=== PATIENT | male | born 1985 | race Caucasian/White ===

== ENCOUNTER 2018-02-06 15:13 | Emergency (ER) | payer BC, OTHER ==
[~2018-02-06] VITALS: Ht 190.5 cm; Wt 71.0 kg
[2018-02-06 15:18] VITALS: TEMP 36.7; Ht 190.5 cm; Wt 71.0 kg
[2018-02-06] MEDS ORDERED: SODIUM CHLORIDE 0.9% 1000ML 1,000 ML IV STA (15:38)
[2018-02-06] MEDS ORDERED: AMPICILLIN/SULBACTAM SOD INJ 3,000 MG in SODIUM CHLORIDE 0.9% 100ML 100 ML IV ONE (15:45)
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
[2018-02-06 16:22] LABS: BASO % 0.4 %; BASO ABS # 0.04 K/uL (0-0.2); EOS % 1.8 %; HEMATOCRIT 46.2 % (42-52); HEMOGLOBIN 16.4 g/dL (14.0-18.0); IG# 0.01 K/uL (0.00-0.02); LYMPH % 9.1 %; LYMPH ABS # 1.03 K/uL (1.2-3.4); MEAN CELL VOLUME 93.1 fL (80-100); MEAN CORPUSCULAR HEMOGLOBIN 33.1 pg (25-34); MEAN CORPUSCULAR HGB CONC 35.5 g/dl (32-36); MEAN PLATELET VOLUME 10.1 fL (7.4-10.4); MONO % 7.3 %; MONO ABS # 0.82 K/uL (0.11-0.59); NEUT % 81.3 %; NEUT ABS # 9.18 K/uL (1.4-6.5); PLATELET COUNT 237 K/uL (130-400); RED CELL DISTRIBUTION WIDTH CV 13.4 % (11.5-14.5); RED CELL DISTRIBUTION WIDTH SD 45.6 fL (36.4-46.3); WHITE BLOOD COUNT 11.28 K/uL (4.8-10.8)
--- NOTE | 2018-02-06 16:22 | DIAGNOSTIC IMAGING REPORT ---
L KNEE 1 OR 2 VIEWS ROUTINE CLINICAL HISTORY: 32 years-old Male presenting with eval for osteo left knee/tibfib. TECHNIQUE: Frontal and crosstable lateral views of the left knee were obtained. COMPARISON: None. FINDINGS: 3 screw fixation of the tibial plateau. Evidence of below the knee amputation with extensive deformity of the residual tibia. Ossicle along the lateral aspect of the knee joint may represent prior ligamentous injury or residual fibula. Numerous punctate metallic foreign bodies likely from prior injury. No acute fracture or malalignment. No significant osseous erosion or periosteal reaction allowing for deformity. Diffuse soft tissue swelling most prominently over the medial aspect of the knee joint. IMPRESSION: 1. No radiographic evidence of osteomyelitis allowing for extensive posttraumatic and postsurgical deformities of the below the knee amputation and internal fixation. MR would be more sensitive for the diagnosis of osteomyelitis. 2. Soft tissue swelling, nonspecific. Correlate clinically to exclude cellulitis. Electronically signed by: Kris Cordon M.D. 02/06/2018 4:21 PM Dictated Date/Time: 02/06/2018 4:18 PM
[2018-02-06 16:35] LABS: CALCIUM 9.1 mg/dl (8.5-10.1); POTASSIUM 3.9 mmol/L (3.5-5.1)
[2018-02-06 16:39] LABS: CREATININE 0.92 mg/dl (0.60-1.40)
--- NOTE | 2018-02-06 17:04 | DIAGNOSTIC IMAGING REPORT ---
EXTREMITY NONVASCULAR LIMITED CLINICAL HISTORY: 32 years-old Male presenting with eval for abscess in left leg, left below the knee indication with redness. TECHNIQUE: Real-time grayscale Doppler ultrasound imaging of the left knee was performed for a focused evaluation at the site of clinical concern. Color Doppler ultrasound imaging was also performed. COMPARISON: Plain radiograph performed the same day. FINDINGS: Extensive skin thickening and subcutaneous edema with dilated lymphatics. Regional hyperemia. No focal fluid collection. IMPRESSION: 1. No sonographic evidence of abscess. Extensive hyperemia and and edema could suggest cellulitis. Correlate clinically. Electronically signed by: Kris Cordon M.D. 02/06/2018 5:02 PM Dictated Date/Time: 02/06/2018 5:01 PM
[2018-02-06] MEDS ORDERED: AMOX875T PO (17:20)
[2018-02-06] MEDS ORDERED: SULF800T23 PO (17:20)
[2018-02-06] MEDS ORDERED: SEPTRA DS HOME PACK 1 EA VIAL PO ONE (17:30)
[2018-02-06] MEDS ORDERED: SULFAMETHOXAZOLE/TRIMETHOPRIM DS 800/160MG TAB PO ONE (17:30)
[2018-02-06] MEDS ORDERED: AMOXICIL/CLAVU 875MG HOME PACK PO ONE (17:30)
[2018-02-06 17:56] VITALS: BP 140/81; PULSE 79; O2SAT 100
== END 2018-02-06 17:58 | disposition home or self-care (01) ==
LOC: C.EDB 15:14
DX: L03.115 Cellulitis of right lower limb (principal); F17.210 Nicotine dependence, cigarettes, uncomplicated

== ENCOUNTER 2018-09-30 09:53 | Inpatient (IN) ==
[2018-09-30] MEDS ORDERED: PIPERACILLIN/TAZOBACTAM 4.5 GM/120 ML BAG IV ONE (10:21)
[2018-09-30] MEDS ORDERED: VANCOMYCIN CONSULT ACTIVE ONE (10:21)
[2018-09-30] MEDS ORDERED: VANCOMYCIN CONSULT ACTIVE PRN (10:21)
[2018-09-30] MEDS ORDERED: VANCOMYCIN HCL 1,750 MG in SODIUM CHLORIDE 0.9% 500 ML IV ONE (10:21)
[2018-09-30] MEDS ORDERED: PIPERACILL/TAZOBAC CONSULT ACTIVE PRN (10:21)
[2018-09-30 10:48] LABS: Basophils # (auto) 0.06 K/uL (0-0.2); Basophils % (auto) 0.4 %; Eosinophils # (auto) 0.05 K/uL (0-0.5); Eosinophils % (auto) 0.3 %; Hematocrit (blood only) 45.5 % (42-52); Hemoglobin 15.9 g/dL (14.0-18.0); Immature Granulocytes # (auto) 0.09 K/uL (0.00-0.02); Immature Granulocytes % (auto) 0.6 %; Lymphocytes # (auto) 1.18 K/uL (1.2-3.4); Lymphocytes % (auto) 7.2 %; Mean Corpuscular Hgb Conc 34.9 g/dL (32-36); Mean Corpuscular Volume 92.7 fL (80-100); Mean Platelet Volume 10.1 fL (7.4-10.4); Monocytes # (auto) 0.74 K/uL (0.11-0.59); Monocytes % (auto) 4.5 %; Neutrophils # (auto) 14.16 K/uL (1.4-6.5); Platelet Count 317 K/uL (130-400); RDW Standard Deviation 51.2 fL (36.4-46.3); Red Blood Count 4.91 M/uL (4.7-6.1); White Blood Count 16.28 K/uL (4.8-10.8)
[2018-09-30 10:59] LABS: INR 1.3 (0.9-1.1); Prothrombin Time 12.6 Seconds (9.0-12.0)
[2018-09-30 11:12] LABS: Albumin Level 3.3 gm/dl (3.4-5.0); BUN Creatinine Ratio 11.2 (10-20); Calcium 9.7 mg/dl (8.5-10.1); Creatinine Clr Calc Pharmacy 109.2 ml/min; Est GFR (African American) 97.7; Est GFR (Non-African American) 84.3; Magnesium 2.5 mg/dl (1.8-2.4); Potassium 3.5 mmol/L (3.5-5.1)
[2018-09-30 11:15] LABS: Albumin Globulin Ratio 0.6 (0.9-2); Globulin 5.9 gm/dl (2.5-4.0); Total Protein 9.2 gm/dl (6.4-8.2)
[2018-09-30] MEDS: SODIUM CHLORIDE 0.9% 1000ML 1,000 ML IV SCH ×2 (11:47→17:57)
[2018-09-30] MEDS ORDERED: OPTIRAY 320 125ml IV PRN (12:01)
--- NOTE | 2018-09-30 12:18 | CT Scan Report ---
CT OF THE LEFT FOREARM WITH CONTRAST CLINICAL HISTORY: Abscess. Cellulitis. COMPARISON STUDY: No previous studies for comparison. TECHNIQUE: Axial images of the left forearm were obtained following intravenous injection of 119 cc O ptiray 320 IV. Sagittal and coronal reconstructions were obtained. FINDINGS: There is no evidence for fracture or osteomyelitis within the left radius or ulna. No soft tissue gas is present. No radiopaque foreign bodies are noted. Note is made of a large extensive subc utaneous rim-enhancing fluid collection within the mid left forearm which measures 10.7 cm in length. This measures 2.6 cm in thickness and involves the anterior, lateral and posterior aspects of the le ft forearm. This contains a few septations. No additional rim-enhancing fluid collections are present . There is significant subcutaneous edema of the proximal left forearm/left elbow. No involvement of the underlying musculature is noted. The suspected abscess extends to the fascia. IMPRESSION: Large rim-enhancing subcutaneous fluid collection of the mid left forearm consistent with an abscess which measures 10.7 cm in length, 2.6 cm in thickness and involves the anterior, lateral and posterio r aspects of the left forearm. Abscess abuts the fascia. No involvement of the underlying musculature . No gas, radiopaque foreign body or evidence for osteomyelitis within the left radius or ulna. Electronically signed by: Juliocesar Peter M.D. 09/30/2018 12:16 PM
--- NOTE | 2018-09-30 13:18 | XRay Report ---
XR forearm LT 2V CLINICAL HISTORY: Soft tissue abscess COMPARISON: CT scan dated 09/30/2018 DISCUSSION: There is pronounced soft tissue swelling, corresponding to the edema and abscesses descri bed on the CT scan. There are no fractures. There are no destructive lesions to indicate osteomyeliti s. IMPRESSION: 1. No evidence of fracture 2. No evidence of osteomyelitis 3. Pronounced soft tissue swelling corresponding to the edema and abscesses described on the recent C T scan. Electronically signed by: Zaheer Bailey M.D. 09/30/2018 1:17 PM
[2018-09-30] MEDS ORDERED: KETOROLAC 30 MG/ML VIAL IV STA (13:38)
--- NOTE | 2018-09-30 13:42 | History & Physical Report ---
Date of Service September 30, 2018 Assessment & Plan (1) Abscess of left forearm: 33 M here for left forearm with cellulitis and abscess on forearm CT measuring 10.7 cm x 2.6 cm. 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 Left forearm abscess, h/o MRSA + ulcer of LT BKA - Continue vanc/zosyn - C/S ortho, they will clean out tmr - npo after midnite, hold AM heparin - pain control with non-opioids as possible: scheduled tylenol and toradol - blood cultures pending. h/o IVDA - abx as above - avoid opioids as possible, but also mindful that if opioid pain med needed, has tolerance. Methadone therapy - will need replaced, ordered to continue. - 10/01: will need to call [phone] 10/01 (open 5:30a-1:30p) "[facility]" -- will need to call to verify dosing, pt states he takes 67ml suspension. - PDMP reviewed, last buprenorphine given was in march. Do not see methadone listed there. Tobacco use - 1.5 PPD currently - nicoderm patch FEN/GI: Regular diet. NPO after midnite. DVT ppx: Heparin TID CODE STATUS: FULL DISPO: Med/surg, to OR 10/01 (2) Amputation of left lower extremity: (3) Cellulitis of left forearm: History of Present Illness Primary Care Provider: Charanjit Segura III, 33 M here for 4 day h/o redness and progressive swelling of his left forearm. Pt denies any particular h/o trauma, but does point to the left outer forearm and says there used to be a scratch there, which then began to swell starting Thursday of this week. Thursday it seemed to get better, but then yesterday and this morning it began to get worse and more painful hence coming in to the ED. He endorses severe pain at the left forearm. States he has taken nothing for pain at home as of yet. Pt denies fevers, chills, chest pain, dyspnea, headache, abdominal pain, or lesions any where else on his body. ED course: forearm CT [facility] abscess[facility], plan for [facility] clean out 10/01. Given Vanc/Zosyn. 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 Smokes 1 1/2 PPD. Drinks 1 beer per day. Last illicit drug use was 4 months ago. Goes to methadone clinic every morning for 67 mg methadone. PMH: heroin abuse and BKA LT, complicated by MRSA + ulceration. PSH: LT BKA Meds: methadone daily All: NKDA Allergies Allergy/AdvReac Type Severity Reaction Status Date / Time No Known Allergies Allergy Unverified 09/30/18 10:23 Home Medications Home Medications Medication Instructions Recorded Confirmed Type methadone 67 mg PO DAILY 09/30/18 09/30/18 History Past Med/Surg History Family History Other No significant family history Social History Current Living Situation: Parent and Family Other Information That Helps Us Care for You: No Feels Safe at Home: Yes Safety Concerns: Feels Safe At This Time Smoking Status: Current every day smoker Tobacco Type: cigarettes Cigarettes per Day: 20 Do You Dip or Chew Tobacco: No Second Hand Exposure: No Tobacco Cessation Education Requested by Patient: No Hx Alcohol Use: Yes Alcohol Intake Frequency: other Hx Substance Use: No Beliefs That Will Affect Care: None Preferred Language: Emirati Communication Ability: Effective Crew Foreman Required: No Review of Systems All systems reviewed & are unremarkable except as noted in HPI & below Physical Exam 2 Vital Signs (Past 24 Hours): Last Vital Signs Temp 36.7 C 09/30/18 10:04 Pulse 92 H 09/30/18 10:04 Resp 18 09/30/18 13:00 BP 141/84 H 09/30/18 13:00 Pulse Ox 98 09/30/18 13:00 Physical Exam: Vitals noted as above and within normal limits. GENERAL: Awake, alert, well-appearing, in no distress HENT: Normocephalic, atraumatic. EYES: Normal conjunctiva. Sclera non-icteric. EOMI. NECK: Supple. Full range of motion. no JVD RESPIRATORY: Clear to auscultation. CARDIAC: Regular rate, normal rhythm. Extremities warm and well perfused. Pulses equal. ABDOMEN: Soft, non-distended. No tenderness to palpation. Bowel sounds are normal. LOWER EXTREMITIES: S/p LT BKA. UPPER EXT: left forearm diffusely erythematous and swollen, with fluctuance in lateral and posterior forearm. Neurovascularly in tact. TTP along forearm. NEURO: No gross focal motor deficits noted. SKIN: Rash not present. No jaundice noted. ERythema and swelling of left forearm as above. Results & Data Laboratory Results 09/30/18 09/30/18 09/30/18 Range/Units 10:38 10:30 10:30 WBC (4.8-10.8) K/uL RBC (4.7-6.1) M/uL Hgb (14.0-18.0) g/dL Hct (42-52) % MCV (80-100) fL MCH (25-34) pg MCHC (32-36) g/dL RDW Std Deviation (36.4-46.3) fL RDW Coeff of Nikita (11.5-14.5) % Plt Count (130-400) K/uL MPV (7.4-10.4) fL Immature Gran % (Auto) % Neut % (Auto) % Lymph % (Auto) % Tyrrell % (Auto) % Eos % (Auto) % Baso % (Auto) % Immature Gran # (Auto) (0.00-0.02) K/uL Neut # (Auto) (1.4-6.5) K/uL Lymph # (Auto) (1.2-3.4) K/uL Tyrrell # (Auto) (0.11-0.59) K/uL Eos # (Auto) (0-0.5) K/uL Baso # (Auto) (0-0.2) K/uL PT 12.6 H (9.0-12.0) Seconds INR 1.3 H (0.9-1.1) Sodium 131 L (136-145) mmol/L Potassium 3.5 (3.5-5.1) mmol/L Chloride 95 L (98-107) mmol/L Carbon Dioxide 26 (21-32) mmol/L Anion Gap 10.0 (3-11) BUN 13 (7-18) mg/dl Creatinine 1.13 (0.6-1.4) mg/dl Est Cr Clr Drug Dosing 109.2 ml/min Est GFR ( Amer) 97.7 Est GFR (Non-Af Amer) 84.3 BUN/Creatinine Ratio 11.2 (10-20) Glucose 112 H (70-99) mg/dl POC Lactic Acid Nj 1.59 (0.90-1.70) mmol/L Calcium 9.7 (8.5-10.1) mg/dl Magnesium 2.5 H (1.8-2.4) mg/dl Total Bilirubin 1.0 (0.1-1) mg/dl AST 16 (15-37) U/L ALT 24 (12-78) U/L Alkaline Phosphatase 95 (45-117) U/L Total Protein 9.2 H (6.4-8.2) gm/dl Albumin 3.3 L (3.4-5.0) gm/dl Globulin 5.9 H (2.5-4.0) gm/dl Albumin/Globulin Ratio 0.6 L (0.9-2) Lipase 80 (73-393) U/L // Range/Units 10:30 WBC 16.28 H (4.8-10.8) K/uL RBC 4.91 (4.7-6.1) M/uL Hgb 15.9 (14.0-18.0) g/dL Hct 45.5 (42-52) % MCV 92.7 (80-100) fL MCH 32.4 (25-34) pg MCHC 34.9 (32-36) g/dL RDW Std Deviation 51.2 H (36.4-46.3) fL RDW Coeff of Nikita 15.0 H (11.5-14.5) % Plt Count 317 (130-400) K/uL MPV 10.1 (7.4-10.4) fL Immature Gran % (Auto) 0.6 % Neut % (Auto) 87.0 % Lymph % (Auto) 7.2 % Tyrrell % (Auto) 4.5 % Eos % (Auto) 0.3 % Baso % (Auto) 0.4 % Immature Gran # (Auto) 0.09 H (0.00-0.02) K/uL Neut # (Auto) 14.16 H (1.4-6.5) K/uL Lymph # (Auto) 1.18 L (1.2-3.4) K/uL Tyrrell # (Auto) 0.74 H (0.11-0.59) K/uL Eos # (Auto) 0.05 (0-0.5) K/uL Baso # (Auto) 0.06 (0-0.2) K/uL PT (9.0-12.0) Seconds INR (0.9-1.1) Sodium (136-145) mmol/L Potassium (3.5-5.1) mmol/L Chloride (98-107) mmol/L Carbon Dioxide (21-32) mmol/L Anion Gap (3-11) BUN (7-18) mg/dl Creatinine (0.6-1.4) mg/dl Est Cr Clr Drug Dosing ml/min Est GFR ( Amer) Est GFR (Non-Af Amer) BUN/Creatinine Ratio (10-20) Glucose (70-99) mg/dl POC Lactic Acid Nj (0.90-1.70) mmol/L Calcium (8.5-10.1) mg/dl Magnesium (1.8-2.4) mg/dl Total Bilirubin (0.1-1) mg/dl AST (15-37) U/L ALT (12-78) U/L Alkaline Phosphatase (45-117) U/L Total Protein (6.4-8.2) gm/dl Albumin (3.4-5.0) gm/dl Globulin (2.5-4.0) gm/dl Albumin/Globulin Ratio (0.9-2) Lipase (73-393) U/L Diagnostic Findings 09/30/[address] with Large rim-enhancing subcutaneous fluid collection of the mid left forearm consistent with an abscess which measures 10.7 cm in length, 2.6 cm in thickness and involves the anterior, lateral and posterior aspects of the left forearm. No evidence of osteomyelitis. Medications Administered Current Inpatient Medications Sodium Chloride (Nss 1000ml) 1,000 mls @ 125 mls/hr IV .Q8H CRICKET Stop: 10/30/18 10:29 Last Admin: 09/30/18 11:47 Dose: 125 mls/hr Ioversol (Optiray 320 125ml) 119 ml IV ONCE PRN PRN Reason: Interaction Checking Stop: 10/04/18 12:00 Last Admin: 09/30/18 12:01 Dose: 119 ml Ketorolac Tromethamine (Toradol) 30 mg IV NOW STA Stop: 09/30/18 13:39 Miscellaneous Information (Consult) 1 ea N/A UD PRN PRN Reason: Consult Stop: 10/30/18 10:20 Miscellaneous Information (Consult) 1 ea N/A UD PRN PRN Reason: Consult Stop: 10/30/18 10:20 ECG Rhythm: sinus rhythm Code Status & VTE Plan Code Status FULL Supervising Physician Co-Signing Physician Notes I personally examined the patient and verified all gaitan points of history and exam, discussed case, and agree with decision making with Dr Foreman arm swelling redness and pain - started a few days ago then really blossomed. pain seems reasonable now notes that swelling has actually already started to go down vitals noted nad L arm large area of erythema essentially circumferential for forearm, tracking up medial and posterior arm as well. large area of fluctuance mid forearm as well. hand n/v intact good cap refill sepsis, cellulitis, abscess L arm (SIRS are HR on arrival, WBC) - agree vanc and zosyn for now. serial exams. ortho for drainage. otherwise as above Resident Activity Tracking Resident Involvement: Resident Care Provided Care Provided: Adult Hospital Medicine
[2018-09-30] MEDS ORDERED: NICOTINE 21 MG/24 HR TDSY TD SCH (16:00)
[2018-09-30] MEDS ORDERED: MAGNESIUM HYDROXIDE SUSP 30 ML UDC PO PRN (16:22)
[2018-09-30] MEDS ORDERED: ALUMINUM/MAGNESIUM SUSP 30 ML UDC PO PRN (16:22)
[2018-09-30] MEDS ORDERED: ONDANSETRON INJ 2 MG/ML 2 ML VIAL IV PRN (16:22)
[2018-09-30] MEDS ORDERED: POLYETHYLENE (MIRALAX) 17 GM PACK PO PRN (16:22)
[2018-09-30] MEDS: ACETAMINOPHEN 325 MG TAB PO SCH ×2 (17:56→23:22)
[2018-09-30] MEDS: PIPERACILLIN/TAZOBACTAM 3.375 GM in DEXTROSE 5% 100 ML IV SCH (17:56)
[2018-09-30] MEDS: VANCOMYCIN HCL 1,250 MG in SODIUM CHLORIDE 0.9% 250 ML IV SCH (19:58)
--- NOTE | 2018-09-30 20:25 | Pharmacy Report ---
Pharmacy Abx Initial Consult - Date of Service September 30, 2018 - Pharmacy Dosing Scope Date of Consult: 09/30/18 Consultation requested by: Dr. Greg Foreman Pharmacy is consulted to initiate Vancomycin and Zosyn IV dosing therapy, order appropriate labs and adjust drug dose/frequency. - Subjective The patient is a 33 year old M admitted on 09/30/18 14:29. - Objective Height: 6 ft 3 in Weight: 83.8 kg Vital Signs (Past 12hrs): Vital Signs Temp Pulse Pulse Resp BP BP Pulse Ox 09/30/18 16:15 36.5 C 78 18 109/69 98 09/30/18 13:00 18 141/84 H 98 09/30/18 10:04 36.7 C 92 H 20 159/89 H 98 Pulse Ox 09/30/18 16:15 98 09/30/18 13:00 09/30/18 10:04 Lab Results (24hrs): Laboratory Tests (24 Hours) 09/30/18 09/30/18 10:30 10:30 WBC 16.28 H Neut # (Auto) 14.16 H Creatinine 1.13 Est Cr Clr Drug Dosing 109.2 Micro Results: 09/30/18 12:20 Blood Culture - Pending Blood 09/30/18 10:30 Blood Culture - Pending Blood - Risk Factors for Resistance * H/o of IVDA; last use about 4 months ago. * Left BKA with h/o MRSA IN 2017. - Assessment & Plan Assessment 33 year old M admitted with redness and progressive swelling of left forearm over the last 4 days. No trauma apparent, but patient reports there was a scratch on his outer forearm prior to onset of symptoms. Forearm CT shows abscess. Assessed by Ortho, plan for OR clean out 10/01. Plan Vancomycin and Zosyn for treatment of skin and soft tissue infection with history of MRSA. Vancomycin IV * Estimated PK Parameters: Vd 0.7 L/kg, Jose Enrique 0.087 hr-1, t1/2 8 hr * Loading dose: 1750 mg (~21 mg/kg) x 1 dose in the ED * Maintenance dose: 1250 mg IV (~15 mg/kg) every 10 hours * Goal trough level : 15 to 20 mcg/mL * Trough level ordered for 10/02/18 Piperacillin/tazobactam * 4.5 g bolus administered over 30 minutes, then 3.375 g IV extended infusion every 8 hours for CrCl greater than 20 mL/min. Pharmacy will continue to follow and will adjust dose/frequency as necessary. Thank you.
[2018-09-30] MEDS ORDERED: HEPARIN SOD 5,000 UNIT/0.5 ML VIAL SQ SCH (21:00)
[2018-09-30] MEDS: KETOROLAC TROMETHAMINE 15 MG/ML VIAL IV PRN (21:23)
[2018-10-01] MEDS: SODIUM CHLORIDE 0.9% 1000ML 1,000 ML IV SCH ×2 (01:17→09:47)
[2018-10-01] MEDS: PIPERACILLIN/TAZOBACTAM 3.375 GM in DEXTROSE 5% 100 ML IV SCH ×2 (01:55→10:35)
[2018-10-01] MEDS: KETOROLAC TROMETHAMINE 15 MG/ML VIAL IV PRN ×2 (04:03→10:38)
[2018-10-01] MEDS: ACETAMINOPHEN 325 MG TAB PO SCH ×4 (04:03→20:08)
[2018-10-01] MEDS: VANCOMYCIN HCL 1,250 MG in SODIUM CHLORIDE 0.9% 250 ML IV SCH ×2 (05:49→14:41)
[2018-10-01 08:06] LABS: Basophils # (auto) 0.06 K/uL (0-0.2); Basophils % (auto) 0.4 %; Eosinophils # (auto) 0.13 K/uL (0-0.5); Hemoglobin 13.3 g/dL (14.0-18.0); Immature Granulocytes # (auto) 0.08 K/uL (0.00-0.02); Immature Granulocytes % (auto) 0.6 %; Lymphocytes # (auto) 1.18 K/uL (1.2-3.4); Lymphocytes % (auto) 8.6 %; Mean Corpuscular Hgb Conc 34.1 g/dL (32-36); Mean Corpuscular Volume 93.1 fL (80-100); Mean Platelet Volume 9.7 fL (7.4-10.4); Monocytes # (auto) 1.07 K/uL (0.11-0.59); Monocytes % (auto) 7.8 %; Neutrophils # (auto) 11.14 K/uL (1.4-6.5); Neutrophils % (auto) 81.6 %; Platelet Count 292 K/uL (130-400); RDW Coefficient of Variation 15.1 % (11.5-14.5); RDW Standard Deviation 51.5 fL (36.4-46.3); Red Blood Count 4.19 M/uL (4.7-6.1); White Blood Count 13.66 K/uL (4.8-10.8)
[2018-10-01 08:17] LABS: INR 1.3 (0.9-1.1); Prothrombin Time 12.5 Seconds (9.0-12.0)
[2018-10-01 08:46] LABS: BUN Creatinine Ratio 10.1 (10-20); Calcium 8.1 mg/dl (8.5-10.1); Creatinine Clr Calc Pharmacy 115.3 ml/min; Est GFR (African American) 104.4; Est GFR (Non-African American) 90.1; Potassium 3.7 mmol/L (3.5-5.1)
[2018-10-01] MEDS: PATIENT'S OWN CONTROLLED MED PO SCH (09:46)
[2018-10-01] MEDS: METHADONE ORAL SOLN 2 MG/ML PO SCH (09:46)
[2018-10-01] MEDS: NICOTINE 21 MG/24 HR TDSY TD SCH (09:47)
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
[2018-10-01] MEDS ORDERED: BUPIVACAINE 0.5 % 5 MG/1 ML MPF 30ML VIAL ONE (15:53)
[2018-10-01] MEDS ORDERED: BACITRACIN INJ 50,000 UNIT VIAL ONE (15:53)
[2018-10-01] MEDS ORDERED: PROPOFOL IV EMULSION 10 MG/ML 20 ML VIAL IV ONE (16:28)
[2018-10-01] MEDS ORDERED: ONDANSETRON INJ 2 MG/ML 2 ML VIAL ONE (16:28)
[2018-10-01] MEDS ORDERED: LIDOCAINE HCL 2% 2 ML VIAL/AMP(20MG/ML) INFIL ONE (16:28)
[2018-10-01] MEDS ORDERED: fentaNYL citrate 100 MCG/2 ML VIAL ONE ×2 (16:29→17:39)
[2018-10-01] MEDS ORDERED: MIDAZOLAM HCL 1 MG/ML 2ML VIAL ONE (16:29)
--- NOTE | 2018-10-01 16:46 | Anesthesiology Consultation ---
Date of Service October 01, 2018 Assessment & Plan Consults Requested medical & cardiac Pulmonary ASA [id number] Proposed Anesthesia Anesthesia Type: General NPO Date Last Intake of Fluids: 10/01/18 Time Last Intake of Fluids: 04:00 Last Intake of Fluids Comment: 30 Date Last Intake of Solids: 09/30/18 Time Last Intake of Solids: 23:30 History Surgery Operation Date: 10/01/18 07:00 Proposed Procedures p Left Forearm Incision and Drainage - Arturo Moreno DO Height/Weight Height: 6 ft 3 in Weight: 83.8 kg Allergies Allergy/AdvReac Type Severity Reaction Status Date / Time No Known Allergies Allergy Unverified 09/30/18 10:23 Medications Home Medications Medication Instructions Recorded Confirmed Last Taken methadone 67 mg PO DAILY 09/30/18 09/30/18 09/30/18 Active Medications Generic Name Dose Route Start Last Admin Trade Name Freq PRN Reason Stop Dose Admin Acetaminophen 650 mg 09/30/18 18:00 10/01/18 13:58 Tylenol PO 10/30/18 17:59 650 mg Q5H CRICKET Administration Heparin Sodium (Porcine) 5,000 units 09/30/18 21:00 09/30/18 20:02 Heparin Sodium (Porcine) SQ 10/30/18 20:59 5,000 units Q12 CRICKET Administration Sodium Chloride 1,000 mls @ 125 mls/hr 09/30/18 10:30 10/01/18 09:47 Nss 1000ml IV 10/30/18 10:29 125 mls/hr .Q8H CRICKET Administration Piperacillin Sod/Tazobactam 115 mls @ 28.75 mls/hr 09/30/18 18:00 10/01/18 14 :41 Sod 3.375 gm/ Dextrose IV 10/10/18 17:59 Infused Q8H CRICKET Infusion Protocol Vancomycin HCl 1,250 mg/ 275 mls @ 125 mls/hr 10/01/18 14:00 10/01/18 14:41 Sodium Chloride IV 10/10/18 19:59 125 mls/hr Q8H CRICKET Administration Ioversol 119 ml 09/30/18 12:01 09/30/18 12:01 Optiray 320 125ml IV 10/04/18 12:00 119 ml ONCE PRN Administration Interaction Checking Ketorolac Tromethamine 15 mg 09/30/18 16:22 10/01/18 10:38 Toradol IV 10/05/18 16:21 15 mg Q6H PRN Administration Pain Methadone HCl 67 mg 10/01/18 09:00 10/01/18 09:46 Methadone Hcl PO 10/15/18 08:59 67 mg DAILY CRICKET Administration Miscellaneous 1 ea 09/30/18 21:00 09/30/18 20:04 Remove Nicoderm Patch N/A 10/30/18 20:59 Not Given HS CRICKET Nicotine 21 mg 10/01/18 09:00 10/01/18 09:47 Nicoderm Cq TD 10/31/18 08:59 Not Given QAM CRICKET Non-Formulary Medication 1 ea 10/01/18 09:00 10/01/18 09:46 Patient's Own Controlled Med PO 10/15/18 08:59 Not Given DAILY CRICKET Past Medical History Medical History Amputation of left lower extremity Past Family History Family History Other No significant family history Social History Smoking Status: Current every day smoker tobacco type: cigarettes Smoking cigarettes per day: 20 Do You Dip or Chew Tobacco: No Hx Alcohol Use: Yes alcohol intake frequency: other Alcohol Intake Frequency Comment: 2 a week Hx Substance Use: No Physical Exam Vital Signs Last Vital Signs Temp 36.9 C 10/01/18 15:11 Pulse 73 10/01/18 15:11 Resp 20 10/01/18 15:11 BP 115/69 10/01/18 15:11 Pulse Ox 95 10/01/18 15:11 Testing Laboratory Results 10/01/18 07:50 10/01/18 07:50 PT 12.5 Seconds (9.0-12.0) H 10/01/18 07:50 INR 1.3 (0.9-1.1) H 10/01/18 07:50
--- NOTE | 2018-10-01 17:01 | Orthopedic Consultation ---
Date of Consultation October 01, 2018 Assessment & Plan (1) Abscess of left forearm: I have indicated the patient for irrigation debridement of the left forearm, possible wound VAC application, the risks, benefits, complications of the procedure as well as alternatives were explained and the patient and they include however not limited to infection, acute blood loss, blood clots, injury to surrounding nerves, bone, soft tissue, vessels, chronic pain, need for repeat surgery, compartment syndrome, loss of function, loss of limb, cardiac and pulmonary events and . N.p.o. Nonweightbearing left upper extremity Ice and elevation Continue with IV antibiotics vancomycin and Zosyn History of Present Illness Reason for Consultation: Left arm abscess Attending Physician: Angel Velarde DO History of Present Illness The patient is a 33-year-old male with past medical history significant for IVDA , on methadone, last IV drug use reported 4 months prior. Presents with worsening pain and swelling to his left upper extremity which started 1 week prior he reports. He had a scrape overlying the dorsal aspect of the lower one third forearm however does not recall how he obtained it. Over the last week the patient has reported increased swelling and pain in redness. Currently denies fevers chills nausea vomiting shortness breath chest pain. Has a history of MRSA. Allergies Allergy/AdvReac Type Severity Reaction Status Date / Time No Known Allergies Allergy Unverified 09/30/18 10:23 Home Medications Home Medications Medication Instructions Recorded Confirmed Type methadone 67 mg PO DAILY 09/30/18 09/30/18 History Patient History Medical History Amputation of left lower extremity Family History Other No significant family history Social History Current Living Situation: Parent and Family Other Information That Helps Us Care for You: No Feels Safe at Home: Yes Safety Concerns: Feels Safe At This Time Smoking Status: Current every day smoker Tobacco Type: cigarettes Cigarettes per Day: 20 Do You Dip or Chew Tobacco: No Hx Alcohol Use: Yes Alcohol Intake Frequency: other Hx Substance Use: No Beliefs That Will Affect Care: None Preferred Language: Burmese Communication Ability: Effective Tractor Trailer Technician Required: No Review of Systems Constitutional: as per Subjective / HPI Physical Exam 2 Vital Signs (Past 24 Hours): Last Vital Signs Temp 36.9 C 10/01/18 15:11 Pulse 73 10/01/18 15:11 Resp 20 10/01/18 15:11 BP 115/69 10/01/18 15:11 Pulse Ox 95 10/01/18 15:11 Physical Exam: No apparent distress, alert and oriented x3 Left upper extremity is neurovascular sensory intact, + median/ulnar/radial/AIN/ PIN, sensory intact light touch grossly, motor strength limited secondary to pain, painless range of motion of the wrist and elbow, no effusion noted, large fluctuant mass overlying the middle one third dorsal aspect of the forearm measuring 8 cm x 5 cm with a eschar forming, fluctuance is appreciated overlying the lateral forearm to the volar aspect of the arm, there is a 5 x 5 cm fluctuant mass on the volar aspect of the middle one third forearm. A small eschar is forming over the volar mass. There is no active drainage, there is extensive erythema circumferentially from the distal one third forearm, does not include the wrist joint extending up proximal to the elbow. Results & Data Diagnostic Findings XR forearm LT 2V CLINICAL HISTORY: Soft tissue abscess COMPARISON: CT scan dated 09/30/2018 DISCUSSION: There is pronounced soft tissue swelling, corresponding to the edema and abscesses described on the CT scan. There are no fractures. There are no destructive lesions to indicate osteomyelitis. IMPRESSION: 1. No evidence of fracture 2. No evidence of osteomyelitis 3. Pronounced soft tissue swelling corresponding to the edema and abscesses described on the recent CT scan. CT OF THE LEFT FOREARM WITH CONTRAST CLINICAL HISTORY: Abscess. Cellulitis. COMPARISON STUDY: No previous studies for comparison. TECHNIQUE: Axial images of the left forearm were obtained following intravenous injection of 119 cc Optiray 320 IV. Sagittal and coronal reconstructions were obtained. FINDINGS: There is no evidence for fracture or osteomyelitis within the left radius or ulna. No soft tissue gas is present. No radiopaque foreign bodies are noted. Note is made of a large extensive subcutaneous rim-enhancing fluid collection within the mid left forearm which measures 10.7 cm in length. This measures 2.6 cm in thickness and involves the anterior, lateral and posterior aspects of the left forearm. This contains a few septations. No additional rim- enhancing fluid collections are present. There is significant subcutaneous edema of the proximal left forearm/left elbow. No involvement of the underlying musculature is noted. The suspected abscess extends to the fascia. IMPRESSION: Large rim-enhancing subcutaneous fluid collection of the mid left forearm consistent with an abscess which measures 10.7 cm in length, 2.6 cm in thickness and involves the anterior, lateral and posterior aspects of the left forearm. Abscess abuts the fascia. No involvement of the underlying musculature. No gas, radiopaque foreign body or evidence for osteomyelitis within the left radius or ulna.
[2018-10-01] MEDS ORDERED: DEXAMETHASONE SOD INJ 4 MG/ML VIAL IV PRN (17:02)
[2018-10-01] MEDS ORDERED: ATROPINE SULFATE 0.1 MG/ML 5ML SYR IV PRN (17:02)
[2018-10-01] MEDS ORDERED: HYDROmorphone INJ 2 MG/ML SYR/VIAL IV PRN (17:02)
[2018-10-01] MEDS ORDERED: ePHEDrine sulfate 50 MG/ML AMP IV PRN (17:02)
[2018-10-01] MEDS ORDERED: KETOROLAC 30 MG/ML VIAL IV PRN (17:02)
[2018-10-01] MEDS ORDERED: ONDANSETRON INJ 2 MG/ML 2 ML VIAL IV PRN (17:02)
--- NOTE | 2018-10-01 18:21 | Post Operative Brief Note ---
Immediate Post Op Note v1 Date of Surgery October 01, 2018 Pre & Post Diagnosis Operation Date: 10/01/18 07:00 Pre-Op Diagnosis: LEFT FOREARM ABSCESS Post-Op Diagnosis: LEFT FOREARM ABSCESS Procedure Operation Date: 10/01/18 07:00 Actual Procedures p Left Forearm Incision and Drainage with wound vac application - Austin Harp DO Surgeon Austin Harp DO Trailer Sections Assembler none Estimated Blood Loss 40 Findings Consistent with Post-Op Diagnosis Fluids 500 Specimens wound culture, dorsal forearm x 2 wound culture, volar forearm x 2 Drains Other (wound vac x 2, left forearm) Anesthesia Type General Complications none Disposition Disposition: Recovery Room Overlapping Procedure I was present for: the critical portions of procedure. I was immediately available: during the entire case. Back up surgeon: was not required during procedure.
[2018-10-01] MEDS: fentaNYL citrate 100 MCG/2 ML VIAL IV PRN ×4 (18:30→18:45)
[2018-10-01] MEDS ORDERED: NALOXONE HCL 0.4 MG/1 ML VIAL/CARP IV PRN (18:49)
[2018-10-01] MEDS ORDERED: MoRPHine SULFATE 4 MG/ML 1 ML CARP\\VIAL IV PRN (18:49)
--- NOTE | 2018-10-01 18:56 | Orthopedic Progress Note ---
Date of Service October 01, 2018 Assessment & Plan (1) Abscess of left forearm: Status post irrigation and debridement of the left volar and dorsal forearm abscess, application of wound VAC x2 -Continue with IV antibiotics, vancomycin and Zosyn -Consult infectious disease for antibiotic recommendation -Consult pain management -Nonweightbearing left upper extremity -PT/OT -Ice and elevation of left upper extremity -A.m. labs -Monitor wound VAC output Subjective Postoperative progress note The patient was seen in PACU, awake alert oriented, slight agitation, complaining of pain, denies fevers chills nausea vomiting shortness breath or chest pain. Constitutional: as per Subjective / HPI Physical Exam 2 Vital Signs (Past 24 Hours): Last Vital Signs Temp 36.4 C L 10/01/18 18:26 Pulse 92 H 10/01/18 18:45 Resp 18 10/01/18 18:45 BP 119/83 10/01/18 18:45 Pulse Ox 97 10/01/18 18:45 Physical Exam: Left upper extremity is neurovascular and sensory intact, + median/ulnar/radial/AIN/PIN, actively moves all 5 digits, capillary refill less than 2 seconds sensory intact to light touch grossly.
[2018-10-01] MEDS: HYDROmorphone HCL 2 MG TAB PO PRN (20:06)
--- NOTE | 2018-10-01 20:17 | Anesthesiology Progress Note ---
Date of Service October 01, 2018 Anesthesia Post Procedure Vital Signs Vital Signs: Temp Pulse Pulse Pulse Resp BP Pulse Ox 10/01/18 19:55 36.6 C 86 20 131/76 95 10/01/18 19:36 36.7 C 89 16 133/78 95 10/01/18 19:10 89 18 134/78 96 10/01/18 18:55 36.4 C L 86 18 140/87 96 10/01/18 18:45 92 H 18 119/83 97 10/01/18 18:35 87 20 142/86 H 100 10/01/18 18:26 36.4 C L 93 H 20 137/87 96 10/01/18 15:11 36.9 C 73 20 115/69 95 10/01/18 07:32 36.6 C 71 16 114/72 96 09/30/18 22:57 36.8 C 75 14 101/63 95 Pain Intensity Left Arm: Pain Intensity: 10 Notes Mental Status: alert / awake / arousable and participated in evaluation Patient Amnestic to Procedure: Yes Nausea / Vomiting: adequately controlled Pain: adequately controlled Airway Patency, RR, SpO2: stable & adequate BP & HR: stable & adequate Hydration State: stable & adequate Anesthetic Complications: no major complications apparent
[2018-10-01] MEDS: POTASSIUM CHLORIDE 10 MEQ in SODIUM CHLORIDE 0.9% 1000ML 1,000 ML IV SCH (20:22)
[2018-10-01] MEDS: ACETAMINOPHEN 1,000 MG/100 ML VIAL IV SCH (20:23)
[2018-10-01] MEDS: DOCUSATE SODIUM 100 MG CAP PO SCH (20:24)
[2018-10-01] MEDS: SENNA 8.6 MG TAB PO SCH (20:24)
[2018-10-02] MEDS: HYDROmorphone HCL 2 MG TAB PO PRN ×9 (00:28→22:33)
[2018-10-02] MEDS: SODIUM CHLORIDE 0.9% 1000ML 1,000 ML IV SCH (00:30)
[2018-10-02] MEDS: VANCOMYCIN HCL 1,250 MG in SODIUM CHLORIDE 0.9% 250 ML IV SCH ×3 (00:33→17:05)
[2018-10-02] MEDS: PIPERACILLIN/TAZOBACTAM 3.375 GM in DEXTROSE 5% 100 ML IV SCH ×3 (00:36→17:43)
[2018-10-02] MEDS ORDERED: VANCOMYCIN TROUGH ONE ×4 (01:30→15:30)
[2018-10-02] MEDS: ACETAMINOPHEN 1,000 MG/100 ML VIAL IV SCH ×2 (04:36→12:04)
[2018-10-02 06:19] LABS: Basophils # (auto) 0.07 K/uL (0-0.2); Basophils % (auto) 0.6 %; Eosinophils # (auto) 0.28 K/uL (0-0.5); Eosinophils % (auto) 2.4 %; Hematocrit (blood only) 36.8 % (42-52); Hemoglobin 12.6 g/dL (14.0-18.0); Immature Granulocytes % (auto) 0.9 %; Lymphocytes # (auto) 1.46 K/uL (1.2-3.4); Lymphocytes % (auto) 12.6 %; Mean Corpuscular Hgb Conc 34.2 g/dL (32-36); Mean Corpuscular Volume 93.6 fL (80-100); Mean Platelet Volume 9.8 fL (7.4-10.4); Monocytes # (auto) 0.82 K/uL (0.11-0.59); Monocytes % (auto) 7.1 %; Neutrophils # (auto) 8.82 K/uL (1.4-6.5); Neutrophils % (auto) 76.4 %; Platelet Count 281 K/uL (130-400); RDW Coefficient of Variation 15.5 % (11.5-14.5); RDW Standard Deviation 53.8 fL (36.4-46.3); Red Blood Count 3.93 M/uL (4.7-6.1); White Blood Count 11.55 K/uL (4.8-10.8)
[2018-10-02 06:26] LABS: INR 1.2 (0.9-1.1); Prothrombin Time 12.4 Seconds (9.0-12.0)
[2018-10-02 06:53] LABS: BUN Creatinine Ratio 8.4 (10-20); Calcium 8.1 mg/dl (8.5-10.1); Creatinine Clr Calc Pharmacy 146.9 ml/min; Est GFR (African American) 132.4; Est GFR (Non-African American) 114.2; Potassium 3.6 mmol/L (3.5-5.1)
--- NOTE | 2018-10-02 09:16 | Orthopedic Progress Note ---
Date of Service October 02, 2018 Assessment & Plan (1) Abscess of left forearm: Status post irrigation and debridement of the left volar and dorsal forearm abscess, application of wound VAC x2 POD#1 -Continue with IV antibiotics, vancomycin and Zosyn -Consult infectious disease for antibiotic recommendation -Consult pain management -Nonweightbearing left upper extremity -PT/OT -Ice and elevation of left upper extremity -A.m. labs HGB 12.6 -Cultures GS gram+cocci, culture pending -Monitor wound VAC output The plan will be for the patient to return to the OR for repeat irrigation and debridement and primary closure versus placement of wound VAC 48-72 hours from his previous irrigation and debridement. We will continue to monitor his progress to determine return to OR. Subjective Post Operative Progress Note Patient seen sitting up in bed, comfortable, denies complaints, pain well controlled, no acute issues. Pain much improved today. Constitutional: as per Subjective / HPI Physical Exam 2 Vital Signs (Past 24 Hours): Last Vital Signs Temp 36.6 C 10/02/18 06:50 Pulse 70 10/02/18 06:50 Resp 70 H 10/02/18 06:50 BP 117/73 10/02/18 06:50 Pulse Ox 97 10/02/18 06:50 Physical Exam: Left upper extremity is neurovascular and sensory intact, + median/ulnar/radial/AIN/PIN, actively moves all 5 digits, capillary refill less than 2 seconds sensory intact to light touch grossly. Erythema improving, edema improving, tenderness to palpation at surgical sites compartments soft and compressible.
[2018-10-02] MEDS: POTASSIUM CHLORIDE 10 MEQ in SODIUM CHLORIDE 0.9% 1000ML 1,000 ML IV SCH ×2 (09:29→20:31)
[2018-10-02] MEDS: NICOTINE 21 MG/24 HR TDSY TD SCH (09:34)
[2018-10-02] MEDS: DOCUSATE SODIUM 100 MG CAP PO SCH ×2 (09:34→20:26)
[2018-10-02] MEDS: METHADONE ORAL SOLN 2 MG/ML PO SCH (09:41)
[2018-10-02] MEDS: PATIENT'S OWN CONTROLLED MED PO SCH (09:42)
--- NOTE | 2018-10-02 10:15 | Family Medicine Progress Note ---
Date of Service October 02, 2018 Assessment & Plan (1) Abscess of left forearm: 33M on Methadone is here for left forearm with cellulitis and abscess on forearm CT measuring 10.7 cm x 2.6 cm. 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 Left forearm abscess, h/o MRSA, I&D on 10/01/18 Per Surgery, - ID and pain management consults. - non weight bearing on LUE. - PT/ OT - Ice and elevation of LUE. - Scheduled Tylenol will fall off today. - Wound vacc, repeat I&D on Thursday or Thursday. Vanc/Zosyn started 10/01/18 Wound Cultures - Gram Positive Cocci, sensitivities pending. Blood cultures - no growth to date. Pain control - will make Tylenol PRN with Toradol PRN. With h/o opioid abuse want to avoid opiates. Methadone therapy PDMP reviewed, last buprenorphine given was in march. Do not see methadone listed there. Will need to call [phone] 10/01 (open M-F 5:30a-1:30p) "[facility]" -- will need to call to verify dosing, pt states he takes 67ml suspension. Will continue Methadone suspension while inpatient. Tobacco use 1.5 PPD currently nicoderm patch FEN/GI: Regular diet. DVT ppx: Heparin BID held, SCDs DISPO: Med/surg, plan for repeat I&D FULL CODE (2) Amputation of left lower extremity: (3) Cellulitis of left forearm: Supervising Physician Co-Signing Physician Notes I personally examined the patient and verified all gaitan points of history and exam, discussed case, and agree with decision making with Dr Tomlin arm swelling redness improved pain reasonably controlled family present. updated with pt. vitals noted nad L arm dressed and wrapped, wound vac draining serosanguanous. no erythema up arm - has essentially resolved, maybe the faintest bit of redness remains. sepsis, cellulitis, abscess L arm (SIRS are HR on arrival, WBC) -continue vanc and zosyn for now pending culture results, but given his prior MRSA, and less cultures have strikingly overt answers, we definitely need to continue to cover for MRSA and therefore would probably discharge on Bactrim or Doxy. Continue Zosyn for now, depending on cultures may need to discharge on Augmentin as well. Pain seems to be overall reasonably controlled. Continue wound VAC, and he may need to go back to the OR in the near future. Appreciate Ortho input in this regard. Otherwise as above. otherwise as above Subjective Pt was seen and examined at bedside. No acute overnight events. States his left arm is feeling much better, pain is better controlled. Wound vac in place. Pt tolerated breakfast well. Pt states he would like to get up and walk around. ROS: No chest pain, no SOB, no dyspnea on exertion, no palpitations, no fevers, no chills, no nausea, no vomiting, no diarrhea, no dysuria, no rash. Review of Systems All systems reviewed & are unremarkable except as noted in HPI & below Constitutional: no fever, no chills and no sweats Respiratory: no cough, no chest congestion and no change in sputum Cardiovascular: no chest pain and no chest pain with activity Gastrointestinal: no abdominal pain, no belching, no bloating and no nausea Genitourinary (Male): no dysuria and no urinary frequency Neurologic: no gait abnormality and no falls Psychiatric: no behavioral changes and no hopelessness Physical Exam 2 Vital Signs (Past 24 Hours): Last Vital Signs Temp 36.6 C 10/02/18 06:50 Pulse 70 10/02/18 06:50 Resp 70 H 10/02/18 06:50 BP 117/73 10/02/18 06:50 Pulse Ox 97 10/02/18 06:50 Constitutional: well developed and well nourished; not ill appearing Eyes: PERRL, conjunctivae normal, anicteric sclerae Neck: trachea midline, no thyromegaly normal visual inspection Respiratory: normal respiratory effort, lungs clear to auscultation Cardiovascular: RRR, no murmur, no edema Gastrointestinal (Abdomen): normal bowel sounds, soft, nontender, no hepatosplenomegaly Musculoskeletal: no cyanosis or clubbing, extremities motor strength 5/5 ( left leg below the knee surgically absent) Skin: no rashes, warm and dry (WOUND VAC on left arm in place, otherwise no other skin lesions (right arm, leg, chest, face, abdomen))
[2018-10-02] MEDS: CHOLECALCIFEROL 1,000 UNITS TAB PO SCH (10:50)
[2018-10-02] MEDS: ERGOCALCIFEROL 50,000 UNITS CAP PO SCH (10:50)
--- NOTE | 2018-10-02 17:28 | Emergency Department Note ---
Entered by Donna Mora acting as a scribe for Dania Ritchie DO History of Present Illness General Chief complaint: Arm Pain Stated complaint: ARM INFECTION Time Seen by Provider: 09/30/18 10:09 Source: patient History of Present Illness Onset (ago): week(s) 1 Location: upper extremity (forearm) and left Severity: similar to prior episodes Pain Consistency: + other (worsening) Maximum Pain Intensity: 10 Quality: + other (infection) Associated symptoms: + other (positive redness; positive warmth; positive pussy ; negative diarrhea); no nausea/vomiting The patient is a 33 year old male who presents to the Emergency Room with complaints of a worsening infection in his left forearm that began a week prior to arrival. The patient states that his arm is red, warm, and pussy. The patient states that he has some chills. He states that this is similar to prior episodes. The patient states that he previously had an infection like this in his leg. The patient states that both of these episodes began with a small cut. He denies vomiting and diarrhea. 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 The patient denies injecting recently. The patient denies any other redness or swelling on his body. He states that he is left hand dominant. Home Medications Home Medications Medication Instructions Recorded Confirmed Type methadone 67 mg PO DAILY 09/30/18 09/30/18 History Allergies Allergy/AdvReac Type Severity Reaction Status Date / Time No Known Allergies Allergy Unverified 10/01/18 17:04 Past Med/Surg History Medical History Amputation of left lower extremity Family History Other No significant family history Social History marital status: Single Current Living Situation: Parent and Family Other Information That Helps Us Care for You: No Feels Safe at Home: Yes Safety Concerns: Feels Safe At This Time Smoking Status: Current every day smoker Tobacco Type: cigarettes Cigarettes per Day: 20 Do You Dip or Chew Tobacco: No Hx Alcohol Use: Yes Alcohol Intake Frequency: other Hx Substance Use: No Beliefs That Will Affect Care: None Communication Ability: Effective Review of Systems See HPI for pertinent positives & negatives. and A total of 10 systems reviewed and were otherwise negative Physical Exam Vital Signs Vital Signs - 24 hr 10/01/18 18:26 10/01/18 18:35 10/01/18 18:45 Temperature 36.4 C L Temperature Source Temporal Artery Scan Pulse Rate [Apical] 93 H 87 92 H Pulse Rate [Right Finger] Pulse Rhythm [Apical] Regular Regular Regular Pulse Rhythm [Right Finger] Pulse Strength [Right Finger] Respiratory Rate 20 20 18 Respiratory Effort / Characteristics Non-Labored Non-Labored Non-Labored Respiratory Depth Normal Normal Normal Respiratory Pattern Regular Regular Regular Blood Pressure [Right Arm] 137/87 142/86 H 119/83 Blood Pressure Mean [Right Arm] 103 104 95 Blood Pressure Position [Right Arm] Lying Lying Lying Pulse Oximetry 96 100 97 Oxygen Delivery Method Oxymask Oxymask Oxymask Oxygen Flow Rate 5 5 3 10/01/18 18:55 10/01/18 19:10 10/01/18 19:36 Temperature 36.4 C L 36.7 C Temperature Source Temporal Artery Scan Oral Pulse Rate [Apical] 86 89 Pulse Rate [Right Finger] 89 Pulse Rhythm [Apical] Regular Regular Pulse Rhythm [Right Finger] Pulse Strength [Right Finger] Respiratory Rate 18 18 16 Respiratory Effort / Characteristics Non-Labored Non-Labored Non-Labored Spontaneous Respiratory Depth Normal Normal Normal Respiratory Pattern Regular Regular Blood Pressure [Right Arm] 140/87 134/78 133/78 Blood Pressure Mean [Right Arm] 104 96 96 Blood Pressure Position [Right Arm] Lying Lying Lying Pulse Oximetry 96 96 95 Oxygen Delivery Method Room Air Room Air Room Air Oxygen Flow Rate 10/01/18 19:55 10/01/18 20:29 10/01/18 21:25 Temperature 36.6 C 36.6 C 36.8 C Temperature Source Oral Oral Oral Pulse Rate [Apical] Pulse Rate [Right Finger] 86 85 68 Pulse Rhythm [Apical] Pulse Rhythm [Right Finger] Regular Regular Pulse Strength [Right Finger] Normal Normal Respiratory Rate 20 20 20 Respiratory Effort / Characteristics Respiratory Depth Normal Normal Normal Respiratory Pattern Blood Pressure [Right Arm] 131/76 117/74 122/75 Blood Pressure Mean [Right Arm] 94 88 90 Blood Pressure Position [Right Arm] Lying Lying Lying Pulse Oximetry 95 95 98 Oxygen Delivery Method Room Air Room Air Room Air Oxygen Flow Rate 10/01/18 22:25 10/02/18 04:00 10/02/18 06:50 Temperature 36.8 C 36.7 C 36.6 C Temperature Source Oral Oral Oral Pulse Rate [Apical] Pulse Rate [Right Finger] 68 71 70 Pulse Rhythm [Apical] Pulse Rhythm [Right Finger] Regular Pulse Strength [Right Finger] Normal Respiratory Rate 20 20 70 H Respiratory Effort / Characteristics Respiratory Depth Normal Respiratory Pattern Blood Pressure [Right Arm] 117/78 117/72 117/73 Blood Pressure Mean [Right Arm] 91 87 87 Blood Pressure Position [Right Arm] Lying Lying Lying Pulse Oximetry 95 96 97 Oxygen Delivery Method Room Air Room Air Room Air Oxygen Flow Rate 10/02/18 17:07 Temperature 36.7 C Temperature Source Oral Pulse Rate [Apical] Pulse Rate [Right Finger] 75 Pulse Rhythm [Apical] Pulse Rhythm [Right Finger] Regular Pulse Strength [Right Finger] Normal Respiratory Rate 20 Respiratory Effort / Characteristics Non-Labored Respiratory Depth Normal Respiratory Pattern Regular Blood Pressure [Right Arm] 128/78 Blood Pressure Mean [Right Arm] 94 Blood Pressure Position [Right Arm] Lying Pulse Oximetry 96 Oxygen Delivery Method Room Air Oxygen Flow Rate GENERAL: alert, well appearing, well nourished, no distress, non-toxic. Dry mucous membranes. Poor dentition EYE EXAM: normal conjunctiva, PERRL and EOM's grossly intact OROPHARYNX: no exudate, no erythema, lips, buccal mucosa, and tongue normal and mucous membranes are moist NECK: supple, no nuchal rigidity, no adenopathy, non-tender LUNGS: Clear to auscultation. Normal chest wall mechanics HEART: no murmurs, S1 normal and S2 normal ABDOMEN: abdomen soft, non-tender, normo-active bowel sounds, no masses, no rebound or guarding. BACK: Back is symmetrical on inspection and there is no deformity, no midline tenderness, no CVA tenderness. SKIN: no rashes and no bruising UPPER EXTREMITIES: Normal radial pulse in the left upper extremity. Normal capillary refill in the left upper extremity. Forearm of the left upper extremity is markedly edematous and erythematous. Large fluctuant are noted to the distal forearm on both the ventral and dorsal aspects causing obvious deformity. Scant crusting noted on the dorsal aspect. No joint effusion. Erythema extends into proximal left upper extremity. No crepitus noted. Right upper extremity is normal. LOWER EXTREMITIES: No pitting edema. Amputation left lower extremity. NEURO EXAM: Normal sensorium, cranial nerves II-XII intact, normal speech, no weakness of arms, no weakness of legs. Course 1014: Past medical records reviewed. The patient was evaluated in room B5, and a complete history and physical examination were performed. 1246: I discussed the case with Dr. NicholeOrthopedics who recommends having medicine further evaluate the patient. Dr. Mccauley also recommends IV antibiotics for 24 hours and NPO after midnight. He also recommends a forearm x- ray. Dr. Mccauley recommends the patient be evaluated by medicine because of his history of MRSA and IV drug abuse. 1256: I discussed the case with Dr. Josue Baig Hospitalist who will further evaluate the patient. Consultations Consultation #1: I discussed the case with Dr. NicholeOrthopedicwilfrid who recommends having medicine further evaluate the patient. Dr. Mccauley also recommends IV antibiotics for 24 hours and NPO after midnight. He also recommends a forearm x-ray. Dr. Mccauley recommends the patient be evaluated by medicine because of his history of MRSA and IV drug abuse. Time: 12:46 Consultation #2: I discussed the case with Dr. Josue Baig Hospitalist who will further evaluate the patient. Time: 12:56 Administered Medications Docusate Sodium (Colace) 100 mg PO BID [facility] Stop: 10/31/18 20:59 Last Admin: 10/02/18 09:34 Dose: 100 mg Admin: 10/01/18 20:24 Dose: 100 mg Ergocalciferol (Vitamin D2) 50,000 units PO Cutler@0900 [facility] Stop: 11/01/18 09:59 Last Admin: 10/02/18 10:50 Dose: 50,000 units Hydromorphone HCl (Dilaudid) 2 mg PO Q2H PRN PRN Reason: Pain Stop: 10/15/18 18:48 Last Admin: 10/02/18 15:57 Dose: 2 mg Admin: 10/02/18 13:20 Dose: 2 mg Admin: 10/02/18 09:41 Dose: 2 mg Admin: 10/02/18 04:42 Dose: 2 mg Admin: 10/02/18 00:28 Dose: 2 mg Admin: 10/01/18 20:06 Dose: 2 mg Piperacillin Sod/Tazobactam (Sod 3.375 gm/ Dextrose) 115 mls @ 28.75 mls/hr IV Q8H [facility]; Protocol Stop: 10/10/18 17:59 Last Infusion: 10/02/18 17:06 Dose: 0 mls/hr Infusion: 10/02/18 15:50 Dose: 0 mls/hr Admin: 10/02/18 12:00 Dose: 28.8 mls/hr Infusion: 10/02/18 04:47 Dose: 0 mls/hr Admin: 10/02/18 00:36 Dose: 28.8 mls/hr Infusion: 10/01/18 14:41 Dose: 0 mls/hr Admin: 10/01/18 10:35 Dose: 28.8 mls/hr Infusion: 10/01/18 05:55 Dose: 0 mls/hr Admin: 10/01/18 01:55 Dose: 28.8 mls/hr Infusion: 09/30/18 21:56 Dose: 0 mls/hr Admin: 09/30/18 17:56 Dose: 28.8 mls/hr Vancomycin HCl 1,250 mg/ (Sodium Chloride) 275 mls @ 125 mls/hr IV Q8H [facility] Stop: 10/10/18 19:59 Last Admin: 10/02/18 17:05 Dose: 125 mls/hr Infusion: 10/02/18 17:03 Dose: 0 mls/hr Infusion: 10/02/18 12:00 Dose: 0 mls/hr Admin: 10/02/18 09:30 Dose: 125 mls/hr Infusion: 10/02/18 02:46 Dose: 0 mls/hr Admin: 10/02/18 00:33 Dose: 125 mls/hr Infusion: 10/01/18 16:53 Dose: 125 mls/hr Admin: 10/01/18 14:41 Dose: 125 mls/hr Potassium Chloride 10 meq/ (Sodium Chloride) 1,005 mls @ 100 mls/hr IV .Q10H3M [facility] Stop: 10/31/18 19:33 Last Admin: 10/02/18 09:29 Dose: 100 mls/hr Infusion: 10/02/18 09:06 Dose: 0 mls/hr Infusion: 10/02/18 06:24 Dose: 100 mls/hr Infusion: 10/02/18 04:55 Dose: 100 mls/hr Infusion: 10/02/18 04:46 Dose: 0 mls/hr Infusion: 10/02/18 02:46 Dose: 100 mls/hr Infusion: 10/02/18 00:39 Dose: 0 mls/hr Admin: 10/01/18 20:22 Dose: 100 mls/hr Ioversol (Optiray 320 125ml) 119 ml IV ONCE PRN PRN Reason: Interaction Checking Stop: 10/04/18 12:00 Last Admin: 09/30/18 12:01 Dose: 119 ml Ketorolac Tromethamine (Toradol) 15 mg IV Q6H PRN PRN Reason: Pain Stop: 10/05/18 16:21 Last Admin: 10/01/18 10:38 Dose: 15 mg Admin: 10/01/18 04:03 Dose: 15 mg Admin: 09/30/18 21:23 Dose: 15 mg Methadone HCl (Methadone Hcl) 67 mg PO DAILY [facility] Stop: 10/15/18 08:59 Last Admin: 10/02/18 09:41 Dose: 67 mg Admin: 10/01/18 09:46 Dose: 67 mg Miscellaneous (Remove Nicoderm Patch) 1 ea N/A [facility] Stop: 10/30/18 20:59 Last Admin: 10/02/18 00:32 Dose: Not Given Admin: 09/30/18 20:04 Dose: Not Given Nicotine ([facility] Cq) [facility]: 10/31/18 08:59 Last Admin: 10/02/18 09:34 Dose: Not Given Admin: 10/01/18 09:47 Dose: Not Given Non-Formulary Medication (Patient's Own Controlled Med) 1 ea PO DAILY [facility] Stop: 10/15/18 08:59 Last Admin: 10/02/18 09:42 Dose: Not Given Admin: 10/01/18 09:46 Dose: Not Given Sennosides (Senokot) 17.2 mg PO [facility] Stop: 10/31/18 20:59 Last Admin: 10/01/18 20:24 Dose: 17.2 mg Vitamin D (Vitamin D3) 2,[facility] [place] Stop: 11/01/18 08:59 Last Admin: 10/02/18 10:50 Dose: 2,000 units Discontinued Medications Acetaminophen (Tylenol) 650 mg PO Q5H [facility] Stop: 10/30/18 17:59 Last Admin: 10/01/18 20:08 Dose: Not Given Admin: 10/01/18 13:58 Dose: 650 mg Admin: 10/01/18 09:47 Dose: 650 mg Admin: 10/01/18 04:03 Dose: 650 mg Admin: 09/30/18 23:22 Dose: 650 mg Admin: 09/30/18 17:56 Dose: 650 mg Bacitracin (Bacitracin) Confirm Administered Dose 50,000 units .ROUTE .STK-MED ONE Stop: 10/01/18 15:54 Last Admin: 10/01/18 18:02 Dose: 50,000 units Bupivacaine HCl (Marcaine 0.5% Mpf) Confirm Administered Dose 30 ml .ROUTE .STK- MED ONE Stop: 10/01/18 15:54 Last Admin: 10/01/18 18:02 Dose: Not Given Fentanyl Citrate (Fentanyl Citrate) 50 mcg IV Q5M PRN PRN Reason: PACU Use Only-Pain Stop: 10/01/18 22:02 Last Admin: 10/01/18 18:45 Dose: 50 mcg Admin: 10/01/18 18:40 Dose: 50 mcg Admin: 10/01/18 18:35 Dose: 50 mcg Admin: 10/01/18 18:30 Dose: 50 mcg Heparin Sodium (Porcine) (Heparin Sodium (Porcine)) 5,000 units SQ Q12 [facility] Stop: 10/30/18 20:59 Last Admin: 09/30/18 20:02 Dose: 5,000 units Piperacillin Sod/Tazobactam Sod (Zosyn) 4.5 gm in 120 mls @ 240 mls/hr IV NOW ONE Stop: 09/30/18 10:50 Last Infusion: 09/30/18 12:33 Dose: 0 mls/hr Admin: 09/30/18 11:47 Dose: 240 mls/hr Sodium Chloride (Nss 1000ml) 1,000 mls @ 125 mls/hr IV .Q8H [facility] Stop: 10/30/18 10:29 Last Infusion: 10/02/18 01:31 Dose: 0 mls/hr Admin: 10/02/18 00:30 Dose: 125 mls/hr Infusion: 10/01/18 17:47 Dose: 125 mls/hr Admin: 10/01/18 09:47 Dose: 125 mls/hr Infusion: 10/01/18 09:17 Dose: 125 mls/hr Admin: 10/01/18 01:17 Dose: 125 mls/hr Infusion: 10/01/18 01:17 Dose: 125 mls/hr Admin: 09/30/18 17:57 Dose: 125 mls/hr Infusion: 09/30/18 17:57 Dose: 125 mls/hr Admin: 09/30/18 11:47 Dose: 125 mls/hr Vancomycin HCl 1,750 mg/ (Sodium Chloride) 535 mls @ 200 mls/hr IV NOW ONE Stop: 09/30/18 13:01 Last Infusion: 09/30/18 15:59 Dose: 0 mls/hr Admin: 09/30/18 12:34 Dose: 200 mls/hr Vancomycin HCl 1,250 mg/ (Sodium Chloride) 275 mls @ 125 mls/hr IV Q10H [facility] Stop: 10/10/18 19:59 Last Infusion: 10/01/18 08:52 Dose: 0 mls/hr Admin: 10/01/18 05:49 Dose: 125 mls/hr Infusion: 09/30/18 22:10 Dose: 0 mls/hr Admin: 09/30/18 19:58 Dose: 125 mls/hr Acetaminophen (Ofirmev) 1,000 mg in 100 mls @ 400 mls/hr IV Q8H [facility] Stop: 10/02/18 12:14 Last Infusion: 10/02/18 12:25 Dose: 0 mls/hr Admin: 10/02/18 12:04 Dose: 400 mls/hr Infusion: 10/02/18 05:00 Dose: 0 mls/hr Admin: 10/02/18 04:36 Dose: 400 mls/hr Infusion: 10/02/18 00:15 Dose: 0 mls/hr Admin: 10/01/18 20:23 Dose: 400 mls/hr Ketorolac Tromethamine (Toradol) 30 mg IV NOW STA Stop: 09/30/18 13:39 Last Admin: 09/30/18 14:15 Dose: 30 mg Ketorolac Tromethamine (Toradol) 30 mg IV ONCE PRN PRN Reason: PACU Use Only-Pain Stop: 10/01/18 22:02 Last Admin: 10/01/18 19:00 Dose: 30 mg Miscellaneous Information (Consult) 1 ea N/A [facility] ONE Stop: 09/30/18 10:22 Last Admin: 10/01/18 07:17 Dose: Not Given Medical Decision Making Differential Diagnosis Differential diagnosis: Etiologies such as cellulitis, abscess, osteomyelitis, MRSA infection, DVT, necrotizing fasciitis, dermatitis, drug eruption, as well as others were entertained. Medical Records Attestation: I reviewed the patient's medical records. Home Medications Current Medication List: was personally reviewed by me Laboratory Data Attestation: I reviewed the patient's lab results. Result diagrams: 10/02/18 06:08 10/02/18 06:08 Lab Results 09/30/18 09/30/18 09/30/18 Range/Units 10:30 10:30 10:30 WBC 16.28 H (4.8-10.8) K/uL RBC 4.91 (4.7-6.1) M/uL Hgb 15.9 (14.0-18.0) g/dL Hct 45.5 (42-52) % MCV 92.7 (80-100) fL MCH 32.4 (25-34) pg MCHC 34.9 (32-36) g/dL RDW Std Deviation 51.2 H (36.4-46.3) fL RDW Coeff of Nikita 15.0 H (11.5-14.5) % Plt Count 317 (130-400) K/uL MPV 10.1 (7.4-10.4) fL Immature Gran % (Auto) 0.6 % Neut % (Auto) 87.0 % Lymph % (Auto) 7.2 % Ulster % (Auto) 4.5 % Eos % (Auto) 0.3 % Baso % (Auto) 0.4 % Immature Gran # (Auto) 0.09 H (0.00-0.02) K/uL Neut # (Auto) 14.16 H (1.4-6.5) K/uL Lymph # (Auto) 1.18 L (1.2-3.4) K/uL Ulster # (Auto) 0.74 H (0.11-0.59) K/uL Eos # (Auto) 0.05 (0-0.5) K/uL Baso # (Auto) 0.06 (0-0.2) K/uL PT 12.6 H (9.0-12.0) Seconds INR 1.3 H (0.9-1.1) Sodium 131 L (136-145) mmol/L Potassium 3.5 (3.5-5.1) mmol/L Chloride 95 L (98-107) mmol/L Carbon Dioxide 26 (21-32) mmol/L Anion Gap 10.0 (3-11) BUN 13 (7-18) mg/dl Creatinine 1.13 (0.6-1.4) mg/dl Est Cr Clr Drug Dosing 109.2 ml/min Est GFR ( Amer) 97.7 Est GFR (Non-Af Amer) 84.3 BUN/Creatinine Ratio 11.2 (10-20) Glucose 112 H (70-99) mg/dl POC Lactic Acid Nj (0.90-1.70) mmol/L Calcium 9.7 (8.5-10.1) mg/dl Magnesium 2.5 H (1.8-2.4) mg/dl Total Bilirubin 1.0 (0.1-1) mg/dl AST 16 (15-37) U/L ALT 24 (12-78) U/L Alkaline Phosphatase 95 (45-117) U/L Total Protein 9.2 H (6.4-8.2) gm/dl Albumin 3.3 L (3.4-5.0) gm/dl Globulin 5.9 H (2.5-4.0) gm/dl Albumin/Globulin Ratio 0.6 L (0.9-2) Lipase 80 (73-393) U/L 25-OH Vitamin D Total (30-100) ng/ml Specimen Hemolysis Vancomycin Trough (See Comment) mcg/ml 09/30/18 09/30/18 10/01/18 Range/Units 10:30 10:38 07:50 WBC 13.66 H (4.8-10.8) K/uL RBC 4.19 L (4.7-6.1) M/uL Hgb 13.3 L (14.0-18.0) g/dL Hct 39.0 L (42-52) % MCV 93.1 (80-100) fL MCH 31.7 (25-34) pg MCHC 34.1 (32-36) g/dL RDW Std Deviation 51.5 H (36.4-46.3) fL RDW Coeff of Nikita 15.1 H (11.5-14.5) % Plt Count 292 (130-400) K/uL MPV 9.7 (7.4-10.4) fL Immature Gran % (Auto) 0.6 % Neut % (Auto) 81.6 % Lymph % (Auto) 8.6 % Ulster % (Auto) 7.8 % Eos % (Auto) 1.0 % Baso % (Auto) 0.4 % Immature Gran # (Auto) 0.08 H (0.00-0.02) K/uL Neut # (Auto) 11.14 H (1.4-6.5) K/uL Lymph # (Auto) 1.18 L (1.2-3.4) K/uL Ulster # (Auto) 1.07 H (0.11-0.59) K/uL Eos # (Auto) 0.13 (0-0.5) K/uL Baso # (Auto) 0.06 (0-0.2) K/uL PT (9.0-12.0) Seconds INR (0.9-1.1) Sodium (136-145) mmol/L Potassium (3.5-5.1) mmol/L Chloride (98-107) mmol/L Carbon Dioxide (21-32) mmol/L Anion Gap (3-11) BUN (7-18) mg/dl Creatinine (0.6-1.4) mg/dl Est Cr Clr Drug Dosing ml/min Est GFR ( Amer) Est GFR (Non-Af Amer) BUN/Creatinine Ratio (10-20) Glucose (70-99) mg/dl POC Lactic Acid Nj 1.59 (0.90-1.70) mmol/L Calcium (8.5-10.1) mg/dl Magnesium (1.8-2.4) mg/dl Total Bilirubin (0.1-1) mg/dl AST (15-37) U/L ALT (12-78) U/L Alkaline Phosphatase (45-117) U/L Total Protein (6.4-8.2) gm/dl Albumin (3.4-5.0) gm/dl Globulin (2.5-4.0) gm/dl Albumin/Globulin Ratio (0.9-2) Lipase (73-393) U/L 25-OH Vitamin D Total 4.5 L (30-100) ng/ml Specimen Hemolysis Vancomycin Trough (See Comment) mcg/ml 10/01/18 10/01/18 10/02/18 Range/Units 07:50 07:50 06:08 WBC 11.55 H (4.8-10.8) K/uL RBC 3.93 L (4.7-6.1) M/uL Hgb 12.6 L (14.0-18.0) g/dL Hct 36.8 L (42-52) % MCV 93.6 (80-100) fL MCH 32.1 (25-34) pg MCHC 34.2 (32-36) g/dL RDW Std Deviation 53.8 H (36.4-46.3) fL RDW Coeff of Nikita 15.5 H (11.5-14.5) % Plt Count 281 (130-400) K/uL MPV 9.8 (7.4-10.4) fL Immature Gran % (Auto) 0.9 % Neut % (Auto) 76.4 % Lymph % (Auto) 12.6 % Ulster % (Auto) 7.1 % Eos % (Auto) 2.4 % Baso % (Auto) 0.6 % Immature Gran # (Auto) 0.10 H (0.00-0.02) K/uL Neut # (Auto) 8.82 H (1.4-6.5) K/uL Lymph # (Auto) 1.46 (1.2-3.4) K/uL Ulster # (Auto) 0.82 H (0.11-0.59) K/uL Eos # (Auto) 0.28 (0-0.5) K/uL Baso # (Auto) 0.07 (0-0.2) K/uL PT 12.5 H (9.0-12.0) Seconds INR 1.3 H (0.9-1.1) Sodium 134 L (136-145) mmol/L Potassium 3.7 (3.5-5.1) mmol/L Chloride 101 (98-107) mmol/L Carbon Dioxide 26 (21-32) mmol/L Anion Gap 7.0 (3-11) BUN 11 (7-18) mg/dl Creatinine 1.07 (0.6-1.4) mg/dl Est Cr Clr Drug Dosing 115.3 ml/min Est GFR ( Amer) 104.4 Est GFR (Non-Af Amer) 90.1 BUN/Creatinine Ratio 10.1 (10-20) Glucose 107 H (70-99) mg/dl POC Lactic Acid Nj (0.90-1.70) mmol/L Calcium 8.1 L D (8.5-10.1) mg/dl Magnesium (1.8-2.4) mg/dl Total Bilirubin (0.1-1) mg/dl AST (15-37) U/L ALT (12-78) U/L Alkaline Phosphatase (45-117) U/L Total Protein (6.4-8.2) gm/dl Albumin (3.4-5.0) gm/dl Globulin (2.5-4.0) gm/dl Albumin/Globulin Ratio (0.9-2) Lipase (73-393) U/L 25-OH Vitamin D Total (30-100) ng/ml Specimen Hemolysis Vancomycin Trough (See Comment) mcg/ml 10/02/18 10/02/18 10/02/18 Range/Units 06:08 06:08 15:45 WBC (4.8-10.8) K/uL RBC (4.7-6.1) M/uL Hgb (14.0-18.0) g/dL Hct (42-52) % MCV (80-100) fL MCH (25-34) pg MCHC (32-36) g/dL RDW Std Deviation (36.4-46.3) fL RDW Coeff of Nikita (11.5-14.5) % Plt Count (130-400) K/uL MPV (7.4-10.4) fL Immature Gran % (Auto) % Neut % (Auto) % Lymph % (Auto) % Ulster % (Auto) % Eos % (Auto) % Baso % (Auto) % Immature Gran # (Auto) (0.00-0.02) K/uL Neut # (Auto) (1.4-6.5) K/uL Lymph # (Auto) (1.2-3.4) K/uL Ulster # (Auto) (0.11-0.59) K/uL Eos # (Auto) (0-0.5) K/uL Baso # (Auto) (0-0.2) K/uL PT 12.4 H (9.0-12.0) Seconds INR 1.2 H (0.9-1.1) Sodium 138 (136-145) mmol/L Potassium 3.6 (3.5-5.1) mmol/L Chloride 107 (98-107) mmol/L Carbon Dioxide 26 (21-32) mmol/L Anion Gap 5.0 (3-11) BUN 7 (7-18) mg/dl Creatinine 0.84 (0.6-1.4) mg/dl Est Cr Clr Drug Dosing 146.9 ml/min Est GFR ( Amer) 132.4 Est GFR (Non-Af Amer) 114.2 BUN/Creatinine Ratio 8.4 L (10-20) Glucose 102 H (70-99) mg/dl POC Lactic Acid Nj (0.90-1.70) mmol/L Calcium 8.1 L (8.5-10.1) mg/dl Magnesium (1.8-2.4) mg/dl Total Bilirubin (0.1-1) mg/dl AST (15-37) U/L ALT (12-78) U/L Alkaline Phosphatase (45-117) U/L Total Protein (6.4-8.2) gm/dl Albumin (3.4-5.0) gm/dl Globulin (2.5-4.0) gm/dl Albumin/Globulin Ratio (0.9-2) Lipase (73-393) U/L 25-OH Vitamin D Total (30-100) ng/ml Specimen Hemolysis Vancomycin Trough 15.9 (See Comment) mcg/ml Imaging Data Radiologist's Impression: Radiology results as stated below per my review and the radiologist's interpretation: CT OF THE LEFT FOREARM WITH CONTRAST CLINICAL HISTORY: Abscess. Cellulitis. COMPARISON STUDY: No previous studies for comparison. TECHNIQUE: Axial images of the left forearm were obtained following intravenous injection of 119 cc Optiray 320 IV. Sagittal and coronal reconstructions were obtained. FINDINGS: There is no evidence for fracture or osteomyelitis within the left radius or ulna. No soft tissue gas is present. No radiopaque foreign bodies are noted. Note is made of a large extensive subcutaneous rim-enhancing fluid collection within the mid left forearm which measures 10.7 cm in length. This measures 2.6 cm in thickness and involves the anterior, lateral and posterior aspects of the left forearm. This contains a few septations. No additional rim- enhancing fluid collections are present. There is significant subcutaneous edema of the proximal left forearm/left elbow. No involvement of the underlying musculature is noted. The suspected abscess extends to the fascia. IMPRESSION: Large rim-enhancing subcutaneous fluid collection of the mid left forearm consistent with an abscess which measures 10.7 cm in length, 2.6 cm in thickness and involves the anterior, lateral and posterior aspects of the left forearm. Abscess abuts the fascia. No involvement of the underlying musculature. No gas, radiopaque foreign body or evidence for osteomyelitis within the left radius or ulna. Electronically signed by: Juliocesar Peter M.D. 09/30/2018 12:16 PM XR forearm LT 2V CLINICAL HISTORY: Soft tissue abscess COMPARISON: CT scan dated 09/30/2018 DISCUSSION: There is pronounced soft tissue swelling, corresponding to the edema and abscesses described on the CT scan. There are no fractures. There are no destructive lesions to indicate osteomyelitis. IMPRESSION: 1. No evidence of fracture 2. No evidence of osteomyelitis 3. Pronounced soft tissue swelling corresponding to the edema and abscesses described on the recent CT scan. Electronically signed by: Zaheer Bailey M.D. 09/30/2018 1:17 PM ECG Data Attestation: I personally reviewed and interpreted this ECG as follows: Indication: toxicologic Rate (beats per minute): 85 Rhythm: normal sinus Findings: + other (normal axis; normal intervals ); no acute ischemic change and no ectopy Blood Pressure Blood Pressure Findings: Elevated blood pressure Blood Pressure Disposition: further management by hospitalist MDM Narrative Concern for worsening infection in patients dominant UE. No evidence of FB or nec fasc on CT. No evidence of bacteremia/sepsis at this time. Given extent of infection, concern for need of operative debridement and drainage. 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 No symptoms to suggest endocarditis, septic emboli, or other concurrent infection. Pt aware of all results and in agreement with plan. Cultures drawn and pt started on IV antibiotics in the ER. No evidence of compartment syndrome, no evidence of tenosynovitis or muscle invasion of the infection. Normal perfusion of the affected hand and nml senstion distal to the infection. Impression & Plan Abscess of left forearm, Cellulitis of left forearm Discharge Plan Visit Data *Final* Discharge Date/Time: 09/30/18 16:15 Chief Complaint: Arm Pain Stated Complaint: ARM INFECTION ED Provider: Dania Ritchie Discharge Problem: Abscess of left forearm, Cellulitis of left forearm Patient Disposition: Admitted As Inpatient Discharge Instructions Interventions: ED Discharge Assessment Last Done: 09/30/18 16:15 The scribe's documentation has been prepared under my direction and personally reviewed by me in its entirety. I confirm that the note above accurately reflects all work, treatment, procedures, and medical decision making performed by me.
[2018-10-02] MEDS ORDERED: ACETAMINOPHEN 325 MG TAB PO PRN (18:00)
--- NOTE | 2018-10-02 18:54 | Pharmacy Report ---
Pharmacy Abx Dose Short Note - Date of Service October 02, 2018 - Assessment & Plan Assessment/Plan Vancomycin: * Trough came back therapeutic at ~16 mcg/ml (goal 15-20 mcg/ml for cellulitis/ abscess) * Will continue with current regimen of vancomycin 1250 mg iv q 8 hrs * Will plan to obtain a trough in 2-3 day if to be continued or sooner if renal function continues to improve Zosyn: * 3.375 gm iv q 8 hrs - no change * Pharmacy will continue to follow and will adjust dose/frequency as necessary. Thank you.
[2018-10-02] MEDS: SENNA 8.6 MG TAB PO SCH (20:26)
[2018-10-03] MEDS: PIPERACILLIN/TAZOBACTAM 3.375 GM in DEXTROSE 5% 100 ML IV SCH ×3 (00:05→16:19)
[2018-10-03] MEDS: HYDROmorphone HCL 2 MG TAB PO PRN ×9 (00:49→21:46)
[2018-10-03 06:40] LABS: Hematocrit (blood only) 38.1 % (42-52); Hemoglobin 12.6 g/dL (14.0-18.0); Mean Corpuscular Hgb Conc 33.1 g/dL (32-36); Mean Corpuscular Volume 94.1 fL (80-100); Mean Platelet Volume 9.6 fL (7.4-10.4); Platelet Count 370 K/uL (130-400); RDW Coefficient of Variation 15.5 % (11.5-14.5); RDW Standard Deviation 53.4 fL (36.4-46.3); Red Blood Count 4.05 M/uL (4.7-6.1); White Blood Count 10.57 K/uL (4.8-10.8)
[2018-10-03] MEDS: POTASSIUM CHLORIDE 10 MEQ in SODIUM CHLORIDE 0.9% 1000ML 1,000 ML IV SCH ×2 (06:43→16:18)
[2018-10-03 06:51] LABS: INR 1.1 (0.9-1.1); Prothrombin Time 11.5 Seconds (9.0-12.0)
[2018-10-03 07:05] LABS: Basophils # (auto) 0.09 K/uL (0-0.2); Basophils % (auto) 0.9 %; Eosinophils # (auto) 0.35 K/uL (0-0.5); Eosinophils % (auto) 3.3 %; Immature Granulocytes # (auto) 0.12 K/uL (0.00-0.02); Immature Granulocytes % (auto) 1.1 %; Monocytes # (auto) 0.57 K/uL (0.11-0.59); Monocytes % (auto) 5.4 %; Neutrophils # (auto) 7.64 K/uL (1.4-6.5); Neutrophils % (auto) 72.3 %
--- NOTE | 2018-10-03 07:06 | Infectious Disease Consult ---
Date of Consultation October 03, 2018 Assessment & Plan (1) Abscess of left forearm: continue IV abx for now, follow cultures. for repeat OR. History of Present Illness Attending Physician: Angel Velarde DO pt admitted with several days pain and swelling left forearm, ct done in ER 10.7x2.6 cm abscess noted, taken to OR for drainage and vac placement, tolerated well. afebrile since admission. no fevers at home. some pain in arm but well controlled. placed on IV abx, tolerating well. wound culture with pin point growth. blood cultures negative. wbc initially 16, now improved. h/o IVDA , no uds done on admission. no abd pain, no n/v/d, no sob, cp, cough. Allergies Allergy/AdvReac Type Severity Reaction Status Date / Time No Known Allergies Allergy Unverified 10/01/18 17:04 Home Medications Home Medications Medication Instructions Recorded Confirmed Type methadone 67 mg PO DAILY 09/30/18 09/30/18 History Patient History Medical History Amputation of left lower extremity Family History Other No significant family history Social History marital status: Single Current Living Situation: Parent and Family Other Information That Helps Us Care for You: No Feels Safe at Home: Yes Safety Concerns: Feels Safe At This Time Smoking Status: Current every day smoker Tobacco Type: cigarettes Cigarettes per Day: 20 Do You Dip or Chew Tobacco: No Hx Alcohol Use: Yes Alcohol Intake Frequency: other Hx Substance Use: No Beliefs That Will Affect Care: None Communication Ability: Effective Review of Systems all remaining ros reviewed and are negative Physical Exam 2 Vital Signs (Past 24 Hours): Last Vital Signs Temp 37.0 C 10/02/18 23:49 Pulse 81 10/02/18 23:49 Resp 16 10/02/18 23:49 BP 122/82 10/02/18 23:49 Pulse Ox 93 10/02/18 23:49 Constitutional: WD/WN, vitals as above Eyes: PERRL, conjunctivae normal, anicteric sclerae ENMT: external ear and nose normal, oropharynx normal Neck: normal visual inspection Respiratory: normal respiratory effort, lungs clear to auscultation Cardiovascular: RRR, no murmur, no edema Gastrointestinal (Abdomen): normal bowel sounds, soft, nontender, no hepatosplenomegaly Musculoskeletal: no cyanosis or clubbing, extremities motor strength 5/5 l bka Skin: no rashes, warm and dry lue dressing c/d/i, vac in place Psychiatric: A+Ox3, euthymic affect Results & Data Laboratory Results 10/01/18 17:57 Gram Stain - Final Arm,Left 10/01/18 17:57 Gram Stain - Final Arm,Left
[2018-10-03 07:13] LABS: BUN Creatinine Ratio 3.4 (10-20); Calcium 8.3 mg/dl (8.5-10.1); Creatinine Clr Calc Pharmacy 156.2 ml/min; Est GFR (African American) 135.8; Est GFR (Non-African American) 117.2; Potassium 3.8 mmol/L (3.5-5.1)
--- NOTE | 2018-10-03 08:34 | Orthopedic Progress Note ---
Date of Service October 03, 2018 Assessment & Plan (1) Abscess of left forearm: Status post irrigation and debridement of the left volar and dorsal forearm abscess, application of wound VAC x2 POD#2 -Continue with IV antibiotics, vancomycin and Zosyn -ID consulted-reccommends continuing IV antibiotics for now pending culture results -Consult pain management -Nonweightbearing left upper extremity -PT/OT -Ice and elevation of left upper extremity -A.m. labs HGB 12.6 -Cultures GS gram+cocci, culture showing pinpoint growth, reincubating. -Monitor wound VAC output The plan will be for the patient to return to the OR for repeat irrigation and debridement and primary closure versus placement of wound VAC 48-72 hours from his previous irrigation and debridement. We will continue to monitor his progress to determine return to OR. I personally saw and examined the patient, agree with above assessment plan. N.p.o. after midnight, plan for OR tomorrow 10/04/2018 repeat I&D primary closure versus exchange of wound vacs. Subjective Patient seen sitting up in bed, comfortable, denies complaints, pain well controlled, no acute issues. Pain much improved today. Constitutional: as per Subjective / HPI Physical Exam 2 Vital Signs (Past 24 Hours): Last Vital Signs Temp 36.8 C 10/03/18 07:14 Pulse 71 10/03/18 07:14 Resp 18 10/03/18 07:14 BP 138/82 10/03/18 07:14 Pulse Ox 94 10/03/18 07:14 Physical Exam: Dressing c/d/i, woudn vacs in place. Mild edema into fingers, sensation intact. Fingers mobile. N/V status intact. Minimal erythema. Dressing removed wound vacs clean dry and intact, erythema decreasing both proximally and distally, there is moderate edema, erythema. Patient has stiff this range of motion of the elbow with no pain.
[2018-10-03] MEDS: VANCOMYCIN HCL 1,250 MG in SODIUM CHLORIDE 0.9% 250 ML IV SCH ×3 (08:51→16:14)
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
[2018-10-03] MEDS: DOCUSATE SODIUM 100 MG CAP PO SCH ×2 (09:07→20:22)
[2018-10-03] MEDS: NICOTINE 21 MG/24 HR TDSY TD SCH (09:08)
[2018-10-03] MEDS: ERGOCALCIFEROL 50,000 UNITS CAP PO SCH (09:09)
[2018-10-03] MEDS: CHOLECALCIFEROL 1,000 UNITS TAB PO SCH (09:10)
[2018-10-03] MEDS: METHADONE ORAL SOLN 2 MG/ML PO SCH (10:01)
[2018-10-03] MEDS: PATIENT'S OWN CONTROLLED MED PO SCH (10:02)
--- NOTE | 2018-10-03 12:38 | Operative Report ---
Post Operative Report Date of Surgery October 01, 2018 Pre & Post Diagnosis Operation Date: 10/01/18 07:00 Pre-Op Diagnosis: LEFT FOREARM ABSCESS Post-Op Diagnosis: LEFT FOREARM ABSCESS Procedure Operation Date: 10/01/18 07:00 Actual Procedures p Left Forearm Incision and Drainage with wound vac application - Austin Harp DO Surgeon Austin Harp DO Educational Specialist none Estimated Blood Loss 40 Findings Consistent with Post-Op Diagnosis Specimens superficial dorsal forearm culture x 2 superficial volar forearm culture x 2 Anesthesia Type General Complications none Disposition Disposition: Recovery Room Indications The patient is a 33-year-old male with past medical history significant for IVDA , on methadone, last IV drug use reported 4 months prior. Presents with worsening pain and swelling to his left upper extremity which started 1 week prior he reports. He had a scrape overlying the dorsal aspect of the lower one third forearm however does not recall how he obtained it. Over the last week the patient has reported increased swelling and pain in redness. Currently denies fevers chills nausea vomiting shortness breath chest pain. Has a history of MRSA. I have indicated the patient for irrigation debridement of the left forearm, possible wound VAC application, the risks, benefits, complications of the procedure as well as alternatives were explained and the patient and they include however not limited to infection, acute blood loss, blood clots, injury to surrounding nerves, bone, soft tissue, vessels, chronic pain, need for repeat surgery, compartment syndrome, loss of function, loss of limb, cardiac and pulmonary events and . Description of Procedure Upon arrival to the operating room the patient was transferred to the OR table. Following the application of adequate general anesthesia the left upper extremity was placed on the hand table and a nonsterile well-padded tourniquet was applied to the proximal aspect of the left upper arm. The left upper extremity was prepped and draped in the usual sterile manner. A time out was performed and site verified. The patient was on IV antibiotics, anesthesia confirmed they were given. The arm was elevated for 5 minutes and tourniquet inflated to 250 mmHg. A 9cm incision was made overlying the volar asbscess. Immediately, copious amounts of purulent fluid was identified and drained from the asbscess. Cultures x 2 were obtained. The wound was then irrigated with copious amounts of sterile saline solution with bacitracin. Next, we turned our attention to the dorsal abscess which had decompressed significantly. A 9cm incision was made overlying the dorsal abscess through skin and subcutaneous tissue. We once again identified copious amounts of purulent fluid. Cultures x 2 were obtained. The dorsal wound was then irrigated with copious amounts of sterile saline solution was bacitracin. Care was taken to inspect the volar and dorsal wounds. Skin and subcutanous tissue were undermined with blunt dissection. There was a subcutaneous communication on the radial aspect of the forearm that connected the volar and dorsal wounds. The volar wound measured 3.5cm x 9cm and the dorsal wound measured 4.5cm x 9cm. Next, fibrous tissue was removed from the wound beds utilizing scalpel, currets , rongour and green elevator. The volar and dorsal wounds were once again irrigated with copious amounts of sterile saline solution with bacitracin, 3L in total. Once satisfied with irrigation and debridment and healthy appearing tissue remained a wound VAC system x 2 was then applied covering the volar and dorsal wounds. Sterile dressings were applied which included webril and joe bandage. The tourniquet was deflated at this time. The operative extremity was placed in a sling and the patient was awoken in the operating room and transported to the PACU in stable condition. The patient tolerated the procedure well. I attest to the content of the Intraoperative Record and any orders documented therein. Any exceptions are noted below.
[2018-10-03] MEDS: SENNA 8.6 MG TAB PO SCH (20:22)
[2018-10-04] MEDS: HYDROmorphone HCL 2 MG TAB PO PRN ×7 (00:15→22:31)
[2018-10-04] MEDS: PIPERACILLIN/TAZOBACTAM 3.375 GM in DEXTROSE 5% 100 ML IV SCH ×2 (00:24→08:56)
[2018-10-04] MEDS: VANCOMYCIN HCL 1,250 MG in SODIUM CHLORIDE 0.9% 250 ML IV SCH ×4 (00:25→23:35)
[2018-10-04 06:44] LABS: Hemoglobin 13.1 g/dL (14.0-18.0); Mean Corpuscular Hgb Conc 33.6 g/dL (32-36); Mean Platelet Volume 9.5 fL (7.4-10.4); Platelet Count 400 K/uL (130-400); RDW Coefficient of Variation 15.3 % (11.5-14.5); RDW Standard Deviation 52.9 fL (36.4-46.3); Red Blood Count 4.15 M/uL (4.7-6.1); White Blood Count 9.26 K/uL (4.8-10.8)
--- NOTE | 2018-10-04 06:47 | Anesthesiology Consultation ---
Date of Service October 04, 2018 Chronic methadone Hx IVDA Smoker Assessment & Plan (1) Encounter for pre-operative examination: Chart Review Chart Review: Acceptable Risk for Surgery Consults Requested none ASA ASA2 Proposed Anesthesia Anesthesia Type: General Risk / Benefits Reviewed With: PT / POA / Parent / Guardian, Accepts Plan and Informed Consent Obtained NPO Date Last Intake of Fluids: 10/01/18 Time Last Intake of Fluids: 04:00 Last Intake of Fluids Comment: 30 Date Last Intake of Solids: 09/30/18 Time Last Intake of Solids: 23:30 History Surgery Operation Date: 10/01/18 07:00 Proposed Procedures p Left Forearm Incision and Drainage - Arturo Moreno DO Operation Date: 10/04/18 07:10 Proposed Procedures p Incision and Drainage Extremity - Austin Harp DO Height/Weight Height: 6 ft 3 in Weight: 83.8 kg Allergies Allergy/AdvReac Type Severity Reaction Status Date / Time No Known Allergies Allergy Unverified 10/01/18 17:04 Medications Home Medications Medication Instructions Recorded Confirmed Last Taken methadone 67 mg PO DAILY 09/30/18 09/30/18 09/30/18 Active Medications Generic Name Dose Route Start Last Admin Trade Name Freq PRN Reason Stop Dose Admin Docusate Sodium 100 mg 10/01/18 21:00 10/04/18 09:01 Colace PO 10/31/18 20:59 100 mg BID CRICKET Administration Ergocalciferol 50,000 units 10/02/18 10:00 10/03/18 09:09 Vitamin D2 PO 11/01/18 09:59 50,000 units Cutler@[id number] CRICKET Administration Hydromorphone HCl 2 mg 10/01/18 18:49 10/04/18 08:54 Dilaudid PO 10/15/18 18:48 2 mg Q2H PRN Administration Pain Vancomycin HCl 1,250 mg/ 275 mls @ 125 mls/hr 10/01/18 14:00 10/04/18 11:12 Sodium Chloride IV 10/10/18 19:59 Infused Q8H CRICKET Infusion Potassium Chloride 10 meq/ 1,005 mls @ 100 mls/hr 10/01/18 19:34 10/04/18 08: 55 Sodium Chloride IV 10/31/18 19:33 100 mls/hr .Q10H3M CRICKET Administration Ketorolac Tromethamine 15 mg 09/30/18 16:22 10/01/18 10:38 Toradol IV 10/05/18 16:21 15 mg Q6H PRN Administration Pain Methadone HCl 67 mg 10/01/18 09:00 10/04/18 08:57 Methadone Hcl PO 10/15/18 08:59 67 mg DAILY CRICKET Administration Miscellaneous 1 ea 09/30/18 21:00 10/03/18 20:28 Remove Nicoderm Patch N/A 10/30/18 20:59 Not Given HS CRICKET Nicotine 21 mg 10/01/18 09:00 10/04/18 09:09 Nicoderm Cq TD 10/31/18 08:59 Not Given QAM CRICKET Non-Formulary Medication 1 ea 10/01/18 09:00 10/04/18 09:02 Patient's Own Controlled Med PO 10/15/18 08:59 67 mg DAILY CRICKET Administration Sennosides 17.2 mg 10/01/18 21:00 10/03/18 20:22 Senokot PO 10/31/18 20:59 Not Given HS CRICKET Vitamin D 2,000 units 10/02/18 09:00 10/04/18 09:09 Vitamin D3 PO 11/01/18 08:59 Not Given QAM CRICKET Beta Lissett Beta Lissett Taken Within 24 Hours: No Past Medical History Medical History History of intravenous drug abuse Amputation of left lower extremity Past Family History Family History Other No significant family history Past Surgical History Surgical History History of incision and drainage Left forearm on 10/01/18 and 10/03/18 History of PONV No Motion Sickness Screening History of Motion Sickness: No Social History Smoking Status: Current every day smoker tobacco type: cigarettes Smoking cigarettes per day: 20 Do You Dip or Chew Tobacco: No Hx Alcohol Use: Yes alcohol intake frequency: other Alcohol Intake Frequency Comment: 2 a week Hx Substance Use: No Exercise / Class Metabolic Activity II 4-5 Yardwork/Stairs/Walk up hill Physical Exam Vital Signs Last Vital Signs Temp 36.7 C 10/04/18 13:24 Pulse 62 10/04/18 13:24 Resp 18 10/04/18 13:24 BP 146/91 H 10/04/18 13:24 Pulse Ox 94 10/04/18 13:24 ENMT Mouth: no dentition abnormality Thyromental Distance: > or= 3.5 Finger Breadths Mallampati Class: II Neck normal visual inspection; neck extension not limited Respiratory normal respiratory effort Auscultation: lungs clear to auscultation bilaterally Cardiovascular Rate/Rhythm: regular rate and regular rhythm Musculoskeletal Spine: normal cervical ROM Extremities: + extremities abnormal to inspection (LUE wound vac) Psychiatric Orientation: alert and oriented x 3 Testing Laboratory Results 10/04/18 06:27 10/04/18 06:27 PT 11.8 Seconds (9.0-12.0) 10/04/18 06:27 INR 1.2 (0.9-1.1) H 10/04/18 06:27 10/01/18 17:57 Gram Stain - Final Arm,Left Aerobic and Anaerobic Culture - Preliminary Group C Beta Strep 10/01/18 17:57 Gram Stain - Final Arm,Left Aerobic and Anaerobic Culture - Preliminary Group C Beta Strep 09/30/18 12:20 Blood Culture - Preliminary Blood No growth to date. 09/30/18 10:30 Blood Culture - Preliminary Blood No growth to date. Laboratory Tests 10/03/18 10/03/18 10/03/18 06:15 06:15 06:15 WBC 10.57 Hgb Hct Plt Count PT 11.5 INR 1.1 Sodium 141 Potassium 3.8 Chloride 108 H Carbon Dioxide 24 BUN 3 L Creatinine 0.79 Glucose 100 H 10/04/18 06:27 WBC 9.26 Hgb 13.1 L Hct 39.0 L Plt Count 400 PT INR Sodium Potassium Chloride Carbon Dioxide BUN Creatinine Glucose
[2018-10-04 07:00] LABS: INR 1.2 (0.9-1.1); Prothrombin Time 11.8 Seconds (9.0-12.0)
[2018-10-04 07:09] LABS: BUN Creatinine Ratio 2.7 (10-20); C Reactive Protein 7.31 mg/dl (0-0.29); Calcium 8.6 mg/dl (8.5-10.1); Creatinine Clr Calc Pharmacy 162.3 ml/min; Potassium 3.8 mmol/L (3.5-5.1)
[2018-10-04 07:13] LABS: Basophils # (auto) 0.06 K/uL (0-0.2); Basophils % (auto) 0.6 %; Eosinophils # (auto) 0.38 K/uL (0-0.5); Eosinophils % (auto) 4.1 %; Immature Granulocytes % (auto) 1.1 %; Lymphocytes # (auto) 1.98 K/uL (1.2-3.4); Lymphocytes % (auto) 21.4 %; Monocytes # (auto) 0.49 K/uL (0.11-0.59); Monocytes % (auto) 5.3 %; Neutrophils # (auto) 6.25 K/uL (1.4-6.5); Neutrophils % (auto) 67.5 %
[2018-10-04] MEDS: POTASSIUM CHLORIDE 10 MEQ in SODIUM CHLORIDE 0.9% 1000ML 1,000 ML IV SCH ×2 (08:55→18:36)
[2018-10-04] MEDS: METHADONE ORAL SOLN 2 MG/ML PO SCH (08:57)
[2018-10-04] MEDS: DOCUSATE SODIUM 100 MG CAP PO SCH ×2 (09:01→20:28)
[2018-10-04] MEDS: PATIENT'S OWN CONTROLLED MED PO SCH (09:02)
[2018-10-04] MEDS: NICOTINE 21 MG/24 HR TDSY TD SCH (09:09)
[2018-10-04] MEDS: CHOLECALCIFEROL 1,000 UNITS TAB PO SCH (09:09)
--- NOTE | 2018-10-04 09:21 | Pain Management Consultation ---
Date of Consultation October 04, 2018 Assessment & Plan (1) Abscess of left forearm: As the patient does have a significant history of IV drug abuse and is currently on Methadone treatment, I would recommend increasing Methadone dosage and diminishing the use of oral Dilaudid. Continue Toradol and Tylenol PRN. History of Present Illness Attending Physician: Shawn Will MD History of Present Illness This is a 33 year old white male that has been seen in consultation for left forearm pain. Patient has a significant history of IV heroin abuse (has not used for 4 months now) and currently on Methadone 67mg PO daily. Patient has required #2 I&D procedures this week and planning for another I&D today. He has a wound vac in place. Patient describes a burning and throbbing sensation in the left forearm. He rates his pain 10/10 at all times. He has tried IV Toradol and states that it did not diminish his pain. He has PO Dilaudid 2mg ordered every 2 hours and he has been taking it around the clock since admission. He states that Dilaudid is effective towards diminishing his pain. No fevers, chills. Pain Assessment Full Body Front + Back: 2 1. 2. [facility] Combined Pain Scale: 10-Worst Imaginable - Paralyzing. Decreased consciousness due to pain. Allergies Allergy/AdvReac Type Severity Reaction Status Date / Time No Known Allergies Allergy Unverified 10/01/18 17:04 Home Medications Home Medications Medication Instructions Recorded Confirmed Type methadone 67 mg PO DAILY 09/30/18 09/30/18 History Patient History Medical History History of intravenous drug abuse Amputation of left lower extremity Surgical History History of incision and drainage Left forearm on 10/01/18 and 10/03/18 Family History Other No significant family history Social History marital status: Single Current Living Situation: Parent and Family Other Information That Helps Us Care for You: No Feels Safe at Home: Yes Safety Concerns: Feels Safe At This Time Smoking Status: Current every day smoker Do You Dip or Chew Tobacco: No Second Hand Exposure: Yes Hx Alcohol Use: Yes Alcohol Intake Frequency: other Hx Substance Use: No Beliefs That Will Affect Care: None Communication Ability: Effective Review of Systems Denies any constitutional, cardiac, pulmonary, neurological, GI, , extremity, endocrine, neuro, ENT, dermatological, or musculoskeletal complaints other than stated in HPI Physical Exam 2 Vital Signs (Past 24 Hours): Last Vital Signs Temp 36.8 C 10/04/18 07:20 Pulse 68 10/04/18 07:20 Resp 14 10/04/18 07:20 BP 143/87 H 10/04/18 07:20 Pulse Ox 95 10/04/18 07:20 Physical Exam: GENERAL: Speech and cognition is intact. Mood and affect is appropriate. In no acute distress. HEAD: Normocephalic; atraumatic. EYES: Pupils are round, equal, and reactive to light; EOM intact. CHEST: Regular chest respiration and excursion. EXTREMITIES: Left hand has +3 edema. There is a wound vac in place on the left forearm. NEURO: CN II-XII grossly intact with no focal deficits noted. Results & Data Diagnostic Findings Left forearm CT IMPRESSION: Large rim-enhancing subcutaneous fluid collection of the mid left forearm consistent with an abscess which measures 10.7 cm in length, 2.6 cm in thickness and involves the anterior, lateral and posterior aspects of the left forearm. Abscess abuts the fascia. No involvement of the underlying musculature. No gas, radiopaque foreign body or evidence for osteomyelitis within the left radius or ulna.
--- NOTE | 2018-10-04 09:41 | Anesthesiology Progress Note ---
Date of Service October 04, 2018 Anesthesia Post Procedure Vital Signs Vital Signs: Temp Pulse Resp BP Pulse Ox 10/04/18 07:20 36.8 C 68 14 143/87 H 95 10/03/18 23:25 36.8 C 80 18 130/86 93 10/03/18 16:01 36.6 C 68 18 130/90 97 Pain Intensity Left Arm: Pain Intensity: 10 Notes Mental Status: alert / awake / arousable and participated in evaluation Patient Amnestic to Procedure: Yes Nausea / Vomiting: adequately controlled Pain: adequately controlled Airway Patency, RR, SpO2: stable & adequate BP & HR: stable & adequate Hydration State: stable & adequate Anesthetic Complications: no major complications apparent and Pt Satisfied with anesthetic care
--- NOTE | 2018-10-04 10:44 | Infectious Disease Progress Nt ---
Date of Service October 04, 2018 Assessment & Plan (1) Abscess of left forearm: continue IV abx for now, for repeat OR today. with h/o IVDA, not candidate for picc line. can d/c on po augmentin 875mg po x 21 days. Subjective pt seen in followup, family at bedside. afebrile. tolerating abx. remains on zosyn and vanco. wound culture growing nielsen senstivie gcs x 2. blood cultures negative. vac remains in place. for repeat I&D yesterday. no f/c. no cp, sob, cough, no n/v/d/abd pain. arm feeling much better. all remaining ros reviewed and are negative. Physical Exam 2 Vital Signs (Past 24 Hours): Last Vital Signs Temp 36.8 C 10/04/18 07:20 Pulse 68 10/04/18 07:20 Resp 14 10/04/18 07:20 BP 143/87 H 10/04/18 07:20 Pulse Ox 95 10/04/18 07:20 Constitutional: WD/WN, vitals as above Eyes: PERRL, conjunctivae normal, anicteric sclerae ENMT: external ear and nose normal, oropharynx normal Neck: normal visual inspection Respiratory: normal respiratory effort, lungs clear to auscultation Cardiovascular: RRR, no murmur, no edema Gastrointestinal (Abdomen): normal bowel sounds, soft, nontender, no hepatosplenomegaly Musculoskeletal: no cyanosis or clubbing, extremities motor strength 5/5 Skin: no rashes, warm and dry Psychiatric: A+Ox3, euthymic affect Results & Data Laboratory Results Microbiology 10/01/18 17:57 Arm,Left Gram Stain - Final 10/01/18 17:57 Arm,Left Aerobic and Anaerobic Culture - Preliminary Group C Beta Strep 10/01/18 17:57 Arm,Left Gram Stain - Final 10/01/18 17:57 Arm,Left Aerobic and Anaerobic Culture - Preliminary Group C Beta Strep 09/30/18 12:20 Blood Blood Culture - Preliminary No growth to date. 09/30/18 10:30 Blood Blood Culture - Preliminary No growth to date.
[2018-10-04] MEDS ORDERED: LIDOCAINE HCL 2% 2 ML VIAL/AMP(20MG/ML) INFIL ONE (12:59)
[2018-10-04] MEDS ORDERED: DEXAMETHASONE SOD INJ 4 MG/ML VIAL ONE (12:59)
[2018-10-04] MEDS ORDERED: PROPOFOL IV EMULSION 10 MG/ML 20 ML VIAL IV ONE (12:59)
[2018-10-04] MEDS ORDERED: MIDAZOLAM HCL 1 MG/ML 2ML VIAL ONE (12:59)
[2018-10-04] MEDS ORDERED: ONDANSETRON INJ 2 MG/ML 2 ML VIAL ONE (12:59)
[2018-10-04] MEDS ORDERED: fentaNYL citrate 100 MCG/2 ML VIAL ONE ×2 (13:00→13:50)
[2018-10-04] MEDS ORDERED: BACITRACIN INJ 50,000 UNIT VIAL ONE (13:16)
--- NOTE | 2018-10-04 13:26 | History & Physical Bridge Note ---
Date of Service October 04, 2018 History & Physical Bridge Note I have examined the patient, reviewed the History & Physical and in the interval since the performance of the History & Physical I have noted the following changes of clinical significance: no changes noted
--- NOTE | 2018-10-04 13:42 | Orthopedic Progress Note ---
Date of Service October 04, 2018 Assessment & Plan (1) Abscess of left forearm: Status post irrigation and debridement of the left volar and dorsal forearm abscess, application of wound VAC x2 POD#3 -Continue with IV antibiotics, vancomycin and Zosyn -ID consulted-reccommends continuing IV antibiotics for now pending culture results -Consult pain management -Nonweightbearing left upper extremity -PT/OT -Ice and elevation of left upper extremity -A.m. labs HGB 12.6 -Cultures GS gram+cocci, culture showing pinpoint growth, reincubating. -Monitor wound VAC output -I have indicated the patient for repeat irrigation and debridement of his left forearm with removal of wound vacs possible primary closure versus exchange of wound VAC application. Patient growing group see strep without resistance. Infectious disease recommendations appreciated. Risk-benefit competition of the procedure were explained to the patient which include however not limited to infections, blood clots, acute blood loss, injury to surrounding nerves, bone , soft tissue, vessels, arthrofibrosis, chronic pain, need for additional surgery, cardiac and pulmonary events and . The patient wished to proceed with surgical intervention at this time and informed consent was obtained. Subjective Patient seen in preoperative holding, comfortable, pain symptoms improving, denies fevers chills nausea vomiting shortness breath chest pains. Constitutional: as per Subjective / HPI Physical Exam 2 Vital Signs (Past 24 Hours): Last Vital Signs Temp 36.7 C 10/04/18 13:24 Pulse 62 10/04/18 13:24 Resp 18 10/04/18 13:24 BP 146/91 H 10/04/18 13:24 Pulse Ox 94 10/04/18 13:24 Physical Exam: Wound vacs clean dry and intact, erythema decreasing both proximally and distally, there is moderate edema, erythema. Patient has stiff this range of motion of the elbow with no pain. There is moderate edema in the hand, neurovascular and sensory intact grossly.
[2018-10-04] MEDS ORDERED: ePHEDrine sulfate 50 MG/ML AMP IV PRN (13:51)
[2018-10-04] MEDS ORDERED: ATROPINE SULFATE 0.1 MG/ML 5ML SYR IV PRN (13:51)
[2018-10-04] MEDS ORDERED: ONDANSETRON INJ 2 MG/ML 2 ML VIAL IV PRN (13:51)
--- NOTE | 2018-10-04 14:54 | Family Medicine Progress Note ---
Date of Service October 04, 2018 Assessment & Plan (1) Abscess of left forearm: 33M with hx of IVDU on Methadone. Admitted for left forearm cellulitis and abscess on CT measuring 10.7 cm x 2.6 cm. 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 I&D performed on 10/01/18 with repeat I&D on 10/04. Blood cultures negative to date. Wound cultures growing group C strep. Abx narrowed from vanc/zosyn to vanc and will transition to augmentin 875mg Po x 21 days on discharge Left forearm abscess, h/o MRSA, I&D on 10/01/18 and 10/04 Wound Cultures - Group C strep Blood cultures - no growth to date ESR 84 and CRP 7.3 On vancomycin Per Surgery, - non weight bearing LUE. - PT/ OT - Ice and elevation of LUE. - Wound vacc - monitor output - plastic surgery and wound care consulted for post-op care - ID consulted: continue IV abx and transition to augmentin po 875mg x 21 days on disharge - pain management consulted: recommended toradol and tylenol; decreased dilaudid and increasing methadone if needed Pain control - Tylenol PRN and Toradol PRN. With h/o opioid abuse want to avoid opiates. Methadone therapy PDMP reviewed, last buprenorphine given was in march. Do not see methadone listed there. Will need to call [phone] 10/01 (open M-F 5:30a-1:30p) "[facility]" -- will need to call to verify dosing, pt states he takes 67mg suspension. Will continue Methadone suspension while inpatient. Tobacco use 1.5 PPD currently nicoderm patch FEN/GI: Regular diet. DVT ppx: Heparin BID held, SCDs DISPO: pending improvement post op FULL CODE (2) Amputation of left lower extremity: (3) Cellulitis of left forearm: Supervising Physician Co-Signing Physician Notes Attending attestation Pt seen and examined in concert with Dr. George. In agreement with the documented findings as noted in the resident documentation with any exceptions or additions as noted here. Pt seen and examined at bedside postprocedurally. Resting comfortably and talking on the phone without overt pain. Aside from the arm, he says, he's doing well. Denies fever, chills, lightheadedness, numbness/tingling. On examination, S1/S2 nl RRR no MCG. RUE with bandage and drain in place, serosanguinous fluid appreciated. significant distal swelling and proximal erythema including the elbow which is TTP. Complicated abscess of left FA - Culture as noted, agree w/ vanc transition to augmentin at discharge. Pain control would favor antiinflammatory and tylenol combination with rare opiate use for breakthrough pain considering h/o opiate abuse on methadone. Opiate abuse on methadone therapy - continue, would contact regarding verification but consider increasing as front line for pain mgmt Subjective No acute overnight events. Afebrile overnight. Pt reports improving L arm pain , erythema and swelling but still very tender. ROS: No chest pain, SOB, WARNER/dizziness fevers, chills, nausea, vomiting, diarrhea , dysuria Physical Exam 2 Vital Signs (Past 24 Hours): Last Vital Signs Temp 36.7 C 10/04/18 13:24 Pulse 62 10/04/18 13:24 Resp 18 10/04/18 13:24 BP 146/91 H 10/04/18 13:24 Pulse Ox 94 10/04/18 13:24 Physical Exam: General: In NAD resting comfortably in bed CV: RRR no murmurs, rubs or gallops Pulm: CTAB equal breath sounds bilaterally Abdomen: +BS, NTTP in all quadrants and non-distended Extremities: LUE wound vac and dressing intact, 2+ pitting hand edema with intact sensation and blood flow, notable forearm erythema and significant tenderness to palpation; no LE edema or calf tenderness Results & Data Laboratory Results Abnormal lab results 10/04/18 10/04/18 10/04/18 Range/Units 06:27 06:27 06:27 RBC 4.15 L (4.7-6.1) M/uL Hgb 13.1 L (14.0-18.0) g/dL Hct 39.0 L (42-52) % RDW Std Deviation 52.9 H (36.4-46.3) fL RDW Coeff of Nikita 15.3 H (11.5-14.5) % Immature Gran # (Auto) 0.10 H (0.00-0.02) K/uL ESR (0-14) mm/hr INR 1.2 H (0.9-1.1) BUN 2 L (7-18) mg/dl BUN/Creatinine Ratio 2.7 L (10-20) C-Reactive Protein 7.31 H (0-0.29) mg/dl 10/04/18 Range/Units 06:27 RBC (4.7-6.1) M/uL Hgb (14.0-18.0) g/dL Hct (42-52) % RDW Std Deviation (36.4-46.3) fL RDW Coeff of Nikita (11.5-14.5) % Immature Gran # (Auto) (0.00-0.02) K/uL ESR 84 H (0-14) mm/hr INR (0.9-1.1) BUN (7-18) mg/dl BUN/Creatinine Ratio (10-20) C-Reactive Protein (0-0.29) mg/dl Medications Administered Current Inpatient Medications Acetaminophen (Tylenol) 325 mg PO Q4H PRN PRN Reason: Pain Stop: 11/01/18 17:59 Al Hydrox/Mg Hydrox/Simethicone (Maalox) 30 ml PO Q6H PRN PRN Reason: Dyspepsia Stop: 10/30/18 16:21 Diphenhydramine HCl (Benadryl) 25 mg PO Q8H PRN PRN Reason: pruritis Stop: 10/31/18 19:33 Docusate Sodium (Colace) 100 mg PO BID [facility] Stop: 10/31/18 20:59 Last Admin: 10/04/18 09:01 Dose: 100 mg Ergocalciferol (Vitamin D2) 50,000 units PO Cutler@0900 [facility] Stop: 11/01/18 09:59 Last Admin: 10/03/18 09:09 Dose: 50,000 units Hydromorphone HCl (Dilaudid) 2 mg PO Q2H PRN PRN Reason: Pain Stop: 10/15/18 18:48 Last Admin: 10/04/18 08:54 Dose: 2 mg Vancomycin HCl 1,250 mg/ (Sodium Chloride) 275 mls @ 125 mls/hr IV Q8H [facility] Stop: 10/10/18 19:59 Last Infusion: 10/04/18 11:12 Dose: Infused Potassium Chloride 10 meq/ (Sodium Chloride) 1,005 mls @ 100 mls/hr IV .Q10H3M [facility] Stop: 10/31/18 19:33 Last Admin: 10/04/18 08:55 Dose: 100 mls/hr Ketorolac Tromethamine (Toradol) 15 mg IV Q6H PRN PRN Reason: Pain Stop: 10/05/18 16:21 Last Admin: 10/01/18 10:38 Dose: 15 mg Magnesium Hydroxide (Milk Of Magnesia) 30 ml PO Q6H PRN PRN Reason: Constipation Stop: 10/30/18 16:21 Methadone HCl (Methadone Hcl) 67 mg PO DAILY [facility] Stop: 10/15/18 08:59 Last Admin: 10/04/18 08:57 Dose: 67 mg Miscellaneous (Remove Nicoderm Patch) 1 ea N/A HS [facility] Stop: 10/30/18 20:59 Last Admin: 10/03/18 20:28 Dose: Not Given Miscellaneous Information (Consult) 1 ea N/A UD PRN PRN Reason: Consult Stop: 10/30/18 10:20 Morphine Sulfate (Morphine Sulfate) 4 mg IV Q2H PRN PRN Reason: Pain Stop: 10/15/18 18:48 Naloxone HCl (Narcan) 0.4 mg IV ONCE PRN PRN Reason: Sedation Stop: 10/31/18 18:48 Nicotine (Nicoderm Cq) 21 mg TD QAM [facility] Stop: 10/31/18 08:59 Last Admin: 10/04/18 09:09 Dose: Not Given Non-Formulary Medication (Patient's Own Controlled Med) 1 ea PO DAILY [facility] Stop: 10/15/18 08:59 Last Admin: 10/04/18 09:02 Dose: 67 mg Ondansetron HCl (Zofran) 4 mg IV Q6H PRN PRN Reason: Nausea Stop: 10/30/18 16:21 Polyethylene Glycol (Miralax Powder Packet) 17 gm PO DAILY PRN PRN Reason: Constipation Stop: 10/30/18 16:21 Sennosides (Senokot) 17.2 mg PO HS [facility] Stop: 10/31/18 20:59 Last Admin: 10/03/18 20:22 Dose: Not Given Vitamin D (Vitamin D3) 2,000 units PO QAM [facility] Stop: 11/01/18 08:59 Last Admin: 10/04/18 09:09 Dose: Not Given Resident Activity Tracking Resident Involvement: Resident Care Provided Care Provided: Adult Hospital Medicine
--- NOTE | 2018-10-04 14:57 | Post Operative Brief Note ---
Immediate Post Op Note v1 Date of Surgery October 04, 2018 Pre & Post Diagnosis Operation Date: 10/01/18 07:00 Pre-Op Diagnosis: LEFT FOREARM ABSCESS Post-Op Diagnosis: LEFT FOREARM ABSCESS Operation Date: 10/04/18 07:10 Pre-Op Diagnosis: LEFT FOREARM ABSCESSES Post-Op Diagnosis: LEFT FOREARM ABSCESSES Procedure Operation Date: 10/01/18 07:00 Actual Procedures p Left Forearm Incision and Drainage with wound vac application - Austin Harp DO Operation Date: 10/04/18 07:10 Actual Procedures p Irrigation and debridement left forearm primary closure anterior wound, reapplication of wound vac to dorsal wound(Left) - Austin Harp DO Surgeon Austin Harp DO Biotechnologist none Estimated Blood Loss 100 Findings Consistent with Post-Op Diagnosis Specimens dorsal wound culture Drains Other (wound vac x 2, left forearm) Anesthesia Type General Complications none Disposition Disposition: Recovery Room Overlapping Procedure I was present for: the critical portions of procedure. I was immediately available: during the entire case. Back up surgeon: was not required during procedure.
[2018-10-04] MEDS: fentaNYL citrate 100 MCG/2 ML VIAL IV PRN ×4 (15:11→15:26)
--- NOTE | 2018-10-04 15:27 | Orthopedic Progress Note ---
Date of Service October 04, 2018 Assessment & Plan (1) Abscess of left forearm: Status post irrigation and debridement of the left volar and dorsal forearm, primary closure volar wound, wound vac application of dorsal wound Status post irrigation and debridement of the left volar and dorsal forearm abscess, application of wound VAC x2 POD#3 -Continue with IV antibiotics, vancomycin and Zosyn -ID consulted-reccommends continuing IV antibiotics for now pending culture results -Consult pain management -Nonweightbearing left upper extremity -PT/OT -Ice and elevation of left upper extremity -A.m. labs HGB 12.6 -Cultures GS gram+cocci, culture showing pinpoint growth, reincubating. -Monitor wound VAC output -Consult place to wound care and plastic surgery for post operative dorsal wound care and definitive skin closure Subjective Post Operative Progress Note Patient seen in PACU, c/o pain, no acute issues. Constitutional: as per Subjective / HPI Physical Exam 2 Vital Signs (Past 24 Hours): Last Vital Signs Temp 36.0 C L 10/04/18 15:00 Pulse 71 10/04/18 15:10 Resp 18 10/04/18 15:10 BP 160/99 H 10/04/18 15:10 Pulse Ox 97 10/04/18 15:10 Physical Exam: LUE NVSI grossly, actively moving all five digits, +2 radial pulse, +edema, +erythema, Dressing/wound vac clean dry and intact
--- NOTE | 2018-10-04 15:49 | Anesthesiology Progress Note ---
Date of Service October 04, 2018 Anesthesia Post Procedure Vital Signs Vital Signs: Temp Pulse Pulse Resp BP Pulse Ox 10/04/18 15:40 63 18 154/89 H 95 10/04/18 15:30 63 18 147/93 H 94 10/04/18 15:20 64 18 155/96 H 94 10/04/18 15:10 71 18 160/99 H 97 10/04/18 15:00 36.0 C L 70 18 159/93 H 99 10/04/18 13:24 36.7 C 62 18 146/91 H 94 10/04/18 07:20 36.8 C 68 14 143/87 H 95 10/03/18 23:25 36.8 C 80 18 130/86 93 10/03/18 16:01 36.6 C 68 18 130/90 97 Pain Intensity Left Arm: Pain Intensity: 7 Notes Mental Status: alert / awake / arousable and participated in evaluation Patient Amnestic to Procedure: Yes Nausea / Vomiting: adequately controlled Pain: adequately controlled Airway Patency, RR, SpO2: stable & adequate BP & HR: stable & adequate Hydration State: stable & adequate Anesthetic Complications: no major complications apparent and Pt Satisfied with anesthetic care
[2018-10-04] MEDS ORDERED: POTASSIUM CHLORIDE 10 MEQ in SODIUM CHLORIDE 0.9% 1000ML 1,000 ML IV SCH (16:00)
--- NOTE | 2018-10-04 17:12 | Surgery Progress Note ---
Date of Service October 04, 2018 Assessment & Plan (1) History of incision and drainage: Intraoperative wound images reviewed and case discussed with Dr. Harp. Patient is s/p I+D/ VAC placement to left arm earlier today. Will plan to assess patient and wound at next VAC change (likely Thursday if still inpatient ). If plan is for discharge prior to Thursday, recommend discharge with home VAC and follow up at wound care (with me) for VAC management. If skin graft will be necessary this would not be performed this admission. Physical Exam 2 Vital Signs (Past 24 Hours): Last Vital Signs Temp 36.4 C L 10/04/18 16:51 Pulse 67 10/04/18 16:51 Resp 19 10/04/18 16:51 BP 144/90 H 10/04/18 16:51 Pulse Ox 90 10/04/18 16:51
[2018-10-04] MEDS ORDERED: MoRPHine SULFATE 4 MG/ML 1 ML CARP\\VIAL IV PRN (17:57)
[2018-10-04] MEDS ORDERED: HYDROmorphone HCL 2 MG TAB PO STA (18:00)
[2018-10-04] MEDS: SENNA 8.6 MG TAB PO SCH (20:28)
[2018-10-05] MEDS: HYDROmorphone HCL 2 MG TAB PO PRN ×9 (01:03→21:04)
[2018-10-05] MEDS: POTASSIUM CHLORIDE 10 MEQ in SODIUM CHLORIDE 0.9% 1000ML 1,000 ML IV SCH ×2 (04:27→05:22)
[2018-10-05 06:41] LABS: Basophils # (auto) 0.03 K/uL (0-0.2); Basophils % (auto) 0.4 %; Eosinophils # (auto) 0.12 K/uL (0-0.5); Eosinophils % (auto) 1.4 %; Hematocrit (blood only) 35.9 % (42-52); Hemoglobin 11.9 g/dL (14.0-18.0); Immature Granulocytes # (auto) 0.06 K/uL (0.00-0.02); Immature Granulocytes % (auto) 0.7 %; Lymphocytes # (auto) 1.98 K/uL (1.2-3.4); Lymphocytes % (auto) 23.9 %; Mean Corpuscular Hgb Conc 33.1 g/dL (32-36); Mean Corpuscular Volume 94.2 fL (80-100); Mean Platelet Volume 9.4 fL (7.4-10.4); Neutrophils # (auto) 5.59 K/uL (1.4-6.5); Neutrophils % (auto) 67.6 %; Platelet Count 364 K/uL (130-400); RDW Coefficient of Variation 15.1 % (11.5-14.5); RDW Standard Deviation 52.4 fL (36.4-46.3); Red Blood Count 3.81 M/uL (4.7-6.1); White Blood Count 8.28 K/uL (4.8-10.8)
[2018-10-05 07:11] LABS: INR 1.2 (0.9-1.1); Prothrombin Time 12.1 Seconds (9.0-12.0)
[2018-10-05 07:15] LABS: BUN Creatinine Ratio 6.5 (10-20); Creatinine Clr Calc Pharmacy 152.3 ml/min; Est GFR (African American) 134.4; Potassium 3.7 mmol/L (3.5-5.1)
[2018-10-05] MEDS: VANCOMYCIN HCL 1,250 MG in SODIUM CHLORIDE 0.9% 250 ML IV SCH ×2 (07:49→16:20)
[2018-10-05] MEDS: NICOTINE 21 MG/24 HR TDSY TD SCH (09:02)
[2018-10-05] MEDS: DOCUSATE SODIUM 100 MG CAP PO SCH ×2 (09:02→21:06)
[2018-10-05] MEDS: METHADONE ORAL SOLN 2 MG/ML PO SCH (09:03)
[2018-10-05] MEDS: CHOLECALCIFEROL 1,000 UNITS TAB PO SCH (09:03)
--- NOTE | 2018-10-05 09:15 | Orthopedic Progress Note ---
Date of Service October 05, 2018 Assessment & Plan (1) Abscess of left forearm: POD 1 s/p 2nd I&D of left forearm with primary closure of volar wound and continued wound vac on dorsal wound. Continue current IV antibx Cx growing Group C Strep CM putting in authoriztion for wound vac ID team recommending Augmentin bid for 21 days due to IVDA history. No picc line. Plan for dressing change tomorrow. Subjective POD 1 s/p repeat I&D Left forearm with primary closure of volar wound and application of wound vac to dorsal wound. Pt is lying in bed currently. Awake , alert, comfortable. No complaints currently. Physical Exam 2 Vital Signs (Past 24 Hours): Last Vital Signs Temp 36.6 C 10/05/18 07:10 Pulse 66 10/05/18 07:10 Resp 14 10/05/18 07:10 BP 133/79 10/05/18 07:10 Pulse Ox 93 10/05/18 07:10 Physical Exam: Dressings C/D/I. Wound vac functioning well. Minimal drainage noted in the vac. Hand with swelling over the dorsal area. Moving fingers well and has good sensation. Mild erythema noted over the elbow with decreased swelling. Moving elbow well. Cap refill less than 2 seconds.
[2018-10-05] MEDS: PATIENT'S OWN CONTROLLED MED PO SCH (09:16)
--- NOTE | 2018-10-05 09:45 | Family Medicine Progress Note ---
Date of Service October 05, 2018 Assessment & Plan (1) Abscess of left forearm: 33M with hx of IVDU on Methadone. Admitted for left forearm cellulitis and abscess on CT measuring 10.7 cm x 2.6 cm. 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 I&D performed on 10/01/18 with repeat I&D on 10/04. Blood cultures negative to date. Wound cultures growing group C strep. Abx narrowed from vanc/zosyn to vanc and will transition to augmentin 875mg Po x 21 days on discharge Left forearm abscess, h/o MRSA, I&D on 10/01/18 and 10/04 Wound Cultures - Group C strep Blood cultures - no growth to date ESR 84 and CRP 7.3 on 10/04/18 On vancomycin Per Surgery, - non weight bearing LUE. - PT/ OT - Ice and elevation of LUE. - Wound vac - monitor output - plastic surgery and wound care consulted for post-op care: will evaluate on thursday with next dressing change; outpt follow up with Dr. Hilda cm for wound/vac care and possible graft if needed - ID consulted: continue IV abx and transition to augmentin po 875mg x 21 days on discharge - pain management consulted: recommended toradol and tylenol; decreased dilaudid and increasing methadone if needed Pain control - Tylenol PRN and Toradol PRN. With h/o opioid abuse want to avoid opiates. Methadone therapy PDMP reviewed, last buprenorphine given was in march. Do not see methadone listed there. Voicemail left at [phone] 10/01 (open M-F 5:30a-1:30p) "[facility]" -- to verify dosing, pt states he takes 67mg suspension. Will continue Methadone suspension while inpatient. Tobacco use 1.5 PPD currently nicoderm patch FEN/GI: Regular diet. DVT ppx: Heparin BID held, SCDs DISPO: pending authorization for wound vac FULL CODE (2) Amputation of left lower extremity: (3) Cellulitis of left forearm: Supervising Physician Co-Signing Physician Notes Attending attestation Pt seen and examined in concert with Dr. George. In agreement with the documented findings as noted in the resident documentation with any exceptions or additions as noted here. Pt resting comfortably in bed talking with mother. Pain well controlled at present, swelling and redness subjectively improved as well. Not using foam arm elevator 2/2 comfort, happy w/ pillow. Denies f/c, lightheadedness, n/t/w On examination, S1/S2 nl RRR no MCG. RUE bandage CDI with surrounding erythema and distal swelling diminished in size and intensity but still present. Vac draining visible serosanguinous fluid. Complicated left forearm abscess - continue vancomycin and transition to augmentin at discharge. Ortho consultation appreciated - would encourage toradol /tylenol over opiates in the setting of methadone. Awaiting wound vac for outpatient. Subjective No acute overnight events. Afebrile overnight. Pt reports much imrpoved L arm pain ROS: No chest pain, SOB, WARNER/dizziness fevers, chills, nausea, vomiting, diarrhea , dysuria Physical Exam 2 Vital Signs (Past 24 Hours): Last Vital Signs Temp 36.6 C 10/05/18 07:10 Pulse 66 10/05/18 07:10 Resp 14 10/05/18 07:10 BP 133/79 10/05/18 07:10 Pulse Ox 93 10/05/18 07:10 Physical Exam: General: In NAD resting comfortably in bed CV: RRR no murmurs, rubs or gallops Pulm: CTAB equal breath sounds bilaterally Abdomen: +BS, NTTP in all quadrants and non-distended Extremities: LUE wound vac (drained less than 50ml serosanquinous fluid) and dressing intact, 1+ pitting hand edema with intact sensation and cap refill <2 sec, notable forearm erythema and much improved tenderness to palpation compared to exam on ; no LE edema or calf tenderness on RLE; LLE BKA warm to touch without any lesions; able to move fingers and bend elbow with intact sensation
--- NOTE | 2018-10-05 18:01 | Operative Report ---
Post Operative Report Date of Surgery October 04, 2018 Pre & Post Diagnosis Operation Date: 10/01/18 07:00 Pre-Op Diagnosis: LEFT FOREARM ABSCESS Post-Op Diagnosis: LEFT FOREARM ABSCESS Operation Date: 10/04/18 07:10 Pre-Op Diagnosis: LEFT FOREARM ABSCESSES Post-Op Diagnosis: LEFT FOREARM ABSCESSES Procedure Operation Date: 10/01/18 07:00 Actual Procedures p Left Forearm Incision and Drainage with wound vac application - Austin Harp DO Operation Date: 10/04/18 07:10 Actual Procedures p Irrigation and debridement left forearm primary closure volar wound, reapplication of wound vac to dorsal wound(Left) - Austin Harp DO Surgeon Austin Harp DO [employer] Supervisor none Estimated Blood Loss 40 Findings Consistent with Post-Op Diagnosis Specimens dorsal wound culture Drains Wound vac dorsal forearm Anesthesia Type General Complications none Disposition Disposition: Recovery Room Indications The patient is a 33-year-old male with past medical history significant for IVDA , on methadone, last IV drug use reported 4 months prior. Presents with worsening pain and swelling to his left upper extremity which started 1 week prior he reports. He had a scrape overlying the dorsal aspect of the lower one third forearm however does not recall how he obtained it. Over the last week the patient has reported increased swelling and pain in redness. Currently denies fevers chills nausea vomiting shortness breath chest pain. Has a history of MRSA. The patient was taken to the operating room on 10/01/18, irrigation of volar and dorsal forearm abscesses was performed and wound VACs applied. Intraoperative cultures were taken which grew Group C strep, pansensitive. I have indicated the patient for wound vac removal, repeat irrigation debridement of the left forearm, primary closure vs reappliaction of wound VACs application, the risks, benefits, complications of the procedure as well as alternatives were explained and the patient and they include however not limited to infection, acute blood loss, blood clots, injury to surrounding nerves, bone, soft tissue, vessels, chronic pain, need for repeat surgery, compartment syndrome, loss of function, loss of limb, cardiac and pulmonary events and . The patient wish to proceed with surgical intervention and informed consent was obtained at this time. Description of Procedure Upon arrival to the operating room the patient was transferred to the OR table. Following the application of adequate general anesthesia the left upper extremity was placed on the hand table and a nonsterile well-padded tourniquet was applied to the proximal aspect of the left upper arm. Volar and dorsal wound VACs were removed at this time. The left upper extremity was prepped and draped in the usual sterile manner using betadine. A time out was performed and site verified. The patient was on scheduled IV antibiotics, anesthesia confirmed they were given. The arm was elevated for 5 minutes and tourniquet inflated to 250 mmHg. Next, the volar and dorsal wounds were irrigated with copious amounts of sterile saline solution with bacitracin. Fibrous tissue was removed from the wound beds utilizing scalpel, currets, rongour and green elevator. There was a small amount of purulent tissue present in the dorsal wound and a wound culture was collected. Upon further inspection of the dorsal wound, there was necrotic skin measuring 5cm x 1.5cm and 4.5cm x 1cm which was sharply excised with scalpel blade. The volar and dorsal wounds communicated with each other radially in the subcutaneous tissue. The volar and dorsal wounds were once again irrigated with copious amounts of sterile saline solution with bacitracin , 3L in total. Once satisfied with irrigation and debridment and healthy appearing tissue remained a primary closure was performed of the volar wound utilizing 2-0 nylon suture, loosely approximating the skin edges with numerous interrupted vertical mattresses in a near-far, far-near technique. Prior to closure the volar wound measured 3.5cm x 9cm. Next, we turned our attention to the dorsal wound measuring 5cm x 9cm. Partial closure was performed of the dorsal wound utilizing 2-0 nylon suture, loosely approximating the proximal and distal incision skin edges with interrupted vertical mattresses in a near-far, far-near technique. A full thickness skin defect measuring 4cm x 6.5cm remained. A wound VAC system was then applied covering the defect in it's entirety. Sterile dressings were applied to the volar incision which included xeroform, 4x4s, ABD. The forearm was then wrapped with webril and joe bandage. The tourniquet was deflated at this time, 44 minutes. The operative extremity was then placed in a sling and the patient was awoken in the operating room and transported to the PACU in stable condition. The patient tolerated the procedure well. I attest to the content of the Intraoperative Record and any orders documented therein. Any exceptions are noted below.
[2018-10-05] MEDS: SENNA 8.6 MG TAB PO SCH (21:06)
[2018-10-06] MEDS: HYDROmorphone HCL 2 MG TAB PO PRN ×5 (00:36→13:43)
[2018-10-06] MEDS: VANCOMYCIN HCL 1,250 MG in SODIUM CHLORIDE 0.9% 250 ML IV SCH (00:37)
[2018-10-06] MEDS ORDERED: VANCOMYCIN TROUGH ONE (07:30)
[2018-10-06 07:35] LABS: Basophils # (auto) 0.04 K/uL (0-0.2); Basophils % (auto) 0.6 %; Eosinophils # (auto) 0.34 K/uL (0-0.5); Eosinophils % (auto) 4.7 %; Hematocrit (blood only) 37.4 % (42-52); Hemoglobin 12.4 g/dL (14.0-18.0); Immature Granulocytes # (auto) 0.08 K/uL (0.00-0.02); Immature Granulocytes % (auto) 1.1 %; Lymphocytes # (auto) 1.72 K/uL (1.2-3.4); Lymphocytes % (auto) 23.7 %; Mean Corpuscular Hgb Conc 33.2 g/dL (32-36); Mean Platelet Volume 9.3 fL (7.4-10.4); Monocytes # (auto) 0.38 K/uL (0.11-0.59); Monocytes % (auto) 5.2 %; Neutrophils % (auto) 64.7 %; Platelet Count 333 K/uL (130-400); RDW Standard Deviation 51.8 fL (36.4-46.3); Red Blood Count 3.98 M/uL (4.7-6.1); White Blood Count 7.26 K/uL (4.8-10.8)
[2018-10-06 07:40] VITALS: BP 144/89; PULSE 63; TEMP 98.1; O2SAT 95
[2018-10-06 07:48] LABS: INR 1.1 (0.9-1.1); Prothrombin Time 11.4 Seconds (9.0-12.0)
[2018-10-06] MEDS: NICOTINE 21 MG/24 HR TDSY TD SCH (08:49)
[2018-10-06] MEDS: DOCUSATE SODIUM 100 MG CAP PO SCH (08:50)
[2018-10-06] MEDS: CHOLECALCIFEROL 1,000 UNITS TAB PO SCH (08:51)
[2018-10-06] MEDS: METHADONE ORAL SOLN 2 MG/ML PO SCH (09:34)
[2018-10-06] MEDS: PATIENT'S OWN CONTROLLED MED PO SCH (09:34)
--- NOTE | 2018-10-06 09:40 | Orthopedic Progress Note ---
Date of Service October 06, 2018 Assessment & Plan (1) Abscess of left forearm: POD 2 s/p 2nd I&D of left forearm with primary closure of volar wound and continued wound vac on dorsal wound. POD5 s/p I+D left forearm, wound vac application x 2 Continue current IV antibx Cx growing Group C Strep CM putting in authoriztion for wound vac ID team recommending Augmentin bid for 21 days due to IVDA history. No picc line. -wound vac changed by wound care team today -follow up with wound care/plastics for treatment of dorsal wound, definitive skin coverage -will need to follow up in office 10-14 days from discharge, -NW LUE -Continue PT for ROM exercises Subjective POD 2 s/p repeat I&D Left forearm with primary closure of volar wound and application of wound vac to dorsal wound. Pt is lying in bed currently. Awake , alert, comfortable. No complaints currently. Currently being seen by wound care for vac change. Constitutional: as per Subjective / HPI Physical Exam 2 Vital Signs (Past 24 Hours): Last Vital Signs Temp 36.7 C 10/06/18 07:39 Pulse 63 10/06/18 07:39 Resp 17 10/06/18 07:39 BP 144/89 H 10/06/18 07:39 Pulse Ox 95 10/06/18 07:39 Physical Exam: SONYA NVSI grossly, actively moving all 5 digits, edema improving , erythema improving, volar incision cdi, dorsal wound clean, 4cm x 6.5cm. ROM elbow decreased
[2018-10-06] MEDS ORDERED: VANCOMYCIN HCL 1,250 MG in SODIUM CHLORIDE 0.9% 250 ML IV SCH (10:00)
--- NOTE | 2018-10-06 10:06 | Surgery Consultation ---
"Date of Consultation October 06, 2018 Assessment & Plan (1) History of incision and drainage: I discussed further planning with the patient. At this point, the wound looks great. I recommended continued VAC therapy, with placement of silver foam today. There is no reason for him to remain hospitalized if we are able to arrange home nursing or wound care center visits for VAC changes. I would like to see him at the wound care center next . Once the wound is up to surface, I suspect we could change to Promogran and consider epidermal grafting versus possible split-thickness skin grafting. Both procedures were reviewed with the patient. He has previously had a skin graft to his left lower extremity so he knows what to expect if this should be needed. Given the small size of the wound however, I think we could probably perform this on an outpatient basis as an epidermal graft and negate the need for pain medication. We also discussed his tobacco use. He states he has not smoked since he has been inpatient and has quit in the past, is hoping to quit again. He was encouraged regarding this and is aware that smoking cessation will allow him to heal faster. History of Present Illness Requesting Physician: I am asked to see this patient in consultation by Dr. Harp from orthopedic surgery regarding management of a left forearm wound. Patient is a 33-year-old male with history of IVDA, last use 4 months ago, maintained on methadone, who developed a substantial left arm abscess after obtaining a cut. The issue apparently began around September 26, and he stated it initially became inflamed but then quieted down and then turned into a full- blown infection with painful swollen and red arm. He presented to the emergency department, CT scan showed large abscess left forearm without osteomyelitis, and he has been taken to the operating room twice by orthopedics , first time on October 01, with dorsal and volar incisions, placement of wound vacs at both sites, followed by repeat exploration on October 04, closure of the volar wound, partial closure of the dorsal wound with placement of a VAC. I am asked to assist in wound management and assess for possible grafting. 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 He has been seen at the wound care center in the past for wound issues on his left BKA. Attending Physician: Ranjit Will MD Allergies Allergy/AdvReac Type Severity Reaction Status Date / Time No Known Allergies Allergy Unverified 10/01/18 17:04 Home Medications Home Medications Medication Instructions Recorded Confirmed Type methadone 67 mg PO DAILY 09/30/18 09/30/18 History Patient History Medical History History of intravenous drug abuse Amputation of left lower extremity Surgical History History of incision and drainage Left forearm on 10/01/18 and 10/03/18 Family History Other No significant family history Social History marital status: Single Current Living Situation: Parent and Family Feels Safe at Home: Yes Smoking Status: Current every day smoker Tobacco Type: cigarettes Cigarettes per Day: 20 Hx Alcohol Use: Yes Alcohol Intake Frequency: other Hx Substance Use: No Beliefs That Will Affect Care: None Visual Impairment: No Limitations Review of Systems left arm pain Physical Exam 2 Vital Signs (Past 24 Hours): Last Vital Signs Temp 36.7 C 10/06/18 07:39 Pulse 63 10/06/18 07:39 Resp 17 10/06/18 07:39 BP 144/89 H 10/06/18 07:39 Pulse Ox 95 10/06/18 07:39 Constitutional: WD/WN, vitals as above + acute distress (In pain during dressing change) Skin: + wound (6.5 x 4 cm wound dorsal aspect left forearm, about 3 mm deep, almost entirely covered with granulation tissue, minimal exposed tendon; volar surface wound intact) Psychiatric: A+Ox3, euthymic affect Results & Data Laboratory Results Microbiology 10/01/18 17:57 Arm,Left Gram Stain - Final 10/01/18 17:57 Arm,Left Aerobic and Anaerobic Culture - Preliminary Group C Beta Strep 10/01/18 17:57 Arm,Left Gram Stain - Final 10/01/18 17:57 Arm,Left Aerobic and Anaerobic Culture - Preliminary Group C Beta Strep 09/30/18 12:20 Blood Blood Culture - Preliminary No growth to date. 09/30/18 10:30 Blood Blood Culture - Preliminary No growth to date. WBC | 7.26 | | 4.8-10.8 K/uL"
--- NOTE | 2018-10-06 12:28 | Pharmacy Report ---
Pharmacy Abx Dose Short Note - Date of Service October 06, 2018 - Assessment & Plan Assessment 33 year old M receiving Vancomycin 1250mg Q8H for treatment of left forearm cellulitis with abscess. Day # 7 of antimicrobial therapy. Laboratory Tests 10/06/18 07:23 Vancomycin Trough 22.4 Plan Vancomycin * Trough level of 22.4 mcg/mL is slightly supratherapeutic. * Change to 1250 mg IV every 10 hours * Goal trough level : 15 to 20 mcg/mL * Trough or random level ordered for: 10/07/18 before 1600 dose. Pharmacy will continue to follow and will adjust dose/frequency as necessary. Thank you.
--- NOTE | 2018-10-06 17:00 | Discharge Summary ---
Date of Service October 06, 2018 Admission HPI Per Admitting Provider 33 M here for 4 day h/o redness and progressive swelling of his left forearm. Pt denies any particular h/o trauma, but does point to the left outer forearm and says there used to be a scratch there, which then began to swell starting Thursday of this week. Thursday it seemed to get better, but then yesterday and this morning it began to get worse and more painful hence coming in to the ED. He endorses severe pain at the left forearm. States he has taken nothing for pain at home as of yet. Pt denies fevers, chills, chest pain, dyspnea, headache, abdominal pain, or lesions any where else on his body. ED course: forearm CT shows abscess, [facility], plan for OR clean out 10/01. Given Vanc/Zosyn. 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 Smokes 1 1/2 PPD. Drinks 1 beer per day. Last illicit drug use was 4 months ago. Goes to methadone clinic every morning for 67 mg methadone. PMH: heroin abuse and BKA LT, complicated by MRSA + ulceration. PSH: LT BKA Meds: methadone daily All: NKDA Admission Exam Per Admitting Provider Vitals noted as above and within normal limits. GENERAL: Awake, alert, well-appearing, in no distress HENT: Normocephalic, atraumatic. EYES: Normal conjunctiva. Sclera non-icteric. EOMI. NECK: Supple. Full range of motion. no JVD RESPIRATORY: Clear to auscultation. CARDIAC: Regular rate, normal rhythm. Extremities warm and well perfused. Pulses equal. ABDOMEN: Soft, non-distended. No tenderness to palpation. Bowel sounds are normal. LOWER EXTREMITIES: S/p LT BKA. UPPER EXT: left forearm diffusely erythematous and swollen, with fluctuance in lateral and posterior forearm. Neurovascularly in tact. TTP along forearm. NEURO: No gross focal motor deficits noted. SKIN: Rash not present. No jaundice noted. ERythema and swelling of left forearm as above. Principal Diagnosis L forearm cellulitis and abscess Discharge Exam General: In NAD resting comfortably in bed CV: RRR no murmurs, rubs or gallops Pulm: CTAB equal breath sounds bilaterally Abdomen: +BS, NTTP in all quadrants and non-distended Extremities: LUE wound vac (drained less than 50ml serosanquinous fluid) and dressing intact, 1+ pitting hand edema with intact sensation and cap refill <2 sec, notable forearm erythema and much improved tenderness to palpation compared to exam on ; able to move fingers and bend elbow with intact sensation; no LE edema or calf tenderness on RLE; LLE BKA warm to touch without any lesions Discharge Data Allergies Allergy/AdvReac Type Severity Reaction Status Date / Time No Known Allergies Allergy Unverified 10/01/18 17:04 Consultations 09/30/18 13:08 ED Decision to Admit Stat 09/30/18 16:22 Consult Case Management - Discharge Planning Routine 09/30/18 17:47 Consult Orthopedic Surgery Routine 10/01/18 19:34 Consult Case Management - Discharge Planning Routine Consult Pain Management Routine 10/01/18 20:06 Consult Infectious Diseases Routine 10/04/18 15:20 Consult Plastic Surgery Routine 10/04/18 15:21 Consult Wound Care Provider Routine 10/04/18 16:00 Consult Plastic Surgery Routine Procedures Performed Operation Date: 10/01/18 07:00 Actual Procedures p Left Forearm Incision and Drainage with wound vac application - Austin Harp DO Operation Date: 10/04/18 07:10 Actual Procedures p Irrigation and debridement left forearm primary closure anterior wound, reapplication of wound vac to dorsal wound(Left) - Austin Harp DO Ordered Studies 09/30/18 10:21 CT forearm LT w con Stat Hospital Course (1) Abscess of left forearm: 33M with hx of IVDU on Methadone. Admitted for left forearm cellulitis and abscess on CT measuring 10.7 cm x 2.6 cm. 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 I&D performed on 10/01/18 with repeat I&D on 10/04. Blood cultures negative to date. Wound cultures growing group C strep. Abx narrowed from vanc/zosyn to vanc and transitionrf to augmentin 875mg Po BID x 21 days on discharge Left forearm abscess, h/o MRSA, I&D on 10/01/18 and 10/04 Wound Cultures - Group C strep Blood cultures - no growth to date ESR 84 and CRP 7.3 on 10/04/18 Received vancomycin/zosyn -> discharged with augmentin 875mg Po BID x 21 days Per Surgery, - non weight bearing LUE. - Ice and elevation of LUE. - Wound vac - dced with with home health arrangements - plastic surgery and wound care consulted for post-op care: outpt follow up with Dr. Hilda hoyt for wound/vac care and possible graft if needed - ID consulted: abx as above - pain management consulted Pain control - Tylenol PRN and Toradol PRN. With h/o opioid abuse effort made to avoid opiates unless considered necessary by surgical team Methadone therapy PDMP reviewed, last buprenorphine given was in march. Do not see methadone listed there. Voicemail left at [phone] "[facility]" -- to verify dosing, pt stated taking 67mg suspension. Continued Methadone suspension while inpatient. Tobacco use 1.5 PPD currently nicoderm patch (2) Amputation of left lower extremity: (3) Cellulitis of left forearm: Total Time Total Time Spent Total Time Spent (In Minutes): <60 mins Total Time Includes: Examination of the Patient, Discharge Planning, Medication Reconciliation and Communication With Other Providers Discharge Plan Discharge Items Patient Disposition: Home - Home Health Services Reason For Visit: LEFT FOREARM ABSCESS Discharge Diagnosis: L forearm cellulitis and abscess Condition: Good Discharge Goals: Decrease discomfort, Diagnostic testing and Therapeutic intervention Activity: As commented below Weightbearing Comment: Non-weight bearing left upper extremity Non-emergency contact: Primary Care Provider and Surgeon Call non-emergency contact if: you have any medication questions, your symptoms worsen, your pain is worsening and your temperature is above 100.5 Follow-up/Referrals: [facility] [Provider Group] - 10/14/18 9:00 am (Please, follow up at [facility] on October 14 at 9:00 am. *This clinic is located at [address] in [place]. If you have any questions, call the clinic at [phone]. DR. HILDA HOYT WILL ALSO SEE YOU WHILE YOU ARE AT THE WOUND CLINIC) Charanjit Segura III, MD [Primary Care Provider] - 10/15/18 11:30 am (Please, follow up at Dr. Segura's office with his care management assistant, Noemy Montalvo on ThursdayOctober 15 at 11:30 am. *If you need to change this appointment, call the office at [phone].) Austin Harp, DO [Physician] - 10/19/18 8:15 am (Please, follow up with Dr. Austin Harp on ThursdayOctober 19 at 8:15 am. *This office is located at [address] [place] [address] in [place]. If you need to change this appointment, call the office at [phone].) Diet: Regular Addtl Provider Instructions: Mr. Cook you were admitted for left elbow infection/abscess which was drained twice. You received IV antibiotics and will be going home on antibiotics by mouth: augmentin 875mg twice a day for another 21 days starting tonight. Home health is arranged for you and will be visiting you on Thursday for dressing change and wound vac care which you will be going home with. Please take Tylenol up to 1000mg three times a day for pain as needed. Work note was also provided for duration of your stay. You have follow ups arranged as below: [facility] w/ Dr. Hoyt on Oct 14 at 9:[address] Imelda carpio/ Noemy Montalvo PA-C on ThursdayOct 15 at 11:[address] Mccauley on ThursdayOctober 19 at 8:15 am Prescriptions: New amoxicillin-pot clavulanate [Augmentin] 875-125 mg tablet 1 tab PO BID Qty: 42 RF: 0 Continue methadone 10 mg/mL Concentrate 67 mg PO DAILY RF: 0 Stand-Alone Forms: [facility] Discharge Orders: Discharge Order (Routine); Ordered 10/06/18 Ordered By: Tiffanie George Admission Data Admit Date/Time: 09/30/18 14:29 Attending Provider: Ranjit Will Admit Provider: Sarah Foreman Primary Care Provider: Charanjit Segura III Other Providers: Hilda Hoyt ; Jerrod Cross ; Austin Harp ; Bebeto Khan ; Amrik Sow ; Jada Haynes Service: Surgical Services Other Interventions: Discharge Summary Assessment (RN) Last Done: 10/06/18 13:19 Pending Studies at Discharge: No DC Date/Time DO NOT enter until pt leaves facility: 10/06/18 14:00 Supervising Physician Co-Signing Physician Notes Attending attestation Pt seen and examined in concert with Dr. George. In agreement with the documented findings as noted in the resident documentation with any exceptions or additions as noted here. Pt reports continued improvement in pain and swelling with some discomfort with dressing change but otherwise well controlled. On examination, S1/S2 nl RRR no MCG. CTAB. Abd NT/ND BS+ve. L hand continues to improve w/ 1+ pitting edema of the hand without sensation changes or weakness. Erythema of the forearm continues to improve. Vac draining serosanguinous on evaluation. Left forearm complicated cellulitis, abscess s/p I&D w/ wound vac - transitioned to PO augmentin for 21 days at time of discharge, follow up for vac management per orthopaedic team Pain management in the setting of methadone therapy - rec'd methadone while inpatient with breakthrough opiate medication per surgical team. Encourage acetaminophen use following discharge for pain control. Continue baseline methadone with follow up. Else see resident documentation as noted. Resident Activity Tracking Resident Involvement: Resident Care Provided Care Provided: Adult Hospital Medicine
[2018-10-07] MEDS ORDERED: VANCOMYCIN TROUGH ONE (15:30)
== END 2018-10-06 14:00 | disposition home health service (06) | DRG 572 ==
LOC: ED 09:53 → SUATTDRO 14:29 → 3N 14:29
DX: L03.114 Cellulitis of left upper limb; Z79.899 Other long term (current) drug therapy; Z86.14 Personal history of Methicillin resistant Staphylococcus aureus infection; F17.210 Nicotine dependence, cigarettes, uncomplicated; F11.21 Opioid dependence, in remission; Z89.512 Acquired absence of left leg below knee

== ENCOUNTER 2022-03-23 13:41 | Inpatient (IN) ==
[2022-03-23] MEDS ORDERED: ONDANSETRON INJ 2 MG/ML 2 ML VIAL IV STA (13:55)
[2022-03-23] MEDS ORDERED: SODIUM CHLORIDE 0.9% 500 ML IV SCH (14:00)
[2022-03-23] MEDS ORDERED: ALBUT/IPRATROP 3MG/0.5MG NEB 3 ML VIAL NEB STA (14:01)
[2022-03-23] MEDS ORDERED: NALOXONE HCL 0.4 MG/1 ML VIAL/CARP ONE (14:02)
--- NOTE | 2022-03-23 14:02 | Emergency Department Note ---
Impression & Plan Unresponsive episode, Accidental drug overdose, Rhabdomyolysis, Hypoxia, EMIL (acute kidney injury) ED Provider Note NAME: SAIDA HYDE AGE: 36 SEX: M : 1985 ARRIVES VIA: Ambulance INFORMANT: [Patient][nursing, ems] ED PROVIDER(S): [Teofilo Alonso MD] CHIEF COMPLAINT: Overdose HISTORY OF PRESENT ILLNESS: The patient is a 36-year-old male with a history of drug abuse. The patient was found by his family unresponsive. EMS/police were summoned. The police gave the patient 4 mg of Narcan intranasal. EMS did use a [id number] for short time. The patient woke up and is now able to breathe on his own. He is interactive. He does not remember what happened but feels he must have snorted heroin. The patient complains of some nausea currently. He cannot remember the earlier parts of today. There is some blood or vomitus about his face on the right but, he has no pain to the face and his nose is nontender. His bite seems normal. He does not have a headache. No chest pain or shortness of breath. Given the circumstances and his confusion and amnesia, no further history obtainable. REVIEW OF SYSTEMS: Unobtainable given the confusion and amnesia. PMHx/PSHx: See Below SOCIAL HISTORY: See Below. PHYSICAL EXAM: GENERAL: Patient is in mild distress. HEENT: There appears to be some dried blood or vomitus about the right side of the face. No tenderness across the nose or facial bones. The bite is normal, dentition is poor. No blood along the back of the throat. Pupils are small but equal bilaterally NECK: No stridor, no adenopathy, no meningismus, trachea is midline. Nontender C-spine. LUNGS: Crackles at both bases especially on the right, no wheezing, no respiratory distress HEART: Mildly tachycardic, regular rhythm, no murmurs ABDOMEN: Soft, nontender, bowel sounds positive, no peritonitis. EXTREMITIES: No cyanosis or edema. 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 NEUROLOGIC: Awake and interactive, answers questions, is amnestic about today's events SKIN: No rash, no jaundice, no diaphoresis. DIFFERENTIAL DIAGNOSIS: Intracranial bleeding, facial or C-spine fracture, CHF, electrolyte imbalance, anemia, pneumonia, aspiration, dehydration, drug and alcohol abuse, dysrhythmia, rhabdomyolysis, hypoxic event, among others. EMERGENCY DEPARTMENT COURSE/PROCEDURES: ECG: Indication was unresponsive episode. The ECG shows a sinus tachycardia with a rate of 116. There is some T wave inversion in the inferior leads. There is no ST elevation, no PVCs. The QTc is 458. Continuous Cardiac Monitoring: An order was placed for continuous cardiac monitoring. The monitor shows a rate of 119 with sinus tachycardia. Critical Care Note: I have personally spent 43 minutes of critical care time in the direct management of this patient. This includes bedside care, interpretation of diagnostic studies, and testing, discussion with consultants, patient, and family members, and other required patient management activities. This 43 minutes is in excess of all separately billable procedures. MEDICAL DECISION MAKING: There is a moderate leukocytosis, this could be consistent with infection or the stress of his unresponsive episode and presentation. There is a normal hemoglobin and platelet count. Sodium was somewhat low at 133 but not in need of emergent correction. Creatinine was elevated consistent with dehydration and some acute kidney injury. Lactic acid level was not elevated making severe sepsis less likely. There were a few subtle liver enzyme elevations. Total CK was elevated at over 3000, this is consistent with rhabdomyolysis. ECG showed a sinus tachycardia, no obvious ischemia. Cardiac enzyme testing x1 is not consistent with acute cardiac injury. The patient appears to be in a euthyroid state. Aspirin, Tylenol and alcohol levels are undetectable. COVID test is negative. Urinalysis and urine tox screens are pending. Brain CT shows no acute bleed or mass-effect. Facial CT shows no acute fracture, sinusitis was seen. C-spine CT shows no acute fracture. Chest x-ray shows some poor i nspiratory effort but no pneumonia or CHF. The patient did require some O2 supplementation during his stay. He was given 1.5 L of saline for hydration. He was given a DuoNeb. He received IV ceftri axone for what was described as sinusitis on his CT. He was given IV Protonix to help with stomach upset. He received IV Zofran. He did not require an additional dose of Narcan other than the dose given by police. The patient is resting. He is awake, he is interactive. He is in need of a hospital stay given his rhabdomyolysis, his hypoxia, his leukocytosis and sinusitis. Patient likely overdosed on heroin, this led to his unresponsive episode and presentation today. Past Med/Surg History Medical History History of intravenous drug abuse Surgical History Amputation of left lower extremity History of incision and drainage Left forearm on 10/01/18 and 10/03/18 Family History Other No significant family history Social History Smoking Status: Current every day smoker Cigarettes Per Day: 20; Second Hand Exposure: Yes; Hx Alcohol Use: Yes Hx Substance Use: No Preferred Language: Icelandic Communication Ability: Effective Visual Impairment: No Limitations Organisation And Methods Analyst Required: No Beliefs That Will Affect Care: None marital status: Single Current Living Situation: Parent and Family Feels Safe at Home: Yes Assistive Devices: Prosthesis Allergies Allergies Allergy/AdvReac Type Severity Reaction Status Date / Time No Known Allergies Allergy Unverified 12/02/18 09:26 Home Meds Home Medications Medication Instructions Recorded Confirmed methadone 10 mg/mL oral concentrate 67 mg PO DAILY 09/30/18 12/02/18 Results & Data (ED) Vital Signs Vital Signs - 24 hr 03/23/22 13:46 03/23/22 13:55 03/23/22 14:09 Temperature 36.8 C Temperature Source Oral Pulse Rate 121 H Respiratory Rate 17 Respiratory Effort / Characteristics Non-Labored Respiratory Depth Normal Respiratory Pattern Regular Blood Pressure 160/93 H Blood Pressure Mean 115 Blood Pressure Position Semi-fowlers Pulse Oximetry 95 86 L 92 Oxygen Delivery Method Room Air Room Air Nasal Cannula Oxygen Flow Rate 0 3 Sepsis Recent Fever Within 48 Hours No Sepsis New/Unexplained Change in Mental Status N/A Sepsis Action Taken by Nursing No Action Required Oxygen Flow Rate - Titration 3 Pulse Oximetry Post Tiitration 92 Home Medications Current Medication List: was personally reviewed by me Laboratory Data Attestation: I reviewed the patient's lab results. Result diagrams: 03/23/22 13:56 03/23/22 13:56 Lab Results 03/23/22 03/23/22 03/23/22 Range/Units 13:56 13:56 13:56 WBC 16.70 H (4.8-10.8) K/uL RBC 5.05 (4.7-6.1) M/uL Hgb 17.4 (14.0-18.0) g/dL Hct 49.7 (42-52) % MCV 98.4 (80-100) fL MCH 34.5 H (25-34) pg MCHC 35.0 (32-36) g/dL RDW Std Deviation 50.3 H (36.4-46.3) fL RDW Coeff of Nikita 14.1 (11.5-14.5) % Plt Count 268 (130-400) K/uL MPV 10.2 (7.4-10.4) fL Immature Gran % (Auto) 0.4 % Neut % (Auto) 91.0 % Lymph % (Auto) 3.4 % [place] % (Auto) 5.0 % Eos % (Auto) 0.1 % Baso % (Auto) 0.1 % Neut # (Auto) 15.21 H (1.4-6.5) K/uL Lymph # (Auto) 0.56 L (1.2-3.4) K/uL [place] # (Auto) 0.83 H (0.11-0.59) K/uL Eos # (Auto) 0.01 (0-0.5) K/uL Baso # (Auto) 0.02 (0-0.2) K/uL Immature Gran # (Auto) 0.07 H (0.00-0.02) K/uL Sodium 133 L (136-145) mmol/L Potassium 4.3 (3.5-5.1) mmol/L Chloride 91 L (98-107) mmol/L Carbon Dioxide 28 (21-32) mmol/L Anion Gap 14 H (3-11) BUN 16 (6-23) mg/dl Creatinine 1.51 H (0.6-1.4) mg/dl Est Cr Clr Drug Dosing 77.9 ml/min Est GFR ( Amer) 67.4 ml/min Est GFR (Non-Af Amer) 58.2 ml/min BUN/Creatinine Ratio 10.6 (10-20) Glucose 211 H (70-99(Fasting)) mg/dl Lactate (0.4-2.0) mmol/L Calcium 10.1 (8.5-10.1) mg/dl Magnesium 2.1 (1.7-2.4) mg/dl Total Bilirubin 1.2 H (0.2-1.0) mg/dl AST 86 H (13-39) U/L ALT 35 (7-52) U/L Alkaline Phosphatase 57 (34-104) U/L Total Creatine Kinase 3332 H (30-223) U/L Troponin I High Sens 17.4 (0-20) pg/ml Total Protein 8.2 (6.0-8.3) gm/dl Albumin 5.2 H (3.4-5.0) gm/dl Globulin 3.0 (2.5-4.0) gm/dl Albumin/Globulin Ratio 1.7 (0.9-2) TSH 0.770 (0.300-4.500) uIu/ml Salicylates (3.0-30) mg/dl Acetaminophen (10-30) ug/ml Ethyl Alcohol mg/dL (<10.0) mg/dl SARS-CoV-2, RNA, NAAT (NEGATIVE) 03/23/22 03/23/22 03/23/22 Range/Units 14:16 14:59 14:59 WBC (4.8-10.8) K/uL RBC (4.7-6.1) M/uL Hgb (14.0-18.0) g/dL Hct (42-52) % MCV (80-100) fL MCH (25-34) pg MCHC (32-36) g/dL RDW Std Deviation (36.4-46.3) fL RDW Coeff of Nikita (11.5-14.5) % Plt Count (130-400) K/uL MPV (7.4-10.4) fL Immature Gran % (Auto) % Neut % (Auto) % Lymph % (Auto) % [place] % (Auto) % Eos % (Auto) % Baso % (Auto) % Neut # (Auto) (1.4-6.5) K/uL Lymph # (Auto) (1.2-3.4) K/uL [place] # (Auto) (0.11-0.59) K/uL Eos # (Auto) (0-0.5) K/uL Baso # (Auto) (0-0.2) K/uL Immature Gran # (Auto) (0.00-0.02) K/uL Sodium (136-145) mmol/L Potassium (3.5-5.1) mmol/L Chloride (98-107) mmol/L Carbon Dioxide (21-32) mmol/L Anion Gap (3-11) BUN (6-23) mg/dl Creatinine (0.6-1.4) mg/dl Est Cr Clr Drug Dosing ml/min Est GFR ( Amer) ml/min Est GFR (Non-Af Amer) ml/min BUN/Creatinine Ratio (10-20) Glucose (70-99(Fasting)) mg/dl Lactate 1.3 (0.4-2.0) mmol/L Calcium (8.5-10.1) mg/dl Magnesium (1.7-2.4) mg/dl Total Bilirubin (0.2-1.0) mg/dl AST (13-39) U/L ALT (7-52) U/L Alkaline Phosphatase (34-104) U/L Total Creatine Kinase (30-223) U/L Troponin I High Sens (0-20) pg/ml Total Protein (6.0-8.3) gm/dl Albumin (3.4-5.0) gm/dl Globulin (2.5-4.0) gm/dl Albumin/Globulin Ratio (0.9-2) TSH (0.300-4.500) uIu/ml Salicylates < 3.0 L (3.0-30) mg/dl Acetaminophen < 3 L (10-30) ug/ml Ethyl Alcohol mg/dL (<10.0) mg/dl SARS-CoV-2, RNA, NAAT NEGATIVE (NEGATIVE) 03/23/22 Range/Units 14:59 WBC (4.8-10.8) K/uL RBC (4.7-6.1) M/uL Hgb (14.0-18.0) g/dL Hct (42-52) % MCV (80-100) fL MCH (25-34) pg MCHC (32-36) g/dL RDW Std Deviation (36.4-46.3) fL RDW Coeff of Nikita (11.5-14.5) % Plt Count (130-400) K/uL MPV (7.4-10.4) fL Immature Gran % (Auto) % Neut % (Auto) % Lymph % (Auto) % [place] % (Auto) % Eos % (Auto) % Baso % (Auto) % Neut # (Auto) (1.4-6.5) K/uL Lymph # (Auto) (1.2-3.4) K/uL [place] # (Auto) (0.11-0.59) K/uL Eos # (Auto) (0-0.5) K/uL Baso # (Auto) (0-0.2) K/uL Immature Gran # (Auto) (0.00-0.02) K/uL Sodium (136-145) mmol/L Potassium (3.5-5.1) mmol/L Chloride (98-107) mmol/L Carbon Dioxide (21-32) mmol/L Anion Gap (3-11) BUN (6-23) mg/dl Creatinine (0.6-1.4) mg/dl Est Cr Clr Drug Dosing ml/min Est GFR ( Amer) ml/min Est GFR (Non-Af Amer) ml/min BUN/Creatinine Ratio (10-20) Glucose (70-99(Fasting)) mg/dl Lactate (0.4-2.0) mmol/L Calcium (8.5-10.1) mg/dl Magnesium (1.7-2.4) mg/dl Total Bilirubin (0.2-1.0) mg/dl AST (13-39) U/L ALT (7-52) U/L Alkaline Phosphatase (34-104) U/L Total Creatine Kinase (30-223) U/L Troponin I High Sens (0-20) pg/ml Total Protein (6.0-8.3) gm/dl Albumin (3.4-5.0) gm/dl Globulin (2.5-4.0) gm/dl Albumin/Globulin Ratio (0.9-2) TSH (0.300-4.500) uIu/ml Salicylates (3.0-30) mg/dl Acetaminophen (10-30) ug/ml Ethyl Alcohol mg/dL < 10.0 (<10.0) mg/dl SARS-CoV-2, RNA, NAAT (NEGATIVE) Administered Medications Discontinued Medications Albuterol (Albut/Ipratrop 3mg/0.5mg Neb 3 Ml Vial) 3 ml NEB NOW STA; Protocol Stop: 06/19/22 14:02 Last Admin: 03/23/22 14:12 Dose: 3 ml Documented by: [id number] Sodium Chloride (Nss) 500 mls @ 999 mls/hr IV .Q31M CRICKET Stop: 03/23/22 14:30 Last Admin: 03/23/22 14:12 Dose: 999 mls/hr Documented by: [id number] Ondansetron HCl (Ondansetron Inj 2 Mg/Ml 2 Ml Vial) 4 mg IV NOW STA Stop: 03/23/22 13:56 Last Admin: 03/23/22 14:12 Dose: 4 mg Documented by: [id number] Imaging Data Radiologist's Impression: Chest X-Ray 03/23/22 13:55 XR chest 1V portable CLINICAL HISTORY: weakness. Evaluate cardiopulmonary status COMPARISON STUDY: No previous studies for comparison. TECHNIQUE: 1 view of the chest FINDINGS: Single frontal view of the chest demonstrates the cardiomediastinal silhouette to be within normal limits. There is a decreased inspiratory effort with elevation of the hemidiaphragms and crowding of the bronchovascular markings at the lung bases and centrally. The lungs are clear of alveolar opacities. There is no evidence for pleural effusion. There is no evidence for vascular congestion. There is no acute osseous pathology. IMPRESSION: 1. There is a decreased inspiratory effort with otherwise no acute chest disease. ACT 112: Negative or not required by law. Electronically signed by: Mikhail Alston M.D. 03/23/2022 2:[address] 03/23/22 13:57 CT cervical spine wo con CLINICAL HISTORY: fall . Confusion. Overdose COMPARISON STUDY: No previous studies for comparison. CT DOSE: TECHNIQUE: Standard CT of the Cervical Spine was performed without IV contrast. A dose lowering technique was utilized adhering to the principles of ALARA. FINDINGS: Bones: There is no evidence for an acute fracture or malalignment. The heights of the vertebral bodies are maintained. The vertebral bodies are in anatomic alignment. The odontoid is intact and the atlantoaxial articulation is within normal limits. Disc spaces: The disc space heights are maintained. Apophyseal joints: The apophyseal joints are intact bilaterally. Soft tissues: The prevertebral soft tissues are within normal limits. IMPRESSION: 1. Negative CT of the cervical spine. ACT 112: Negative or not required by law. Electronically signed by: Mikhail Alston M.D. 03/23/2022 2:[address] 03/23/22 13:57 CT facial bones wo con CLINICAL HISTORY: fall, bleeding . Confusion. Overdose COMPARISON STUDY: No previous studies for comparison. CT DOSE: TECHNIQUE: Standard CT of the Facial Bones and Orbits was performed without IV contrast. A dose lowering technique was utilized adhering to the principles of ALARA. FINDINGS: Bones: There are no displaced fractures identified. The orbital rims are intact bilaterally. The zygomatic arches are intact bilaterally. Nasal bones are intact. The nasal septum is in the midline. The mandible and maxilla are intact. Paranasal sinuses: There is mild mucosal thickening involving multiple ethmoid air cells and involving the frontal sinuses bilaterally. The remaining adjacent paranasal sinuses are clear. Soft tissues: There is no focal soft tissue swelling. IMPRESSION: 1. No acute abnormality. 2. Mild mucosal thickening involving the frontal sinuses and multiple ethmoid air cells bilaterally. ACT 112: Negative or not required by law. Electronically signed by: Mikhail Alston M.D. 03/23/2022 2:[address] 03/23/22 13:57 CT head/brain wo con CLINICAL HISTORY: fall, confusion . Overdose COMPARISON STUDY: No previous studies for comparison. CT DOSE: 1029.58 mGy.cm TECHNIQUE: Standard CT of the Brain was performed without IV contrast. A dose lowering technique was utilized adhering to the principles of ALARA. FINDINGS: Extraaxial space: There is no evidence for subdural hematoma. There are no extra-axial fluid collections. Ventricles and cisterns: The ventricles are normal in size and configuration. There is no evidence for midline shift or mass effect. Parenchyma: There is no subarachnoid or intraparenchymal hemorrhage. There is no evidence for an acute infarct or cerebral edema. There is homogeneous attenuation of the brain parenchyma. There are no gross mass lesions. Osseous structures: There is no evidence for an acute fracture. The visualized paranasal sinuses are clear. The mastoid air cells are clear bilaterally. Soft tissues: There is no evidence for focal soft tissue swelling. IMPRESSION: 1. No acute intracerebral pathology. ACT 112: Negative or not required by law. Electronically signed by: Mikhail Alston M.D. 03/23/2022 2:51 PM Discharge Plan Visit Data Chief Complaint: Overdose (Accidental) ED Provider: Teofilo Alonso Discharge Problem: Unresponsive episode, Accidental drug overdose, Rhabdomyolysis, Hypoxia, EMIL (acute kidney injury) Patient Disposition: Admitted As Inpatient Condition: Fair Forms Stand Alone Forms: [employer] Prescriptions Prescriptions: No Action methadone 10 mg/mL Concentrate 67 mg PO DAILY RF: 0 Referrals Referrals: Charanjit Segura III, MD [Physician] - Discharge Problem: Accidental drug overdose Qualifiers: Encounter type: initial encounter Qualified Code(s): T50.901A - Poisoning by unspecified drugs, medicaments and biological substances, accidental (unintentional), initial encounter Rhabdomyolysis Qualifiers: Rhabdomyolysis type: non-traumatic Qualified Code(s): M62.82 - Rhabdomyolysis
[2022-03-23 14:09] LABS: Basophils % (auto) 0.1 %; Eosinophils % (auto) 0.1 %; Hematocrit (blood only) 49.7 % (42-52); Hemoglobin 17.4 g/dL (14.0-18.0); Immature Granulocytes % (auto) 0.4 %; Lymphocytes # (auto) 0.56 K/uL (1.2-3.4); Lymphocytes % (auto) 3.4 %; Mean Corpuscular Hemoglobin 34.5 pg (25-34); Mean Corpuscular Volume 98.4 fL (80-100); Mean Platelet Volume 10.2 fL (7.4-10.4); Monocytes # (auto) 0.83 K/uL (0.11-0.59); Neutrophils # (auto) 15.21 K/uL (1.4-6.5); Platelet Count 268 K/uL (130-400); RDW Coefficient of Variation 14.1 % (11.5-14.5); RDW Standard Deviation 50.3 fL (36.4-46.3); Red Blood Count 5.05 M/uL (4.7-6.1)
[2022-03-23 14:10] LABS: Basophils # (auto) 0.02 K/uL (0-0.2); Eosinophils # (auto) 0.01 K/uL (0-0.5); Immature Granulocytes # (auto) 0.07 K/uL (0.00-0.02)
--- NOTE | 2022-03-23 14:21 | XRay Report ---
XR chest 1V portable CLINICAL HISTORY: weakness. Evaluate cardiopulmonary status COMPARISON STUDY: No previous studies for comparison. TECHNIQUE: 1 view of the chest FINDINGS: Single frontal view of the chest demonstrates the cardiomediastinal silhouette to be within normal li mits. There is a decreased inspiratory effort with elevation of the hemidiaphragms and crowding of th e bronchovascular markings at the lung bases and centrally. The lungs are clear of alveolar opacities . There is no evidence for pleural effusion. There is no evidence for vascular congestion. There is n o acute osseous pathology. IMPRESSION: 1. There is a decreased inspiratory effort with otherwise no acute chest disease. ACT 112: Negative or not required by law. Electronically signed by: Mikhail Alston M.D. 03/23/2022 2:19 PM
[2022-03-23 14:35] LABS: BUN Creatinine Ratio 10.6 (10-20); Calcium 10.1 mg/dl (8.5-10.1); Creatinine Clr Calc Pharmacy 77.9 ml/min; Est GFR (African American) 67.4 ml/min; Est GFR (Non-African American) 58.2 ml/min; Potassium 4.3 mmol/L (3.5-5.1)
[2022-03-23 14:38] LABS: Troponin I High Sensitivity 17.4 pg/ml (0-20)
[2022-03-23 14:47] LABS: Albumin Globulin Ratio 1.7 (0.9-2); Albumin Level 5.2 gm/dl (3.4-5.0); Bilirubin,Total 1.2 mg/dl (0.2-1.0); Magnesium 2.1 mg/dl (1.7-2.4); Total Protein 8.2 gm/dl (6.0-8.3)
--- NOTE | 2022-03-23 14:52 | CT Scan Report ---
CT head/brain wo con CLINICAL HISTORY: fall, confusion . Overdose COMPARISON STUDY: No previous studies for comparison. CT DOSE: 1029.58 mGy.cm TECHNIQUE: Standard CT of the Brain was performed without IV contrast. A dose lowering technique was utilized adhering to the principles of ALARA. FINDINGS: Extraaxial space: There is no evidence for subdural hematoma. There are no extra-axial fluid collecti ons. Ventricles and cisterns: The ventricles are normal in size and configuration. There is no evidence fo r midline shift or mass effect. Parenchyma: There is no subarachnoid or intraparenchymal hemorrhage. There is no evidence for an acut e infarct or cerebral edema. There is homogeneous attenuation of the brain parenchyma. There are no g ross mass lesions. Osseous structures: There is no evidence for an acute fracture. The visualized paranasal sinuses are clear. The mastoid air cells are clear bilaterally. Soft tissues: There is no evidence for focal soft tissue swelling. IMPRESSION: 1. No acute intracerebral pathology. ACT 112: Negative or not required by law. Electronically signed by: Mikhail Alston M.D. 03/23/2022 2:51 PM
[2022-03-23] MEDS ORDERED: SODIUM CHLORIDE 0.9% 1000ML 1,000 ML IV ONE (14:54)
--- NOTE | 2022-03-23 14:57 | CT Scan Report ---
CT cervical spine wo con CLINICAL HISTORY: fall . Confusion. Overdose COMPARISON STUDY: No previous studies for comparison. CT DOSE: TECHNIQUE: Standard CT of the Cervical Spine was performed without IV contrast. A dose lowering bianca hnique was utilized adhering to the principles of ALARA. FINDINGS: Bones: There is no evidence for an acute fracture or malalignment. The heights of the vertebral ankit s are maintained. The vertebral bodies are in anatomic alignment. The odontoid is intact and the atla ntoaxial articulation is within normal limits. Disc spaces: The disc space heights are maintained. Apophyseal joints: The apophyseal joints are intact bilaterally. Soft tissues: The prevertebral soft tissues are within normal limits. IMPRESSION: 1. Negative CT of the cervical spine. ACT 112: Negative or not required by law. Electronically signed by: Mikhail Alston M.D. 03/23/2022 2:55 PM
--- NOTE | 2022-03-23 15:00 | CT Scan Report ---
CT facial bones wo con CLINICAL HISTORY: fall, bleeding . Confusion. Overdose COMPARISON STUDY: No previous studies for comparison. CT DOSE: TECHNIQUE: Standard CT of the Facial Bones and Orbits was performed without IV contrast. A dose lowe ring technique was utilized adhering to the principles of ALARA. FINDINGS: Bones: There are no displaced fractures identified. The orbital rims are intact bilaterally. The zygo matic arches are intact bilaterally. Nasal bones are intact. The nasal septum is in the midline. The mandible and maxilla are intact. Paranasal sinuses: There is mild mucosal thickening involving multiple ethmoid air cells and involvin g the frontal sinuses bilaterally. The remaining adjacent paranasal sinuses are clear. Soft tissues: There is no focal soft tissue swelling. IMPRESSION: 1. No acute abnormality. 2. Mild mucosal thickening involving the frontal sinuses and multiple ethmoid air cells bilaterally. ACT 112: Negative or not required by law. Electronically signed by: Mikhail Alston M.D. 03/23/2022 2:58 PM
[2022-03-23] MEDS ORDERED: cefTRIAXone SODIUM 2,000 MG/70 ML BAG IV STA (15:02)
[2022-03-23] MEDS ORDERED: PANTOprazole 80 MG in DEXTROSE 5% 100 ML IV STA (15:06)
[2022-03-23 15:42] LABS: Acetaminophen < 3 ug/ml (10-30); Salicylate < 3.0 mg/dl (3.0-30)
[2022-03-23] MEDS ORDERED: GI COCKTAIL ED USE PO ONE (16:52)
[2022-03-23] MEDS ORDERED: cefTRIAXone SODIUM 2000MG/70ML D5W IV ONE (17:00)
--- NOTE | 2022-03-23 17:05 | History & Physical Report ---
Date of Service March 23, 2022 Assessment & Plan (1) Accidental drug overdose: Plan: Patient says he likely snorted heroine but does not recall doing so. 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 Patient was brought into the EMD by EMS after being found down at home, the patient was given BVM ventilation and was given intranasal Narcan on way to the EMD and awoken. He had some emesis on his clothes reported that was brown. In the EMD the patient remained awake without any further Narcan. He had routine labs performed to include CK level. He had CT scan of neck, head CT face CT and CXR performed. He is on oxygen upon arousal and with cough and his CXR has left lower lobe haziness. Patient CT of face noted with sinusitis, but reports he did snort heroin. The patient states that he used to inject Heroine and also had a forearm abscess in the past. He can't remember what or when he did the heroine, but states he has not did this since 3-4 months ago. He currently is tachycardic with no chest pain, blood pressure is stable, without evidence of pulmonary edema. 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 He was given a dose of Rocephin in the EMD. Complete Toxicology urine screen is pending. Patient likely will require some IVF resuscitation overnight, will place him on Unasyn for his likely aspiration PNA and follow clinical response. COVID test on admission is: NEGATIVE Allergies Allergy/AdvReac Type Severity Reaction Status Date / Time No Known Allergies Allergy Unverified 03/23/22 17:35 Home Medications Medication Instructions Recorded Confirmed Type gabapentin 300 mg capsule 300 mg PO TID 03/23/22 03/23/22 History nortriptyline 10 mg capsule 20 mg PO HS 03/23/22 03/23/22 History nortriptyline 50 mg capsule 50 mg PO HS 03/23/22 03/23/22 History Past Med/Surg History Medical History History of intravenous drug abuse Surgical History Amputation of left lower extremity History of incision and drainage Left forearm on 10/01/18 and 10/03/18 Family History Other No significant family history Social History Smoking Status: Current every day smoker Cigarettes Per Day: 20; Second Hand Exposure: Yes; Hx Alcohol Use: Yes Hx Substance Use: No Preferred Language: Ethiopian Communication Ability: Effective Visual Impairment: No 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 BKA, No joint pain, calf pain, swelling Neurologic: No weakness, numbness/tingling, or balance problems Psychiatric: (+) depression, No anxiety Physical Exam Physical Exam: PHYSICAL EXAM: General: awake, alert, does not make direct eye contact when talking Head: Normocephalic, atraumatic ENT: PERRLA, EOMI, no pharyngeal exudate, mucous membranes dry Neuro: AAO x 3, speech clear and appropriate, strength intact bilaterally 5/5, sensation intact and equal all extremities and dermatomes, no pronator drift Chest: equal rise and fall of the chest, no accessory muscle use, no heaves or thrills, scattered rhonchi left side, crackle to right side Cardiac: Regular rate and rhythm, telemetry reviewed, skin warm dry, cap refill <3 seconds, peripheral pulses +2 no JVD, no murmur, no edema GI: throat burning pain, NABS x 4 quadrants, soft, nontender to palpation, no rebound, guarding or tenderness : Spontaneously voiding, no pain, no CVA tenderness, Extremities: left BKA, Normal inspection, no peripheral edema or erythema, Psych: Normal mood and affect Skin: multiple skin abrasions and scars Results & Data Results & Data ([facility]) Vital Signs (Past 12 Hours) Vital Signs Temp Pulse Resp BP Pulse Ox 03/23/22 14:09 92 03/23/22 13:55 86 L 03/23/22 13:46 36.8 C 121 H 17 160/93 H 95 Laboratory Results Abnormal lab results 03/23/22 03/23/22 03/23/22 Range/Units 13:56 13:56 14:59 WBC 16.70 H (4.8-10.8) K/uL MCH 34.5 H (25-34) pg RDW Std Deviation 50.3 H (36.4-46.3) fL Neut # (Auto) 15.21 H (1.4-6.5) K/uL Lymph # (Auto) 0.56 L (1.2-3.4) K/uL [place] # (Auto) 0.83 H (0.11-0.59) K/uL Immature Gran # (Auto) 0.07 H (0.00-0.02) K/uL Sodium 133 L (136-145) mmol/L Chloride 91 L (98-107) mmol/L Anion Gap 14 H (3-11) Creatinine 1.51 H (0.6-1.4) mg/dl Glucose 211 H (70-99(Fasting)) mg/dl Total Bilirubin 1.2 H (0.2-1.0) mg/dl AST 86 H (13-39) U/L Total Creatine Kinase 3332 H (30-223) U/L Albumin 5.2 H (3.4-5.0) gm/dl Salicylates < 3.0 L (3.0-30) mg/dl Acetaminophen < 3 L (10-30) ug/ml Diagnostic Findings Chest X-Ray 03/23/22 13:55 XR chest 1V portable CLINICAL HISTORY: weakness. Evaluate cardiopulmonary status COMPARISON STUDY: No previous studies for comparison. TECHNIQUE: 1 view of the chest FINDINGS: Single frontal view of the chest demonstrates the cardiomediastinal silhouette to be within normal limits. There is a decreased inspiratory effort with elevation of the hemidiaphragms and crowding of the bronchovascular markings at the lung bases and centrally. The lungs are clear of alveolar opacities. There is no evidence for pleural effusion. There is no evidence for vascular congestion. There is no acute osseous pathology. IMPRESSION: 1. There is a decreased inspiratory effort with otherwise no acute chest disease. ACT 112: Negative or not required by law. Electronically signed by: Mikhail Alston M.D. 03/23/2022 2:[address] 03/23/22 13:57 CT cervical spine wo con CLINICAL HISTORY: fall . Confusion. Overdose COMPARISON STUDY: No previous studies for comparison. CT DOSE: TECHNIQUE: Standard CT of the Cervical Spine was performed without IV contrast. A dose lowering technique was utilized adhering to the principles of ALARA. FINDINGS: Bones: There is no evidence for an acute fracture or malalignment. The heights of the vertebral bodies are maintained. The vertebral bodies are in anatomic alignment. The odontoid is intact and the atlantoaxial articulation is within normal limits. Disc spaces: The disc space heights are maintained. Apophyseal joints: The apophyseal joints are intact bilaterally. Soft tissues: The prevertebral soft tissues are within normal limits. IMPRESSION: 1. Negative CT of the cervical spine. ACT 112: Negative or not required by law. Electronically signed by: Mikhail Alston M.D. 03/23/2022 2:[address] 03/23/22 13:57 CT facial bones wo con CLINICAL HISTORY: fall, bleeding . Confusion. Overdose COMPARISON STUDY: No previous studies for comparison. CT DOSE: TECHNIQUE: Standard CT of the Facial Bones and Orbits was performed without IV contrast. A dose lowering technique was utilized adhering to the principles of ALARA. FINDINGS: Bones: There are no displaced fractures identified. The orbital rims are intact bilaterally. The zygomatic arches are intact bilaterally. Nasal bones are intact. The nasal septum is in the midline. The mandible and maxilla are intact. Paranasal sinuses: There is mild mucosal thickening involving multiple ethmoid air cells and involving the frontal sinuses bilaterally. The remaining adjacent paranasal sinuses are clear. Soft tissues: There is no focal soft tissue swelling. IMPRESSION: 1. No acute abnormality. 2. Mild mucosal thickening involving the frontal sinuses and multiple ethmoid air cells bilaterally. ACT 112: Negative or not required by law. Electronically signed by: Mikhail Alston M.D. 03/23/2022 2:[address] 03/23/22 13:57 CT head/brain wo con CLINICAL HISTORY: fall, confusion . Overdose COMPARISON STUDY: No previous studies for comparison. CT DOSE: 1029.58 mGy.cm TECHNIQUE: Standard CT of the Brain was performed without IV contrast. A dose lowering technique was utilized adhering to the principles of ALARA. FINDINGS: Extraaxial space: There is no evidence for subdural hematoma. There are no extra-axial fluid collections. Ventricles and cisterns: The ventricles are normal in size and configuration. There is no evidence for midline shift or mass effect. Parenchyma: There is no subarachnoid or intraparenchymal hemorrhage. There is no evidence for an acute infarct or cerebral edema. There is homogeneous attenuation of the brain parenchyma. There are no gross mass lesions. Osseous structures: There is no evidence for an acute fracture. The visualized paranasal sinuses are clear. The mastoid air cells are clear bilaterally. Soft tissues: There is no evidence for focal soft tissue swelling. IMPRESSION: 1. No acute intracerebral pathology. ACT 112: Negative or not required by law. Electronically signed by: Mikhail Alston M.D. 03/23/2022 2:51 PM Medications Administered Discontinued Medications Albuterol (Albut/Ipratrop 3mg/0.5mg Neb 3 Ml Vial) 3 ml NEB NOW STA; Protocol Stop: 03/23/22 14:02 Last Admin: 03/23/22 14:12 Dose: 3 ml Documented by: [id number] Sodium Chloride (Nss) 500 mls @ 999 mls/hr IV .Q31M CRICKET Stop: 03/23/22 14:30 Last Admin: 03/23/22 14:12 Dose: 999 mls/hr Documented by: [id number] Ondansetron HCl (Ondansetron Inj 2 Mg/Ml 2 Ml Vial) 4 mg IV NOW STA Stop: 03/23/22 13:56 Last Admin: 03/23/22 14:12 Dose: 4 mg Documented by: [id number] Additional Comments: Sinus tachycardia Possible Left atrial enlargement Nonspecific T wave abnormality Abnormal ECG When compared with ECG of 30-SEP-2018 11:36, No significant change was found Code Status & VTE Plan Code Status CODE: DNR/DNI VTE: SCDS, Lovenox 40mg subq daily VTE Prophylaxis Plan VTE Prophylaxis will be ordered: Yes Supervising Physician Co-Signing Physician Notes 36-year-old male prior history of drug abuse presents after being found unresponsive and requiring bag mask ventilation with intranasal Narcan with rescue here in the emergency department he is mildly hypoxic with some mild left basilar chest x-ray changes. Patient is relatively amnestic to the episode whether this is involuntary or voluntary but did exchange with the nurse that he may have snorted heroin. He does have some sinusitis on imaging. Hospital aspiration pneumonia or pneumonitis treated with Unasyn associated leukocytosis, will have blood cultures and inflamatory markers Kidney injury will be treated with intravenous hydration and reassessment Evaded creatinine kinase/rhabdo will be treated with hydration drug abuse-longstanding will have case management assist in outpt referrals His examination is awake alert he has pinpoint pupils he is tachycardic he is in no particular distress he does have a lower extremity BKA from a previous injury in the distant past to his lower extremity. PG Care Time/CCT Total # of Minutes Spent Total Time Spent with Patient: Total time spent is greater than 50% in coordination of care (as documented) at patient's floor/unit and/or counseling patient: Coding Level of Care Code 36882 Initial Inpt Care Lvl 3 Diagnoses Accidental drug overdose T50.901A Encounter type: initial encounter Rhabdomyolysis M62.82 Rhabdomyolysis type: non-traumatic EMIL (acute kidney injury) N17.9 Abnormal CXR R93.89 Sinusitis J32.9 (1) Accidental drug overdose Encounter type: initial encounter Qualified Code(s): T50.901A - Poisoning by unspecified drugs, medicaments and biological substances, accidental (unintentional), initial encounter (2) Rhabdomyolysis Rhabdomyolysis type: non-traumatic Qualified Code(s): M62.82 - Rhabdomyolysis
[2022-03-23 17:30] LABS: Appearance Urine Clear (Clear); Bacteria Urine Automated Negative (Negative); Bilirubin Urine Negative (Negative); Blood Urine Negative (Negative); Color Urine Yellow; Glucose Urine UA 2+ (Negative); Ketones Urine 2+ (Negative); Leukocyte Esterase Urine Negative (Negative); Nitrite Urine Negative (Negative); Protein Urine 1+ (Negative); RBC Urine Automated 0-4 /hpf (0-4); Specific Gravity Urine 1.018 (1.000-1.030); Urobilinogen Urine Negative (Negative)
[2022-03-23 18:12] LABS: Amphetamines+Metham, Urine Neg (Neg); Barbiturates, Urine Neg (Neg); Benzodiazepine, Urine Neg (Neg); Cocaine, Urine Pos (Neg); MDMA (Ecstacy), Urine Neg (Neg); Methadone, Urine Neg (Neg); Opiate, Urine Pos (Neg); Phencyclidine, Urine Neg (Neg)
[2022-03-23] MEDS: LACTATED RINGER'S 1,000 ML IV SCH (20:03)
[2022-03-23] MEDS: THIAMINE HCL 100 MG TAB PO SCH (20:31)
[2022-03-23] MEDS: AMPICILLIN/SULBACTAM SOD 1,500 MG in 0.9 % SODIUM CHLORIDE 100 ML IV SCH (20:32)
[2022-03-23] MEDS: PANTOprazole 40 MG TAB PO SCH (20:33)
[2022-03-23] MEDS ORDERED: GABAPENTIN 600 MG TAB PO SCH (21:00)
[2022-03-23] MEDS ORDERED: NORTRIPTYLINE HCL 10 MG CAP PO SCH (21:00)
[2022-03-24] MEDS: AMPICILLIN/SULBACTAM SOD 1,500 MG in 0.9 % SODIUM CHLORIDE 100 ML IV SCH ×2 (02:38→08:49)
[2022-03-24] MEDS: LACTATED RINGER'S 1,000 ML IV SCH ×2 (03:11→11:25)
[2022-03-24 07:04] LABS: Basophils # (auto) 0.04 K/uL (0-0.2); Basophils % (auto) 0.6 %; Eosinophils # (auto) 0.17 K/uL (0-0.5); Eosinophils % (auto) 2.5 %; Hematocrit (blood only) 42.2 % (42-52); Hemoglobin 14.3 g/dL (14.0-18.0); Immature Granulocytes # (auto) 0.01 K/uL (0.00-0.02); Immature Granulocytes % (auto) 0.1 %; Lymphocytes % (auto) 22.4 %; Mean Corpuscular Hemoglobin 34.1 pg (25-34); Mean Corpuscular Hgb Conc 33.9 g/dL (32-36); Mean Corpuscular Volume 100.7 fL (80-100); Mean Platelet Volume 10.2 fL (7.4-10.4); Monocytes # (auto) 0.58 K/uL (0.11-0.59); Monocytes % (auto) 8.6 %; Neutrophils # (auto) 4.41 K/uL (1.4-6.5); Neutrophils % (auto) 65.8 %; Platelet Count 212 K/uL (130-400); RDW Coefficient of Variation 14.1 % (11.5-14.5); RDW Standard Deviation 52.6 fL (36.4-46.3); Red Blood Count 4.19 M/uL (4.7-6.1); White Blood Count 6.71 K/uL (4.8-10.8)
[2022-03-24 07:44] LABS: BUN Creatinine Ratio 8.3 (10-20); Calcium 8.4 mg/dl (8.5-10.1); Creatinine Clr Calc Pharmacy 110.5 ml/min; Est GFR (African American) 116.6 ml/min; Est GFR (Non-African American) 100.6 ml/min; Magnesium 1.9 mg/dl (1.7-2.4); Potassium 4.2 mmol/L (3.5-5.1)
[2022-03-24] MEDS: PANTOprazole 40 MG TAB PO SCH (08:46)
[2022-03-24] MEDS: THIAMINE HCL 100 MG TAB PO SCH (08:46)
--- NOTE | 2022-03-24 13:30 | Electrocardiogram Report ---
Test Reason : Blood Pressure : / mmHG Vent. Rate : 116 BPM Atrial Rate : 116 BPM P-R Int : 152 ms QRS Dur : 108 ms QT Int : 330 ms P-R-T Axes : 048 047 009 degrees QTc Int : 458 ms Sinus tachycardia Possible Left atrial enlargement Nonspecific T wave abnormality Abnormal ECG When compared with ECG of 30-SEP-2018 11:36, No significant change was found Confirmed by Ru Soto ([id number]) on 03/24/2022 1:30:16 PM Referred By: REFERRED SELF Confirmed By:Ru Soto
[2022-03-24] MEDS ORDERED: ENOXAPARIN INJ 40 MG/0.4 ML SYR SQ SCH (16:30)
--- NOTE | 2022-03-26 07:24 | Discharge Summary ---
Date of Service March 24, 2022 Admission HPI Per Admitting Provider 36 YOM with medical history of: Depression, Left leg BKA (2000), heroin abuse, alcohol use. Patient was brought into the EMD by EMS after being found down at home, the patient was given BVM ventilation and was given intranasal Narcan on way to the EMD and awoken. He had some emesis on his clothes reported that was brown. In the EMD the patient remained awake without any further Narcan. He had routine labs performed to include CK level. He had CT scan of neck, head CT face CT and CXR performed. He is on oxygen upon arousal and with cough and his CXR has left lower lobe haziness. Patient CT of face noted with sinusitis, but reports he did snort heroin. The patient states that he used to inject Heroine and also had a forearm abscess in the past. He can't remember what or when he did the heroine, but states he has not did this since 3-4 months ago. He currently is tachycardic with no chest pain, blood pressure is stable, without evidence of pulmonary edema. 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 He was given a dose of Rocephin in the EMD. Complete Toxicology urine screen is pending. Patient likely will require some IVF resuscitation overnight, will place him on Unasyn for his likely aspiration PNA and follow clinical response. COVID test on admission is: NEGATIVE Principal Diagnosis accidental drug overdose. Discharge Exam Constitutional WD/WN, vitals as above Eyes PERRL, conjunctivae normal, anicteric sclerae ENMT external ear and nose normal, oropharynx normal Neck trachea midline, no thyromegaly Respiratory normal respiratory effort, lungs clear to auscultation Cardiovascular RRR, no murmur, no edema (HR noted in the 90s (sinus)) Gastrointestinal (Abdomen) normal bowel sounds, soft, nontender, no hepatosplenomegaly Musculoskeletal no cyanosis or clubbing, extremities motor strength 5/5 Skin no rashes, warm and dry Neurologic PERRL, EOMI, accommodation nl, no face palsy, no dysarthria Psychiatric A+Ox3, euthymic affect Lymphatic no cervical or axillary lymphadenopathy Discharge Data Allergies Allergy/AdvReac Type Severity Reaction Status Date / Time No Known Allergies Allergy Unverified 03/23/22 17:35 Consultations 03/23/22 16:21 ED Decision to Admit Stat Ordered Studies 03/23/22 13:57 CT cervical spine wo con Stat CT facial bones wo con Stat CT head/brain wo con Stat Hospital Course (1) Accidental drug overdose: Patient says he likely snorted heroine but does not recall doing so. - Support as outpatient - Consider outpatient ENT evaluation for his heroin snorting and sinusitis - continue supportive care - Remains tachycardic- will continue supportive care with IVF, monitor overnight. At discharge: Patient reports he will followup with his PCP. Patient is feeling back to baseline. Currently refusing rehab. Patient reports this was accidental and has no suicidal ideations. Patient was able to explain risks of taking illicit substances. Ok to discharge patient. (2) Rhabdomyolysis: Mild 3000 CK after being found down at home - LR at 125 ml/hour overnight -treated with IVF overnight. 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 (4) Abnormal CXR: Left lower lobe with haziness - will treat for aspiration pneumonia/pneumonitis- Unasyn IV q6 - Wean off o2 - ICS/Flutter valve -weaned off oxygen on day of discharge (5) Sinusitis: Likely secondary to snorting heroine - would benefit from ENT evaluation as outpatient -will defer to PCP Total Time Total Time Spent Total Time Spent (In Minutes): 35 Discharge Plan Discharge Items Patient Disposition: Home - Self-Care Reason For Visit: OVERDOSE- HEROIN SNORTING CHRONIC Discharge Diagnosis: overdose- heroin Condition on Discharge: Fair Activity: Resume your previous activity Non-emergency contact: Primary Care Provider Call non-emergency contact if: you have any medication questions Follow-up/Referrals: Charanjit Seugra III, MD [Primary Care Provider] - Sadaf Dumont PA-C [Physician [facility]pper] - 04/01/22 3:00 pm (Please follow up with Sadaf Dumont PA-C on Thursday04/01/22 at 3:00 pm. Please arrive to the office at 2:45 pm for your appointment. If you are unable to keep this appointment, please call the office to reschedule at [phone].) Diet: Regular Addtl Attending Provider Instructions: Recommend drug rehab. Please try to abstain from using illicit substances as you overdoses yesterday. Please followup with PCP in next 1-2 weeks to discuss any possible options for support groups to help you continue living a healthy life. Good luck. Pending Studies at Discharge: No Stand-Alone Forms: [facility], Sm[facility] Cess[facility] Medications and DC Order Prescriptions: New thiamine HCl (vitamin B1) 100 mg Tablet 200 mg PO QAM Qty: 30 RF: 0 pantoprazole 40 mg Tablet,Delayed Release (Dr/Ec) 40 mg PO DAILY Qty: 30 RF: 0 Continued nortriptyline 10 mg capsule 20 mg PO HS RF: 0 gabapentin 300 mg capsule 300 mg PO TID RF: 0 nortriptyline 50 mg capsule 50 mg PO HS RF: 0 Discharge Orders: Discharge Order (Routine); Ordered 03/24/22 Ordered By: Christo Cleveland Admission Data Admit Date/Time: 03/23/22 16:25 Attending Provider: Christo Cleveland Admit Provider: Tay Welch Primary Care Provider: Charanjit Segura III Other Providers: Tay Welch Other Interventions: Discharge Summary Assessment (RN) Last Done: 03/24/22 11:37 Coding Level of Care Code D/C DAY MANAGEMENT >30 MINS Diagnoses Accidental drug overdose T50.901A Encounter type: initial encounter Rhabdomyolysis M62.82 Rhabdomyolysis type: non-traumatic EMIL (acute kidney injury) N17.9 Abnormal CXR R93.89 Sinusitis J32.9
[2022-03-26 08:02] LABS: Cocaine, Urine 9340 ng/mL (<100); Codeine Urine NEGATIVE ng/mL (<50); Hydrocodone Urine NEGATIVE ng/mL (<50); Hydromor Urine NEGATIVE ng/mL (<50); Morphine Urine 2010 ng/mL (<50); Norhydrocodone Conf Ur NEGATIVE ng/mL (<50); Noroxycodone Urine NEGATIVE ng/mL (<50); Oxycodone Urine NEGATIVE ng/mL (<50); Oxymorph Urine NEGATIVE ng/mL (<50)
== END 2022-03-24 12:58 | disposition home or self-care (01) | DRG 917 ==
LOC: ED 13:41 → EDINP 16:25 → SUATTDRO 16:25 → 2S 18:06

== ENCOUNTER 2025-03-31 20:38 | Inpatient (IN) ==
[2025-03-31] MEDS: SODIUM CHLORIDE 0.9% 1,000 ML IV ONE ×2 (22:28→23:56)
--- NOTE | 2025-03-31 23:15 | Emergency Department Note ---
History of Present Illness General Chief complaint: Arrhythmia/Palpitations Stated complaint: Arrhythmia/Palpitations Time Seen by Provider: 03/31/25 21:24 History of Present Illness This 39-year-old male with a history of polysubstance abuse presents ER complaining of feeling shaky and weak. Patient states he has been smoking marijuana regularly and drinks alcohol on a daily basis. Patient states he had 5 [place] and red bull alcoholic beverages today along with smoking marijuana. Patient denies chest pain, dyspnea, fever, chills, vomiting, diarrhea or any other medical complaints. No desire for rehab. Home Medications Medication Instructions Recorded Confirmed Type nortriptyline 10 mg capsule 20 mg PO HS 03/23/22 04/01/25 History nortriptyline 50 mg capsule 50 mg PO HS 03/23/22 04/01/25 History thiamine HCl (vitamin B1) 100 mg 200 mg (2 x 100 mg) PO QAM #30 tabs 03/24/22 04/01/25 Rx tablet gabapentin 600 mg tablet 600 mg PO TID 04/01/25 04/01/25 History Allergies Allergy/AdvReac Type Severity Reaction Status Date / Time No Known Allergies Allergy Verified 04/01/25 00:28 Past Med/Surg History Problem List (Updated 04/01/25 @ 00:48 by Temi Cespedes PA-C) Acute hyponatremia (Acute) Acute renal failure (ARF) (Acute) Hypokalemia (Acute) Sinusitis Abnormal CXR Unresponsive episode (Acute) Accidental drug overdose (Acute) Rhabdomyolysis (Acute) Hypoxia (Acute) EMIL (acute kidney injury) (Acute) Encounter for pre-operative examination History of intravenous drug abuse History of incision and drainage Left forearm on 10/01/18 and 10/03/18 Amputation of left lower extremity Cellulitis of left forearm (Acute) Family History Other No significant family history Social History Smoking Status: Current every day smoker Tobacco Type: Cigarettes Cigarettes Per Day: 20; Second Hand Exposure: No; Do You Dip or Chew Tobacco: No; Hx Alcohol Use: Yes Alcohol type: beer Hx Substance Use: Yes Last Used Substance: Days (ago) Preferred Language: Belarusian Communication Ability: Effective Visual Impairment: No Limitations Party Plan Sales Host/Hostess Required: No Beliefs That Will Affect Care: None marital status: Single Current Living Situation: Parent Feels Safe at Home: Yes Assistive Devices: Contacts, Prosthesis and Walker Review of Systems A total of 10 systems reviewed and were otherwise negative Physical Exam Vital Signs Vital Signs - 24 hr 03/31/25 20:42 03/31/25 20:42 03/31/25 20:53 Temperature 36.9 C Temperature Source Oral Pulse Rate 90 88 Pulse Rate [Finger] Pulse Rhythm Regular Pulse Rhythm [Finger] Pulse Strength Normal Pulse Strength [Finger] Respiratory Rate 22 Respiratory Effort / Characteristics Non-Labored Spontaneous Respiratory Depth Normal Respiratory Pattern Regular Blood Pressure 103/64 Blood Pressure [Right Arm] Blood Pressure Mean 77 Blood Pressure Mean [Right Arm] Blood Pressure Position Lying Blood Pressure Position [Right Arm] Pulse Oximetry 98 Oxygen Delivery Method Room Air Room Air Sepsis Recent Fever Within 48 Hours No Sepsis New/Unexplained Change in Mental Status N/A Sepsis Action Taken by Nursing No Action Required 03/31/25 23:00 03/31/25 23:21 03/31/25 23:33 Temperature Temperature Source Pulse Rate 93 H 91 H Pulse Rate [Finger] 92 H Pulse Rhythm Pulse Rhythm [Finger] Regular Pulse Strength Pulse Strength [Finger] Normal Respiratory Rate 20 24 22 Respiratory Effort / Characteristics Non-Labored Spontaneous Respiratory Depth Normal Respiratory Pattern Regular Blood Pressure 119/61 115/54 L Blood Pressure [Right Arm] 91/73 L Blood Pressure Mean 80 74 Blood Pressure Mean [Right Arm] 79 Blood Pressure Position Blood Pressure Position [Right Arm] Lying Pulse Oximetry 97 97 Oxygen Delivery Method Room Air Room Air Sepsis Recent Fever Within 48 Hours Sepsis New/Unexplained Change in Mental Status Sepsis Action Taken by Nursing 04/01/25 00:33 04/01/25 01:00 04/01/25 01:21 Temperature Temperature Source Pulse Rate 91 H 96 H 91 H Pulse Rate [Finger] Pulse Rhythm Pulse Rhythm [Finger] Pulse Strength Pulse Strength [Finger] Respiratory Rate 15 17 Respiratory Effort / Characteristics Respiratory Depth Respiratory Pattern Blood Pressure 109/57 L 152/125 H Blood Pressure [Right Arm] Blood Pressure Mean 74 134 Blood Pressure Mean [Right Arm] Blood Pressure Position Blood Pressure Position [Right Arm] Pulse Oximetry 94 96 Oxygen Delivery Method Room Air Room Air Sepsis Recent Fever Within 48 Hours Sepsis New/Unexplained Change in Mental Status Sepsis Action Taken by Nursing 04/01/25 01:30 04/01/25 01:33 Temperature Temperature Source Pulse Rate 91 H 91 H Pulse Rate [Finger] Pulse Rhythm Pulse Rhythm [Finger] Pulse Strength Pulse Strength [Finger] Respiratory Rate 24 22 Respiratory Effort / Characteristics Respiratory Depth Respiratory Pattern Blood Pressure 104/53 L Blood Pressure [Right Arm] Blood Pressure Mean 70 Blood Pressure Mean [Right Arm] Blood Pressure Position Blood Pressure Position [Right Arm] Pulse Oximetry 96 95 Oxygen Delivery Method Room Air Room Air Sepsis Recent Fever Within 48 Hours Sepsis New/Unexplained Change in Mental Status Sepsis Action Taken by Nursing VITALS: Vitals are noted on the nurse's note and reviewed by myself. Vital signs stable. GENERAL: White male with EtOH odor, in no acute distress, nondiaphoretic, well- developed well-nourished. SKIN: Capillary reflex less than 2 seconds. HEENT: Normocephalic. PERRLA. EOMI. Nares patent. Mucous membranes moist. Neck is supple without nuchal rigidity. HEART: Regular rate and rhythm LUNGS: Clear to auscultation bilaterally without wheezes, rales or rhonchi. No retractions or accessory muscle use. ABDOMEN: Positive bowel sounds x 4. Normal tympanic percussion. Soft, nontender, without masses or organomegaly. Dai sign negative. No guarding or rebound tenderness. no CVA tenderness MUSCULOSKELETAL: No gross musculoskeletal defects. NEURO: Patient was alert and oriented to person place and time. No focal neurological deficits. Course Administered Medications Potassium Chloride ([place] / Wtr) 10 meq in 100 mls @ 100 mls/hr IV Q1H CRICKET Stop: 04/01/25 04:44 Last Admin: 04/01/25 01:45 Dose: 100 mls/hr Documented By: Infusion: 04/01/25 01:41 Dose: Infused Documented By: Admin: 04/01/25 00:41 Dose: 100 mls/hr Documented By: MONIQUE Discontinued Medications Sodium Chloride (Nss) 1,000 mls @ 999 mls/hr IV .Q1H1M ONE Stop: 03/31/25 22:41 Last Infusion: 03/31/25 23:56 Dose: Infused Documented By: Admin: 03/31/25 22:28 Dose: 999 mls/hr Documented By: NAW Magnesium Sulfate/Dextrose (Magnesium Sulfate / D5w) 1 gm in 100 mls @ 200 mls/hr IV Q30M CRICKET Stop: 04/01/25 00:15 Last Infusion: 04/01/25 00:46 Dose: Infused Documented By: Admin: 03/31/25 23:56 Dose: 200 mls/hr Documented By: Infusion: 03/31/25 23:55 Dose: Infused Documented By: Admin: 03/31/25 23:25 Dose: 200 mls/hr Documented By: MONIQUE Sodium Chloride (Nss) 1,000 mls @ 999 mls/hr IV .Q1H1M ONE Stop: 04/01/25 00:28 Last Infusion: 04/01/25 01:15 Dose: Infused Documented By: Admin: 03/31/25 23:56 Dose: 999 mls/hr Documented By: MONIQUE Sodium Chloride (Nss) 1,000 mls @ 999 mls/hr IV .Q1H1M ONE Stop: 04/01/25 01:41 Last Admin: 04/01/25 00:46 Dose: Not Given Documented By: MONIQUE Lorazepam (Lorazepam 2 Mg/1 Ml Vial) 1 mg IV NOW STA Stop: 04/01/25 01:06 Last Admin: 04/01/25 01:11 Dose: 1 mg Documented By: MONIQUE Potassium Chloride (Potassium Chloride Crtab 20 Meq Tabcr) 40 meq PO NOW STA Stop: 04/01/25 00:36 Last Admin: 04/01/25 00:41 Dose: 40 meq Documented By: MONIQUE Critical Care Time Critical Care Time: Yes Total Critical Care Time: 35 I have personally spent 35 minutes of critical care time in the direct management of this patient. This includes bedside care, interpretation of diagnostic studies, and testing, discussion with consultants, patient, and family members, and other required patient management activities. This 35 minutes is in excess of all separately billable procedures. Medical Decision Making Medical Records Attestation: I reviewed the patient's medical records. Home Medications Current Medication List: was personally reviewed by me Laboratory Data Attestation: I reviewed the patient's lab results. 03/31/25 23:49 04/01/25 01:29 Lab Results 03/31/25 03/31/25 03/31/25 Range/Units 22:14 22:20 23:49 WBC Cancelled RBC Cancelled Hgb Cancelled Hct Cancelled MCV Cancelled MCH Cancelled MCHC Cancelled RDW Std Deviation Cancelled RDW Coeff of Nikita Cancelled Plt Count Cancelled MPV Cancelled Immature Gran % (Auto) Cancelled Neut % (Auto) Cancelled Lymph % (Auto) Cancelled [place] % (Auto) Cancelled Eos % (Auto) Cancelled Baso % (Auto) Cancelled Neut # (Auto) Cancelled Lymph # (Auto) Cancelled [place] # (Auto) Cancelled Eos # (Auto) Cancelled Baso # (Auto) Cancelled Immature Gran # (Auto) Cancelled Absolute Nucleated RBC Cancelled Nucleated RBC % (auto) Cancelled Neutrophils % (Manual) Cancelled Band Neutrophils % Cancelled Lymphocytes % (Manual) Cancelled Prolymphocyte % Cancelled Reactive Lymphs % (Man) Cancelled Monocytes % (Manual) Cancelled Eosinophils % (Manual) Cancelled Basophils % (Manual) Cancelled Metamyelocytes % (Man) Cancelled Myelocytes % (Man) Cancelled Promyelocytes % (Man) Cancelled Blast Cells % (Manual) Cancelled Plasma Cell % (Manual) Cancelled Other Cells % Cancelled Nucleated RBC % Cancelled Neutrophils # (Manual) Cancelled Band Neutrophils # Cancelled Total Absolute Neuts Cancelled Lymphocytes # (Manual) Cancelled Prolymphocyte # Cancelled Reactive Lymphs # Cancelled Total Abs Lymphocytes Cancelled Monocytes # (Manual) Cancelled Eosinophils # (Manual) Cancelled Basophils # (Manual) Cancelled Metamyelocytes # (Man) Cancelled Myelocytes # (Manual) Cancelled Promyelocytes # (Man) Cancelled Blast Cells # (Man) Cancelled Plasma Cell # (Manual) Cancelled Other Cells # Cancelled Nucleated RBCs # (Man) Cancelled Hypersegmented Neuts Cancelled Hyposegmented Neuts Cancelled Hypogranular Neuts Cancelled Large Granular Lymphs Cancelled # Lrg Granular Lymphs Cancelled Hairy Cells Cancelled Smudge Cells Cancelled Toxic Granulation Cancelled Toxic Vacuolation Cancelled Dohle Bodies Cancelled Bronson Rods Cancelled Platelet Estimate Cancelled Hypogranular Platelets Cancelled Giant Platelets Cancelled Platelet Satelliting Cancelled RBC Morphology Cancelled Polychromasia Cancelled Hypochromasia Cancelled Poikilocytosis Cancelled Basophilic Stippling Cancelled Anisocytosis Cancelled Microcytosis Cancelled Macrocytosis Cancelled Spherocytes Cancelled Pappenheimer Bodies Cancelled Sickle Cells Cancelled Target Cells Cancelled Tear Drop Cells Cancelled Ovalocytes Cancelled Stomatocytes Cancelled [place] Bodies Cancelled Echinocytes Cancelled Acanthocytes (Spur) Cancelled Rouleaux Cancelled RBC Agglutinates Cancelled Schistocytes Cancelled Sezary Cell Cancelled VBG pH (7.36-7.41) VBG pCO2 (38-50) mmHg VBG pO2 mmHg VBG HCO3 mmol/L VBG O2 Saturation % VBG Base Excess mEq/L Sodium Cancelled 119 L* Potassium Cancelled 2.3 L* Chloride Cancelled 67 L Carbon Dioxide Cancelled 39 H Anion Gap Cancelled 13 H BUN Cancelled 60 H Creatinine Cancelled 4.79 H* Est Cr Clr Drug Dosing Cancelled 23.8 eGFR Cancelled 14.89 BUN/Creatinine Ratio Cancelled 12.5 Glucose Cancelled 124 H Osmolality 262 L (280-300) mOsm/kg Calcium Cancelled 8.2 L Phosphorus (2.5-4.9) mg/dl Magnesium Cancelled 3.7 H Total Bilirubin Cancelled 2.0 H AST Cancelled 24 ALT Cancelled 8 Alkaline Phosphatase Cancelled 74 Total Creatine Kinase Cancelled 101 Total Protein Cancelled 6.3 Albumin Cancelled 3.3 L Globulin Cancelled 3.0 Albumin/Globulin Ratio Cancelled 1.1 TSH Cancelled 0.388 Urine Color Urine Appearance (Clear) Urine pH (4.5-7.5) Ur Specific [place] (1.000-1.030) Urine Protein (Negative) Urine Glucose (UA) (Negative) Urine Ketones (Negative) Urine Blood (Negative) Urine Nitrite (Negative) Urine Bilirubin (Negative) Urine Urobilinogen (Negative) Ur Leukocyte Esterase (Negative) Urine WBC (Auto) (0-5) /hpf Urine RBC (Auto) (0-2) /hpf U Hyaline Cast (Auto) (0-2) /lpf U Epithel Cells (Auto) (0-2) /hpf Urine Bacteria (Auto) (None Seen) Hyaline Casts (None Presnt) /lpf Urine Osmolality (500-800) mOsm/kg Urine Comment Urine Opiates Screen (Neg) Ur Methadone, Qual (Neg) Urine Fentanyl Screen (Neg) Urine Barbiturates (Neg) Ur Phencyclidine (PCP) (Neg) U Amphetamin/Meth Scrn (Neg) MDMA (Ecstasy) Screen (Neg) U Benzodiazepines Scrn (Neg) Ur Cocaine Metabolite (Neg) U Marijuana (THC) Screen (Neg) Ethyl Alcohol mg/dL Cancelled < 10.0 Blood Parasites ID Cancelled 04/01/25 04/01/25 Range/Units 01:00 01:29 WBC RBC Hgb Hct MCV MCH MCHC RDW Std Deviation RDW Coeff of Nikita Plt Count MPV Immature Gran % (Auto) Neut % (Auto) Lymph % (Auto) [place] % (Auto) Eos % (Auto) Baso % (Auto) Neut # (Auto) Lymph # (Auto) [place] # (Auto) Eos # (Auto) Baso # (Auto) Immature Gran # (Auto) Absolute Nucleated RBC Nucleated RBC % (auto) Neutrophils % (Manual) Band Neutrophils % Lymphocytes % (Manual) Prolymphocyte % Reactive Lymphs % (Man) Monocytes % (Manual) Eosinophils % (Manual) Basophils % (Manual) Metamyelocytes % (Man) Myelocytes % (Man) Promyelocytes % (Man) Blast Cells % (Manual) Plasma Cell % (Manual) Other Cells % Nucleated RBC % Neutrophils # (Manual) Band Neutrophils # Total Absolute Neuts Lymphocytes # (Manual) Prolymphocyte # Reactive Lymphs # Total Abs Lymphocytes Monocytes # (Manual) Eosinophils # (Manual) Basophils # (Manual) Metamyelocytes # (Man) Myelocytes # (Manual) Promyelocytes # (Man) Blast Cells # (Man) Plasma Cell # (Manual) Other Cells # Nucleated RBCs # (Man) Hypersegmented Neuts Hyposegmented Neuts Hypogranular Neuts Large Granular Lymphs # Lrg Granular Lymphs Hairy Cells Smudge Cells Toxic Granulation Toxic Vacuolation Dohle Bodies Br[place] Rods Platelet Estimate Hypogranular Platelets Giant Platelets Platelet Satelliting RBC Morphology Polychromasia Hypochromasia Poikilocytosis Basophilic Stippling Anisocytosis Microcytosis Macrocytosis Spherocytes Pappenheimer Bodies Sickle Cells Target Cells Tear Drop Cells Ovalocytes Stomatocytes [place] Bodies Echinocytes Acanthocytes (Spur) Rouleaux RBC Agglutinates Schistocytes Sezary Cell VBG pH 7.52 H (7.36-7.41) VBG pCO2 51 H (38-50) mmHg VBG pO2 30 mmHg VBG HCO3 42 mmol/L VBG O2 Saturation < 60.0 % VBG Base Excess 16.2 mEq/L Sodium 119 L* Potassium 2.3 L* Chloride 71 L Carbon Dioxide 38 H Anion Gap 10 BUN 58 H Creatinine 4.55 H* Est Cr Clr Drug Dosing 25.1 eGFR 15.84 BUN/Creatinine Ratio 12.7 Glucose 117 H Osmolality (280-300) mOsm/kg Calcium 7.7 L Phosphorus 4.1 (2.5-4.9) mg/dl Magnesium 4.0 H Total Bilirubin AST ALT Alkaline Phosphatase Total Creatine Kinase Total Protein Albumin Globulin Albumin/Globulin Ratio TSH Urine Color Dark Yellow Urine Appearance Clear (Clear) Urine pH 5.0 (4.5-7.5) Ur Specific [place] 1.015 (1.000-1.030) Urine Protein Trace H (Negative) Urine Glucose (UA) Negative (Negative) Urine Ketones Trace H (Negative) Urine Blood Negative (Negative) Urine Nitrite Negative (Negative) Urine Bilirubin 1+ H (Negative) Urine Urobilinogen Negative (Negative) Ur Leukocyte Esterase Trace H (Negative) Urine WBC (Auto) 0-5 (0-5) /hpf Urine RBC (Auto) 3-5 H (0-2) /hpf U Hyaline Cast (Auto) >20 H (0-2) /lpf U Epithel Cells (Auto) 6-10 H (0-2) /hpf Urine Bacteria (Auto) None Seen (None Seen) Hyaline Casts Present A (None Presnt) /lpf Urine Osmolality 282 L (500-800) mOsm/kg Urine Comment Urine Opiates Screen Neg (Neg) Ur Methadone, Qual Neg (Neg) Urine Fentanyl Screen Neg (Neg) Urine Barbiturates Neg (Neg) Ur Phencyclidine (PCP) Neg (Neg) U Amphetamin/Meth Scrn Neg (Neg) MDMA (Ecstasy) Screen Neg (Neg) U Benzodiazepines Scrn Neg (Neg) Ur Cocaine Metabolite Neg (Neg) U Marijuana (THC) Screen Pos H (Neg) Ethyl Alcohol mg/dL Blood Parasites ID MDM Narrative Prior records/ancillary studies reviewed and summarized above. Nursing notes reviewed. Additional history obtained from nursing. The patient's history was concerning for polysubstance abuse. Differential diagnosis: Etiologies such as polysubstance abuse, metabolic, infection, hypo/hyperglycemia, electrolyte abnormalities, cardiac sources, intracerebral event, toxicologic, neurologic, as well as others were entertained. Physical examination: As above. ER treatment provided: IV Lock An order was placed for continuous cardiac monitoring. The monitor shows a rate of 60-100 with a sinus rhythm per my interpretation. IV fluids 2 L normal saline. Ativan was ordered as patient was getting agitated magnesium was ordered for prolonged QTc seen on EKG pending labs Potassium was replaced On reassessment the patient felt better. Diagnostics interpretation by me: #1 ECG: Ordered for weakness EKG: Normal sinus, poor baseline, prolonged QT. Impression poor baseline normal sinus rhythm prolonged QT independently interpreted by myself #2 EKG ordered for hypokalemia EKG: Normal sinus, poor baseline, prolonged QTc, rate of 91. Impression normal sinus rhythm prolonged QTc independently interpreted by myself The labs Independently Interpreted by myself revealed hyponatremia and osmolarity levels were ordered, renal failure, I's and O's were ordered Glucose 124 CBC was still pending at time of admission. Consultation: A consultation was placed with the hospitalist. The case was discussed and diagnostics were reviewed. The patient was evaluated in the ER for further treatment. Exam and history seem consistent with hyponatremia, hypokalemia and renal failure. Patient was still making urine. He was able to give a urine sample here. He was hydrated as above. Electrolytes were replaced. Repeat BMP was ordered after 2 L of normal saline. This was reviewed. Medicine was consulted case discussed. Patient was admitted to the medical service. By the evaluation outlined above emergent etiologies such as infection, cardiac sources, intracerebral event, neurologic, abnormalities blood glucose, as well as others were deemed relatively unlikely. The pt informed about the findings as listed above. All questions were answered and pleased with the treatment. The chart was completed utilizing [employer] Speech voice recognition software. Grammatical errors, random word insertions, pronoun errors, and incomplete sentences are an occassional consequence of this system due to software limitations, ambient noise, and hardware issues. Any formal questions or concerns about the content, text, or information contained within the body of this dictation should be directly addressed to the physician medical assistant supervisor for clarification. Impression & Plan Hypokalemia, Acute renal failure (ARF), Acute hyponatremia Discharge Plan Visit Data Chief Complaint: Arrhythmia/Palpitations Stated Complaint: Arrhythmia/Palpitations ED Provider: Dania Ritchie ED Midlevel Provider: Temi Cespedes Discharge Problem: Hypokalemia, Acute renal failure (ARF), Acute hyponatremia Patient Disposition: Admitted As Inpatient Condition: Fair Discharge Instructions Interventions: ED Discharge Assessment Last Done: 04/01/25 01:58
[2025-03-31] MEDS: MAGNESIUM SULFATE / D5W 1 GM/100 ML BAG IV SCH (23:25)
[2025-04-01 00:36] LABS: Alanine Aminotransferase 8.0 U/L (7-52); Albumin Globulin Ratio 1.1 (0.9-2); Alkaline Phosphatase 74.0 U/L (34-104); Anion Gap 13.0 (3-11); Bilirubin,Total 2.0 mg/dl (0.2-1.0); Blood Urea Nitrogen 60.0 mg/dl (6-23); Calcium 8.2 mg/dl (8.6-10.3); Carbon Dioxide 39.0 mmol/L (21-32); Chloride 67.0 mmol/L (98-107); Creatine Kinase 101.0 U/L (30-223); Creatinine Clr Calc Pharmacy 23.8 ml/min; Globulin 3.0 gm/dl (2.5-4.0); Glucose 124.0 mg/dl (70-99(Fasting)); Magnesium 3.7 mg/dl (1.7-2.4); Potassium 2.3 mmol/L (3.5-5.1); Sodium 119.0 mmol/L (136-145); Thyroid Stimulating Hormone 0.388 uIu/ml (0.300-4.500); Total Protein 6.3 gm/dl (6.0-8.3)
[2025-04-01] MEDS: POTASSIUM CHLORIDE / WTR 10 MEQ/100 ML PLCT IV SCH ×4 (00:41→15:45)
[2025-04-01] MEDS: POTASSIUM CHLORIDE CRTAB 20 MEQ TABCR PO STA ×2 (00:41→07:55)
[2025-04-01] MEDS: SODIUM CHLORIDE 0.9% 1,000 ML IV ONE (00:46)
[2025-04-01 01:35] LABS: Appearance Urine Clear (Clear); Bacteria Urine Automated None Seen (None Seen); Cast Urine Automated >20 /lpf (0-2); Glucose Urine UA Negative (Negative); WBC Urine Automated 0-5 /hpf (0-5)
--- NOTE | 2025-04-01 01:46 | History & Physical Report ---
Date of Service April 01, 2025 Assessment & Plan (1) Acute hyponatremia: (2) Acute renal failure (ARF): (3) Hypokalemia: (4) Alcohol use disorder: Plan 39-year-old male with history of substance abuse, daily alcohol use presenting with shaking and weakness. Patient found to have acute hyponatremia with sodium = 119 as well as hypokalemia with K = 2.3. Appears to be very dry on exam with EMIL, BUN = 60, creatinine = 4.79 from normal baseline previously. #Acute hyponatremiasodium = 119. Patient with low serum osmolality = 262 as well as low urine osmolality 280. Urine sodium ordered. Patient appears quite dry on physical exam. Suspect hyponatremia is in part due to to dehydration, low solute intake as well as daily alcohol intake. Admit to PCU Check urine sodium level Continue IV hydration. Will give LR at 125 mL/h x 2 additional liters ordered Monitor BMP every 4 hours, target slow sodium correction of 8 to 10 mEq over the next 24 hours If no improvement in sodium on next BMP would consider giving a small bolus of hypertonic saline (50-100 mL of 3% saline) #AKIBUN = 60, creatinine = 4.79. Likely secondary to profound dehydration Check renal ultrasound Place Cancino catheter and monitor strict intake and output Continue IV fluid with LR at 125 mm/h x 2 L Check urine sodium and creatinine Renal dosing were needed Avoid nephrotoxic agents Consider nephrology consultation if renal function fails to improve #HypokalemiaK = 2.3. Patient has thus far been given 70 mEq of potassium Repeat chemistry now and every 4 hours Continue potassium repletion with caution given degree of EMIL #Alcohol use disorderpatient unable to fully quantify the amount of alcohol he drinks daily. Reports that he drinks red bull and Inez Jillian, possibly 4-5 drinks per day. Uncertain when his last beverage was. Was noted to be tremulous in the ER thus was given 2 mg of IV Ativan Thiamine 100 mg IV daily, folic acid IV daily IV Ativan as needed by alcohol withdrawal severity scale score #Heart murmurpatient with history of IV drug abuse. He denies recent use of IV drugs. No murmur noted on patient's admission in 2021. Patient is afebrile, hemodynamically stable. Does not appear to be infected at this time. Check 2D echo to assess for possible endocarditis History of Present Illness Chief Complaint: Hyponatremia Primary Care Provider: NO PCP Jona Cook is a 39-year-old male with history of daily alcohol use and polysubstance abuse presenting with tremors. Patient received Ativan prior to my encounter therefore was not able to provide clear details of events prior to arrival. Per discussion with ER staff, patient drank 5 alcoholic drinks today, smokes marijuana and did some methamphetamine. His father found him to be tremulous and weak therefore he came to the emergency room. Patient offers no complaints at this time. In the ER he is afebrile, hemodynamically stable ER course: Ativan 2 mg IV +1 mg IV Magnesium x 2 g Potassium 40 mEq p.o. +30 mEq IV Normal saline x 2 L Allergies Allergy/AdvReac Type Severity Reaction Status Date / Time No Known Allergies Allergy Verified 04/01/25 00:28 Home Medications Medication Instructions Recorded Confirmed Type nortriptyline 10 mg capsule 20 mg PO HS 03/23/22 04/01/25 History nortriptyline 50 mg capsule 50 mg PO HS 03/23/22 04/01/25 History thiamine HCl (vitamin B1) 100 mg 200 mg (2 x 100 mg) PO QAM #30 tabs 03/24/22 04/01/25 Rx tablet gabapentin 600 mg tablet 600 mg PO TID 04/01/25 04/01/25 History Past Med/Surg History Problem List (Updated 04/01/25 @ 03:39 by Nessa Munoz DO) Alcohol use disorder Acute hyponatremia (Acute) Acute renal failure (ARF) (Acute) Hypokalemia (Acute) Sinusitis Abnormal CXR Unresponsive episode (Acute) Accidental drug overdose (Acute) Rhabdomyolysis (Acute) Hypoxia (Acute) EMIL (acute kidney injury) (Acute) Encounter for pre-operative examination History of intravenous drug abuse History of incision and drainage Left forearm on 10/01/18 and 10/03/18 Amputation of left lower extremity Cellulitis of left forearm (Acute) Family History Other No significant family history Social History Smoking Status: Current every day smoker Tobacco Type: Cigarettes Cigarettes Per Day: 2 packs; Second Hand Exposure: No; Do You Dip or Chew Tobacco: No; Hx Alcohol Use: Yes Alcohol type: beer Hx Substance Use: Yes Last Used Substance: Hours (ago) Preferred Language: Nepali Communication Ability: Effective Visual Impairment: No Limitations Machine Dyer Required: No Beliefs That Will Affect Care: None marital status: Single Current Living Situation: Parent Feels Safe at Home: Yes Safety Concerns: Feels Safe At This Time Assistive Devices: Other Assistive Devices Comment: crutches Review of Systems Review of Systems: Unobtainable due to cognitive status Physical Exam Physical Exam: General: patient somnolent, arousable, poorly kempt, no acute distress Skin: multiple scattered lesions across his skin and very stages of healing, no active bleeding or evidence of secondary infection HEENT: NC/AT, PERRL, EOMI, anicteric sclera, injected conjunctiva bilaterally, external ear normal to inspection and nontender, nares patent, very dry mucus membranes, dentition intact, no oropharyngeal lesions, neck supple, trachea midline, no LAD, no thyromegaly, no JVD Heart: +S1/S2, regular, 3/6 systolic ejection murmur at left sternal border Lungs: equal air entry bilaterally, no rales/rhonchi/wheezes Abd: +BS, soft, NT/ND, no masses/organomegaly/ascites Ext: warm, 2+ pulses in UE/LE bilaterally, no clubbing/cyanosis or edema Neuro: grossly nonfocal Results & Data Results & Data Vital Signs (Past 12 Hours) Vital Signs Temp Pulse Pulse Resp BP BP Pulse Ox 04/01/25 01:21 91 H 03/31/25 23:33 91 H 22 115/54 L 97 03/31/25 23:21 93 H 24 119/61 03/31/25 23:00 92 H 20 91/73 L 97 03/31/25 20:53 88 03/31/25 20:42 03/31/25 20:42 36.9 C 90 22 103/64 98 O2 Del Method 04/01/25 01:21 03/31/25 23:33 Room Air 03/31/25 23:21 03/31/25 23:00 Room Air 03/31/25 20:53 03/31/25 20:42 Room Air 03/31/25 20:42 Room Air Laboratory Results Laboratory Results WBC 6.81 K/ul (4.8-10.8) 03/31/25 23:49 RBC 3.36 M/uL (4.70-6.10) L 03/31/25 23:49 Hgb 13.5 g/dl (14.0-18.0) L 03/31/25 23:49 Hct 34.4 % (42.0-52.0) L 03/31/25 23:49 MCV 102.4 fL (80.0-100.0) H 03/31/25 23:49 MCH 40.2 pg (25.0-34.0) H 03/31/25 23:49 MCHC 39.2 g/dL (32.0-36.0) H 03/31/25 23:49 RDW Std Deviation 52.2 fL (36.4-46.3) H 03/31/25 23:49 RDW Coeff of Nikita 13.9 % (11.5-14.5) 03/31/25 23:49 Plt Count 121 K/uL (130-400) L 03/31/25 23:49 MPV 10.0 fL (9.4-12.4) 03/31/25 23:49 Immature Gran % (Auto) 0.4 % 03/31/25 23:49 Neut % (Auto) 89.1 % 03/31/25 23:49 Lymph % (Auto) 7.5 % 03/31/25 23:49 Catron % (Auto) 2.6 % 03/31/25 23:49 Eos % (Auto) 0.0 % 03/31/25 23:49 Baso % (Auto) 0.4 % 03/31/25 23:49 Neut # (Auto) 6.06 K/uL (1.40-6.50) 03/31/25 23:49 Lymph # (Auto) 0.51 K/uL (1.20-3.40) L 03/31/25 23:49 Catron # (Auto) 0.18 K/uL (0.11-0.59) 03/31/25 23:49 Eos # (Auto) 0.00 K/uL (0.00-0.50) 03/31/25 23:49 Baso # (Auto) 0.03 K/uL (0.00-0.20) 03/31/25 23:49 Immature Gran # (Auto) 0.03 K/uL (0.01-0.20) 03/31/25 23:49 Absolute Nucleated RBC Cancelled 03/31/25 22:14 Nucleated RBC % (auto) Cancelled 03/31/25 22:14 Neutrophils % (Manual) Cancelled 03/31/25 22:14 Band Neutrophils % Cancelled 03/31/25 22:14 Lymphocytes % (Manual) Cancelled 03/31/25 22:14 Prolymphocyte % Cancelled 03/31/25 22:14 Reactive Lymphs % (Man) Cancelled 03/31/25 22:14 Monocytes % (Manual) Cancelled 03/31/25 22:14 Eosinophils % (Manual) Cancelled 03/31/25 22:14 Basophils % (Manual) Cancelled 03/31/25 22:14 Metamyelocytes % (Man) Cancelled 03/31/25 22:14 Myelocytes % (Man) Cancelled 03/31/25 22:14 Promyelocytes % (Man) Cancelled 03/31/25 22:14 Blast Cells % (Manual) Cancelled 03/31/25 22:14 Plasma Cell % (Manual) Cancelled 03/31/25 22:14 Other Cells % Cancelled 03/31/25 22:14 Nucleated RBC % Cancelled 03/31/25 22:14 Neutrophils # (Manual) Cancelled 03/31/25 22:14 Band Neutrophils # Cancelled 03/31/25 22:14 Total Absolute Neuts Cancelled 03/31/25 22:14 Lymphocytes # (Manual) Cancelled 03/31/25 22:14 Prolymphocyte # Cancelled 03/31/25 22:14 Reactive Lymphs # Cancelled 03/31/25 22:14 Total Abs Lymphocytes Cancelled 03/31/25 22:14 Monocytes # (Manual) Cancelled 03/31/25 22:14 Eosinophils # (Manual) Cancelled 03/31/25 22:14 Basophils # (Manual) Cancelled 03/31/25 22:14 Metamyelocytes # (Man) Cancelled 03/31/25 22:14 Myelocytes # (Manual) Cancelled 03/31/25 22:14 Promyelocytes # (Man) Cancelled 03/31/25 22:14 Blast Cells # (Man) Cancelled 03/31/25 22:14 Plasma Cell # (Manual) Cancelled 03/31/25 22:14 Other Cells # Cancelled 03/31/25 22:14 Nucleated RBCs # (Man) Cancelled 03/31/25 22:14 Hypersegmented Neuts Cancelled 03/31/25 22:14 Hyposegmented Neuts Cancelled 03/31/25 22:14 Hypogranular Neuts Cancelled 03/31/25 22:14 Large Granular Lymphs Cancelled 03/31/25 22:14 # Lrg Granular Lymphs Cancelled 03/31/25 22:14 Hairy Cells Cancelled 03/31/25 22:14 Smudge Cells Cancelled 03/31/25 22:14 Toxic Granulation Cancelled 03/31/25 22:14 Toxic Vacuolation Cancelled 03/31/25 22:14 Dohle Bodies Cancelled 03/31/25 22:14 Bronson Rods Cancelled 03/31/25 22:14 Platelet Estimate Cancelled 03/31/25 22:14 Hypogranular Platelets Cancelled 03/31/25 22:14 Giant Platelets Cancelled 03/31/25 22:14 Platelet Satelliting Cancelled 03/31/25 22:14 RBC Morphology Cancelled 03/31/25 22:14 Polychromasia 1+ 03/31/25 23:49 Hypochromasia Cancelled 03/31/25 22:14 Poikilocytosis Cancelled 03/31/25 22:14 Basophilic Stippling 1+ 03/31/25 23:49 Anisocytosis Cancelled 03/31/25 22:14 Microcytosis Cancelled 03/31/25 22:14 Macrocytosis Cancelled 03/31/25 22:14 Spherocytes Cancelled 03/31/25 22:14 Pappenheimer Bodies Cancelled 03/31/25 22:14 Sickle Cells Cancelled 03/31/25 22:14 Target Cells Cancelled 03/31/25 22:14 Tear Drop Cells Cancelled 03/31/25 22:14 Ovalocytes Cancelled 03/31/25 22:14 Stomatocytes Cancelled 03/31/25 22:14 [place] Bodies Cancelled 03/31/25 22:14 Echinocytes Cancelled 03/31/25 22:14 Acanthocytes (Spur) Cancelled 03/31/25 22:14 Rouleaux Cancelled 03/31/25 22:14 RBC Agglutinates Cancelled 03/31/25 22:14 Schistocytes Cancelled 03/31/25 22:14 Sezary Cell Cancelled 03/31/25 22:14 VBG pH 7.52 (7.36-7.41) H 04/01/25 01:29 VBG pCO2 51 mmHg (38-50) H 04/01/25 01:29 VBG pO2 30 mmHg 04/01/25 01:29 VBG HCO3 42 mmol/L 04/01/25 01:29 VBG O2 Saturation < 60.0 % 04/01/25 01:29 VBG Base Excess 16.2 mEq/L 04/01/25 01:29 Sodium 119 mmol/L (136-145) L* 04/01/25 01: Potassium 2.3 mmol/L (3.5-5.1) L* 04/01/25 01: Chloride 71 mmol/L (98-107) L 04/01/25 01: Carbon Dioxide 38 mmol/L (21-32) H 04/01/25 01:29 Anion Gap 10 (3-11) 04/01/25 01: BUN 58 mg/dl (6-23) H 04/01/25 01:29 Creatinine 4.55 mg/dl (0.6-1.4) H* 04/01/25 01:29 Est Cr Clr Drug Dosing 25.1 ml/min 04/01/25 01:29 eGFR 15.84 04/01/25 01:29 BUN/Creatinine Ratio 12.7 (10-20) 04/01/25 01:29 Glucose 117 mg/dl (70-99(Fasting)) H 04/01/25 01:29 Osmolality 262 mOsm/kg (280-300) L 03/31/25 22:20 Calcium 7.7 mg/dl (8.6-10.3) L 04/01/25 01:29 Phosphorus 4.1 mg/dl (2.5-4.9) 04/01/25 01:29 Magnesium 4.0 mg/dl (1.7-2.4) H 04/01/25 01:29 Total Bilirubin 2.0 mg/dl (0.2-1.0) H 03/31/25 23:49 AST 24 U/L (13-39) 03/31/25 23:49 ALT 8 U/L (7-52) 03/31/25 23:49 Alkaline Phosphatase 74 U/L (34-104) 03/31/25 23:49 Total Creatine Kinase 102 U/L (30-223) 04/01/25 01:29 Total Protein 6.3 gm/dl (6.0-8.3) 03/31/25 23:49 Albumin 3.3 gm/dl (3.4-5.0) L 03/31/25 23:49 Globulin 3.0 gm/dl (2.5-4.0) 03/31/25 23:49 Albumin/Globulin Ratio 1.1 (0.9-2) 03/31/25 23:49 TSH 0.388 uIu/ml (0.300-4.500) 03/31/25 23:49 Urine Color Dark Yellow 04/01/25 01:00 Urine Appearance Clear (Clear) 04/01/25 01:00 Urine pH 5.0 (4.5-7.5) 04/01/25 01:00 Ur Specific [place] 1.015 (1.000-1.030) 04/01/25 01:00 Urine Protein Trace (Negative) H 04/01/25 01:00 Urine Glucose (UA) Negative (Negative) 04/01/25 01:00 Urine Ketones Trace (Negative) H 04/01/25 01:00 Urine Blood Negative (Negative) 04/01/25 01:00 Urine Nitrite Negative (Negative) 04/01/25 01:00 Urine Bilirubin 1+ (Negative) H 04/01/25 01:00 Urine Urobilinogen Negative (Negative) 04/01/25 01:00 Ur Leukocyte Esterase Trace (Negative) H 04/01/25 01:00 Urine WBC (Auto) 0-5 /hpf (0-5) 04/01/25 01:00 Urine RBC (Auto) 3-5 /hpf (0-2) H 04/01/25 01:00 U Hyaline Cast (Auto) >20 /lpf (0-2) H 04/01/25 01:00 U Epithel Cells (Auto) 6-10 /hpf (0-2) H 04/01/25 01:00 Urine Bacteria (Auto) None Seen (None Seen) 04/01/25 01:00 Hyaline Casts Present /lpf (None Presnt) A 04/01/25 01:00 Urine Osmolality 282 mOsm/kg (500-800) L 04/01/25 01:00 Urine Comment 04/01/25 01:00 Urine Opiates Screen Neg (Neg) 04/01/25 01:00 Ur Methadone, Qual Neg (Neg) 04/01/25 01:00 Urine Fentanyl Screen Neg (Neg) 04/01/25 01:00 Urine Barbiturates Neg (Neg) 04/01/25 01:00 Ur Phencyclidine (PCP) Neg (Neg) 04/01/25 01:00 U Amphetamin/Meth Scrn Neg (Neg) 04/01/25 01:00 MDMA (Ecstasy) Screen Neg (Neg) 04/01/25 01:00 U Benzodiazepines Scrn Neg (Neg) 04/01/25 01:00 Ur Cocaine Metabolite Neg (Neg) 04/01/25 01:00 U Marijuana (THC) Screen Pos (Neg) H 04/01/25 01:00 Ethyl Alcohol mg/dL < 10.0 mg/dl (<10.0) 03/31/25 23:49 Blood Parasites ID Cancelled 03/31/25 22:14 PG Care Time/CCT Total # of Minutes Spent Total Time Spent with Patient: Total time spent is greater than 50% in coordination of care (as documented) at patient's floor/unit and/or counseling patient: Coding Level of Care Code 29490 INT INP/OBS CARE 3/75MIN Diagnoses Acute hyponatremia E87.1 Acute renal failure (ARF) N17.9 Hypokalemia E87.6 Alcohol use disorder F10.90
[2025-04-01 01:55] LABS: Base Excess VBG 16.2 mEq/L; HCO3 VBG 42 mmol/L; Oxygen Saturation VBG < 60.0 %; PCO2 VBG 51 mmHg (38-50); PO2 VBG 30 mmHg; pH VBG 7.52 (7.36-7.41)
[2025-04-01 02:12] LABS: Anion Gap 10.0 (3-11); Blood Urea Nitrogen 58.0 mg/dl (6-23); Calcium 7.7 mg/dl (8.6-10.3); Carbon Dioxide 38.0 mmol/L (21-32); Chloride 71.0 mmol/L (98-107); Creatinine Clr Calc Pharmacy 25.1 ml/min; Glucose 117.0 mg/dl (70-99(Fasting)); Magnesium 4.0 mg/dl (1.7-2.4); Potassium 2.3 mmol/L (3.5-5.1); Sodium 119.0 mmol/L (136-145)
[2025-04-01] MEDS ORDERED: NALOXONE HCL 0.4 MG/1 ML VIAL/CARP IV PRN (02:12)
[2025-04-01] MEDS ORDERED: Ativan IV Alcohol Withdrawal--Active Protocol IV PRN (02:12)
[2025-04-01 02:20] LABS: Amphetamines+Metham, Urine Neg (Neg); MDMA (Ecstacy), Urine Neg (Neg); Marijuana, Urine Pos (Neg)
[2025-04-01 02:38] LABS: Creatine Kinase 102.0 U/L (30-223)
[2025-04-01 02:39] LABS: Platelet Count 121 K/uL (130-400); White Blood Count 6.81 K/ul (4.8-10.8)
[2025-04-01 03:31] LABS: Basophilic Stippling 1+; Hematocrit (blood only) 34.4 % (42.0-52.0); Immature Granulocytes # (auto) 0.03 K/uL (0.01-0.20); Immature Granulocytes % (auto) 0.4 %; Mean Corpuscular Volume 102.4 fL (80.0-100.0); Polychromasia 1+; RDW Standard Deviation 52.2 fL (36.4-46.3); Red Blood Count 3.36 M/uL (4.70-6.10)
[2025-04-01] MEDS: LACTATED RINGER'S 1,000 ML IV SCH (04:01)
[2025-04-01 06:48] LABS: Anion Gap 10.0 (3-11); Blood Urea Nitrogen 57.0 mg/dl (6-23); Calcium 7.9 mg/dl (8.6-10.3); Carbon Dioxide 37.0 mmol/L (21-32); Chloride 74.0 mmol/L (98-107); Creatinine Clr Calc Pharmacy 27.6 ml/min; Glucose 112.0 mg/dl (70-99(Fasting)); Potassium 2.8 mmol/L (3.5-5.1); Sodium 121.0 mmol/L (136-145)
[2025-04-01 07:52] LABS: Mean Corpuscular Hemoglobin 40.2 pg (25.0-34.0)
[2025-04-01 07:54] LABS: Hemoglobin 13.5 g/dl (14.0-18.0)
[2025-04-01] MEDS: FOLIC ACID 1 MG in SYRINGE 9.8 ML IV SCH (07:56)
[2025-04-01] MEDS: THIAMINE HCL 100 MG in SYRINGE 9 ML IV SCH (07:56)
[2025-04-01] MEDS: CALCIUM GLUCONATE 1,000 MG/60 ML BAG IV SCH (08:13)
[2025-04-01] MEDS ORDERED: STAT IV Infusion **Titration per Protocol STA (08:32)
--- NOTE | 2025-04-01 10:17 | Electrocardiogram Report ---
Test Reason : Blood Pressure : */* mmHG Vent. Rate : 91 BPM Atrial Rate : 91 BPM P-R Int : 162 ms QRS Dur : 104 ms QT Int : 472 ms P-R-T Axes : 37 50 -17 degrees QTcB Int : 580 ms Normal sinus rhythm Cannot rule out Inferior infarct , age undetermined Nonspecific ST abnormality Prolonged QT Abnormal ECG When compared with ECG of 01-Apr-2025 00:53, (unconfirmed) No significant change was found Confirmed by Shawn Allison ([id number]) on 04/01/2025 10:17:50 AM Referred By: REFERRED SELF Confirmed By: Shawn Allison
--- NOTE | 2025-04-01 10:19 | Electrocardiogram Report ---
Test Reason : Blood Pressure : */* mmHG Vent. Rate : 92 BPM Atrial Rate : 92 BPM P-R Int : 166 ms QRS Dur : 102 ms QT Int : 468 ms P-R-T Axes : 20 45 -7 degrees QTcB Int : 578 ms Normal sinus rhythm Nonspecific ST abnormality When compared with ECG of 31-Mar-2025 20:44, (unconfirmed) No significant change was found Confirmed by Shawn Allison ([id number]) on 04/01/2025 10:19:05 AM Referred By: REFERRED SELF Confirmed By: Shawn Allison
--- NOTE | 2025-04-01 10:20 | Electrocardiogram Report ---
Test Reason : Blood Pressure : */* mmHG Vent. Rate : 90 BPM Atrial Rate : 90 BPM P-R Int : 160 ms QRS Dur : 106 ms QT Int : 486 ms P-R-T Axes : 33 16 3 degrees QTcB Int : 594 ms Normal sinus rhythm Nonspecific T wave abnormality Abnormal ECG When compared with ECG of 18-Apr-2022 17:24, Nonspecific T wave abnormality now evident in Anterior leads Confirmed by Shawn Allison ([id number] on 04/01/2025 10:19:51 AM Referred By: REFERRED SELF Confirmed By: Shawn Allison
--- NOTE | 2025-04-01 10:20 | Electrocardiogram Report ---
Test Reason : Blood Pressure : */* mmHG Vent. Rate : 89 BPM Atrial Rate : 89 BPM P-R Int : 160 ms QRS Dur : 100 ms QT Int : 492 ms P-R-T Axes : 40 47 3 degrees QTcB Int : 598 ms Normal sinus rhythm T wave abnormality, consider inferior ischemia Abnormal ECG When compared with ECG of 01-Apr-2025 01:08, (unconfirmed) No significant change was found Confirmed by Shawn Allison ([id number] on 04/01/2025 10:20:28 AM Referred By: REFERRED SELF Confirmed By: Shawn Allison
[2025-04-01 10:43] LABS: Anion Gap 8.0 (3-11); Blood Urea Nitrogen 58.0 mg/dl (6-23); Calcium 8.2 mg/dl (8.6-10.3); Carbon Dioxide 37.0 mmol/L (21-32); Chloride 76.0 mmol/L (98-107); Creatinine Clr Calc Pharmacy 30.4 ml/min; Glucose 100.0 mg/dl (70-99(Fasting)); Potassium 2.5 mmol/L (3.5-5.1); Sodium 121.0 mmol/L (136-145)
--- NOTE | 2025-04-01 10:49 | Nephrology Consultation ---
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 Lymphocytes # (Manual) Prolymphocyte # Reactive Lymphs # Total Abs Lymphocytes Monocytes # (Manual) Eosinophils # (Manual) Basophils # (Manual) Metamyelocytes # (Man) Myelocytes # (Manual) Promyelocytes # (Man) Blast Cells # (Man) Plasma Cell # (Manual) Other Cells # Nucleated RBCs # (Man) Hypersegmented Neuts Hyposegmented Neuts Hypogranular Neuts Large Granular Lymphs # Lrg Granular Lymphs Hairy Cells Smudge Cells Toxic Granulation Toxic Vacuolation Dohle Bodies Bronson Rods Platelet Estimate Hypogranular Platelets Giant Platelets Platelet Satelliting RBC Morphology Polychromasia Hypochromasia Poikilocytosis Basophilic Stippling Anisocytosis Microcytosis Macrocytosis Spherocytes Pappenheimer Bodies Sickle Cells Target Cells Tear Drop Cells Ovalocytes Stomatocytes [place] Bodies Echinocytes Acanthocytes (Spur) Rouleaux RBC Agglutinates Schistocytes Sezary Cell VBG pH VBG pCO2 VBG pO2 VBG HCO3 VBG O2 Saturation VBG Base Excess Sodium Potassium Chloride Carbon Dioxide Anion Gap BUN Creatinine Est Cr Clr Drug Dosing eGFR BUN/Creatinine Ratio Glucose Osmolality Calcium Phosphorus Magnesium Total Bilirubin AST ALT Alkaline Phosphatase Total Creatine Kinase Total Protein Albumin Globulin Albumin/Globulin Ratio TSH Urine Color Urine Appearance Urine pH Ur Specific [place] Urine Protein Urine Glucose (UA) Urine Ketones Urine Blood Urine Nitrite Urine Bilirubin Urine Urobilinogen Ur Leukocyte Esterase Urine WBC (Auto) Urine RBC (Auto) U Hyaline Cast (Auto) U Epithel Cells (Auto) Urine Bacteria (Auto) Hyaline Casts Urine Osmolality Ur Random Creatinine Ur Random Sodium Urine Comment Urine Opiates Screen Ur Methadone, Qual Urine Fentanyl Screen Urine Barbiturates Ur Phencyclidine (PCP) U Amphetamin/Meth Scrn MDMA (Ecstasy) Screen U Benzodiazepines Scrn Ur Cocaine Metabolite U Marijuana (THC) Screen U Marijuana THC Carboxy Drug Screen Comment Ethyl Alcohol mg/dL Blood Parasites ID 03/31/25 03/31/25 03/31/25 23:49 23:49 23:49 WBC RBC Hgb Hct MCV MCH MCHC RDW Std Deviation RDW Coeff of Nikita Plt Count MPV Immature Gran % (Auto) Neut % (Auto) Lymph % (Auto) [place] % (Auto) Eos % (Auto) Baso % (Auto) Neut # (Auto) Lymph # (Auto) Cancelled [place] # (Auto) 0.18 Cancelled Eos # (Auto) 0.00 Cancelled Baso # (Auto) 0.03 Immature Gran # (Auto) Absolute Nucleated RBC Nucleated RBC % (auto) Neutrophils % (Manual) Band Neutrophils % Lymphocytes % (Manual) Prolymphocyte % Reactive Lymphs % (Man) Monocytes % (Manual) Eosinophils % (Manual) Basophils % (Manual) Metamyelocytes % (Man) Myelocytes % (Man) Promyelocytes % (Man) Blast Cells % (Manual) Plasma Cell % (Manual) Other Cells % Nucleated RBC % Neutrophils # (Manual) Band Neutrophils # Total Absolute Neuts Lymphocytes # (Manual) Prolymphocyte # Reactive Lymphs # Total Abs Lymphocytes Monocytes # (Manual) Eosinophils # (Manual) Basophils # (Manual) Metamyelocytes # (Man) Myelocytes # (Manual) Promyelocytes # (Man) Blast Cells # (Man) Plasma Cell # (Manual) Other Cells # Nucleated RBCs # (Man) Hypersegmented Neuts Hyposegmented Neuts Hypogranular Neuts Large Granular Lymphs # Lrg Granular Lymphs Hairy Cells Smudge Cells Toxic Granulation Toxic Vacuolation Dohle Bodies Bronson Rods Platelet Estimate Hypogranular Platelets Giant Platelets Platelet Satelliting RBC Morphology Polychromasia Hypochromasia Poikilocytosis Basophilic Stippling Anisocytosis Microcytosis Macrocytosis Spherocytes Pappenheimer Bodies Sickle Cells Target Cells Tear Drop Cells Ovalocytes Stomatocytes [place] Bodies Echinocytes Acanthocytes (Spur) Rouleaux RBC Agglutinates Schistocytes Sezary Cell VBG pH VBG pCO2 VBG pO2 VBG HCO3 VBG O2 Saturation VBG Base Excess Sodium Potassium Chloride Carbon Dioxide Anion Gap BUN Creatinine Est Cr Clr Drug Dosing eGFR BUN/Creatinine Ratio Glucose Osmolality Calcium Phosphorus Magnesium Total Bilirubin AST ALT Alkaline Phosphatase Total Creatine Kinase Total Protein Albumin Globulin Albumin/Globulin Ratio TSH Urine Color Urine Appearance Urine pH Ur Specific [place] Urine Protein Urine Glucose (UA) Urine Ketones Urine Blood Urine Nitrite Urine Bilirubin Urine Urobilinogen Ur Leukocyte Esterase Urine WBC (Auto) Urine RBC (Auto) U Hyaline Cast (Auto) U Epithel Cells (Auto) Urine Bacteria (Auto) Hyaline Casts Urine Osmolality Ur Random Creatinine Ur Random Sodium Urine Comment Urine Opiates Screen Ur Methadone, Qual Urine Fentanyl Screen Urine Barbiturates Ur Phencyclidine (PCP) U Amphetamin/Meth Scrn MDMA (Ecstasy) Screen U Benzodiazepines Scrn Ur Cocaine Metabolite U Marijuana (THC) Screen U Marijuana THC Carboxy Drug Screen Comment Ethyl Alcohol mg/dL Blood Parasites ID 03/31/25 03/31/25 03/31/25 23:49 23:49 23:49 WBC RBC Hgb Hct MCV MCH MCHC RDW Std Deviation RDW Coeff of Nikita Plt Count MPV Immature Gran % (Auto) Neut % (Auto) Lymph % (Auto) [place] % (Auto) Eos % (Auto) Baso % (Auto) Neut # (Auto) Lymph # (Auto) [place] # (Auto) Eos # (Auto) Baso # (Auto) Cancelled Immature Gran # (Auto) 0.03 Cancelled Absolute Nucleated RBC Cancelled Nucleated RBC % (auto) Cancelled Neutrophils % (Manual) Cancelled Band Neutrophils % Cancelled Lymphocytes % (Manual) Cancelled Prolymphocyte % Cancelled Reactive Lymphs % (Man) Cancelled Monocytes % (Manual) Cancelled Eosinophils % (Manual) Cancelled Basophils % (Manual) Cancelled Metamyelocytes % (Man) Cancelled Myelocytes % (Man) Cancelled Promyelocytes % (Man) Cancelled Blast Cells % (Manual) Cancelled Plasma Cell % (Manual) Cancelled Other Cells % Cancelled Nucleated RBC % Cancelled Neutrophils # (Manual) Cancelled Band Neutrophils # Cancelled Total Absolute Neuts Cancelled Lymphocytes # (Manual) Cancelled Prolymphocyte # Cancelled Reactive Lymphs # Cancelled Total Abs Lymphocytes Cancelled Monocytes # (Manual) Cancelled Eosinophils # (Manual) Cancelled Basophils # (Manual) Cancelled Metamyelocytes # (Man) Cancelled Myelocytes # (Manual) Cancelled Promyelocytes # (Man) Cancelled Blast Cells # (Man) Cancelled Plasma Cell # (Manual) Cancelled Other Cells # Cancelled Nucleated RBCs # (Man) Cancelled Hypersegmented Neuts Cancelled Hyposegmented Neuts Cancelled Hypogranular Neuts Cancelled Large Granular Lymphs Cancelled # Lrg Granular Lymphs Cancelled Hairy Cells Cancelled Smudge Cells Cancelled Toxic Granulation Cancelled Toxic Vacuolation Cancelled Dohle Bodies Cancelled Bronson Rods Cancelled Platelet Estimate Cancelled Hypogranular Platelets Cancelled Giant Platelets Cancelled Platelet Satelliting Cancelled RBC Morphology Cancelled Polychromasia 1+ Cancelled Hypochromasia Cancelled Poikilocytosis Cancelled Basophilic Stippling 1+ Anisocytosis Microcytosis Macrocytosis Spherocytes Pappenheimer Bodies Sickle Cells Target Cells Tear Drop Cells Ovalocytes Stomatocytes [place] Bodies Echinocytes Acanthocytes (Spur) Rouleaux RBC Agglutinates Schistocytes Sezary Cell VBG pH VBG pCO2 VBG pO2 VBG HCO3 VBG O2 Saturation VBG Base Excess Sodium Potassium Chloride Carbon Dioxide Anion Gap BUN Creatinine Est Cr Clr Drug Dosing eGFR BUN/Creatinine Ratio Glucose Osmolality Calcium Phosphorus Magnesium Total Bilirubin AST ALT Alkaline Phosphatase Total Creatine Kinase Total Protein Albumin Globulin Albumin/Globulin Ratio TSH Urine Color Urine Appearance Urine pH Ur Specific [place] Urine Protein Urine Glucose (UA) Urine Ketones Urine Blood Urine Nitrite Urine Bilirubin Urine Urobilinogen Ur Leukocyte Esterase Urine WBC (Auto) Urine RBC (Auto) U Hyaline Cast (Auto) U Epithel Cells (Auto) Urine Bacteria (Auto) Hyaline Casts Urine Osmolality Ur Random Creatinine Ur Random Sodium Urine Comment Urine Opiates Screen Ur Methadone, Qual Urine Fentanyl Screen Urine Barbiturates Ur Phencyclidine (PCP) U Amphetamin/Meth Scrn MDMA (Ecstasy) Screen U Benzodiazepines Scrn Ur Cocaine Metabolite U Marijuana (THC) Screen U Marijuana THC Carboxy Drug Screen Comment Ethyl Alcohol mg/dL Blood Parasites ID 03/31/25 04/01/25 04/01/25 23:49 01:00 01:29 WBC RBC Hgb Hct MCV MCH MCHC RDW Std Deviation RDW Coeff of Nikita Plt Count MPV Immature Gran % (Auto) Neut % (Auto) Lymph % (Auto) [place] % (Auto) Eos % (Auto) Baso % (Auto) Neut # (Auto) Lymph # (Auto) [place] # (Auto) Eos # (Auto) Baso # (Auto) Immature Gran # (Auto) Absolute Nucleated RBC Nucleated RBC % (auto) Neutrophils % (Manual) Band Neutrophils % Lymphocytes % (Manual) Prolymphocyte % Reactive Lymphs % (Man) Monocytes % (Manual) Eosinophils % (Manual) Basophils % (Manual) Metamyelocytes % (Man) Myelocytes % (Man) Promyelocytes % (Man) Blast Cells % (Manual) Plasma Cell % (Manual) Other Cells % Nucleated RBC % Neutrophils # (Manual) Band Neutrophils # Total Absolute Neuts Lymphocytes # (Manual) Prolymphocyte # Reactive Lymphs # Total Abs Lymphocytes Monocytes # (Manual) Eosinophils # (Manual) Basophils # (Manual) Metamyelocytes # (Man) Myelocytes # (Manual) Promyelocytes # (Man) Blast Cells # (Man) Plasma Cell # (Manual) Other Cells # Nucleated RBCs # (Man) Hypersegmented Neuts Hyposegmented Neuts Hypogranular Neuts Large Granular Lymphs # Lrg Granular Lymphs Hairy Cells Smudge Cells Toxic Granulation Toxic Vacuolation Dohle Bodies Bronson Rods Platelet Estimate Hypogranular Platelets Giant Platelets Platelet Satelliting RBC Morphology Polychromasia Hypochromasia Poikilocytosis Basophilic Stippling Cancelled Anisocytosis Cancelled Microcytosis Cancelled Macrocytosis Cancelled Spherocytes Cancelled Pappenheimer Bodies Cancelled Sickle Cells Cancelled Target Cells Cancelled Tear Drop Cells Cancelled Ovalocytes Cancelled Stomatocytes Cancelled [place] Bodies Cancelled Echinocytes Cancelled Acanthocytes (Spur) Cancelled Rouleaux Cancelled RBC Agglutinates Cancelled Schistocytes Cancelled Sezary Cell Cancelled VBG pH 7.52 H VBG pCO2 51 H VBG pO2 30 VBG HCO3 42 VBG O2 Saturation < 60.0 VBG Base Excess 16.2 Sodium 119 L* 119 L* Potassium 2.3 L* 2.3 L* Chloride 67 L 71 L Carbon Dioxide 39 H 38 H Anion Gap 13 H 10 BUN 60 H 58 H Creatinine 4.79 H* 4.55 H* Est Cr Clr Drug Dosing 23.8 25.1 eGFR 14.89 15.84 BUN/Creatinine Ratio 12.5 12.7 Glucose 124 H 117 H Osmolality Calcium 8.2 L 7.7 L Phosphorus 4.1 Magnesium 3.7 H 4.0 H Total Bilirubin 2.0 H AST 24 ALT 8 Alkaline Phosphatase 74 Total Creatine Kinase 101 102 Total Protein 6.3 Albumin 3.3 L Globulin 3.0 Albumin/Globulin Ratio 1.1 TSH 0.388 Urine Color Dark Yellow Urine Appearance Clear Urine pH 5.0 Ur Specific [place] 1.015 Urine Protein Trace H Urine Glucose (UA) Negative Urine Ketones Trace H Urine Blood Negative Urine Nitrite Negative Urine Bilirubin 1+ H Urine Urobilinogen Negative Ur Leukocyte Esterase Trace H Urine WBC (Auto) 0-5 Urine RBC (Auto) 3-5 H U Hyaline Cast (Auto) >20 H U Epithel Cells (Auto) 6-10 H Urine Bacteria (Auto) None Seen Hyaline Casts Present A Urine Osmolality 282 L Ur Random Creatinine Ur Random Sodium Urine Comment Urine Opiates Screen Neg Ur Methadone, Qual Neg Urine Fentanyl Screen Neg Urine Barbiturates Neg Ur Phencyclidine (PCP) Neg U Amphetamin/Meth Scrn Neg MDMA (Ecstasy) Screen Neg U Benzodiazepines Scrn Neg Ur Cocaine Metabolite Neg U Marijuana (THC) Screen Pos H U Marijuana THC Carboxy Pending Drug Screen Comment Pending Ethyl Alcohol mg/dL < 10.0 Blood Parasites ID Cancelled 04/01/25 04/01/25 04/01/25 06:00 06:04 09:47 WBC RBC Hgb Hct MCV MCH MCHC RDW Std Deviation RDW Coeff of Nikita Plt Count MPV Immature Gran % (Auto) Neut % (Auto) Lymph % (Auto) [place] % (Auto) Eos % (Auto) Baso % (Auto) Neut # (Auto) Lymph # (Auto) [place] # (Auto) Eos # (Auto) Baso # (Auto) Immature Gran # (Auto) Absolute Nucleated RBC Nucleated RBC % (auto) Neutrophils % (Manual) Band Neutrophils % Lymphocytes % (Manual) Prolymphocyte % Reactive Lymphs % (Man) Monocytes % (Manual) Eosinophils % (Manual) Basophils % (Manual) Metamyelocytes % (Man) Myelocytes % (Man) Promyelocytes % (Man) Blast Cells % (Manual) Plasma Cell % (Manual) Other Cells % Nucleated RBC % Neutrophils # (Manual) Band Neutrophils # Total Absolute Neuts Lymphocytes # (Manual) Prolymphocyte # Reactive Lymphs # Total Abs Lymphocytes Monocytes # (Manual) Eosinophils # (Manual) Basophils # (Manual) Metamyelocytes # (Man) Myelocytes # (Manual) Promyelocytes # (Man) Blast Cells # (Man) Plasma Cell # (Manual) Other Cells # Nucleated RBCs # (Man) Hypersegmented Neuts Hyposegmented Neuts Hypogranular Neuts Large Granular Lymphs # Lrg Granular Lymphs Hairy Cells Smudge Cells Toxic Granulation Toxic Vacuolation Dohle Bodies Bronson Rods Platelet Estimate Hypogranular Platelets Giant Platelets Platelet Satelliting RBC Morphology Polychromasia Hypochromasia Poikilocytosis Basophilic Stippling Anisocytosis Microcytosis Macrocytosis Spherocytes Pappenheimer Bodies Sickle Cells Target Cells Tear Drop Cells Ovalocytes Stomatocytes [place] Bodies Echinocytes Acanthocytes (Spur) Rouleaux RBC Agglutinates Schistocytes Sezary Cell VBG pH VBG pCO2 VBG pO2 VBG HCO3 VBG O2 Saturation VBG Base Excess Sodium 121 L 121 L Potassium 2.8 L D 2.5 L* Chloride 74 L 76 L Carbon Dioxide 37 H 37 H Anion Gap 10 8 BUN 57 H 58 H Creatinine 4.13 H D 3.75 H D Est Cr Clr Drug Dosing 27.6 30.4 eGFR 17.79 19.98 BUN/Creatinine Ratio 13.8 15.5 Glucose 112 H 100 H Osmolality Calcium 7.9 L 8.2 L Phosphorus Magnesium Total Bilirubin AST ALT Alkaline Phosphatase Total Creatine Kinase Total Protein Albumin Globulin Albumin/Globulin Ratio TSH Urine Color Urine Appearance Urine pH Ur Specific [place] Urine Protein Urine Glucose (UA) Urine Ketones Urine Blood Urine Nitrite Urine Bilirubin Urine Urobilinogen Ur Leukocyte Esterase Urine WBC (Auto) Urine RBC (Auto) U Hyaline Cast (Auto) U Epithel Cells (Auto) Urine Bacteria (Auto) Hyaline Casts Urine Osmolality Ur Random Creatinine 237.8 Ur Random Sodium < 10 Urine Comment Urine Opiates Screen Ur Methadone, Qual Urine Fentanyl Screen Urine Barbiturates Ur Phencyclidine (PCP) U Amphetamin/Meth Scrn MDMA (Ecstasy) Screen U Benzodiazepines Scrn Ur Cocaine Metabolite U Marijuana (THC) Screen U Marijuana THC Carboxy Drug Screen Comment Ethyl Alcohol mg/dL Blood Parasites ID PG Care Time/CCT Total # of Minutes Spent Total Time Spent with Patient: Total time spent is greater than 50% in coordination of care (as documented) at patient's floor/unit and/or counseling patient: Coding Level of Care Code 97118 IN/OBS CONSULT LVL 5,80M Diagnoses Hyponatremia E87.1 EMIL (acute kidney injury) N17.9 Hypokalemia E87.6
[2025-04-01] MEDS: dexMEDEtomidine 200 MCG/50 ML BAG IV SCH (11:02)
--- NOTE | 2025-04-01 11:56 | Ultrasound Report ---
RENAL ULTRASOUND HISTORY: Acute kidney injury EMIL COMPARISON: None. FINDINGS: Right kidney: 12.4 cm. No hydronephrosis. Normal corticomedullary differentiation and cortical thickn ess. Left kidney: Partially obscured by bowel gas. 11.3 cm. No hydronephrosis. Normal corticomedullary dif ferentiation and cortical thickness. Bladder: Decompressed with Canc[place] catheter. IMPRESSION: Unremarkable limited renal ultrasound. ACT 112: Negative or not required by law. Electronically signed by: Camilo Campbell M.D. 04/01/2025 11:55 AM
--- NOTE | 2025-04-01 12:01 | XCELERA ---
[id number] [id number]
--- NOTE | 2025-04-01 13:14 | Critical Care Consultation ---
Date of Consultation April 01, 2025 Assessment & Plan (1) Alcohol use disorder: (2) Hypokalemia: (3) Hyponatremia: (4) EMIL (acute kidney injury): Plan Impression: 39-year-old male with history of substance abuse admitted with tremulousness felt to be related to alcohol withdrawal. He required higher dose medications due to severe agitation on the floor and has been loaded on phenobarbital which prompted him to be transferred to the ICU. He is now hemodynamically stable sedated and comfortable. Recommendations: 1. Neurologic: Agitated delirium. Likely secondary to alcohol withdrawal. Continue phenobarb. Continue high-dose thiamine and folate. Think we can get by without using benzodiazepines. May require clonidine. Antipsychotics will be added in the event the patient comes agitated again. History of substance abuse so we will need to follow closely. 2. Cardiovascular: No current issues. Continue to follow clinically. 3. Pulmonary: No current issues. Monitoring end-tidal CO2 while on IV phenobarb. 4. Renal: Hypovolemic hyponatremia currently correcting as well as hypokalemia and hypomagnesemia. In the setting of acute renal insufficiency. Improving. Continue to follow at this point in time. Appreciate nephrology input and management. 5. ID: No current issues. 6. GI: Will advance diet as mental status allows. 7. Endocrine: Glycemic control per protocol. 8.: Heme-onc: No current issues. Initiate DVT prophylaxis. Mild thromb ocytopenia which will be trended. Patient will be observed in the ICU today. If remains stable, can likely transfer back to floor tomorrow History of Present Illness Attending Physician: Rojas Alarcon MD History of Present Illness Asked by hospitalist to assist in evaluation management this patient transferred to the ICU for refractory DTs. History is obtained from discussion with the hospitalist as well as review the electronic medical record. The patient is sedated and unable to provide any history. Patient is a 39-year-old male with a history of alcohol abuse and substance abuse who presented to the emergency room early this morning with tremors. The patient received Ativan in the emergency room and according to the ER staff apparently had a history of methamphetamine abuse as well as alcoholic beverages and marijuana. He was found to be hyponatremic and hypokalemic in the emergency room. He received 3 mg of Ativan in the emergency room as well as potassium and magnesium and was admitted to the hospitalist service. This morning the patient became combative kicking at staff and was felt to require higher medications. Was transferred to the ICU where he received an additional dose of Ativan as well as a loading dose of phenobarb. He is now sedated and calm. He is hemodynamically stable. Allergies Allergy/AdvReac Type Severity Reaction Status Date / Time No Known Allergies Allergy Verified 04/01/25 00:28 Home Medications Medication Instructions Recorded Confirmed Type nortriptyline 10 mg capsule 20 mg PO HS 03/23/22 04/01/25 History nortriptyline 50 mg capsule 50 mg PO HS 03/23/22 04/01/25 History thiamine HCl (vitamin B1) 100 mg 200 mg (2 x 100 mg) PO QAM #30 tabs 03/24/22 04/01/25 Rx tablet gabapentin 600 mg tablet 600 mg PO TID 04/01/25 04/01/25 History Patient History Family History Other No significant family history Social History Smoking Status: Current every day smoker Tobacco Type: Cigarettes Cigarettes Per Day: 2 packs; Second Hand Exposure: No; Do You Dip or Chew Tobacco: No; Hx Alcohol Use: Yes Alcohol type: beer Hx Substance Use: Yes Last Used Substance: Hours (ago) Preferred Language: Tajik Communication Ability: Effective Visual Impairment: No Limitations Transformer Shop Supervisor Required: No Beliefs That Will Affect Care: None marital status: Single Current Living Situation: Parent Feels Safe at Home: Yes Safety Concerns: Feels Safe At This Time Assistive Devices: Other Assistive Devices Comment: crutches Review of Systems Review of Systems: Unobtainable due to reduced consciousness Physical Exam Constitutional: Sedated Neck: trachea midline, no thyromegaly Respiratory: normal respiratory effort, lungs clear to auscultation Cardiovascular: RRR, no murmur, no edema Gastrointestinal (Abdomen): normal bowel sounds, soft, nontender, no hepatosplenomegaly Musculoskeletal: Status post left lower extremity amputation Skin: no rashes, warm and dry Neurologic: Sedated Lymphatic: no cervical lymphadenopathy Results & Data Results & Data Vital Signs (Past 12 Hours) Vital Signs Temp Pulse Pulse Resp BP BP Pulse Ox 04/01/25 12:08 91 04/01/25 12:01 04/01/25 12:00 87 16 69 L 04/01/25 11:50 103/76 04/01/25 11:49 87 20 103/76 04/01/25 11:39 88 20 04/01/25 11:33 75 14 96 04/01/25 11:30 107/69 04/01/25 11:27 75 15 96 04/01/25 11:15 101/66 04/01/25 11:15 75 16 96 04/01/25 11:00 101/56 L 04/01/25 11:00 76 16 100 04/01/25 10:31 04/01/25 10:30 95/58 L 04/01/25 10:18 79 15 100 04/01/25 10:15 80 15 100 04/01/25 10:15 91/56 L 04/01/25 10:00 82 17 93 04/01/25 10:00 97/55 L 04/01/25 10:00 79 04/01/25 10:00 04/01/25 09:57 83 15 92 04/01/25 09:49 96/57 L 04/01/25 09:45 36.2 C L 83 16 96/57 L 92 04/01/25 09:45 04/01/25 08:00 04/01/25 07:11 36.3 C L 87 24 114/67 94 04/01/25 05:23 36.4 C L 91 H 17 115/51 L 94 04/01/25 04:06 36.9 C 95 H 22 120/55 L 96 04/01/25 02:40 36.5 C 99 H 18 113/47 L 94 04/01/25 01:33 91 H 22 104/53 L 95 04/01/25 01:30 91 H 24 96 04/01/25 01:21 91 H Pulse Ox O2 Del Method O2 Del Method O2 Flow Rate O2 Flow Rate 04/01/25 12:08 Nasal Cannula 3 04/01/25 12:01 94 Nasal Cannula 3 04/01/25 12:00 04/01/25 11:50 04/01/25 11:49 04/01/25 11:39 04/01/25 11:33 04/01/25 11:30 04/01/25 11:27 04/01/25 11:15 04/01/25 11:15 04/01/25 11:00 04/01/25 11:00 04/01/25 10:31 99 Nasal Cannula 2 04/01/25 10:30 04/01/25 10:18 04/01/25 10:15 04/01/25 10:15 04/01/25 10:00 04/01/25 10:00 04/01/25 10:00 04/01/25 10:00 Room Air 04/01/25 09:57 04/01/25 09:49 04/01/25 09:45 Room Air 04/01/25 09:45 Room Air 92 04/01/25 08:00 Room Air 04/01/25 07:11 Room Air 04/01/25 05:23 Room Air 04/01/25 04:06 Room Air 04/01/25 02:40 Room Air 04/01/25 01:33 Room Air 04/01/25 01:30 Room Air 04/01/25 01:21 Critical Care Results & Data Vital Signs (Past 12 Hours) Vital Signs Temp Pulse Pulse Resp BP BP Pulse Ox 04/01/25 12:08 91 04/01/25 12:01 04/01/25 12:00 87 16 69 L 04/01/25 11:50 103/76 04/01/25 11:49 87 20 103/76 04/01/25 11:39 88 20 04/01/25 11:33 75 14 96 04/01/25 11:30 107/69 04/01/25 11:27 75 15 96 04/01/25 11:15 101/66 04/01/25 11:15 75 16 96 04/01/25 11:00 101/56 L 04/01/25 11:00 76 16 100 04/01/25 10:31 04/01/25 10:30 95/58 L 04/01/25 10:18 79 15 100 04/01/25 10:15 80 15 100 04/01/25 10:15 91/56 L 04/01/25 10:00 82 17 93 04/01/25 10:00 97/55 L 04/01/25 10:00 79 04/01/25 10:00 04/01/25 09:57 83 15 92 04/01/25 09:49 96/57 L 04/01/25 09:45 36.2 C L 83 16 96/57 L 92 04/01/25 09:45 04/01/25 08:00 04/01/25 07:11 36.3 C L 87 24 114/67 94 04/01/25 05:23 36.4 C L 91 H 17 115/51 L 94 04/01/25 04:06 36.9 C 95 H 22 120/55 L 96 04/01/25 02:40 36.5 C 99 H 18 113/47 L 94 04/01/25 01:33 91 H 22 104/53 L 95 04/01/25 01:30 91 H 24 96 04/01/25 01:21 91 H Pulse Ox O2 Del Method O2 Del Method O2 Flow Rate O2 Flow Rate 04/01/25 12:08 Nasal Cannula 3 04/01/25 12:01 94 Nasal Cannula 3 04/01/25 12:00 04/01/25 11:50 04/01/25 11:49 04/01/25 11:39 04/01/25 11:33 04/01/25 11:30 04/01/25 11:27 04/01/25 11:15 04/01/25 11:15 04/01/25 11:00 04/01/25 11:00 04/01/25 10:31 99 Nasal Cannula 2 04/01/25 10:30 04/01/25 10:18 04/01/25 10:15 04/01/25 10:15 04/01/25 10:00 04/01/25 10:00 04/01/25 10:00 04/01/25 10:00 Room Air 04/01/25 09:57 04/01/25 09:49 04/01/25 09:45 Room Air 04/01/25 09:45 Room Air 92 04/01/25 08:00 Room Air 04/01/25 07:11 Room Air 04/01/25 05:23 Room Air 04/01/25 04:06 Room Air 04/01/25 02:40 Room Air 04/01/25 01:33 Room Air 04/01/25 01:30 Room Air 04/01/25 01:21 Lab & Micro Results (Past 24 Hours) RBC 3.36 M/uL (4.70-6.10) L 03/31/25 WBC 6.81 K/ul (4.8-10.8) 03/31/25 Hgb 13.5 g/dl (14.0-18.0) L 03/31/25 Hct 34.4 % (42.0-52.0) L 03/31/25 MCV 102.4 fL (80.0-100.0) H 03/31/25 MCH 40.2 pg (25.0-34.0) H 03/31/25 MCHC 39.2 g/dL (32.0-36.0) H 03/31/25 RDW Standard Deviation 52.2 fL (36.4-46.3) H 03/31/25 RDW Coefficient of Variation 13.9 % (11.5-14.5) 03/31/25 Plt Count 121 K/uL (130-400) L 03/31/25 MPV 10.0 fL (9.4-12.4) 03/31/25 Neutrophils (%) (Auto) 89.1 % 03/31/25 Lymphocytes (%) (Auto) 7.5 % 03/31/25 Monocytes # (Auto) 0.18 K/uL (0.11-0.59) 03/31/25 Eosinophils # (Auto) 0.00 K/uL (0.00-0.50) 03/31/25 Immature Granulocyte % (Auto) 0.4 % 03/31/25 Neutrophils # (Auto) 6.06 K/uL (1.40-6.50) 03/31/25 Lymphocytes # (Auto) 0.51 K/uL (1.20-3.40) L 03/31/25 Monocytes # (Auto) 0.18 K/uL (0.11-0.59) 03/31/25 Eosinophils # (Auto) 0.00 K/uL (0.00-0.50) 03/31/25 Basophils # (Auto) 0.03 K/uL (0.00-0.20) 03/31/25 Immature Granulocyte # (Auto) 0.03 K/uL (0.01-0.20) 5 Polychromasia 1+ 03/31/25 Basophilic Stippling 1+ 03/31/25 2 Na 121 mmol/L (136-145) L 04/01/25 K 2.5 mmol/L (3.5-5.1) L* 04/01/25 Cl 76 mmol/L (98-107) L 04/01/25 CO2 37 mmol/L (21-32) H 04/01/25 Anion Gap 8 (3-11) 04/01/25 BUN 58 mg/dl (6-23) H 04/01/25 Creatinine 3.75 mg/dl (0.6-1.4) H 04/01/25 BUN/Creatinine Ratio 15.5 (10-20) 04/01/25 Glu 100 mg/dl (70-99(Fasting)) H 04/01/25 Ca 8.2 mg/dl (8.6-10.3) L 04/01/25 Phosphorus Level 4.1 mg/dl (2.5-4.9) 04/01/25 Total Bilirubin 2.0 mg/dl (0.2-1.0) H 03/31/25 AST 24 U/L (13-39) 03/31/25 ALT 8 U/L (7-52) 03/31/25 Alkaline Phosphatase 74 U/L (34-104) 03/31/25 TP 6.3 gm/dl (6.0-8.3) 03/31/25 Albumin 3.3 gm/dl (3.4-5.0) L 03/31/25 Globulin 3.0 gm/dl (2.5-4.0) 03/31/25 Albumin/Globulin Ratio 1.1 (0.9-2) 03/31/25 Mg 4.0 mg/dl (1.7-2.4) H 04/01/25 01:29 Calcium Level 8.2 mg/dl (8.6-10.3) L 04/01/25 09:47 Venous Blood pH 7.52 (7.36-7.41) H 04/01/25 01:29 Venous Blood Partial Pressure CO2 51 mmHg (38-50) H 04/01/25 01 :29 Venous Blood Partial Pressure O2 30 mmHg 04/01/25 01:29 Venous Blood HCO3 42 mmol/L 04/01/25 01:29 Venous Blood Base Excess 16.2 mEq/L 04/01/25 01:29 Venous Blood Oxygen Saturation < 60.0 % 04/01/25 01:29 Diagnostic Findings (Past 24 Hours) Renal Ultrasound 04/01/25 01:46 RENAL ULTRASOUND HISTORY: Acute kidney injury EMIL COMPARISON: None. FINDINGS: Right kidney: 12.4 cm. No hydronephrosis. Normal corticomedullary differentiation and cortical thickness. Left kidney: Partially obscured by bowel gas. 11.3 cm. No hydronephrosis. Normal corticomedullary differentiation and cortical thickness. Bladder: Decompressed with Canc[place] catheter. IMPRESSION: Unremarkable limited renal ultrasound. ACT 112: Negative or not required by law. Electronically signed by: Camilo Campbell M.D. 04/01/2025 11:55 AM I & O Totals 24 Hours 03/31/25 04/01/25 04/02/25 06:59 06:59 06:59 Intake Total 2600 / 2600 1292.917 / 1292.917 Output Total 430 / 430 250 / 250 Balance 2170 / 2170 1042.917 / 1042.917 Cumulative 03/31/25 20:38 thru 04/01/25 12:00 Intake Total 3892.917 Output Total 680 Balance 3212.917 RT Ventilator Mngmt (Last Documented) Ventilator Ordered Settings Respiratory Rate 16 04/01/25 12:00 Ventilator - PT Measurements Respiratory Rate 16 End-Tidal CO2 36 Coding Level of Care Code 69871 IN/OBS CONSULT LVL 4,60M Diagnoses Alcohol use disorder F10.90 Hypokalemia E87.6 Hyponatremia E87.1 EMIL (acute kidney injury) N17.9
[2025-04-01] MEDS ORDERED: THIAMINE HCL 200 MG in SYRINGE 9 ML IV SCH (14:00)
[2025-04-01 14:29] LABS: Anion Gap 7.0 (3-11); Blood Urea Nitrogen 54.0 mg/dl (6-23); Calcium 8.2 mg/dl (8.6-10.3); Carbon Dioxide 37.0 mmol/L (21-32); Chloride 78.0 mmol/L (98-107); Creatinine Clr Calc Pharmacy 34.2 ml/min; Glucose 98.0 mg/dl (70-99(Fasting)); Potassium 2.8 mmol/L (3.5-5.1); Sodium 122.0 mmol/L (136-145)
[2025-04-01] MEDS: THIAMINE HCL 200 MG in SODIUM CHLORIDE 0.9% 50 ML IV SCH (14:58)
[2025-04-01] MEDS: ICU ELECTROLYTE REPLACEMENT PROTOCOL SCH (15:28)
[2025-04-01 18:35] LABS: Anion Gap 8.0 (3-11); Blood Urea Nitrogen 52.0 mg/dl (6-23); Calcium 8.3 mg/dl (8.6-10.3); Carbon Dioxide 36.0 mmol/L (21-32); Chloride 79.0 mmol/L (98-107); Creatinine Clr Calc Pharmacy 35.6 ml/min; Glucose 91.0 mg/dl (70-99(Fasting)); Potassium 3.4 mmol/L (3.5-5.1); Sodium 123.0 mmol/L (136-145)
[2025-04-01] MEDS: HALOPERIDOL LACTATE 5 MG/ML 1 ML VIAL IV PRN (19:35)
[2025-04-01] MEDS: diazePAM 5 MG/ML 10ML VIAL IV PRN (20:00)
[2025-04-01] MEDS: HEPARIN SOD 5,000 UNIT/0.5 ML VIAL SQ SCH (21:13)
[2025-04-01 23:42] LABS: Anion Gap 7.0 (3-11); Blood Urea Nitrogen 51.0 mg/dl (6-23); Calcium 8.0 mg/dl (8.6-10.3); Carbon Dioxide 36.0 mmol/L (21-32); Chloride 80.0 mmol/L (98-107); Creatinine Clr Calc Pharmacy 39.0 ml/min; Glucose 84.0 mg/dl (70-99(Fasting)); Potassium 3.3 mmol/L (3.5-5.1); Sodium 123.0 mmol/L (136-145)
[2025-04-02 02:49] LABS: Alanine Aminotransferase 7.0 U/L (7-52); Albumin Globulin Ratio 1.0 (0.9-2); Alkaline Phosphatase 77.0 U/L (34-104); Anion Gap 6.0 (3-11); Bilirubin,Total 1.7 mg/dl (0.2-1.0); Blood Urea Nitrogen 50.0 mg/dl (6-23); Calcium 7.8 mg/dl (8.6-10.3); Carbon Dioxide 35.0 mmol/L (21-32); Chloride 82.0 mmol/L (98-107); Creatinine Clr Calc Pharmacy 39.1 ml/min; Globulin 2.5 gm/dl (2.5-4.0); Glucose 88.0 mg/dl (70-99(Fasting)); Magnesium 3.3 mg/dl (1.7-2.4); Potassium 3.4 mmol/L (3.5-5.1); Sodium 123.0 mmol/L (136-145); Total Protein 4.9 gm/dl (6.0-8.3)
[2025-04-02] MEDS ORDERED: POTASSIUM PHOS 3 MMOL/1 ML INFUSION IV STA (02:54)
[2025-04-02] MEDS: POTASSIUM CHLORIDE / WTR 10 MEQ/100 ML PLCT IV SCH ×2 (03:04→11:07)
[2025-04-02] MEDS: POTASSIUM PHOSPHATE 15 MMOL in SODIUM CHLORIDE 0.9% 250 ML IV ONE (03:28)
[2025-04-02 03:38] LABS: Hematocrit (blood only) 29.6 % (42.0-52.0); Hemoglobin 11.1 g/dl (14.0-18.0); Mean Corpuscular Hemoglobin 39.1 pg (25.0-34.0); Mean Corpuscular Volume 104.2 fL (80.0-100.0); Platelet Count 118 K/uL (130-400); RDW Standard Deviation 54.0 fL (36.4-46.3); Red Blood Count 2.84 M/uL (4.70-6.10); White Blood Count 9.88 K/ul (4.8-10.8)
--- NOTE | 2025-04-02 07:37 | Critical Care Progress Note ---
Date of Service April 02, 2025 Assessment & Plan (1) Alcohol use disorder: (2) Hypokalemia: (3) Hyponatremia: (4) EMIL (acute kidney injury): Plan Impression: 39-year-old male with history of substance abuse admitted with tremulousness felt to be related to alcohol withdrawal. He required higher dose medications due to severe agitation on the floor and has been loaded on phenobarbital which prompted him to be transferred to the ICU. He is now hemodynamically stable sedated and comfortable. Recommendations: 1. Neurologic: Agitated delirium. Likely secondary to alcohol withdrawal as well as possible other illicit substances. Continue phenobarb and valium. Likely underdosed with phenobarbital. 15 mg/kg would be a total dose of 1200 mg and the patient's received less than 10%. Will increase phenobarbital 120 mg IM every 8 hour for 4 doses. Continue high-dose thiamine and folate. BP too low for catapres patch currently. Continue as needed haldol. History of substance abuse so we will need to follow closely. 2. Cardiovascular: No current issues. Continue to follow clinically. 3. Pulmonary: No current issues. Monitoring end-tidal CO2 while on IV phenobarb. 4. Renal: Hypovolemic hyponatremia currently correcting as well as hypokalemia and hypomagnesemia. In the setting of acute renal insufficiency. Improving. Continue to follow at this point in time. Per nephrology 5. ID: No current issues. 6. GI: Will advance diet as mental status allows. 7. Endocrine: Glycemic control per protocol. 8.: Heme-onc: No current issues. Continue DVT prophylaxis. Mild thrombocytopenia which will be trended. Disposition per primary service. Will sign off when he leaves the ICU Admission and Anticipated Discharge Date Admission Date: April 01, 2025 Subjective Patient seen and examined. EMR reviewed. Discussed with bedside critical care nurse. The patient remained agitated overnight requiring Valium and supplementa l phenobarb doses. He is sedated this morning. Medications last apparently 8 hours at which point time patient again becomes agitated. Review of Systems Review of Systems: Unobtainable due to reduced consciousness Physical Exam Neck: trachea midline, no thyromegaly Respiratory: normal respiratory effort, lungs clear to auscultation Cardiovascular: RRR, no murmur, no edema Gastrointestinal (Abdomen): normal bowel sounds, soft, nontender, no hepatosplenomegaly Skin: no rashes, warm and dry Lymphatic: no cervical lymphadenopathy Results & Data Results & Data Vital Signs (Past 12 Hours) Vital Signs Temp Pulse Pulse Resp BP BP Pulse Ox 04/02/25 06:00 107 H 25 H 121/70 98 04/02/25 05:00 37 C 108 H 24 93/49 L 93 04/02/25 04:00 114 H 21 123/70 94 04/02/25 03:44 119 H 25 H 124/86 04/02/25 02:00 95 H 21 96/63 L 99 04/01/25 23:59 102 H 04/01/25 23:00 37.0 C 103 H 22 109/58 L 99 04/01/25 22:00 37.6 C H 106 H 24 117/84 99 04/01/25 20:10 36.7 C 102 H 15 123/86 99 O2 Del Method O2 Flow Rate FiO2 04/02/25 06:00 Nasal Cannula 2 04/02/25 05:00 Nasal Cannula 2 04/02/25 04:00 Nasal Cannula 2 04/02/25 03:44 04/02/25 02:00 Nasal Cannula 04/01/25 23:59 04/01/25 23:00 Nasal Cannula 2 04/01/25 22:00 Nasal Cannula 2 04/01/25 20:10 Nasal Cannula 2 Critical Care Results & Data Vital Signs (Past 12 Hours) Vital Signs Temp Pulse Pulse Resp BP BP Pulse Ox 04/02/25 06:00 107 H 25 H 121/70 98 04/02/25 05:00 37 C 108 H 24 93/49 L 93 04/02/25 04:00 114 H 21 123/70 94 04/02/25 03:44 119 H 25 H 124/86 04/02/25 02:00 95 H 21 96/63 L 99 04/01/25 23:59 102 H 04/01/25 23:00 37.0 C 103 H 22 109/58 L 99 04/01/25 22:00 37.6 C H 106 H 24 117/84 99 04/01/25 20:10 36.7 C 102 H 15 123/86 99 O2 Del Method O2 Flow Rate FiO2 04/02/25 06:00 Nasal Cannula 2 04/02/25 05:00 Nasal Cannula 2 04/02/25 04:00 Nasal Cannula 2 04/02/25 03:44 04/02/25 02:00 Nasal Cannula 04/01/25 23:59 04/01/25 23:00 Nasal Cannula 2 04/01/25 22:00 Nasal Cannula 2 04/01/25 20:10 Nasal Cannula 2 Lab & Micro Results (Past 24 Hours) RBC 2.84 M/uL (4.70-6.10) L 04/02/25 WBC 9.88 K/ul (4.8-10.8) 04/02/25 Hgb 11.1 g/dl (14.0-18.0) L 04/02/25 Hct 29.6 % (42.0-52.0) L 04/02/25 MCV 104.2 fL (80.0-100.0) H 04/02/25 MCH 39.1 pg (25.0-34.0) H 04/02/25 MCHC 37.5 g/dL (32.0-36.0) H 04/02/25 RDW Standard Deviation 54.0 fL (36.4-46.3) H 04/02/25 RDW Coefficient of Variation 14.0 % (11.5-14.5) 04/02/25 Plt Count 118 K/uL (130-400) L 04/02/25 MPV 9.7 fL (9.4-12.4) 04/02/25 Na 123 mmol/L (136-145) L 04/02/25 K 3.4 mmol/L (3.5-5.1) L 04/02/25 Cl 82 mmol/L (98-107) L 04/02/25 CO2 35 mmol/L (21-32) H 04/02/25 Anion Gap 6 (3-11) 04/02/25 BUN 50 mg/dl (6-23) H 04/02/25 Creatinine 2.92 mg/dl (0.6-1.4) H 04/02/25 BUN/Creatinine Ratio 17.1 (10-20) 04/02/25 Glu 88 mg/dl (70-99(Fasting)) 04/02/25 Ca 7.8 mg/dl (8.6-10.3) L 04/02/25 Phosphorus Level 2.8 mg/dl (2.5-4.9) 04/02/25 Total Bilirubin 1.7 mg/dl (0.2-1.0) H 04/02/25 AST 22 U/L (13-39) 04/02/25 ALT 7 U/L (7-52) 04/02/25 Alkaline Phosphatase 77 U/L (34-104) 04/02/25 TP 4.9 gm/dl (6.0-8.3) L 04/02/25 Albumin 2.4 gm/dl (3.4-5.0) L 04/02/25 Globulin 2.5 gm/dl (2.5-4.0) 04/02/25 Albumin/Globulin Ratio 1.0 (0.9-2) 04/02/25 Mg 3.3 mg/dl (1.7-2.4) H 04/02/25 02:10 Calcium Level 7.8 mg/dl (8.6-10.3) L 04/02/25 02:10 Diagnostic Findings (Past 24 Hours) Renal Ultrasound 04/01/25 01:46 RENAL ULTRASOUND HISTORY: Acute kidney injury EMIL COMPARISON: None. FINDINGS: Right kidney: 12.4 cm. No hydronephrosis. Normal corticomedullary differentiation and cortical thickness. Left kidney: Partially obscured by bowel gas. 11.3 cm. No hydronephrosis. Normal corticomedullary differentiation and cortical thickness. Bladder: Decompressed with Canc[place] catheter. IMPRESSION: Unremarkable limited renal ultrasound. ACT 112: Negative or not required by law. Electronically signed by: Camilo Campbell M.D. 04/01/2025 11:55 AM I & O Totals 24 Hours 04/01/25 04/02/25 04/03/25 06:59 06:59 06:59 Intake Total 2600 / 2600 3948.584 / 3948.584 100 / 100 Output Total 430 / 430 1380 / 1380 Balance 2170 / 2170 2568.584 / 2568.584 100 / 100 Cumulative 03/31/25 20:38 thru 04/02/25 07:20 Intake Total 6648.584 Output Total 1810 Balance 4838.584 RT Ventilator Mngmt (Last Documented) Ventilator Ordered Settings Respiratory Rate 25 04/02/25 06:00 Fraction of Inspired Oxygen 2 04/02/25 06:00 Ventilator - PT Measurements Respiratory Rate 25 End-Tidal CO2 25 Coding Level of Care Code 73408 SUB INP/OBS CARE 3/50MIN Diagnoses Alcohol use disorder F10.90 Hypokalemia E87.6 Hyponatremia E87.1 EMIL (acute kidney injury) N17.9
--- NOTE | 2025-04-02 09:39 | Nephrology Progress Note ---
Date of Service April 02, 2025 Assessment & Plan (1) Hyponatremia: Plan: Chronic, symptomatic, and severe. Relatively euvolemic. Sodium stabilized at 123 (corrected from 119 mmol/L on admission) which is acceptable. Focus remains on pentecostalism of intravascular volume and correction of hypokalemia. Uosm elevated in the setting of dehydration on admission with Urine sodium <10. Repeat urine studies have been requested this AM. Monitor closely for rapid correction as volume status improves. Avoid aggressive correction. Goal is to correct at ~0.5 mmol/L/hr. Avoid correction >8 mmol/L/24 hours. Monitor metabolic profile q 4-6 hours (orders for 10 AM and 2 PM have been entered into the EHR). Once urine studies and 10 AM labs are available, additional therapy will be ordered. In the setting of rapid correction, suggest DDAVP clamp 1-2 mcg IV. Serum sodium should correct with improvement in kidney function, replacement of potassium, and management of hypovolemia. Document strict I/O's. (2) EMIL (acute kidney injury): Plan: Improving with IVF. Non-oliguric. No indication for ADDICTION COUNSELOR. Goal is to maintain slightly positive fluid balance. Renal US did not demonstrate obstruction. Cancino in place. Document strict I/Os. Medications are appropriately dosed for kidney function. Gabapentin held. (3) Hypokalemia: Plan: KCl replacement ordered. Serial labs. Admission and Anticipated Discharge Date Admission Date: April 01, 2025 Subjective Agitation overnight managed with Valium and phenobarbital. Jona is pulling at restraints and thrashing in bed this AM. 1:1 at bedside. He was seen and evaluated with the interactive marketing strategist. Afebrile. Cancino draining macias yellow urine. Review of Systems Review of Systems: Unobtainable due to cognitive status Physical Exam Constitutional: + altered mental status; no acute distre ss ENMT: Mouth: + dry oral mucous membranes Neck: normal visual inspection and trachea midline Respiratory: + tachypneic; no respiratory distress Auscultation: lungs clear to auscultation bilaterally Cardiovascular: Rate/Rhythm: regular rate and regular rhythm Heart Sounds: normal S1, normal S2 and + murmur Extremities: no edema Musculoskeletal: Extremities: no cyanosis and no clubbing Skin: no rashes and no jaundice Neurologic: moves all extremities and + confused Results & Data Vital Signs (Past 12 Hours) Vital Signs Temp Pulse Resp BP Pulse Ox Pulse Ox O2 Del Method 04/02/25 08:24 95 H 24 103/66 04/02/25 08:00 96 H 04/02/25 08:00 Nasal Cannula 04/02/25 08:00 97 04/02/25 06:00 107 H 25 H 121/70 98 Nasal Cannula 04/02/25 05:00 37 C 108 H 24 93/49 L 93 Nasal Cannula 04/02/25 04:00 114 H 21 123/70 94 Nasal Cannula 04/02/25 03:44 119 H 25 H 124/86 04/02/25 02:00 95 H 21 96/63 L 99 Nasal Cannula 04/01/25 23:59 102 H 04/01/25 23:00 37.0 C 103 H 22 109/58 L 99 Nasal Cannula 04/01/25 22:00 37.6 C H 106 H 24 117/84 99 Nasal Cannula O2 Del Method O2 Flow Rate O2 Flow Rate FiO2 04/02/25 08:24 04/02/25 08:00 04/02/25 08:00 2 04/02/25 08:00 Nasal Cannula 2 04/02/25 06:00 2 04/02/25 05:00 2 04/02/25 04:00 2 04/02/25 03:44 04/02/25 02:00 04/01/25 23:59 04/01/25 23:00 2 04/01/25 22:00 2 Laboratory Results Laboratory Results - last 24 hr 04/01/25 04/01/25 04/01/25 09:47 13:57 18:07 WBC RBC Hgb Hct MCV MCH MCHC RDW Std Deviation RDW Coeff of Nikita Plt Count MPV Sodium 121 L 122 L 123 L Potassium 2.5 L* 2.8 L 3.4 L D Chloride 76 L 78 L 79 L Carbon Dioxide 37 H 37 H 36 H Anion Gap 8 7 8 BUN 58 H 54 H 52 H Creatinine 3.75 H D 3.34 H D 3.21 H Est Cr Clr Drug Dosing 30.4 34.2 35.6 eGFR 19.98 22.95 24.07 BUN/Creatinine Ratio 15.5 16.2 16.2 Glucose 100 H 98 91 Calcium 8.2 L 8.2 L 8.3 L Phosphorus Magnesium Total Bilirubin AST ALT Alkaline Phosphatase Total Protein Albumin Globulin Albumin/Globulin Ratio 04/01/25 04/02/25 22:32 02:10 WBC 9.88 RBC 2.84 L Hgb 11.1 L Hct 29.6 L MCV 104.2 H MCH 39.1 H MCHC 37.5 H RDW Std Deviation 54.0 H RDW Coeff of Nikita 14.0 Plt Count 118 L MPV 9.7 Sodium 123 L 123 L Potassium 3.3 L 3.4 L Chloride 80 L 82 L Carbon Dioxide 36 H 35 H Anion Gap 7 6 BUN 51 H 50 H Creatinine 2.93 H 2.92 H Est Cr Clr Drug Dosing 39.0 39.1 eGFR 26.86 26.97 BUN/Creatinine Ratio 17.4 17.1 Glucose 84 88 Calcium 8.0 L 7.8 L Phosphorus 2.8 D Magnesium 3.3 H Total Bilirubin 1.7 H AST 22 ALT 7 Alkaline Phosphatase 77 Total Protein 4.9 L D Albumin 2.4 L Globulin 2.5 Albumin/Globulin Ratio 1.0 Diagnostic Findings RENAL ULTRASOUND COMPARISON: None. FINDINGS: Right kidney: 12.4 cm. No hydronephrosis. Normal corticomedullary differentiation and cortical thickness. Left kidney: Partially obscured by bowel gas. 11.3 cm. No hydronephrosis. Normal corticomedullary differentiation and cortical thickness. Bladder: Decompressed with Cancino catheter. IMPRESSION: Unremarkable limited renal ultrasound. PG Care Time/CCT Total # of Minutes Spent Total Time Spent with Patient: Total time spent is greater than 50% in coordination of care (as documented) at patient's floor/unit and/or counseling patient: Coding Level of Care Code 03719 SUB INP/OBS CARE 3/50MIN Diagnoses Hyponatremia E87.1 EMIL (acute kidney injury) N17.9 Hypokalemia E87.6
[2025-04-02 10:11] LABS: Anion Gap 7.0 (3-11); Blood Urea Nitrogen 51.0 mg/dl (6-23); Calcium 7.8 mg/dl (8.6-10.3); Carbon Dioxide 34.0 mmol/L (21-32); Chloride 83.0 mmol/L (98-107); Creatinine Clr Calc Pharmacy 39.1 ml/min; Glucose 99.0 mg/dl (70-99(Fasting)); Potassium 3.6 mmol/L (3.5-5.1); Sodium 124.0 mmol/L (136-145)
--- NOTE | 2025-04-02 11:01 | Hospitalist Progress Note ---
Date of Service April 02, 2025 Assessment & Plan (1) Alcohol withdrawal delirium: Plan: -pt on phenobarbital/ativan -still with significant agitation -1:1 -critical care following (2) Acute hyponatremia: Plan: -Na+123 today -Improving gradually with IVF -nephrology consult appreciated (3) Acute renal failure (ARF): Plan: -cr treading dowin with IVF -likely pre-renal -Renal US WNL -con't IVF -nephrology following (4) Hypokalemia: Plan: -con't relpletion -K+ increased to 3.4 Plan 39-year-old male with history of substance abuse, daily alcohol use presenting with shaking and weakness. Patient found to have acute hyponatremia with sodium = 119 as well as hypokalemia with K = 2.3. Appears to be very dry on exam with EMIL, BUN = 60, creatinine = 4.79 from normal baseline previously. Admission and Anticipated Discharge Date Admission Date: April 01, 2025 Subjective Pt remains sedated on phenobarbital, still with significant withdrawal, on 1:1. Review of Systems Review of Systems: CONST: Negative for fever, body aches and chills. HENT: Negative for neck pain/stiffness, headache, congestion, sore throat, swelling. EYES: Negative for discharge/pain or vision changes. RESP: Negative for cough/hemoptysis and shortness of breath. CV: Negative chest pain, difficulty breathing, palpitations. ABD: Negative pain, nausea, vomiting. : Negative increase frequency, dysuria, blood in urine or stool. MUSC: Negative for muscle aches, edema. SKIN: Negative rash, lesions/sores. NEURO: Negative headache, dizziness, weakness. Physical Exam Physical Exam: GENERAL APPEARANCE NAD, activity normal for age, well developed/ well nourished, no cyanosis, pallor, or diaphoresis. EYES lids/conjunctiva normal. EARS/NOSE/THROAT Mucous membranes moist, nares normal, lips/teeth normal uvula midline without oral pharyngeal erythema, exudate or swelling TMs normal bilaterally. No lymphangitis/lymphedema. HEAD/NECK normocephalic atraumatic, no facial trauma, neck is supple. RESPIRATORY respiratory effort normal, speaks in full sentences, no tripod position, no accessory muscle use. Lungs clear to auscultation without rhonchi, wheezes, rales CARDIAC Regular rate and rhythm, no edema. ABDOMINAL Soft, ND/NT. No evidence of fluid wave. No pulsatile masses on exam, rebound tenderness, Dai sign or pain over Mcburney's point. MUSCLES/EXTREMITIES No abnormal range of motion, no swelling. SKIN Warm, pink and dry. No rashes, dermatoses, petechiae or lesions. NEUROLOGICAL Speech is clear and appropriate. Normal level of consciousness. Gait and coordination are normal. 5/5 strength in all extremities. PSYCH Normal mood and affect. Judgement/competence is appropriate Results & Data Results & Data Vital Signs (Past 12 Hours) Vital Signs Temp Pulse Resp BP Pulse Ox Pulse Ox O2 Del Method 04/02/25 09:45 102 H 22 98 04/02/25 09:00 108/61 04/02/25 09:00 95 H 23 97 04/02/25 08:42 95 H 27 H 97 04/02/25 08:24 95 H 24 103/66 04/02/25 08:09 97 H 26 H 96 04/02/25 08:00 103/66 04/02/25 08:00 96 H 04/02/25 08:00 Nasal Cannula 04/02/25 08:00 97 04/02/25 07:36 97 H 21 98 04/02/25 07:33 97 H 22 98 04/02/25 07:18 96 H 23 100 04/02/25 07:00 94/50 L 04/02/25 07:00 94/50 L 04/02/25 06:54 99 H 24 96 04/02/25 06:33 101 H 25 H 98 04/02/25 06:03 108 H 27 H 98 04/02/25 06:00 121/70 04/02/25 06:00 107 H 25 H 121/70 98 Nasal Cannula 04/02/25 05:57 106 H 26 H 94 04/02/25 05:48 104 H 29 H 98 04/02/25 05:00 37 C 108 H 24 93/49 L 93 Nasal Cannula 04/02/25 04:00 114 H 21 123/70 94 Nasal Cannula 04/02/25 03:44 119 H 25 H 124/86 04/02/25 02:00 95 H 21 96/63 L 99 Nasal Cannula 04/01/25 23:59 102 H 04/01/25 23:00 37.0 C 103 H 22 109/58 L 99 Nasal Cannula O2 Del Method O2 Flow Rate O2 Flow Rate FiO2 04/02/25 09:45 04/02/25 09:00 04/02/25 09:00 04/02/25 08:42 04/02/25 08:24 04/02/25 08:09 04/02/25 08:00 04/02/25 08:00 04/02/25 08:00 2 04/02/25 08:00 Nasal Cannula 2 04/02/25 07:36 04/02/25 07:33 04/02/25 07:18 04/02/25 07:00 04/02/25 07:00 04/02/25 06:54 04/02/25 06:33 04/02/25 06:03 04/02/25 06:00 04/02/25 06:00 2 04/02/25 05:57 04/02/25 05:48 04/02/25 05:00 2 04/02/25 04:00 2 04/02/25 03:44 04/02/25 02:00 04/01/25 23:59 04/01/25 23:00 2 PG Care Time/CCT Total # of Minutes Spent Total Time Spent with Patient: Total time spent is greater than 50% in coordination of care (as documented) at patient's floor/unit and/or counseling patient: Coding Level of Care Code 52357 SUB INP/OBS CARE 2/35MIN Diagnoses Alcohol withdrawal delirium F10.931 Acute hyponatremia E87.1 Acute renal failure (ARF) N17.9 Hypokalemia E87.6
[2025-04-02] MEDS ORDERED: STAT IV/IM STA ×3 (11:24→21:21)
[2025-04-02] MEDS: SODIUM CHLORIDE 3 % 100 ML IV ONE ×3 (11:53→21:35)
[2025-04-02 14:29] LABS: Anion Gap 6.0 (3-11); Blood Urea Nitrogen 49.0 mg/dl (6-23); Calcium 8.1 mg/dl (8.6-10.3); Carbon Dioxide 33.0 mmol/L (21-32); Chloride 86.0 mmol/L (98-107); Creatinine Clr Calc Pharmacy 38.3 ml/min; Glucose 98.0 mg/dl (70-99(Fasting)); Potassium 4.5 mmol/L (3.5-5.1); Sodium 125.0 mmol/L (136-145)
[2025-04-02 20:43] LABS: Anion Gap 7.0 (3-11); Blood Urea Nitrogen 46.0 mg/dl (6-23); Calcium 7.7 mg/dl (8.6-10.3); Carbon Dioxide 31.0 mmol/L (21-32); Chloride 89.0 mmol/L (98-107); Creatinine Clr Calc Pharmacy 42.6 ml/min; Glucose 97.0 mg/dl (70-99(Fasting)); Potassium 3.9 mmol/L (3.5-5.1); Sodium 127.0 mmol/L (136-145)
[2025-04-02] MEDS: diazePAM 5 MG/ML 10ML VIAL IV ONE (22:16)
[2025-04-02] MEDS: diazePAM 5 MG/ML 10ML VIAL IV STA (22:56)
[2025-04-03 05:46] LABS: Hematocrit (blood only) 27.3 % (42.0-52.0); Hemoglobin 10.0 g/dl (14.0-18.0); Mean Corpuscular Hemoglobin 39.1 pg (25.0-34.0); Mean Corpuscular Volume 106.6 fL (80.0-100.0); Platelet Count 125 K/uL (130-400); RDW Standard Deviation 57.6 fL (36.4-46.3); Red Blood Count 2.56 M/uL (4.70-6.10); White Blood Count 13.03 K/ul (4.8-10.8)
[2025-04-03 05:49] LABS: Immature Granulocytes # (auto) 0.12 K/uL (0.01-0.20); Immature Granulocytes % (auto) 0.9 %; Polychromasia 1+
[2025-04-03 07:01] LABS: Alanine Aminotransferase 8.0 U/L (7-52); Albumin Globulin Ratio 1.1 (0.9-2); Alkaline Phosphatase 77.0 U/L (34-104); Anion Gap 8.0 (3-11); Bilirubin,Total 1.6 mg/dl (0.2-1.0); Blood Urea Nitrogen 42.0 mg/dl (6-23); Calcium 7.7 mg/dl (8.6-10.3); Carbon Dioxide 31.0 mmol/L (21-32); Chloride 92.0 mmol/L (98-107); Creatinine Clr Calc Pharmacy 54.1 ml/min; Globulin 2.3 gm/dl (2.5-4.0); Glucose 97.0 mg/dl (70-99(Fasting)); Magnesium 2.9 mg/dl (1.7-2.4); Potassium 3.7 mmol/L (3.5-5.1); Sodium 131.0 mmol/L (136-145); Total Protein 4.8 gm/dl (6.0-8.3)
[2025-04-03] MEDS: POTASSIUM CHLORIDE / WTR 10 MEQ/100 ML PLCT IV SCH (07:44)
--- NOTE | 2025-04-03 08:00 | Critical Care Progress Note ---
Date of Service April 03, 2025 Assessment & Plan (1) Alcohol use disorder: (2) Hypokalemia: (3) Hyponatremia: (4) EMIL (acute kidney injury): Plan Impression: 39-year-old male with history of substance abuse admitted with tremulousness felt to be related to alcohol withdrawal. Recommendations: 1. Neurologic: Agitated delirium. Likely secondary to alcohol withdrawal as well as possible other illicit substances. Continue phenobarb. Likely underdosed with phenobarbital. Received IM doses to complete load at this point he requires 1 additional dose of his as needed making 4-5 given. continue high- dose thiamine and folate. BP too low for catapres patch currently. Continue as needed haldol. History of substance abuse so we will need to follow closely. 2. Cardiovascular: No current issues. Continue to follow clinically. 3. Pulmonary: No current issues. Monitoring end-tidal CO2 while on IV phenobarb. 4. Renal: Hypovolemic hyponatremia currently correcting as well as hypokalemia and hypomagnesemia. Reviewed nephrology notes. Hold dextrose containing so lution at this time as he has not been hypoglycemic anticipate nutrition to start in the next 24 to 48 hours 5. ID: No current issues. 6. GI: Will advance diet as mental status allows. 7. Endocrine: Glycemic control per protocol. 8.: Heme-onc: No current issues. Continue DVT prophylaxis. Mild thrombocytopenia which will be trended. Disposition per primary service. Continued ICU observation given ongoing somnolence in the setting of phenobarbital necessitating end-tidal CO2 monitoring Admission and Anticipated Discharge Date Admission Date: April 01, 2025 Supervising Physician Co-Signing Physician Notes I have personally spent 35 minutes of critical care time in the direct management of this patient. This is a life/limb threatening event. This includes time spent evaluating patient, direct bedside care, chart review, placing orders, interpretation of diagnostic studies, discussion with consultants, patient, and/or family members regarding treatment decisions, as well as other required patient management activities. This time is exclusive of all separately billable procedures, and teaching time and separate from and in addition to any other critical care service time. Subjective Patient is somnolent reactive to moderate stimuli in a diaper in the hospital bed. Not able to follow complex commands Physical Exam 2 Physical Exam: General: Somnolent with end-tidal CO2 monitoring in place Skin: Warm, dry, Head: Atraumatic Ears, nose, mouth and throat: Moist mucous membranes Cardiovascular: Normal peripheral perfusion Respiratory: Ventilator settings reviewed Gastrointestinal: Non distended Musculoskeletal: No deformity Results & Data Results & Data Vital Signs (Past 12 Hours) Vital Signs Temp Pulse Resp BP Pulse Ox O2 Del Method O2 Flow Rate 04/03/25 07:20 103 H 04/03/25 06:00 103 H 25 H 103/68 95 Oxymask 4 04/03/25 05:00 95 H 19 108/59 L 99 Oxymask 4 04/03/25 04:09 105 H 24 122/93 96 Oxymask 4 04/03/25 03:00 37.2 C 113 H 24 124/86 97 Oxymask 4 04/03/25 02:00 110 H 24 158/66 H 92 Room Air 04/03/25 01:00 117 H 24 126/67 95 Room Air 04/03/25 00:49 110 H 04/03/25 00:04 37.2 C 112 H 24 112/70 94 Room Air 04/02/25 23:00 108 H 27 H 136/79 97 Room Air 04/02/25 22:00 37 C 94 H 30 H 123/93 95 Oxymask 4 04/02/25 21:00 37.2 C 94 H 22 114/63 97 Room Air 04/02/25 20:12 101 H Critical Care Results & Data Vital Signs (Past 12 Hours) Vital Signs Temp Pulse Resp BP Pulse Ox Pulse Ox O2 Del Method 04/03/25 08:34 37 C 04/03/25 08:24 103 H 30 H 98 Oxymask 04/03/25 08:00 117/71 04/03/25 08:00 Oxymask 04/03/25 08:00 97 04/03/25 07:51 114 H 26 H 90 04/03/25 07:20 103 H 04/03/25 07:00 115/94 04/03/25 07:00 116 H 21 89 L 04/03/25 06:03 94 H 21 99 04/03/25 06:00 103/68 04/03/25 06:00 103 H 25 H 103/68 95 Oxymask 04/03/25 05:57 94 H 21 99 04/03/25 05:03 98 H 23 99 04/03/25 05:00 108/59 L 06/30/25 05:00 95 H 19 108/59 L 99 Oxymask 04/03/25 04:57 100 H 24 99 04/03/25 04:09 105 H 24 122/93 96 Oxymask 04/03/25 03:00 37.2 C 113 H 24 124/86 97 Oxymask 04/03/25 02:00 110 H 24 158/66 H 92 Room Air 04/03/25 01:00 117 H 24 126/67 95 Room Air 04/03/25 00:49 110 H O2 Del Method O2 Flow Rate 04/03/25 08:34 04/03/25 08:24 4 04/03/25 08:00 04/03/25 08:00 4 04/03/25 08:00 Oxymask 04/03/25 07:51 04/03/25 07:20 04/03/25 07:00 04/03/25 07:00 04/03/25 06:03 04/03/25 06:00 04/03/25 06:00 4 04/03/25 05:57 04/03/25 05:03 04/03/25 05:00 04/03/25 05:00 4 04/03/25 04:57 04/03/25 04:09 4 04/03/25 03:00 4 04/03/25 02:00 04/03/25 01:00 04/03/25 00:49 Lab & Micro Results (Past 24 Hours) RBC 2.56 M/uL (4.70-6.10) L 04/03/25 WBC 13.03 K/ul (4.8-10.8) H 04/03/25 Hgb 10.0 g/dl (14.0-18.0) L 04/03/25 Hct 27.3 % (42.0-52.0) L 04/03/25 MCV 106.6 fL (80.0-100.0) H 04/03/25 MCH 39.1 pg (25.0-34.0) H 04/03/25 MCHC 36.6 g/dL (32.0-36.0) H 04/03/25 RDW Standard Deviation 57.6 fL (36.4-46.3) H 04/03/25 RDW Coefficient of Variation 14.5 % (11.5-14.5) 04/03/25 Plt Count 125 K/uL (130-400) L 04/03/25 MPV 9.7 fL (9.4-12.4) 04/03/25 Neutrophils (%) (Auto) 92.0 % 04/03/25 Lymphocytes (%) (Auto) 4.0 % 04/03/25 Monocytes # (Auto) 0.33 K/uL (0.11-0.59) 04/03/25 Eosinophils # (Auto) 0.01 K/uL (0.00-0.50) 04/03/25 Immature Granulocyte % (Auto) 0.9 % 04/03/25 Neutrophils # (Auto) 11.99 K/uL (1.40-6.50) H 04/03/25 Lymphocytes # (Auto) 0.52 K/uL (1.20-3.40) L 04/03/25 Monocytes # (Auto) 0.33 K/uL (0.11-0.59) 04/03/25 Eosinophils # (Auto) 0.01 K/uL (0.00-0.50) 04/03/25 Basophils # (Auto) 0.06 K/uL (0.00-0.20) 04/03/25 Immature Granulocyte # (Auto) 0.12 K/uL (0.01-0.20) 5 Polychromasia 1+ 04/03/25 Na 131 mmol/L (136-145) L 04/03/25 K 3.7 mmol/L (3.5-5.1) 04/03/25 Cl 92 mmol/L (98-107) L 04/03/25 CO2 31 mmol/L (21-32) 04/03/25 Anion Gap 8 (3-11) 04/03/25 BUN 42 mg/dl (6-23) H 04/03/25 Creatinine 2.11 mg/dl (0.6-1.4) H 04/03/25 BUN/Creatinine Ratio 19.9 (10-20) 04/03/25 Glu 97 mg/dl (70-99(Fasting)) 04/03/25 Ca 7.7 mg/dl (8.6-10.3) L 04/03/25 Phosphorus Level 2.9 mg/dl (2.5-4.9) 04/03/25 Total Bilirubin 1.6 mg/dl (0.2-1.0) H 04/03/25 AST 30 U/L (13-39) 04/03/25 ALT 8 U/L (7-52) 04/03/25 Alkaline Phosphatase 77 U/L (34-104) 04/03/25 TP 4.8 gm/dl (6.0-8.3) L 04/03/25 Albumin 2.5 gm/dl (3.4-5.0) L 04/03/25 Globulin 2.3 gm/dl (2.5-4.0) L 04/03/25 Albumin/Globulin Ratio 1.1 (0.9-2) 04/03/25 Mg 2.9 mg/dl (1.7-2.4) H 04/03/25 04:57 Calcium Level 7.7 mg/dl (8.6-10.3) L 04/03/25 04:57 I & O Totals 24 Hours 04/02/25 04/03/25 04/04/25 06:59 06:59 06:59 Intake Total 3948.584 / 3948.584 904 / 904 400 / 400 Output Total 1380 / 1380 1295 / 1295 150 / 150 Balance 2568.584 / 2568.584 -391 / -391 250 / 250 Cumulative 03/31/25 20:38 thru 04/03/25 11:27 Intake Total 7852.584 Output Total 3255 Balance 4597.584 RT Ventilator Mngmt (Last Documented) Ventilator Ordered Settings Respiratory Rate 30 04/03/25 08:24 Fraction of Inspired Oxygen 2 04/02/25 06:00 Ventilator - PT Measurements Respiratory Rate 30 End-Tidal CO2 29 Coding Level of Care Code 01740 CRITICAL CARE 1ST 30-74M Diagnoses Alcohol use disorder F10.90 Hypokalemia E87.6 Hyponatremia E87.1 EMIL (acute kidney injury) N17.9
--- NOTE | 2025-04-03 08:56 | Hospitalist Progress Note ---
Date of Service April 03, 2025 Assessment & Plan (1) Alcohol withdrawal delirium: Plan: -pt on phenobarbital/valium -still with significant agitation -1:1 -critical care following (2) Acute hyponatremia: Plan: -Na+131 today -Improving gradually with ICU electrolytes -nephrology consult appreciated (3) Acute renal failure (ARF): Plan: -cr treading dowin with IVF -likely pre-renal -Renal US WNL -con't IVF -nephrology following (4) Hypokalemia: Plan: -con't relpletion -K+ increased to 3.7 Plan 39-year-old male with history of substance abuse, daily alcohol use presenting with shaking and weakness. Patient found to have acute hyponatremia with sodium = 119 as well as hypokalemia with K = 2.3. Appears to be very dry on exam with EMIL, BUN = 60, creatinine = 4.79 from normal baseline previously. Admission and Anticipated Discharge Date Admission Date: April 01, 2025 Subjective Pt remains sedated on phenobarbital and Valium, still with significant withdrawal, on 1:1. Review of Systems Review of Systems: CONST: Negative for fever, body aches and chills. HENT: Negative for neck pain/stiffness, headache, congestion, sore throat, swelling. EYES: Negative for discharge/pain or vision changes. RESP: Negative for cough/hemoptysis and shortness of breath. CV: Negative chest pain, difficulty breathing, palpitations. ABD: Negative pain, nausea, vomiting. : Negative increase frequency, dysuria, blood in urine or stool. MUSC: Negative for muscle aches, edema. SKIN: Negative rash, lesions/sores. NEURO: Negative headache, dizziness, weakness. Physical Exam Physical Exam: GENERAL APPEARANCE NAD, activity normal for age, well developed/ well nourished, no cyanosis, pallor, or diaphoresis. EYES lids/conjunctiva normal. EARS/NOSE/THROAT Mucous membranes moist, nares normal, lips/teeth normal uvula midline without oral pharyngeal erythema, exudate or swelling TMs normal bilaterally. No lymphangitis/lymphedema. HEAD/NECK normocephalic atraumatic, no facial trauma, neck is supple. RESPIRATORY respiratory effort normal, speaks in full sentences, no tripod position, no accessory muscle use. Lungs clear to auscultation without rhonchi, wheezes, rales CARDIAC Regular rate and rhythm, no edema. ABDOMINAL Soft, ND/NT. No evidence of fluid wave. No pulsatile masses on exam, rebound tenderness, Dai sign or pain over Mcburney's point. MUSCLES/EXTREMITIES No abnormal range of motion, no swelling. SKIN Warm, pink and dry. No rashes, dermatoses, petechiae or lesions. NEUROLOGICAL Speech is clear and appropriate. Normal level of consciousness. Gait and coordination are normal. 5/5 strength in all extremities. PSYCH Normal mood and affect. Judgement/competence is appropriate Results & Data Results & Data Vital Signs (Past 12 Hours) Vital Signs Temp Pulse Resp BP Pulse Ox Pulse Ox O2 Del Method 04/03/25 08:34 37 C 04/03/25 08:24 103 H 30 H 98 Oxymask 04/03/25 08:00 117/71 04/03/25 08:00 Oxymask 04/03/25 08:00 97 04/03/25 07:51 114 H 26 H 90 04/03/25 07:20 103 H 04/03/25 07:00 115/94 04/03/25 07:00 116 H 21 89 L 04/03/25 06:03 94 H 21 99 04/03/25 06:00 103/68 04/03/25 06:00 103 H 25 H 103/68 95 Oxymask 04/03/25 05:57 94 H 21 99 04/03/25 05:03 98 H 23 99 04/03/25 05:00 108/59 L 04/03/25 05:00 95 H 19 108/59 L 99 Oxymask 04/03/25 04:57 100 H 24 99 04/03/25 04:09 105 H 24 122/93 96 Oxymask 04/03/25 03:00 37.2 C 113 H 24 124/86 97 Oxymask 04/03/25 02:00 110 H 24 158/66 H 92 Room Air 04/03/25 01:00 117 H 24 126/67 95 Room Air 04/03/25 00:49 110 H 04/03/25 00:04 37.2 C 112 H 24 112/70 94 Room Air 04/02/25 23:00 108 H 27 H 136/79 97 Room Air 04/02/25 22:00 37 C 94 H 30 H 123/93 95 Oxymask 04/02/25 21:00 37.2 C 94 H 22 114/63 97 Room Air O2 Del Method O2 Flow Rate 04/03/25 08:34 04/03/25 08:24 4 04/03/25 08:00 04/03/25 08:00 4 04/03/25 08:00 Oxymask 04/03/25 07:51 04/03/25 07:20 04/03/25 07:00 04/03/25 07:00 04/03/25 06:03 04/03/25 06:00 04/03/25 06:00 4 04/03/25 05:57 04/03/25 05:03 04/03/25 05:00 04/03/25 05:00 4 04/03/25 04:57 04/03/25 04:09 4 04/03/25 03:00 4 04/03/25 02:00 04/03/25 01:00 04/03/25 00:49 04/03/25 00:04 04/02/25 23:00 04/02/25 22:00 4 04/02/25 21:00 PG Care Time/CCT Total # of Minutes Spent Total Time Spent with Patient: Total time spent is greater than 50% in coordination of care (as documented) at patient's floor/unit and/or counseling patient: Coding Level of Care Code 15946 SUB INP/OBS CARE 2/35MIN Diagnoses Alcohol withdrawal delirium F10.931 Acute hyponatremia E87.1 Acute renal failure (ARF) N17.9 Hypokalemia E87.6
[2025-04-03] MEDS ORDERED: STAT IV/IM STA (09:13)
--- NOTE | 2025-04-03 09:21 | Nephrology Progress Note ---
Date of Service April 03, 2025 Assessment & Plan (1) Hyponatremia: Plan: Improving with therapy. Rate of correction remains acceptable. Urine remains concentrated. Volume status improving but remains NPO. Jona will require additional fluids throughout the day today. LR has been ordered to infuse following an additional bolus of 100 ml hypertonic saline. I will defer nutrition versus dextrose to the ICU team. Additional KCl replacement has been ordered this AM. I have placed an order for repeat labs this afternoon. Document strict I/O's. (2) EMIL (acute kidney injury): Plan: Improving with positive fluid balance. Non-oliguric. Renal US did not demonstrate obstruction. Clinical presentation consistent with hypovolemia and ATN. Document strict I/Os. Repeat metabolic profile tomorrow AM. Medications are appropriately dosed for kidney function. (3) Hypokalemia: Plan: KCl replacement ordered. Monitor BMP + Mg + phosphorus daily. Admission and Anticipated Discharge Date Admission Date: April 01, 2025 Subjective No acute events overnight. Jona is sedated resting comfortably in bed this AM. 1:1 at the bedside. The patient was seen and evaluated with the critical care nurse. Agitation persisted overnight. Afebrile. [place]anc[place] draining concentrated yellow urine. Review of Systems Review of Systems: All systems reviewed & are unremarkable except as noted in HPI & below Physical Exam Constitutional: + ill appearing and + altered mental sta tus; no acute distress Eyes: + anicteric sclerae ENMT: Mouth: + dry oral mucous membranes Neck: normal visual inspection and trachea midline Respiratory: + tachypneic; no respiratory distress Auscultation: lungs clear to auscultation bilaterally Cardiovascular: Rate/Rhythm: regular rhythm and + tachycardic Heart Sounds: normal S1 and normal S2 Extremities: no edema Skin: no jaundice Neurologic: moves all extremities and + confused Results & Data Vital Signs (Past 12 Hours) Vital Signs Temp Pulse Resp BP Pulse Ox Pulse Ox O2 Del Method 04/03/25 08:34 37 C 04/03/25 08:24 103 H 30 H 98 Oxymask 04/03/25 08:00 117/71 04/03/25 08:00 Oxymask 04/03/25 08:00 97 04/03/25 07:51 114 H 26 H 90 04/03/25 07:20 103 H 04/03/25 07:00 115/94 04/03/25 07:00 116 H 21 89 L 04/03/25 06:03 94 H 21 99 04/03/25 06:00 103/68 04/03/25 06:00 103 H 25 H 103/68 95 Oxymask 04/03/25 05:57 94 H 21 99 04/03/25 05:03 98 H 23 99 04/03/25 05:00 108/59 L 04/03/25 05:00 95 H 19 108/59 L 99 Oxymask 04/03/25 04:57 100 H 24 99 04/03/25 04:09 105 H 24 122/93 96 Oxymask 04/03/25 03:00 37.2 C 113 H 24 124/86 97 Oxymask 04/03/25 02:00 110 H 24 158/66 H 92 Room Air 04/03/25 01:00 117 H 24 126/67 95 Room Air 04/03/25 00:49 110 H 04/03/25 00:04 37.2 C 112 H 24 112/70 94 Room Air 04/02/25 23:00 108 H 27 H 136/79 97 Room Air 04/02/25 22:00 37 C 94 H 30 H 123/93 95 Oxymask O2 Del Method O2 Flow Rate 04/03/25 08:34 04/03/25 08:24 4 04/03/25 08:00 04/03/25 08:00 4 04/03/25 08:00 Oxymask 04/03/25 07:51 04/03/25 07:20 04/03/25 07:00 04/03/25 07:00 04/03/25 06:03 04/03/25 06:00 04/03/25 06:00 4 04/03/25 05:57 04/03/25 05:03 04/03/25 05:00 04/03/25 05:00 4 04/03/25 04:57 04/03/25 04:09 4 04/03/25 03:00 4 04/03/25 02:00 04/03/25 01:00 04/03/25 00:49 04/03/25 00:04 04/02/25 23:00 04/02/25 22:00 4 Laboratory Results Laboratory Results - last 24 hr 04/02/25 04/02/25 04/02/25 09:39 14:01 20:02 WBC RBC Hgb Hct MCV MCH MCHC RDW Std Deviation RDW Coeff of Nikita Plt Count MPV Immature Gran % (Auto) Neut % (Auto) Lymph % (Auto) [place] % (Auto) Eos % (Auto) Baso % (Auto) Neut # (Auto) Lymph # (Auto) [place] # (Auto) Eos # (Auto) Baso # (Auto) Immature Gran # (Auto) Polychromasia Sodium 124 L 125 L 127 L Potassium 3.6 4.5 D 3.9 Chloride 83 L 86 L 89 L Carbon Dioxide 34 H 33 H 31 Anion Gap 7 6 7 BUN 51 H 49 H 46 H Creatinine 2.92 H 2.98 H 2.68 H D Est Cr Clr Drug Dosing 39.1 38.3 42.6 eGFR 26.97 26.32 29.89 BUN/Creatinine Ratio 17.5 16.4 17.2 Glucose 99 98 97 Calcium 7.8 L 8.1 L 7.7 L Phosphorus Magnesium Total Bilirubin AST ALT Alkaline Phosphatase Total Protein Albumin Globulin Albumin/Globulin Ratio Urine Osmolality 04/02/25 04/03/25 04/03/25 Unknown 04:57 Unknown WBC 13.03 H RBC 2.56 L Hgb 10.0 L Hct 27.3 L MCV 106.6 H MCH 39.1 H MCHC 36.6 H RDW Std Deviation 57.6 H RDW Coeff of Nikita 14.5 Plt Count 125 L MPV 9.7 Immature Gran % (Auto) 0.9 Neut % (Auto) 92.0 Lymph % (Auto) 4.0 [place] % (Auto) 2.5 Eos % (Auto) 0.1 Baso % (Auto) 0.5 Neut # (Auto) 11.99 H Lymph # (Auto) 0.52 L [place] # (Auto) 0.33 Eos # (Auto) 0.01 Baso # (Auto) 0.06 Immature Gran # (Auto) 0.12 Polychromasia 1+ Sodium 131 L Potassium 3.7 Chloride 92 L Carbon Dioxide 31 Anion Gap 8 BUN 42 H Creatinine 2.11 H D Est Cr Clr Drug Dosing 54.1 eGFR 39.83 BUN/Creatinine Ratio 19.9 Glucose 97 Calcium 7.7 L Phosphorus 2.9 Magnesium 2.9 H Total Bilirubin 1.6 H AST 30 ALT 8 Alkaline Phosphatase 77 Total Protein 4.8 L Albumin 2.5 L Globulin 2.3 L Albumin/Globulin Ratio 1.1 Urine Osmolality 299 L 339 L PG Care Time/CCT Total # of Minutes Spent Total Time Spent with Patient: Total time spent is greater than 50% in coordination of care (as documented) at patient's floor/unit and/or counseling patient: Coding Level of Care Code 46498 SUB INP/OBS CARE 3/50MIN Diagnoses Hyponatremia E87.1 EMIL (acute kidney injury) N17.9 Hypokalemia E87.6
[2025-04-03] MEDS: SODIUM CHLORIDE 3 % 100 ML IV ONE (09:27)
[2025-04-03] MEDS: LACTATED RINGER'S 1,000 ML IV SCH (09:30)
[2025-04-03] MEDS: STOP ORDER ONE (09:33)
[2025-04-03 14:37] LABS: Anion Gap 7.0 (3-11); Blood Urea Nitrogen 36.0 mg/dl (6-23); Calcium 8.0 mg/dl (8.6-10.3); Carbon Dioxide 30.0 mmol/L (21-32); Chloride 96.0 mmol/L (98-107); Creatinine Clr Calc Pharmacy 63.4 ml/min; Glucose 97.0 mg/dl (70-99(Fasting)); Potassium 4.2 mmol/L (3.5-5.1); Sodium 133.0 mmol/L (136-145)
[2025-04-03 21:23] LABS: Anion Gap 9.0 (3-11); Blood Urea Nitrogen 31.0 mg/dl (6-23); Calcium 8.3 mg/dl (8.6-10.3); Carbon Dioxide 28.0 mmol/L (21-32); Chloride 97.0 mmol/L (98-107); Creatinine Clr Calc Pharmacy 76.1 ml/min; Glucose 105.0 mg/dl (70-99(Fasting)); Potassium 4.3 mmol/L (3.5-5.1); Sodium 134.0 mmol/L (136-145)
[2025-04-03] MEDS: DESMOPRESSIN ACETATE 2 MCG in SODIUM CHLORIDE 0.9% 50 ML IV STA (21:58)
[2025-04-03] MEDS: DEXTROSE 5% 500 ML IV SCH (22:03)
[2025-04-03] MEDS: diazePAM 5 MG/ML 10ML VIAL IV ONE (22:17)
[2025-04-04 00:49] LABS: Anion Gap 8.0 (3-11); Blood Urea Nitrogen 30.0 mg/dl (6-23); Calcium 8.1 mg/dl (8.6-10.3); Carbon Dioxide 29.0 mmol/L (21-32); Chloride 98.0 mmol/L (98-107); Creatinine Clr Calc Pharmacy 72.7 ml/min; Glucose 118.0 mg/dl (70-99(Fasting)); Potassium 4.1 mmol/L (3.5-5.1); Sodium 135.0 mmol/L (136-145)
--- NOTE | 2025-04-04 01:11 | Communication Note ---
Date of Service: April 04, 2025 Patient with hyponatremia in setting of alcohol use disorder and decreased oral solute intake. Patient initial presentation was with sodium level 119 on 04/01. He has received 3% saline earlier as well as isotonic LR, for hypovolemia as well as hyponatremia remaining at 125. Evening sodium level was at 134 which ~9mmol. Patient given DDABP 2mcg, LR stopped and D5w initiated at 100ml/hr. Recheck NA was 135, he will receive 250 ml bolus of D5w and then continuation of D5W infusion at 100- ~ volume needed with DDAVP clamp would be 500ml., goal would be to hold at 133 until morning which would put him at 8mmol in 24 hours, would still like to stay with slow correction at this time. Follow with labs at 0300 and q4h until stabilizes. Can consider another dose of DDAVP in morning as well based off of correction. Hosea Shah [facility]
[2025-04-04 02:34] LABS: Anion Gap 8.0 (3-11); Blood Urea Nitrogen 28.0 mg/dl (6-23); Calcium 7.8 mg/dl (8.6-10.3); Carbon Dioxide 28.0 mmol/L (21-32); Chloride 98.0 mmol/L (98-107); Creatinine Clr Calc Pharmacy 76.6 ml/min; Glucose 120.0 mg/dl (70-99(Fasting)); Magnesium 2.3 mg/dl (1.7-2.4); Potassium 3.9 mmol/L (3.5-5.1); Sodium 134.0 mmol/L (136-145)
[2025-04-04 02:43] LABS: Hematocrit (blood only) 27.9 % (42.0-52.0); Hemoglobin 10.4 g/dl (14.0-18.0); Immature Granulocytes # (auto) 0.15 K/uL (0.01-0.20); Immature Granulocytes % (auto) 1.3 %; Mean Corpuscular Hemoglobin 39.8 pg (25.0-34.0); Mean Corpuscular Volume 106.9 fL (80.0-100.0); Platelet Count 139 K/uL (130-400); Polychromasia 1+; RDW Standard Deviation 59.3 fL (36.4-46.3); Red Blood Count 2.61 M/uL (4.70-6.10); White Blood Count 11.92 K/ul (4.8-10.8)
[2025-04-04] MEDS: POTASSIUM CHLORIDE / WTR 10 MEQ/100 ML PLCT IV SCH (06:01)
[2025-04-04 06:53] LABS: Anion Gap 7.0 (3-11); Blood Urea Nitrogen 25.0 mg/dl (6-23); Calcium 8.0 mg/dl (8.6-10.3); Carbon Dioxide 29.0 mmol/L (21-32); Chloride 99.0 mmol/L (98-107); Creatinine Clr Calc Pharmacy 85.2 ml/min; Glucose 120.0 mg/dl (70-99(Fasting)); Potassium 4.0 mmol/L (3.5-5.1); Sodium 135.0 mmol/L (136-145)
[2025-04-04 08:22] LABS: Marijuana Quant, GCMS Urine 61 ng/mL (<5)
[2025-04-04] MEDS: dexMEDEtomidine 200 MCG/50 ML BAG IV SCH (09:22)
--- NOTE | 2025-04-04 09:35 | Critical Care Progress Note ---
Date of Service April 04, 2025 Assessment & Plan (1) Alcohol use disorder: (2) Hypokalemia: (3) Hyponatremia: (4) EMIL (acute kidney injury): Plan Impression: 39-year-old male with history of substance abuse admitted with tremulousness felt to be related to alcohol withdrawal. Recommendations: 1. Neurologic: Agitated delirium. Likely secondary to alcohol withdrawal as well as possible other illicit substances. Continue phenobarb. Was likely underdosed with phenobarbital. Received IM doses to complete load at this point. Extending 65 mg IV twice daily taper for the next 2 days and then decrease to 32.5 and discontinue. continue high-dose thiamine and folate. Ini tiated Precedex for increasing agitation. history of substance abuse so we will need to follow closely. 2. Cardiovascular: No current issues. Continue to follow clinically. 3. Pulmonary: No current issues. Monitoring end-tidal CO2 while on IV phenobarb. 4. Renal: Electrolyte abnormalities have improved reviewed nephrology notes. Would consider NG tube placement for possible supplemental nutrition and intake; however, this is weighed against increasing agitation with NG tube 5. ID: No current issues. 6. GI: Will advance diet as mental status allows. 7. Endocrine: Glycemic control per protocol. 8.: Heme-onc: No current issues. Continue DVT prophylaxis. Mild thrombocytopenia which will be trended. Disposition per primary service. Continued ICU observation given ongoing so mnolence in the setting of phenobarbital necessitating end-tidal CO2 monitoring Admission and Anticipated Discharge Date Admission Date: April 01, 2025 Supervising Physician Co-Signing Physician Notes I have personally spent 40 minutes of critical care time in the direct management of this patient. This is a life/limb threatening event. This includes time spent evaluating patient, direct bedside care, chart review, placing orders, interpretation of diagnostic studies, discussion with consultants, patient, and/or family members regarding treatment decisions, as well as other required patient management activities. This time is exclusive of all separately billable procedures, and teaching time and separate from and in addition to any other critical care service time. Subjective No overnight events. Still encephalopathic Physical Exam Physical Exam: General: Somnolent with end-tidal CO2 monitoring in place Skin: Warm, dry, Head: Atraumatic Ears, nose, mouth and throat: Moist mucous membranes Cardiovascular: Normal peripheral perfusion Respiratory: No respiratory distress. Gastrointestinal: Non distended Musculoskeletal: No deformity Results & Data Results & Data Vital Signs (Past 12 Hours) Vital Signs Temp Pulse Pulse Resp BP BP Pulse Ox 04/04/25 08:12 115 H 32 H 96 04/04/25 08:06 115 H 33 H 140/95 04/04/25 08:00 140/95 04/04/25 07:57 36.6 C 04/04/25 07:51 118 H 39 H 04/04/25 07:49 135/101 H 04/04/25 07:46 115 H 04/04/25 07:09 118 H 94 04/04/25 07:00 119 H 34 H 94 04/04/25 06:03 115 H 41 H 98 04/04/25 06:00 148/101 H 04/04/25 06:00 148/101 H 04/04/25 05:51 113 H 33 H 98 04/04/25 05:15 110 H 39 H 99 04/04/25 05:00 149/91 H 04/04/25 04:39 118 H 53 H 94 04/04/25 04:15 108 H 29 H 98 04/04/25 04:00 133/85 04/04/25 03:45 37.2 C 120 H 45 H 97 04/04/25 03:00 154/84 H 04/04/25 03:00 115 H 43 H 97 04/04/25 03:00 108 H 26 H 154/84 H 100 04/04/25 02:00 37.7 C H 118 H 38 H 144/96 H 96 04/04/25 01:00 118 H 30 H 145/86 H 93 04/04/25 00:47 120 H 40 H 140/77 04/04/25 00:00 38.4 C H 118 H 43 H 140/77 95 04/03/25 23:00 122 H 04/03/25 23:00 121 H 48 H 152/109 H 93 04/03/25 22:00 38.4 C H 116 H 42 H 144/90 H 95 O2 Del Method O2 Flow Rate 04/04/25 08:12 Oxymask 6 04/04/25 08:06 04/04/25 08:00 04/04/25 07:57 04/04/25 07:51 04/04/25 07:49 04/04/25 07:46 04/04/25 07:09 Oxymask 6 04/04/25 07:00 04/04/25 06:03 04/04/25 06:00 04/04/25 06:00 04/04/25 05:51 04/04/25 05:15 04/04/25 05:00 04/04/25 04:39 04/04/25 04:15 04/04/25 04:00 04/04/25 03:45 04/04/25 03:00 04/04/25 03:00 04/04/25 03:00 Oxymask 6 04/04/25 02:00 Oxymask 6 04/04/25 01:00 Oxymask 6 04/04/25 00:47 04/04/25 00:00 Oxymask 4 04/03/25 23:00 04/03/25 23:00 Oxymask 6 04/03/25 22:00 Oxymask 6 Critical Care Results & Data Vital Signs (Past 12 Hours) Vital Signs Temp Pulse Pulse Resp BP BP Pulse Ox 04/04/25 13:09 90 16 97 04/04/25 13:00 132/83 04/04/25 13:00 132/83 04/04/25 12:55 115/85 04/04/25 12:45 85 100 04/04/25 12:12 84 100 04/04/25 12:00 36.6 C 04/04/25 11:06 94 H 100 04/04/25 10:45 113 H 98 04/04/25 10:00 141/83 H 04/04/25 09:57 114 H 100 04/04/25 09:27 115 H 97 04/04/25 09:00 140/92 04/04/25 08:57 118 H 97 04/04/25 08:12 115 H 32 H 96 04/04/25 08:06 115 H 33 H 140/95 04/04/25 08:00 140/95 04/04/25 08:00 04/04/25 08:00 04/04/25 07:57 36.6 C 04/04/25 07:51 118 H 39 H 04/04/25 07:49 135/101 H 04/04/25 07:46 115 H 04/04/25 07:09 118 H 94 04/04/25 07:00 119 H 34 H 94 04/04/25 06:03 115 H 41 H 98 04/04/25 06:00 148/101 H 04/04/25 06:00 148/101 H 04/04/25 05:51 113 H 33 H 98 04/04/25 05:15 110 H 39 H 99 04/04/25 05:00 149/91 H 04/04/25 04:39 118 H 53 H 94 04/04/25 04:15 108 H 29 H 98 04/04/25 04:00 133/85 04/04/25 03:45 37.2 C 120 H 45 H 97 04/04/25 03:00 154/84 H 04/04/25 03:00 115 H 43 H 97 04/04/25 03:00 108 H 26 H 154/84 H 100 Pulse Ox O2 Del Method O2 Del Method O2 Flow Rate O2 Flow Rate 04/04/25 13:09 04/04/25 13:00 04/04/25 13:00 04/04/25 12:55 04/04/25 12:45 Oxymask 2 04/04/25 12:12 04/04/25 12:00 04/04/25 11:06 04/04/25 10:45 Oxymask 8 04/04/25 10:00 04/04/25 09:57 04/04/25 09:27 04/04/25 09:00 04/04/25 08:57 04/04/25 08:12 Oxymask 6 04/04/25 08:06 04/04/25 08:00 04/04/25 08:00 97 Oxymask 6 04/04/25 08:00 Oxymask 6 04/04/25 07:57 04/04/25 07:51 04/04/25 07:49 04/04/25 07:46 04/04/25 07:09 Oxymask 6 04/04/25 07:00 04/04/25 06:03 04/04/25 06:00 04/04/25 06:00 04/04/25 05:51 04/04/25 05:15 04/04/25 05:00 04/04/25 04:39 04/04/25 04:15 04/04/25 04:00 04/04/25 03:45 04/04/25 03:00 04/04/25 03:00 04/04/25 03:00 Oxymask 6 Lab & Micro Results (Past 24 Hours) RBC 2.61 M/uL (4.70-6.10) L 04/04/25 WBC 11.92 K/ul (4.8-10.8) H 04/04/25 Hgb 10.4 g/dl (14.0-18.0) L 04/04/25 Hct 27.9 % (42.0-52.0) L 04/04/25 MCV 106.9 fL (80.0-100.0) H 04/04/25 MCH 39.8 pg (25.0-34.0) H 04/04/25 MCHC 37.3 g/dL (32.0-36.0) H 04/04/25 RDW Standard Deviation 59.3 fL (36.4-46.3) H 04/04/25 RDW Coefficient of Variation 15.1 % (11.5-14.5) H 04/04/25 Plt Count 139 K/uL (130-400) 04/04/25 MPV 9.8 fL (9.4-12.4) 04/04/25 Neutrophils (%) (Auto) 91.0 % 04/04/25 Lymphocytes (%) (Auto) 4.4 % 04/04/25 Monocytes # (Auto) 0.35 K/uL (0.11-0.59) 04/04/25 Eosinophils # (Auto) 0.00 K/uL (0.00-0.50) 04/04/25 Immature Granulocyte % (Auto) 1.3 % 04/04/25 Neutrophils # (Auto) 10.84 K/uL (1.40-6.50) H 04/04/25 Lymphocytes # (Auto) 0.53 K/uL (1.20-3.40) L 04/04/25 Monocytes # (Auto) 0.35 K/uL (0.11-0.59) 04/04/25 Eosinophils # (Auto) 0.00 K/uL (0.00-0.50) 04/04/25 Basophils # (Auto) 0.05 K/uL (0.00-0.20) 04/04/25 Immature Granulocyte # (Auto) 0.15 K/uL (0.01-0.20) 5 Polychromasia 1+ 04/04/25 Na 134 mmol/L (136-145) L 04/04/25 K 4.7 mmol/L (3.5-5.1) 04/04/25 Cl 99 mmol/L (98-107) 04/04/25 CO2 28 mmol/L (21-32) 04/04/25 Anion Gap 7 (3-11) 04/04/25 BUN 23 mg/dl (6-23) 04/04/25 Creatinine 1.30 mg/dl (0.6-1.4) 04/04/25 BUN/Creatinine Ratio 17.7 (10-20) 04/04/25 Glu 108 mg/dl (70-99(Fasting)) H 04/04/25 Ca 8.0 mg/dl (8.6-10.3) L 04/04/25 Phosphorus Level 2.7 mg/dl (2.5-4.9) 04/04/25 Mg 2.3 mg/dl (1.7-2.4) 04/04/25 01:57 Calcium Level 8.0 mg/dl (8.6-10.3) L 04/04/25 09:41 Diagnostic Findings (Past 24 Hours) Chest X-Ray 04/04/25 09:37 XR chest 1V portable CLINICAL HISTORY: eval for hypxia with increasing oxygen COMPARISON STUDY: 03/23/2022 FINDINGS: There is stable cardiomegaly with increased pulmonary vascular congestion. There are increased diffuse reticular and patchy pulmonary opacities. No pleural effusion or pneumothorax seen IMPRESSION: Diffuse pulmonary opacities could represent pneumonia or pulmonary edema. ACT 112: Negative or not required by law. Electronically signed by: Scooby Guerra M.D. 04/04/2025 10:11 AM I & O Totals 24 Hours 04/03/25 04/04/25 04/05/25 06:59 06:59 06:59 Intake Total 904 / 904 2699.5 / 2699.5 402.347 / 402.347 Output Total 1295 / 1295 1760 / 1760 500 / 500 Balance -391 / -391 939.5 / 939.5 -97.653 / -97.653 Cumulative 06/27/25 20:38 thru 04/04/25 14:10 Intake Total 06929.431 Output Total 5365 Balance 5189.431 RT Ventilator Mngmt (Last Documented) Ventilator Ordered Settings Respiratory Rate 16 04/04/25 13:09 Fraction of Inspired Oxygen 2 04/02/25 06:00 Ventilator - PT Measurements Respiratory Rate 16 End-Tidal CO2 29 Coding Level of Care Code 95605 CRITICAL CARE 1ST 30-74M Diagnoses Alcohol use disorder F10.90 Hypokalemia E87.6 Hyponatremia E87.1 EMIL (acute kidney injury) N17.9
--- NOTE | 2025-04-04 09:39 | Hospitalist Progress Note ---
Date of Service April 04, 2025 Assessment & Plan (1) Alcohol withdrawal delirium: Plan: -pt on phenobarbital/valium -still with significant agitation -1:1 -critical care following (2) Acute hyponatremia: Plan: -Na+135 today -Improving gradually with ICU electrolytes -nephrology consult appreciated -given DDAVP (3) Acute renal failure (ARF): Plan: -cr treading down with IVF -likely pre-renal -Renal US WNL -con't IVF -cr 1.34 -nephrology following (4) Hypokalemia: Plan: -con't relpletion -K+ increased to 4.0 Plan 39-year-old male with history of substance abuse, daily alcohol use presenting with shaking and weakness. Patient found to have acute hyponatremia with sodium = 119 as well as hypokalemia with K = 2.3. Appears to be very dry on exam with EMIL, BUN = 60, creatinine = 4.79 from normal baseline previously. Admission and Anticipated Discharge Date Admission Date: April 01, 2025 Subjective Pt still agitated and confused. Review of Systems Review of Systems: CONST: Negative for fever, body aches and chills. HENT: Negative for neck pain/stiffness, headache, congestion, sore throat, swelling. EYES: Negative for discharge/pain or vision changes. RESP: Negative for cough/hemoptysis and shortness of breath. CV: Negative chest pain, difficulty breathing, palpitations. ABD: Negative pain, nausea, vomiting. : Negative increase frequency, dysuria, blood in urine or stool. MUSC: Negative for muscle aches, edema. SKIN: Negative rash, lesions/sores. NEURO: Negative headache, dizziness, weakness. Physical Exam Physical Exam: GENERAL APPEARANCE NAD, activity normal for age, well developed/ well nourished, no cyanosis, pallor, or diaphoresis. EYES lids/conjunctiva normal. EARS/NOSE/THROAT Mucous membranes moist, nares normal, lips/teeth normal uvula midline without oral pharyngeal erythema, exudate or swelling TMs normal bilaterally. No lymphangitis/lymphedema. HEAD/NECK normocephalic atraumatic, no facial trauma, neck is supple. RESPIRATORY respiratory effort normal, speaks in full sentences, no tripod position, no accessory muscle use. Lungs clear to auscultation without rhonchi, wheezes, rales CARDIAC Regular rate and rhythm, no edema. ABDOMINAL Soft, ND/NT. No evidence of fluid wave. No pulsatile masses on exam, rebound tenderness, Dai sign or pain over Mcburney's point. MUSCLES/EXTREMITIES No abnormal range of motion, no swelling. SKIN Warm, pink and dry. No rashes, dermatoses, petechiae or lesions. NEUROLOGICAL Speech is clear and appropriate. Normal level of consciousness. Gait and coordination are normal. 5/5 strength in all extremities. PSYCH Normal mood and affect. Judgement/competence is appropriate Results & Data Results & Data Vital Signs (Past 12 Hours) Vital Signs Temp Pulse Pulse Resp BP BP Pulse Ox 04/04/25 08:12 115 H 32 H 96 04/04/25 08:06 115 H 33 H 140/95 04/04/25 08:00 140/95 04/04/25 07:57 36.6 C 04/04/25 07:51 118 H 39 H 04/04/25 07:49 135/101 H 04/04/25 07:46 115 H 04/04/25 07:09 118 H 94 04/04/25 07:00 119 H 34 H 94 04/04/25 06:03 115 H 41 H 98 04/04/25 06:00 148/101 H 04/04/25 06:00 148/101 H 04/04/25 05:51 113 H 33 H 98 04/04/25 05:15 110 H 39 H 99 04/04/25 05:00 149/91 H 04/04/25 04:39 118 H 53 H 94 04/04/25 04:15 108 H 29 H 98 04/04/25 04:00 133/85 04/04/25 03:45 37.2 C 120 H 45 H 97 04/04/25 03:00 154/84 H 04/04/25 03:00 115 H 43 H 97 04/04/25 03:00 108 H 26 H 154/84 H 100 04/04/25 02:00 37.7 C H 118 H 38 H 144/96 H 96 04/04/25 01:00 118 H 30 H 145/86 H 93 04/04/25 00:47 120 H 40 H 140/77 04/04/25 00:00 38.4 C H 118 H 43 H 140/77 95 04/03/25 23:00 122 H 04/03/25 23:00 121 H 48 H 152/109 H 93 04/03/25 22:00 38.4 C H 116 H 42 H 144/90 H 95 O2 Del Method O2 Flow Rate 04/04/25 08:12 Oxymask 6 04/04/25 08:06 04/04/25 08:00 04/04/25 07:57 04/04/25 07:51 04/04/25 07:49 04/04/25 07:46 04/04/25 07:09 Oxymask 6 04/04/25 07:00 04/04/25 06:03 04/04/25 06:00 04/04/25 06:00 04/04/25 05:51 04/04/25 05:15 04/04/25 05:00 04/04/25 04:39 04/04/25 04:15 04/04/25 04:00 04/04/25 03:45 04/04/25 03:00 04/04/25 03:00 04/04/25 03:00 Oxymask 6 04/04/25 02:00 Oxymask 6 04/04/25 01:00 Oxymask 6 04/04/25 00:47 04/04/25 00:00 Oxymask 4 04/03/25 23:00 04/03/25 23:00 Oxymask 6 04/03/25 22:00 Oxymask 6 PG Care Time/CCT Total # of Minutes Spent Total Time Spent with Patient: Total time spent is greater than 50% in coordination of care (as documented) at patient's floor/unit and/or counseling patient: Coding Level of Care Code 39101 SUB INP/OBS CARE 2/35MIN Diagnoses Alcohol withdrawal delirium F10.931 Acute hyponatremia E87.1 Acute renal failure (ARF) N17.9 Hypokalemia E87.6
--- NOTE | 2025-04-04 09:47 | Nephrology Progress Note ---
Date of Service April 04, 2025 Assessment & Plan (1) Hyponatremia: Plan: Sodium has corrected to an acceptable level at an appropriate rate. A repeat serum sodium level has been ordered for this afternoon. Volume status appears relatively euvolemic at this time. It remains unclear if ADH production will normalize with mandaeism of volume status. Scooby is not eating and solute intake/nutrition remain poor. He is also now having diarrhea and fevers. Electrolytes will need to be closely monitored and additional NaCl provided if serum sodium drops. Document strict I/O's. (2) EMIL (acute kidney injury): Plan: Improved with IVF and supportive care. Clinical presentation consistent with hypovolemia and ATN. Repeat metabolic profile tomorrow AM. Medications are appropriately dosed for kidney function. (3) Hypokalemia: Plan: KCl replacement per ICU protocol. Monitor BMP + Mg + phosphorus daily. Admission and Anticipated Discharge Date Admission Date: April 01, 2025 Subjective Scooby remains agitated and encephalopathic. He is not oriented or able to provide any history. Diarrhea started overnight. He remains NPO. He was thrashing in bed and pulling at lines and restraints this AM. Tmax 38.4. Scooby was seen and evaluated with the critical care nurse this morning. Noted that DDAVP and Dw was provided overnight. Good urine output. Urine appears more dilute this AM. Sodium has corrected to an acceptable level. Review of Systems Review of Systems: Unobtainable due to cognitive status Physical Exam Constitutional: + ill appearing, + altered mental status and + combative Respiratory: + tachypneic; no respiratory distress Auscultation: lungs clear to auscultation bilaterally (anteriorly) Cardiovascular: Rate/Rhythm: + tachycardic Extremities: no edema Musculoskeletal: Extremities: no cyanosis and no clubbing Skin: no jaundice Neurologic: moves all extremities and + confused Results & Data Vital Signs (Past 12 Hours) Vital Signs Temp Pulse Pulse Resp BP BP Pulse Ox 04/04/25 08:12 115 H 32 H 96 04/04/25 08:06 115 H 33 H 140/95 04/04/25 08:00 140/95 04/04/25 07:57 36.6 C 04/04/25 07:51 118 H 39 H 04/04/25 07:49 135/101 H 04/04/25 07:46 115 H 04/04/25 07:09 118 H 94 04/04/25 07:00 119 H 34 H 94 04/04/25 06:03 115 H 41 H 98 04/04/25 06:00 148/101 H 04/04/25 06:00 148/101 H 04/04/25 05:51 113 H 33 H 98 04/04/25 05:15 110 H 39 H 99 04/04/25 05:00 149/91 H 04/04/25 04:39 118 H 53 H 94 04/04/25 04:15 108 H 29 H 98 04/04/25 04:00 133/85 04/04/25 03:45 37.2 C 120 H 45 H 97 04/04/25 03:00 154/84 H 04/04/25 03:00 115 H 43 H 97 04/04/25 03:00 108 H 26 H 154/84 H 100 04/04/25 02:00 37.7 C H 118 H 38 H 144/96 H 96 04/04/25 01:00 118 H 30 H 145/86 H 93 04/04/25 00:47 120 H 40 H 140/77 04/04/25 00:00 38.4 C H 118 H 43 H 140/77 95 04/03/25 23:00 122 H 04/03/25 23:00 121 H 48 H 152/109 H 93 04/03/25 22:00 38.4 C H 116 H 42 H 144/90 H 95 O2 Del Method O2 Flow Rate 04/04/25 08:12 Oxymask 6 04/04/25 08:06 04/04/25 08:00 04/04/25 07:57 04/04/25 07:51 04/04/25 07:49 04/04/25 07:46 04/04/25 07:09 Oxymask 6 04/04/25 07:00 04/04/25 06:03 04/04/25 06:00 04/04/25 06:00 04/04/25 05:51 04/04/25 05:15 04/04/25 05:00 04/04/25 04:39 04/04/25 04:15 04/04/25 04:00 04/04/25 03:45 04/04/25 03:00 04/04/25 03:00 04/04/25 03:00 Oxymask 6 04/04/25 02:00 Oxymask 6 04/04/25 01:00 Oxymask 6 04/04/25 00:47 04/04/25 00:00 Oxymask 4 04/03/25 23:00 04/03/25 23:00 Oxymask 6 04/03/25 22:00 Oxymask 6 Laboratory Results Laboratory Results - last 24 hr 04/01/25 04/03/25 04/03/25 01:00 13:55 16:19 WBC RBC Hgb Hct MCV MCH MCHC RDW Std Deviation RDW Coeff of Nikita Plt Count MPV Immature Gran % (Auto) Neut % (Auto) Lymph % (Auto) Lyman % (Auto) Eos % (Auto) Baso % (Auto) Neut # (Auto) Lymph # (Auto) Lyman # (Auto) Eos # (Auto) Baso # (Auto) Immature Gran # (Auto) Polychromasia Sodium 133 L Potassium 4.2 Chloride 96 L Carbon Dioxide 30 Anion Gap 7 BUN 36 H Creatinine 1.80 H D Est Cr Clr Drug Dosing 63.4 eGFR 48.20 BUN/Creatinine Ratio 20.0 Glucose 97 POC Glucose 92 Calcium 8.0 L Phosphorus Magnesium Ammonia U Marijuana THC Carboxy 61 H Drug Screen Comment SEE NOTE 04/03/25 04/04/25 04/04/25 20:56 00:19 01:57 WBC 11.92 H RBC 2.61 L Hgb 10.4 L Hct 27.9 L MCV 106.9 H MCH 39.8 H MCHC 37.3 H RDW Std Deviation 59.3 H RDW Coeff of Nikita 15.1 H Plt Count 139 MPV 9.8 Immature Gran % (Auto) 1.3 Neut % (Auto) 91.0 Lymph % (Auto) 4.4 Lyman % (Auto) 2.9 Eos % (Auto) 0.0 Baso % (Auto) 0.4 Neut # (Auto) 10.84 H Lymph # (Auto) 0.53 L Lyman # (Auto) 0.35 Eos # (Auto) 0.00 Baso # (Auto) 0.05 Immature Gran # (Auto) 0.15 Polychromasia 1+ Sodium 134 L 135 L 134 L Potassium 4.3 4.1 Chloride 97 L 98 Carbon Dioxide 28 29 Anion Gap 9 8 BUN 31 H 30 H Creatinine 1.50 H D 1.57 H Est Cr Clr Drug Dosing 76.1 72.7 eGFR 59.98 56.79 BUN/Creatinine Ratio 20.7 H 19.1 Glucose 105 H 118 H POC Glucose Calcium 8.3 L 8.1 L Phosphorus Magnesium Ammonia U Marijuana THC Carboxy Drug Screen Comment 04/04/25 04/04/25 04/04/25 01:57 01:57 01:57 WBC RBC Hgb Hct MCV MCH MCHC RDW Std Deviation RDW Coeff of Nikita Plt Count MPV Immature Gran % (Auto) Neut % (Auto) Lymph % (Auto) Lyman % (Auto) Eos % (Auto) Baso % (Auto) Neut # (Auto) Lymph # (Auto) Lyman # (Auto) Eos # (Auto) Baso # (Auto) Immature Gran # (Auto) Polychromasia Sodium Cancelled Potassium 3.9 Cancelled Chloride 98 Cancelled Carbon Dioxide 28 Anion Gap BUN Creatinine Est Cr Clr Drug Dosing eGFR BUN/Creatinine Ratio Glucose POC Glucose Calcium Phosphorus Magnesium Ammonia U Marijuana THC Carboxy Drug Screen Comment 04/04/25 04/04/25 04/04/25 01:57 01:57 01:57 WBC RBC Hgb Hct MCV MCH MCHC RDW Std Deviation RDW Coeff of Nikita Plt Count MPV Immature Gran % (Auto) Neut % (Auto) Lymph % (Auto) Lyman % (Auto) Eos % (Auto) Baso % (Auto) Neut # (Auto) Lymph # (Auto) Lyman # (Auto) Eos # (Auto) Baso # (Auto) Immature Gran # (Auto) Polychromasia Sodium Potassium Chloride Carbon Dioxide Cancelled Anion Gap 8 Cancelled BUN 28 H Cancelled Creatinine 1.49 H Est Cr Clr Drug Dosing eGFR BUN/Creatinine Ratio Glucose POC Glucose Calcium Phosphorus Magnesium Ammonia U Marijuana THC Carboxy Drug Screen Comment 04/04/25 04/04/25 04/04/25 01:57 01:57 01:57 WBC RBC Hgb Hct MCV MCH MCHC RDW Std Deviation RDW Coeff of Nikita Plt Count MPV Immature Gran % (Auto) Neut % (Auto) Lymph % (Auto) Lyman % (Auto) Eos % (Auto) Baso % (Auto) Neut # (Auto) Lymph # (Auto) Lyman # (Auto) Eos # (Auto) Baso # (Auto) Immature Gran # (Auto) Polychromasia Sodium Potassium Chloride Carbon Dioxide Anion Gap BUN Creatinine Cancelled Est Cr Clr Drug Dosing 76.6 Cancelled eGFR 60.47 Cancelled BUN/Creatinine Ratio 18.8 Glucose POC Glucose Calcium Phosphorus Magnesium Ammonia U Marijuana THC Carboxy Drug Screen Comment 04/04/25 04/04/25 04/04/25 01:57 01:57 01:57 WBC RBC Hgb Hct MCV MCH MCHC RDW Std Deviation RDW Coeff of Nikita Plt Count MPV Immature Gran % (Auto) Neut % (Auto) Lymph % (Auto) Lyman % (Auto) Eos % (Auto) Baso % (Auto) Neut # (Auto) Lymph # (Auto) Lyman # (Auto) Eos # (Auto) Baso # (Auto) Immature Gran # (Auto) Polychromasia Sodium Potassium Chloride Carbon Dioxide Anion Gap BUN Creatinine Est Cr Clr Drug Dosing eGFR BUN/Creatinine Ratio Cancelled Glucose 120 H Cancelled POC Glucose Calcium 7.8 L Cancelled Phosphorus 2.7 Magnesium 2.3 Ammonia U Marijuana THC Carboxy Drug Screen Comment 04/04/25 04/04/25 04/04/25 06:18 09:41 09:45 WBC RBC Hgb Hct MCV MCH MCHC RDW Std Deviation RDW Coeff of Nikita Plt Count MPV Immature Gran % (Auto) Neut % (Auto) Lymph % (Auto) Lyman % (Auto) Eos % (Auto) Baso % (Auto) Neut # (Auto) Lymph # (Auto) Lyman # (Auto) Eos # (Auto) Baso # (Auto) Immature Gran # (Auto) Polychromasia Sodium 135 L Pending Potassium 4.0 Pending Chloride 99 Pending Carbon Dioxide 29 Pending Anion Gap 7 Pending BUN 25 H Pending Creatinine 1.34 Pending Est Cr Clr Drug Dosing 85.2 Pending eGFR 68.68 Pending BUN/Creatinine Ratio 18.7 Pending Glucose 120 H Pending POC Glucose Calcium 8.0 L Pending Phosphorus Magnesium Ammonia Pending U Marijuana THC Carboxy Drug Screen Comment PG Care Time/CCT Total # of Minutes Spent Total Time Spent with Patient: Total time spent is greater than 50% in coordination of care (as documented) at patient's floor/unit and/or counseling patient: Coding Level of Care Code 01134 SUB INP/OBS CARE 3/50MIN Diagnoses Hyponatremia E87.1 EMIL (acute kidney injury) N17.9 Hypokalemia E87.6
--- NOTE | 2025-04-04 10:12 | XRay Report ---
XR chest 1V portable CLINICAL HISTORY: eval for hypxia with increasing oxygen COMPARISON STUDY: 03/23/2022 FINDINGS: There is stable cardiomegaly with increased pulmonary vascular congestion. There are increa sed diffuse reticular and patchy pulmonary opacities. No pleural effusion or pneumothorax seen IMPRESSION: Diffuse pulmonary opacities could represent pneumonia or pulmonary edema. ACT 112: Negative or not required by law. Electronically signed by: Scooby Guerra M.D. 04/04/2025 10:11 AM
[2025-04-04 10:15] LABS: Anion Gap 7.0 (3-11); Blood Urea Nitrogen 23.0 mg/dl (6-23); Calcium 8.0 mg/dl (8.6-10.3); Carbon Dioxide 28.0 mmol/L (21-32); Chloride 99.0 mmol/L (98-107); Creatinine Clr Calc Pharmacy 87.8 ml/min; Glucose 108.0 mg/dl (70-99(Fasting)); Potassium 4.7 mmol/L (3.5-5.1); Sodium 134.0 mmol/L (136-145)
[2025-04-04] MEDS: STAT IV Infusion **Titration per Protocol STA (10:32)
[2025-04-04] MEDS: FUROSEMIDE INJ 20 MG/2 ML VIAL IV ONE (11:35)
[2025-04-04 11:59] LABS: Cdiff Toxin B Gene (2yr or >) Negative Cdiff Gene (Neg)
[2025-04-04 14:47] LABS: Anion Gap 7.0 (3-11); Blood Urea Nitrogen 22.0 mg/dl (6-23); Calcium 8.0 mg/dl (8.6-10.3); Carbon Dioxide 29.0 mmol/L (21-32); Chloride 100.0 mmol/L (98-107); Creatinine Clr Calc Pharmacy 91.3 ml/min; Glucose 99.0 mg/dl (70-99(Fasting)); Potassium 4.3 mmol/L (3.5-5.1); Sodium 136.0 mmol/L (136-145)
[2025-04-04 19:17] LABS: Anion Gap 6 (3-11); Blood Urea Nitrogen 21 mg/dl (6-23); Calcium 8.0 mg/dl (8.6-10.3); Carbon Dioxide 29 mmol/L (21-32); Chloride 101 mmol/L (98-107); Creatinine Clr Calc Pharmacy 90.6 ml/min; Glucose 94 mg/dl (70-99(Fasting)); Sodium 136 mmol/L (136-145)
[2025-04-05] MEDS: LACTATED RINGER'S 500 ML IV ONE (00:26)
[2025-04-05 04:49] LABS: Hematocrit (blood only) 27.8 % (42.0-52.0); Hemoglobin 10.1 g/dl (14.0-18.0); Immature Granulocytes # (auto) 0.12 K/uL (0.01-0.20); Immature Granulocytes % (auto) 1.2 %; Mean Corpuscular Hemoglobin 39.0 pg (25.0-34.0); Mean Corpuscular Volume 107.3 fL (80.0-100.0); Platelet Count 151 K/uL (130-400); RDW Standard Deviation 59.1 fL (36.4-46.3); Red Blood Count 2.59 M/uL (4.70-6.10); White Blood Count 9.61 K/ul (4.8-10.8)
[2025-04-05 05:03] LABS: Anion Gap 9.0 (3-11); Blood Urea Nitrogen 21.0 mg/dl (6-23); Calcium 7.9 mg/dl (8.6-10.3); Carbon Dioxide 26.0 mmol/L (21-32); Chloride 103.0 mmol/L (98-107); Creatinine Clr Calc Pharmacy 102.9 ml/min; Glucose 96.0 mg/dl (70-99(Fasting)); Magnesium 2.0 mg/dl (1.7-2.4); Potassium 3.8 mmol/L (3.5-5.1); Sodium 138.0 mmol/L (136-145)
[2025-04-05] MEDS: POTASSIUM CHLORIDE / WTR 10 MEQ/100 ML PLCT IV SCH (05:45)
--- NOTE | 2025-04-05 08:16 | XRay Report ---
EXAM: XR chest 1V portable CLINICAL HISTORY: Evaluate due to hypoxia TECHNIQUE: X-ray image of the chest obtained in 1 frontal projection. COMPARISON: No prior chest X-ray. X-ray abdomen on the 04/05/2025 06:21:55 [employer] was reviewed. FINDINGS: The feeding tube is seen extending below the diaphragm, and its tip within the stomach as seen in abdominal X-ray performed on the same day. Pulmonary Parenchyma: Marked patchy and confluent air space opacities in bilateral lungs, likely pulmonary edema vs infection. The right CP angle is normal. The left CP angle is not visualised properly. Heart and Mediastinum: Enlarged cardiac silhouette. No mediastinal widening or masses. No hilar or mediastinal lymphadenopathy. Bony Thorax: Bony thorax appears intact without fractures or deformities. Soft Tissues: Soft tissues overlying the chest wall are unremarkable. IMPRESSION: - Extensive patchy and confluent air space opacities in bilateral lungs, can be pulmonary edema vs infection. Clinical and lab correlation is suggested. Electronically signed by Dalton Ashraf 04-05-2025 08:16 AM
--- NOTE | 2025-04-05 08:26 | XRay Report ---
EXAM: XR KUB/Abdomen 1 view CLINICAL HISTORY: eval placement of dobhoff tube TECHNIQUE: X-ray image of the abdomen obtained in supine position. COMPARISON: No prior studies available for comparison. FINDINGS: Normal position of feeding tube in the stomach. Gas Pattern: No evidence of bowel obstruction or distention. Soft Tissues: Soft tissues of the abdomen appear normal without evidence of masses or calcifications. Liver, spleen, and kidneys are of normal size and position. IMPRESSION: 1. Normal position of feeding tube in the stomach. 2. No acute abnormalities identified. Electronically signed by Dalton Ashraf 04-05-2025 08:25 AM
--- NOTE | 2025-04-05 09:39 | Critical Care Progress Note ---
Date of Service April 05, 2025 Assessment & Plan (1) Alcohol use disorder: (2) Hypokalemia: (3) Hyponatremia: (4) EMIL (acute kidney injury): Plan Impression: 39-year-old male with history of substance abuse admitted with tremulousness felt to be related to alcohol withdrawal. Recommendations: 1. Neurologic: Agitated delirium. Likely secondary to alcohol withdrawal as well as possible other illicit substances. Continue phenobarb, currently tolerated scheduled doses. Was likely underdosed with phenobarbital. 65 mg IV today then decrease to 32.5 and discontinue. history of substance abuse so we will need to follow closely. - Wean off Precedex initiate oral propranolol 5 mg 3 times daily and clonidine 2. Cardiovascular: No current issues. Continue to follow clinically. 3. Pulmonary: No current issues. Monitoring end-tidal CO2 while on IV phenobarb. 4. Renal: Electrolyte abnormalities have resolved. - NG tube placed to facilitate feedings and medication administration 5. ID: No current issues. 6. GI: Will advance diet as mental status allows. 7. Endocrine: Glycemic control per protocol. 8.: Heme-onc: No current issues. Continue DVT prophylaxis. Mild thrombocytopenia which will be trended. Disposition per primary service. Continued ICU observation given ongoing IV Precedex however if we are able to discontinue this would be stable for transition out of ICU Admission and Anticipated Discharge Date Admission Date: April 01, 2025 Supervising Physician Co-Signing Physician Notes I have personally spent 35 minutes of critical care time in the direct management of this patient. This is a life/limb threatening event. This includes time spent evaluating patient, direct bedside care, chart review, placing orders, interpretation of diagnostic studies, discussion with consultants, patient, and/or family members regarding treatment decisions, as well as other required patient management activities. This time is exclusive of all separately billable procedures, and teaching time and separate from and in addition to any other critical care service time. Subjective No significant overnight events Physical Exam Physical Exam: General: Somnolent with end-tidal CO2 monitoring in place Skin: Warm, dry, Head: Atraumatic Ears, nose, mouth and throat: Moist mucous membranes Cardiovascular: Normal peripheral perfusion Respiratory: No respiratory distress. Gastrointestinal: Non distended Musculoskeletal: No deformity Results & Data Results & Data Vital Signs (Past 12 Hours) Vital Signs Temp Pulse Pulse Resp BP BP Pulse Ox 04/05/25 08:18 63 22 98 04/05/25 08:08 36.7 C 04/05/25 08:00 117/84 04/05/25 08:00 04/05/25 07:58 04/05/25 07:51 63 25 H 99 04/05/25 07:39 63 20 118/76 04/05/25 07:06 71 26 H 97 04/05/25 07:06 75 04/05/25 07:01 118/76 04/05/25 06:48 72 25 H 98 04/05/25 06:12 75 25 H 99 04/05/25 06:00 134/93 04/05/25 05:01 117/76 04/05/25 05:00 97 H 36 H 94 04/05/25 04:54 87 43 H 120/85 04/05/25 04:00 36.6 C 74 28 H 120/85 98 04/05/25 03:00 72 33 H 114/77 98 04/05/25 02:00 36.4 C 77 34 H 152/98 H 98 04/05/25 01:00 101 H 35 H 118/93 95 04/05/25 00:00 126/87 04/05/25 00:00 77 20 97 04/04/25 23:14 36.5 C 04/04/25 23:00 132/95 04/04/25 23:00 67 20 95 04/04/25 22:56 71 04/04/25 22:00 76 20 117/83 99 Pulse Ox O2 Del Method O2 Del Method O2 Flow Rate O2 Flow Rate FiO2 04/05/25 08:18 04/05/25 08:08 04/05/25 08:00 04/05/25 08:00 97 Oxymask 2 04/05/25 07:58 Oxymask 2 04/05/25 07:51 Oxymask 2 04/05/25 07:39 04/05/25 07:06 Oxymask 2 04/05/25 07:06 04/05/25 07:01 04/05/25 06:48 04/05/25 06:12 04/05/25 06:00 04/05/25 05:01 04/05/25 05:00 04/05/25 04:54 04/05/25 04:00 Oxymask 2 04/05/25 03:00 Oxymask 2 04/05/25 02:00 Oxymask 2 04/05/25 01:00 Oxymask 2 04/05/25 00:00 04/05/25 00:00 Oxymask 2 04/04/25 23:14 04/04/25 23:00 04/04/25 23:00 04/04/25 22:56 04/04/25 22:00 Oxymask 4 Critical Care Results & Data Vital Signs (Past 12 Hours) Vital Signs Temp Pulse Pulse Resp BP BP Pulse Ox 04/05/25 10:00 90 39 H 96 04/05/25 10:00 143/108 H 04/05/25 09:00 128/87 04/05/25 09:00 128/87 04/05/25 09:00 64 22 98 04/05/25 08:18 63 22 98 04/05/25 08:08 36.7 C 04/05/25 08:00 117/84 04/05/25 08:00 04/05/25 07:58 04/05/25 07:51 63 25 H 99 04/05/25 07:39 63 20 118/76 04/05/25 07:06 71 26 H 97 04/05/25 07:06 75 04/05/25 07:01 118/76 04/05/25 06:48 72 25 H 98 04/05/25 06:12 75 25 H 99 04/05/25 06:00 134/93 04/05/25 05:01 117/76 04/05/25 05:00 97 H 36 H 94 04/05/25 04:54 87 43 H 120/85 04/05/25 04:00 36.6 C 74 28 H 120/85 98 04/05/25 03:00 72 33 H 114/77 98 04/05/25 02:00 36.4 C 77 34 H 152/98 H 98 04/05/25 01:00 101 H 35 H 118/93 95 04/05/25 00:00 126/87 04/05/25 00:00 77 20 97 04/04/25 23:14 36.5 C 04/04/25 23:00 132/95 04/04/25 23:00 67 20 95 04/04/25 22:56 71 Pulse Ox O2 Del Method O2 Del Method O2 Flow Rate O2 Flow Rate FiO2 04/05/25 10:00 04/05/25 10:00 04/05/25 09:00 04/05/25 09:00 04/05/25 09:00 Oxymask 2 04/05/25 08:18 04/05/25 08:08 04/05/25 08:00 04/05/25 08:00 97 Oxymask 2 04/05/25 07:58 Oxymask 2 04/05/25 07:51 Oxymask 2 04/05/25 07:39 04/05/25 07:06 Oxymask 2 04/05/25 07:06 04/05/25 07:01 04/05/25 06:48 04/05/25 06:12 04/05/25 06:00 04/05/25 05:01 04/05/25 05:00 04/05/25 04:54 04/05/25 04:00 Oxymask 2 04/05/25 03:00 Oxymask 2 04/05/25 02:00 Oxymask 2 04/05/25 01:00 Oxymask 2 04/05/25 00:00 04/05/25 00:00 Oxymask 2 04/04/25 23:14 04/04/25 23:00 04/04/25 23:00 04/04/25 22:56 Lab & Micro Results (Past 24 Hours) RBC 2.59 M/uL (4.70-6.10) L 04/05/25 WBC 9.61 K/ul (4.8-10.8) 04/05/25 Hgb 10.1 g/dl (14.0-18.0) L 04/05/25 Hct 27.8 % (42.0-52.0) L 04/05/25 MCV 107.3 fL (80.0-100.0) H 04/05/25 MCH 39.0 pg (25.0-34.0) H 04/05/25 MCHC 36.3 g/dL (32.0-36.0) H 04/05/25 RDW Standard Deviation 59.1 fL (36.4-46.3) H 04/05/25 RDW Coefficient of Variation 15.0 % (11.5-14.5) H 04/05/25 Plt Count 151 K/uL (130-400) 04/05/25 MPV 9.6 fL (9.4-12.4) 04/05/25 Neutrophils (%) (Auto) 88.3 % 04/05/25 Lymphocytes (%) (Auto) 6.7 % 04/05/25 Monocytes # (Auto) 0.31 K/uL (0.11-0.59) 04/05/25 Eosinophils # (Auto) 0.02 K/uL (0.00-0.50) 04/05/25 Immature Granulocyte % (Auto) 1.2 % 04/05/25 Neutrophils # (Auto) 8.48 K/uL (1.40-6.50) H 04/05/25 Lymphocytes # (Auto) 0.64 K/uL (1.20-3.40) L 04/05/25 Monocytes # (Auto) 0.31 K/uL (0.11-0.59) 04/05/25 Eosinophils # (Auto) 0.02 K/uL (0.00-0.50) 04/05/25 Basophils # (Auto) 0.04 K/uL (0.00-0.20) 04/05/25 Immature Granulocyte # (Auto) 0.12 K/uL (0.01-0.20) 5 Na 138 mmol/L (136-145) 04/05/25 K 3.8 mmol/L (3.5-5.1) 04/05/25 Cl 103 mmol/L (98-107) 04/05/25 CO2 26 mmol/L (21-32) 04/05/25 Anion Gap 9 (3-11) 04/05/25 BUN 21 mg/dl (6-23) 04/05/25 Creatinine 1.11 mg/dl (0.6-1.4) 04/05/25 BUN/Creatinine Ratio 18.9 (10-20) 04/05/25 Glu 96 mg/dl (70-99(Fasting)) 04/05/25 Ca 7.9 mg/dl (8.6-10.3) L 04/05/25 Phosphorus Level 4.3 mg/dl (2.5-4.9) 04/05/25 Mg 2.0 mg/dl (1.7-2.4) 04/05/25 04:28 Calcium Level 7.9 mg/dl (8.6-10.3) L 04/05/25 04:28 Diagnostic Findings (Past 24 Hours) KUB X-Ray 04/05/25 07:04 EXAM: XR KUB/Abdomen 1 view CLINICAL HISTORY: eval placement of dobhoff tube TECHNIQUE: X-ray image of the abdomen obtained in supine position. COMPARISON: No prior studies available for comparison. FINDINGS: Normal position of feeding tube in the stomach. Gas Pattern: No evidence of bowel obstruction or distention. Soft Tissues: Soft tissues of the abdomen appear normal without evidence of masses or calcifications. Liver, spleen, and kidneys are of normal size and position. IMPRESSION: 1. Normal position of feeding tube in the stomach. 2. No acute abnormalities identified. Electronically signed by Dalton Ashraf 04-05-2025 08:25 AM Chest X-Ray 04/05/25 07:23 EXAM: XR chest 1V portable CLINICAL HISTORY: Evaluate due to hypoxia TECHNIQUE: X-ray image of the chest obtained in 1 frontal projection. COMPARISON: No prior chest X-ray. X-ray abdomen on the 04/05/2025 06:21:55 [employer]ORE W[employer] OPERATIONS MANAGER was reviewed. FINDINGS: The feeding tube is seen extending below the diaphragm, and its tip within the stomach as seen in abdominal X-ray performed on the same day. Pulmonary Parenchyma: Marked patchy and confluent air space opacities in bilateral lungs, likely pulmonary edema vs infection. The right CP angle is normal. The left CP angle is not visualised properly. Heart and Mediastinum: Enlarged cardiac silhouette. No mediastinal widening or masses. No hilar or mediastinal lymphadenopathy. Bony Thorax: Bony thorax appears intact without fractures or deformities. Soft Tissues: Soft tissues overlying the chest wall are unremarkable. IMPRESSION: - Extensive patchy and confluent air space opacities in bilateral lungs, can be pulmonary edema vs infection. Clinical and lab correlation is suggested. Electronically signed by Dalton Ashraf 04-05-2025 08:16 AM I & O Totals 24 Hours 04/04/25 04/05/25 04/06/25 06:59 06:59 06:59 Intake Total 2699.5 / 2699.5 1396.180 / 1396.180 382.167 / 382.167 Output Total 1760 / 1760 939 / 939 60 / 60 Balance 939.5 / 939.5 457.180 / 457.180 322.167 / 322.167 Cumulative 03/31/25 20:38 thru 04/05/25 10:25 Intake Total 30798.431 Output Total 5857 Balance 6066.431 RT Ventilator Mngmt (Last Documented) Ventilator Ordered Settings Respiratory Rate 39 04/05/25 10:00 Fraction of Inspired Oxygen 2 04/05/25 07:51 Ventilator - PT Measurements Respiratory Rate 39 End-Tidal CO2 29 Coding Level of Care Code 98588 CRITICAL CARE 1ST 30-74M Diagnoses Alcohol use disorder F10.90 Hypokalemia E87.6 Hyponatremia E87.1 EMIL (acute kidney injury) N17.9
--- NOTE | 2025-04-05 09:43 | Nephrology Progress Note ---
Date of Service April 05, 2025 Assessment & Plan (1) Hyponatremia: Plan: Sodium normalized. Volume status acceptable. Document strict I/O's. Monitor metabolic profile daily. No additional nephrology recommendations a this time. IVF + nutrition per ICU team. I will sign-off. Please call with questions or concerns. (2) EMIL (acute kidney injury): Plan: Improved with IVF and supportive care. Clinical presentation consistent with hypovolemia and ATN. Admission and Anticipated Discharge Date Admission Date: April 01, 2025 Subjective Urine output dropped overnight - responsive to fluid bolus. [place] draining concentrated yellow urine. Tmax 38.4 at midnight April 04 but afebrile past 24 hours. Sedated this AM. Moving all extremities but remains encephalopathic. 1:1 at bedside. Review of Systems Review of Systems: Unobtainable due to cognitive status Physical Exam Constitutional: + altered mental status; no acute distre ss ENMT: external ear and nose normal, oropharynx normal (NGT) Respiratory: normal respiratory effort; no labored breathing Auscultation: lungs clear to auscultation bilaterally and + rales (few scattered) Cardiovascular: Rate/Rhythm: regular rate and regular rhythm Heart Sounds: normal S1 and normal S2 Extremities: no edema Musculoskeletal: Extremities: no cyanosis and no clubbing Skin: no jaundice Results & Data Vital Signs (Past 12 Hours) Vital Signs Temp Pulse Pulse Resp BP BP Pulse Ox 04/05/25 08:18 63 22 98 04/05/25 08:08 36.7 C 04/05/25 08:00 117/84 04/05/25 08:00 04/05/25 07:58 04/05/25 07:51 63 25 H 99 04/05/25 07:39 63 20 118/76 04/05/25 07:06 71 26 H 97 04/05/25 07:06 75 04/05/25 07:01 118/76 04/05/25 06:48 72 25 H 98 04/05/25 06:12 75 25 H 99 04/05/25 06:00 134/93 04/05/25 05:01 117/76 04/05/25 05:00 97 H 36 H 94 04/05/25 04:54 87 43 H 120/85 04/05/25 04:00 36.6 C 74 28 H 120/85 98 04/05/25 03:00 72 33 H 114/77 98 04/05/25 02:00 36.4 C 77 34 H 152/98 H 98 04/05/25 01:00 101 H 35 H 118/93 95 04/05/25 00:00 126/87 04/05/25 00:00 77 20 97 04/04/25 23:14 36.5 C 04/04/25 23:00 132/95 04/04/25 23:00 67 20 95 04/04/25 22:56 71 04/04/25 22:00 76 20 117/83 99 Pulse Ox O2 Del Method O2 Del Method O2 Flow Rate O2 Flow Rate FiO2 04/05/25 08:18 04/05/25 08:08 04/05/25 08:00 04/05/25 08:00 97 Oxymask 2 04/05/25 07:58 Oxymask 2 04/05/25 07:51 Oxymask 2 04/05/25 07:39 04/05/25 07:06 Oxymask 2 04/05/25 07:06 04/05/25 07:01 04/05/25 06:48 04/05/25 06:12 04/05/25 06:00 04/05/25 05:01 04/05/25 05:00 04/05/25 04:54 04/05/25 04:00 Oxymask 2 04/05/25 03:00 Oxymask 2 04/05/25 02:00 Oxymask 2 04/05/25 01:00 Oxymask 2 04/05/25 00:00 04/05/25 00:00 Oxymask 2 04/04/25 23:14 04/04/25 23:00 04/04/25 23:00 04/04/25 22:56 04/04/25 22:00 Oxymask 4 Laboratory Results Laboratory Results - last 24 hr 04/04/25 04/04/25 04/04/25 09:41 09:45 10:35 WBC RBC Hgb Hct MCV MCH MCHC RDW Std Deviation RDW Coeff of Nikita Plt Count MPV Immature Gran % (Auto) Neut % (Auto) Lymph % (Auto) Benzie % (Auto) Eos % (Auto) Baso % (Auto) Neut # (Auto) Lymph # (Auto) Benzie # (Auto) Eos # (Auto) Baso # (Auto) Immature Gran # (Auto) Sodium 134 L Potassium 4.7 Chloride 99 Carbon Dioxide 28 Anion Gap 7 BUN 23 Creatinine 1.30 Est Cr Clr Drug Dosing 87.8 eGFR 71.22 BUN/Creatinine Ratio 17.7 Glucose 108 H Calcium 8.0 L Phosphorus Magnesium Ammonia 17.0 L Stl C. diff Tox B Gene Negative Cdiff Gene Stl C. diff [id number] NEGATIVE 04/04/25 04/04/25 04/04/25 13:57 18:16 19:41 WBC RBC Hgb Hct MCV MCH MCHC RDW Std Deviation RDW Coeff of Nikita Plt Count MPV Immature Gran % (Auto) Neut % (Auto) Lymph % (Auto) Benzie % (Auto) Eos % (Auto) Baso % (Auto) Neut # (Auto) Lymph # (Auto) Benzie # (Auto) Eos # (Auto) Baso # (Auto) Immature Gran # (Auto) Sodium 136 136 Potassium 4.3 TNP 4.1 Chloride 100 101 Carbon Dioxide 29 29 Anion Gap 7 6 BUN 22 21 Creatinine 1.25 1.26 Est Cr Clr Drug Dosing 91.3 90.6 eGFR 74.65 73.94 BUN/Creatinine Ratio 17.6 16.7 Glucose 99 94 Calcium 8.0 L 8.0 L Phosphorus Magnesium Ammonia Stl C. diff Tox B Gene Stl C. diff [id number] 04/05/25 04:28 WBC 9.61 RBC 2.59 L Hgb 10.1 L Hct 27.8 L MCV 107.3 H MCH 39.0 H MCHC 36.3 H RDW Std Deviation 59.1 H RDW Coeff of Nikita 15.0 H Plt Count 151 MPV 9.6 Immature Gran % (Auto) 1.2 Neut % (Auto) 88.3 Lymph % (Auto) 6.7 Benzie % (Auto) 3.2 Eos % (Auto) 0.2 Baso % (Auto) 0.4 Neut # (Auto) 8.48 H Lymph # (Auto) 0.64 L Benzie # (Auto) 0.31 Eos # (Auto) 0.02 Baso # (Auto) 0.04 Immature Gran # (Auto) 0.12 Sodium 138 Potassium 3.8 Chloride 103 Carbon Dioxide 26 Anion Gap 9 BUN 21 Creatinine 1.11 Est Cr Clr Drug Dosing 102.9 eGFR 86.09 BUN/Creatinine Ratio 18.9 Glucose 96 Calcium 7.9 L Phosphorus 4.3 D Magnesium 2.0 Ammonia Stl C. diff Tox B Gene Stl C. diff [id number] Diagnostic Findings XR chest 1V portable COMPARISON: No prior chest X-ray. X-ray abdomen on the 04/05/2025 06:21:55 SIGN BUILDER SUPERVISOR was reviewed. FINDINGS: The feeding tube is seen extending below the diaphragm, and its tip within the stomach as seen in abdominal X-ray performed on the same day. Pulmonary Parenchyma: Marked patchy and confluent air space opacities in bilateral lungs, likely pulmonary edema vs infection. The right CP angle is normal. The left CP angle is not visualized properly. Heart and Mediastinum: Enlarged cardiac silhouette. No mediastinal widening or masses. No hilar or mediastinal lymphadenopathy. Bony Thorax: Bony thorax appears intact without fractures or deformities. Soft Tissues: Soft tissues overlying the chest wall are unremarkable. IMPRESSION: Extensive patchy and confluent air space opacities in bilateral lungs, can be pulmonary edema vs infection. PG Care Time/CCT Total # of Minutes Spent Total Time Spent with Patient: Total time spent is greater than 50% in coordination of care (as documented) at patient's floor/unit and/or counseling patient: Coding Level of Care Code 51742 SUB INP/OBS CARE 2/35MIN Diagnoses Hyponatremia E87.1 EMIL (acute kidney injury) N17.9
--- NOTE | 2025-04-05 09:50 | Hospitalist Progress Note ---
Date of Service April 05, 2025 Assessment & Plan (1) Alcohol withdrawal delirium: Plan: -pt calmer on precedex drip -1:1 -critical care following -plan for tube feeding to begin (2) Acute hyponatremia: Plan: -Na+138 today -IVF stopped. -nephrology consult appreciated -given DDAVP (3) Acute renal failure (ARF): Plan: -cr treading down with IVF -likely pre-renal -Renal US WNL -con't IVF -cr 1.11 -nephrology following (4) Hypokalemia: Plan: -con't relpletion -K+ increased to 4.0 Plan 39-year-old male with history of substance abuse, daily alcohol use presenting with shaking and weakness. Patient found to have acute hyponatremia with sodium = 119 as well as hypokalemia with K = 2.3. Appears to be very dry on exam with EMIL, BUN = 60, creatinine = 4.79 from normal baseline previously. Admission and Anticipated Discharge Date Admission Date: April 01, 2025 Subjective Pt sedated on precedex drip. No events overnight. Review of Systems Review of Systems: CONST: Negative for fever, body aches and chills. HENT: Negative for neck pain/stiffness, headache, congestion, sore throat, swelling. EYES: Negative for discharge/pain or vision changes. RESP: Negative for cough/hemoptysis and shortness of breath. CV: Negative chest pain, difficulty breathing, palpitations. ABD: Negative pain, nausea, vomiting. : Negative increase frequency, dysuria, blood in urine or stool. MUSC: Negative for muscle aches, edema. SKIN: Negative rash, lesions/sores. NEURO: Negative headache, dizziness, weakness. Physical Exam Physical Exam: GENERAL APPEARANCE NAD, activity normal for age, well developed/ well nourished, no cyanosis, pallor, or diaphoresis. EYES lids/conjunctiva normal. EARS/NOSE/THROAT Mucous membranes moist, nares normal, lips/teeth normal uvula midline without oral pharyngeal erythema, exudate or swelling TMs normal bilaterally. No lymphangitis/lymphedema. HEAD/NECK normocephalic atraumatic, no facial trauma, neck is supple. RESPIRATORY respiratory effort normal, speaks in full sentences, no tripod position, no accessory muscle use. Lungs clear to auscultation without rhonchi, wheezes, rales CARDIAC Regular rate and rhythm, no edema. ABDOMINAL Soft, ND/NT. No evidence of fluid wave. No pulsatile masses on exam, rebound tenderness, Dai sign or pain over Mcburney's point. MUSCLES/EXTREMITIES No abnormal range of motion, no swelling. SKIN Warm, pink and dry. No rashes, dermatoses, petechiae or lesions. NEUROLOGICAL Speech is clear and appropriate. Normal level of consciousness. Gait and coordination are normal. 5/5 strength in all extremities. PSYCH Normal mood and affect. Judgement/competence is appropriate Results & Data Results & Data Vital Signs (Past 12 Hours) Vital Signs Temp Pulse Pulse Resp BP BP Pulse Ox 04/05/25 09:00 128/87 04/05/25 09:00 64 22 98 04/05/25 08:18 63 22 98 04/05/25 08:08 36.7 C 04/05/25 08:00 117/84 04/05/25 08:00 04/05/25 07:58 04/05/25 07:51 63 25 H 99 04/05/25 07:39 63 20 118/76 04/05/25 07:06 71 26 H 97 04/05/25 07:06 75 04/05/25 07:01 118/76 04/05/25 06:48 72 25 H 98 04/05/25 06:12 75 25 H 99 04/05/25 06:00 134/93 04/05/25 05:01 117/76 04/05/25 05:00 97 H 36 H 94 04/05/25 04:54 87 43 H 120/85 04/05/25 04:00 36.6 C 74 28 H 120/85 98 04/05/25 03:00 72 33 H 114/77 98 04/05/25 02:00 36.4 C 77 34 H 152/98 H 98 04/05/25 01:00 101 H 35 H 118/93 95 04/05/25 00:00 126/87 04/05/25 00:00 77 20 97 04/04/25 23:14 36.5 C 04/04/25 23:00 132/95 04/04/25 23:00 67 20 95 04/04/25 22:56 71 04/04/25 22:00 76 20 117/83 99 Pulse Ox O2 Del Method O2 Del Method O2 Flow Rate O2 Flow Rate FiO2 04/05/25 09:00 04/05/25 09:00 Oxymask 2 04/05/25 08:18 04/05/25 08:08 04/05/25 08:00 04/05/25 08:00 97 Oxymask 2 04/05/25 07:58 Oxymask 2 04/05/25 07:51 Oxymask 2 04/05/25 07:39 04/05/25 07:06 Oxymask 2 04/05/25 07:06 04/05/25 07:01 04/05/25 06:48 04/05/25 06:12 04/05/25 06:00 04/05/25 05:01 04/05/25 05:00 04/05/25 04:54 04/05/25 04:00 Oxymask 2 04/05/25 03:00 Oxymask 2 04/05/25 02:00 Oxymask 2 04/05/25 01:00 Oxymask 2 04/05/25 00:00 04/05/25 00:00 Oxymask 2 04/04/25 23:14 04/04/25 23:00 04/04/25 23:00 04/04/25 22:56 04/04/25 22:00 Oxymask 4 PG Care Time/CCT Total # of Minutes Spent Total Time Spent with Patient: Total time spent is greater than 50% in coordination of care (as documented) at patient's floor/unit and/or counseling patient: Coding Level of Care Code 40879 SUB INP/OBS CARE 2/35MIN Diagnoses Alcohol withdrawal delirium F10.931 Acute hyponatremia E87.1 Acute renal failure (ARF) N17.9 Hypokalemia E87.6
[2025-04-05] MEDS: PEPTAMEN 1.5 CAL 1,000 ML BAG NG SCH (12:30)
[2025-04-05] MEDS: TUBE FEEDING WATER FLUSH NG SCH (13:08)
[2025-04-05] MEDS: PROPRANOLOL HCL 10 MG TAB PO SCH (14:25)
--- NOTE | 2025-04-05 15:07 | Electrocardiogram Report ---
Test Reason : Blood Pressure : */* mmHG Vent. Rate : 96 BPM Atrial Rate : 96 BPM P-R Int : 144 ms QRS Dur : 82 ms QT Int : 386 ms P-R-T Axes : 29 22 25 degrees QTcB Int : 487 ms Normal sinus rhythm Possible Left atrial enlargement QTcB >= 480 msec Abnormal ECG When compared with ECG of 04-Apr-2025 10:12, (unconfirmed) T wave inversion less evident in Inferior leads Confirmed by Ru Soto ([id number]) on 04/05/2025 3:07:23 PM Referred By: REFERRED SELF Confirmed By: Ru Soto
[2025-04-05] MEDS: diazePAM 5 MG/ML 10ML VIAL ONE (18:51)
--- NOTE | 2025-04-05 20:11 | Communication Note ---
Date of Service: April 05, 2025 1840 Patient sitting up in bed, is pushing the aid and rolling himself hanging over the side of the bed. He is currently not following commands as well as not re- directable. He is currently on max infusion rate of Precedex as well as on tapering doses of his Phenobarb. As he is once again tachycardic and Hypertensive will provide valium as supportive agent for likely continued detox. If behavior becomes more of an issue will consider adding olanzipine. Could also consider adding Seroquel for delirium as well. Hosea NORTON (ACNP-)
[2025-04-05] MEDS: FUROSEMIDE INJ 20 MG/2 ML VIAL IV ONE (20:12)
[2025-04-05] MEDS: BANATROL TF 60 ML LIQUID PKT PEG SCH (20:12)
[2025-04-06 05:22] LABS: Anion Gap 10.0 (3-11); Blood Urea Nitrogen 25.0 mg/dl (6-23); Calcium 7.9 mg/dl (8.6-10.3); Carbon Dioxide 24.0 mmol/L (21-32); Chloride 106.0 mmol/L (98-107); Creatinine Clr Calc Pharmacy 109.8 ml/min; Glucose 101.0 mg/dl (70-99(Fasting)); Magnesium 1.8 mg/dl (1.7-2.4); Potassium 3.7 mmol/L (3.5-5.1); Sodium 140.0 mmol/L (136-145)
[2025-04-06] MEDS: POTASSIUM CHLORIDE / WTR 10 MEQ/100 ML PLCT IV SCH (06:12)
[2025-04-06] MEDS: MAGNESIUM SULFATE / D5W 1 GM/100 ML BAG IV SCH (06:19)
[2025-04-06] MEDS: THIAMINE HCL 100 MG TAB PO SCH (08:13)
[2025-04-06] MEDS: MULTI VIT W/MINERALS LIQUID 15 ML UDC NG SCH (08:13)
--- NOTE | 2025-04-06 09:11 | Critical Care Progress Note ---
Date of Service April 06, 2025 Assessment & Plan (1) Alcohol use disorder: (2) Hypokalemia: (3) Hyponatremia: (4) EMIL (acute kidney injury): Plan Impression: 39-year-old male with history of substance abuse admitted with tremulousness felt to be related to alcohol withdrawal. Recommendations: 1. Neurologic: Agitated delirium. Likely secondary to alcohol withdrawal as well as possible other illicit substances. Continue phenobarb, currently tolerated scheduled doses. Was likely underdosed with phenobarbital. 65 mg IV today then decrease to 32.5 and discontinue. history of substance abuse so we will need to follow closely. - Increase clonidine to 0.2 mg daily and decrease propranolol interval to twice daily dosing - Additional thiamine supplementation: I doubt this is sales support representative of Warnicke's encephalopathy - Ammonia negative, if there is not significant improvement in the next 24 to 48 hours would consider intubation to obtain MRI for advanced neurologic imaging and consider LP. Patient is afebrile, not showing signs of meningismus, clinical history most consistent with substance use disorder; unlikely to represent an undiagnosed paraneoplastic process 2. Cardiovascular: No current issues. Continue to follow clinically. 3. Pulmonary: No current issues. Monitoring end-tidal CO2 while on IV phenobarb. 4. Renal: Electrolyte abnormalities have resolved. - NG tube placed to facilitate feedings and medication administration 5. ID: No current issues. 6. GI: Tolerating supplemental tube feeds 7. Endocrine: Glycemic control per protocol. 8.: Heme-onc: No current issues. Continue DVT prophylaxis. Mild thrombocytopenia which will be trended. Disposition per primary service. Continued ICU observation given ongoing IV Precedex however if we are able to discontinue this would be stable for transition out of ICU Admission and Anticipated Discharge Date Admission Date: April 01, 2025 Supervising Physician Co-Signing Physician Notes I have personally spent 35 minutes of critical care time in the direct management of this patient. This is a life/limb threatening event. This includes time spent evaluating patient, direct bedside care, chart review, placing orders, interpretation of diagnostic studies, discussion with consultants, patient, and/or family members regarding treatment decisions, as well as other required patient management activities. This time is exclusive of all separately billable procedures, and teaching time and separate from and in addition to any other critical care service time. Subjective Overnight patient still requiring bolus dose sedatives for episodes of severe agitation. Patient may be slowly improving as he has been able to speak a few words intelligibly at this point however he is still by a large part profoundly encephalopathic Physical Exam Physical Exam: General: Somnolent with end-tidal CO2 monitoring in place Skin: Warm, dry, Head: Atraumatic Ears, nose, mouth and throat: Moist mucous membranes Cardiovascular: Normal peripheral perfusion Respiratory: No respiratory distress. Gastrointestinal: Non distended Musculoskeletal: Left below the knee amputation Results & Data Results & Data Vital Signs (Past 12 Hours) Vital Signs Temp Pulse Pulse Resp BP BP Pulse Ox 04/06/25 08:21 93 H 26 H 120/82 04/06/25 04:18 67 29 H 95 04/06/25 04:00 140/78 04/06/25 03:00 146/91 H 04/06/25 03:00 77 30 H 98 04/06/25 02:00 145/95 H 04/06/25 02:00 90 40 H 95 04/06/25 01:03 84 38 H 96 04/06/25 01:00 149/94 H 04/06/25 00:38 100 H 45 H 149/100 H 04/06/25 00:35 37.4 C 04/06/25 00:00 149/100 H 04/06/25 00:00 84 27 H 98 04/06/25 00:00 66 04/05/25 23:00 96 H 19 95 04/05/25 22:00 91 H 38 H 145/99 H 94 04/05/25 21:45 36.9 C O2 Del Method O2 Flow Rate 04/06/25 08:21 04/06/25 04:18 04/06/25 04:00 04/06/25 03:00 04/06/25 03:00 04/06/25 02:00 04/06/25 02:00 04/06/25 01:03 04/06/25 01:00 04/06/25 00:38 04/06/25 00:35 04/06/25 00:00 04/06/25 00:00 04/06/25 00:00 04/05/25 23:00 04/05/25 22:00 Oxymask 2 04/05/25 21:45 Critical Care Results & Data Vital Signs (Past 12 Hours) Vital Signs Temp Pulse Resp BP Pulse Ox Pulse Ox O2 Del Method 04/06/25 09:15 36.5 C 04/06/25 09:03 67 30 H 95 Oxymask 04/06/25 08:21 93 H 26 H 120/82 04/06/25 08:00 120/82 04/06/25 08:00 120/82 04/06/25 08:00 120/82 04/06/25 08:00 67 29 H 97 Oxymask 04/06/25 08:00 98 04/06/25 07:26 145/92 H 04/06/25 07:26 145/92 H 04/06/25 07:21 67 24 98 04/06/25 06:45 87 36 H 95 04/06/25 04:18 67 29 H 95 04/06/25 04:00 140/78 04/06/25 03:00 146/91 H 04/06/25 03:00 77 30 H 98 O2 Del Method O2 Flow Rate O2 Flow Rate 04/06/25 09:15 04/06/25 09:03 2 04/06/25 08:21 04/06/25 08:00 04/06/25 08:00 04/06/25 08:00 04/06/25 08:00 2 04/06/25 08:00 Oxymask 2 04/06/25 07:26 04/06/25 07:26 04/06/25 07:21 04/06/25 06:45 04/06/25 04:18 04/06/25 04:00 04/06/25 03:00 04/06/25 03:00 Lab & Micro Results (Past 24 Hours) No Data to Display Na 140 mmol/L (136-145) 04/06/25 K 3.7 mmol/L (3.5-5.1) 04/06/25 Cl 106 mmol/L (98-107) 04/06/25 CO2 24 mmol/L (21-32) 04/06/25 Anion Gap 10 (3-11) 04/06/25 BUN 25 mg/dl (6-23) H 04/06/25 Creatinine 1.04 mg/dl (0.6-1.4) 04/06/25 BUN/Creatinine Ratio 24.0 (10-20) H 04/06/25 Glu 101 mg/dl (70-99(Fasting)) H 04/06/25 Ca 7.9 mg/dl (8.6-10.3) L 04/06/25 Phosphorus Level 3.8 mg/dl (2.5-4.9) 04/06/25 Mg 1.8 mg/dl (1.7-2.4) 04/06/25 04:34 Calcium Level 7.9 mg/dl (8.6-10.3) L 04/06/25 04:34 I & O Totals 24 Hours 04/05/25 04/06/25 04/07/25 06:59 06:59 06:59 Intake Total 1396.180 / 1396.180 915.083 / 915.083 750.833 / 750.833 Output Total 939 / 939 731 / 731 280 / 280 Balance 457.180 / 457.180 184.083 / 184.083 470.833 / 470.833 Cumulative 03/31/25 20:38 thru 04/06/25 13:44 Intake Total 64047.180 Output Total 6815 Balance 6399.180 RT Ventilator Mngmt (Last Documented) Ventilator Ordered Settings Respiratory Rate 30 04/06/25 09:03 Fraction of Inspired Oxygen 2 04/05/25 07:51 Ventilator - PT Measurements Respiratory Rate 30 End-Tidal CO2 29 Coding Level of Care Code 01911 CRITICAL CARE 1ST 30-74M Diagnoses Alcohol use disorder F10.90 Hypokalemia E87.6 Hyponatremia E87.1 EMIL (acute kidney injury) N17.9
[2025-04-06] MEDS: THIAMINE HCL 500 MG in SODIUM CHLORIDE 0.9% 50 ML IV SCH (10:23)
--- NOTE | 2025-04-06 11:07 | Hospitalist Progress Note ---
Date of Service April 06, 2025 Assessment & Plan (1) Alcohol withdrawal delirium: Plan: -pt on precedex drip, phenobarbital -1:1 -critical care following -plan for tube feeding to begin (2) Acute hyponatremia: Plan: -Na+138 today -IVF stopped. -nephrology consult appreciated -given DDAVP (3) Acute renal failure (ARF): Plan: -cr treading down with IVF -likely pre-renal -Renal US WNL -con't IVF -cr 1.11 -nephrology following (4) Hypokalemia: Plan: -con't relpletion -K+ increased to 4.0 Plan 39-year-old male with history of substance abuse, daily alcohol use presenting with shaking and weakness. Patient found to have acute hyponatremia with sodium = 119 as well as hypokalemia with K = 2.3. Appears to be very dry on exam with EMIL, BUN = 60, creatinine = 4.79 from normal baseline previously. Admission and Anticipated Discharge Date Admission Date: April 01, 2025 Subjective Pt with increased agitation yesterday, precedex was increased. Review of Systems Review of Systems: CONST: Negative for fever, body aches and chills. HENT: Negative for neck pain/stiffness, headache, congestion, sore throat, swelling. EYES: Negative for discharge/pain or vision changes. RESP: Negative for cough/hemoptysis and shortness of breath. CV: Negative chest pain, difficulty breathing, palpitations. ABD: Negative pain, nausea, vomiting. : Negative increase frequency, dysuria, blood in urine or stool. MUSC: Negative for muscle aches, edema. SKIN: Negative rash, lesions/sores. NEURO: Sedated Physical Exam Physical Exam: GENERAL APPEARANCE Sedated EYES lids/conjunctiva normal. EARS/NOSE/THROAT Mucous membranes moist, nares normal, lips/teeth normal uvula midline without oral pharyngeal erythema, ex udate or swelling TMs normal bilaterally. No lymphangitis/lymphedema. HEAD/NECK normocephalic atraumatic, no facial trauma, neck is supple. RESPIRATORY respiratory effort normal, speaks in full sentences, no tripod position, no accessory muscle use. Lungs clear to auscultation without rhonchi, wheezes, rales CARDIAC Regular rate and rhythm, no edema. ABDOMINAL Soft, ND/NT. No evidence of fluid wave. No pulsatile masses on exam, rebound tenderness, Dai sign or pain over Mcburney's point. MUSCLES/EXTREMITIES No abnormal range of motion, no swelling. SKIN Warm, pink and dry. No rashes, dermatoses, petechiae or lesions. NEUROLOGICAL Sedated PSYCH Sedated Results & Data Results & Data Vital Signs (Past 12 Hours) Vital Signs Temp Pulse Resp BP Pulse Ox Pulse Ox O2 Del Method 04/06/25 09:15 36.5 C 04/06/25 09:03 67 30 H 95 Oxymask 04/06/25 08:21 93 H 26 H 120/82 04/06/25 08:00 120/82 04/06/25 08:00 120/82 04/06/25 08:00 120/82 04/06/25 08:00 67 29 H 97 Oxymask 04/06/25 08:00 98 04/06/25 07:26 145/92 H 04/06/25 07:26 145/92 H 04/06/25 07:21 67 24 98 04/06/25 06:45 87 36 H 95 04/06/25 04:18 67 29 H 95 04/06/25 04:00 140/78 04/06/25 03:00 146/91 H 04/06/25 03:00 77 30 H 98 04/06/25 02:00 145/95 H 04/06/25 02:00 90 40 H 95 04/06/25 01:03 84 38 H 96 04/06/25 01:00 149/94 H 04/06/25 00:38 100 H 45 H 149/100 H 04/06/25 00:35 37.4 C 04/06/25 00:00 149/100 H 04/06/25 00:00 84 27 H 98 04/06/25 00:00 66 O2 Del Method O2 Flow Rate O2 Flow Rate 04/06/25 09:15 04/06/25 09:03 2 04/06/25 08:21 04/06/25 08:00 04/06/25 08:00 04/06/25 08:00 04/06/25 08:00 2 04/06/25 08:00 Oxymask 2 04/06/25 07:26 04/06/25 07:26 04/06/25 07:21 04/06/25 06:45 04/06/25 04:18 04/06/25 04:00 04/06/25 03:00 04/06/25 03:00 04/06/25 02:00 04/06/25 02:00 04/06/25 01:03 04/06/25 01:00 04/06/25 00:38 04/06/25 00:35 04/06/25 00:00 04/06/25 00:00 04/06/25 00:00 PG Care Time/CCT Total # of Minutes Spent Total Time Spent with Patient: Total time spent is greater than 50% in coordination of care (as documented) at patient's floor/unit and/or counseling patient: Coding Level of Care Code 32943 SUB INP/OBS CARE 2/35MIN Diagnoses Alcohol withdrawal delirium F10.931 Acute hyponatremia E87.1 Acute renal failure (ARF) N17.9 Hypokalemia E87.6
--- NOTE | 2025-04-06 14:38 | Electrocardiogram Report ---
Test Reason : Blood Pressure : */* mmHG Vent. Rate : 62 BPM Atrial Rate : 62 BPM P-R Int : 156 ms QRS Dur : 88 ms QT Int : 454 ms P-R-T Axes : 25 47 40 degrees QTcB Int : 460 ms Normal sinus rhythm Normal ECG When compared with ECG of 05-Apr-2025 09:58, Vent. rate has decreased by 34 bpm Confirmed by Ru Soto ([id number]) on 04/06/2025 2:37:47 PM Referred By: REFERRED SELF Confirmed By: Ru Soto
[2025-04-06] MEDS: PROPRANOLOL HCL 10 MG TAB PO SCH (20:26)
[2025-04-07 05:15] LABS: Anion Gap 9.0 (3-11); Blood Urea Nitrogen 17.0 mg/dl (6-23); Calcium 8.4 mg/dl (8.6-10.3); Carbon Dioxide 24.0 mmol/L (21-32); Chloride 109.0 mmol/L (98-107); Creatinine Clr Calc Pharmacy 116.5 ml/min; Glucose 102.0 mg/dl (70-99(Fasting)); Magnesium 2.0 mg/dl (1.7-2.4); Potassium 4.0 mmol/L (3.5-5.1); Sodium 142.0 mmol/L (136-145)
[2025-04-07] MEDS: MAGNESIUM SULFATE / D5W 1 GM/100 ML BAG IV SCH (06:15)
--- NOTE | 2025-04-07 07:46 | Critical Care Progress Note ---
Date of Service April 07, 2025 Assessment & Plan (1) Alcohol use disorder: (2) Hypokalemia: (3) Hyponatremia: (4) EMIL (acute kidney injury): Plan Impression: 39-year-old male with history of substance abuse admitted with tremulousness felt to be related to alcohol withdrawal. Recommendations: 1. Neurologic: Agitated delirium. Likely secondary to alcohol withdrawal as well as possible other illicit substances. Continue phenobarb, currently tolerated scheduled doses. Was likely underdosed with phenobarbital. 65 mg IV today then decrease to 32.5 and discontinue. history of substance abuse so we will need to follow closely. - Increase clonidine to 0.2 mg daily and decrease propranolol interval to twice daily dosing - Additional thiamine supplementation: I doubt this is mortician supplies sales representative of Warnicke's encephalopathy - Ammonia negative, if there is not significant improvement in the next 24 to 48 hours would consider intubation to obtain MRI for advanced neurologic imaging and consider LP. Patient is afebrile, not showing signs of meningismus, clinical history most consistent with substance use disorder; unlikely to represent an undiagnosed paraneoplastic process 2. Cardiovascular: Mild tachycardia, continue propranolol 5 mg 3 times daily continue clonidine 0.2 mg daily 3. Pulmonary: No current issues. Monitoring end-tidal CO2 while on phenobarb. 4. Renal: Electrolyte abnormalities have resolved. - NG tube placed to facilitate feedings and medication administration 5. ID: No current issues. 6. GI: Tolerating supplemental tube feeds 7. Endocrine: Glycemic control per protocol. 8.: Heme-onc: No current issues. Continue DVT prophylaxis. Mild thrombocytopenia which will be trended. Disposition per primary service. Continued ICU observation given ongoing IV Precedex however if we are able to discontinue this would be stable for transition out of ICU Admission and Anticipated Discharge Date Admission Date: April 01, 2025 Supervising Physician Co-Signing Physician Notes I have personally spent 40 minutes of critical care time in the direct management of this patient. This is a life/limb threatening event. This includes time spent evaluating patient, direct bedside care, chart review, placing orders, interpretation of diagnostic studies, discussion with consultants, patient, and/or family members regarding treatment decisions, as well as other required patient management activities. This time is exclusive of all separately billable procedures, and teaching time and separate from and in addition to any other critical care service time. Physical Exam Physical Exam: General: More active moving around in bed than last previous days Skin: Warm, dry, Head: Atraumatic Ears, nose, mouth and throat: Moist mucous membranes Cardiovascular: Normal peripheral perfusion Respiratory: No respiratory distress. Gastrointestinal: Non distended Musculoskeletal: Left below the knee amputation Results & Data Results & Data Vital Signs (Past 12 Hours) Vital Signs Temp Pulse Pulse Resp BP BP Pulse Ox 04/07/25 04:06 97 H 38 H 97 04/07/25 04:00 161/97 H 04/07/25 03:54 101 H 29 H 95 04/07/25 03:28 99 H 30 H 159/95 H 04/07/25 03:06 102 H 99 04/07/25 03:00 150/95 H 04/07/25 02:54 102 H 24 94 04/07/25 02:03 93 H 36 H 95 04/07/25 02:00 36.8 C 132/85 04/07/25 01:42 87 27 H 95 04/07/25 01:03 65 26 H 94 04/07/25 01:00 123/77 04/07/25 00:51 79 37 H 95 04/07/25 00:03 94 H 24 95 04/07/25 00:01 137/111 H 04/07/25 00:01 36.8 C 137/111 H 04/07/25 00:00 95 H 04/06/25 23:54 100 H 32 H 97 04/06/25 23:06 94 H 25 H 95 04/06/25 23:00 145/95 H 04/06/25 22:54 98 H 25 H 99 04/06/25 22:12 69 22 98 04/06/25 21:30 122/81 04/06/25 21:30 64 19 96 04/06/25 21:16 64 19 127/86 98 04/06/25 21:15 127/86 04/06/25 21:09 61 19 100 04/06/25 20:46 128/104 H 04/06/25 20:32 134/110 H 04/06/25 20:30 98 H 22 95 04/06/25 20:27 99 H 19 97 04/06/25 20:02 160/100 H 04/06/25 20:00 103 H 24 93 04/06/25 20:00 04/06/25 19:57 96 H 14 98 O2 Del Method O2 Flow Rate 04/07/25 04:06 04/07/25 04:00 04/07/25 03:54 04/07/25 03:28 04/07/25 03:06 04/07/25 03:00 04/07/25 02:54 04/07/25 02:03 04/07/25 02:00 04/07/25 01:42 04/07/25 01:03 04/07/25 01:00 04/07/25 00:51 04/07/25 00:03 04/07/25 00:01 04/07/25 00:01 04/07/25 00:00 04/06/25 23:54 04/06/25 23:06 04/06/25 23:00 04/06/25 22:54 04/06/25 22:12 04/06/25 21:30 04/06/25 21:30 04/06/25 21:16 Oxymask 2 04/06/25 21:15 04/06/25 21:09 04/06/25 20:46 04/06/25 20:32 04/06/25 20:30 04/06/25 20:27 04/06/25 20:02 04/06/25 20:00 04/06/25 20:00 Oxymask 2 04/06/25 19:57 Critical Care Results & Data Vital Signs (Past 12 Hours) Vital Signs Temp Pulse Pulse Resp BP BP Pulse Ox 04/07/25 04:06 97 H 38 H 97 04/07/25 04:00 161/97 H 04/07/25 03:54 101 H 29 H 95 04/07/25 03:28 99 H 30 H 159/95 H 04/07/25 03:06 102 H 99 04/07/25 03:00 150/95 H 04/07/25 02:54 102 H 24 94 04/07/25 02:03 93 H 36 H 95 04/07/25 02:00 36.8 C 132/85 04/07/25 01:42 87 27 H 95 04/07/25 01:03 65 26 H 94 04/07/25 01:00 123/77 04/07/25 00:51 79 37 H 95 04/07/25 00:03 94 H 24 95 04/07/25 00:01 137/111 H 04/07/25 00:01 36.8 C 137/111 H 04/07/25 00:00 95 H 04/06/25 23:54 100 H 32 H 97 04/06/25 23:06 94 H 25 H 95 04/06/25 23:00 145/95 H 04/06/25 22:54 98 H 25 H 99 04/06/25 22:12 69 22 98 04/06/25 21:30 122/81 04/06/25 21:30 64 19 96 04/06/25 21:16 64 19 127/86 98 04/06/25 21:15 127/86 04/06/25 21:09 61 19 100 04/06/25 20:46 128/104 H 04/06/25 20:32 134/110 H 04/06/25 20:30 98 H 22 95 04/06/25 20:27 99 H 19 97 04/06/25 20:02 160/100 H 04/06/25 20:00 103 H 24 93 04/06/25 20:00 04/06/25 19:57 96 H 14 98 O2 Del Method O2 Flow Rate 04/07/25 04:06 04/07/25 04:00 04/07/25 03:54 04/07/25 03:28 04/07/25 03:06 04/07/25 03:00 04/07/25 02:54 04/07/25 02:03 04/07/25 02:00 04/07/25 01:42 04/07/25 01:03 04/07/25 01:00 04/07/25 00:51 04/07/25 00:03 04/07/25 00:01 04/07/25 00:01 04/07/25 00:00 04/06/25 23:54 04/06/25 23:06 04/06/25 23:00 04/06/25 22:54 04/06/25 22:12 04/06/25 21:30 04/06/25 21:30 04/06/25 21:16 Oxymask 2 04/06/25 21:15 04/06/25 21:09 04/06/25 20:46 04/06/25 20:32 04/06/25 20:30 04/06/25 20:27 04/06/25 20:02 04/06/25 20:00 04/06/25 20:00 Oxymask 2 04/06/25 19:57 Lab & Micro Results (Past 24 Hours) No Data to Display Na 142 mmol/L (136-145) 04/07/25 K 4.0 mmol/L (3.5-5.1) 04/07/25 Cl 109 mmol/L (98-107) H 04/07/25 CO2 24 mmol/L (21-32) 04/07/25 Anion Gap 9 (3-11) 04/07/25 BUN 17 mg/dl (6-23) 04/07/25 Creatinine 0.98 mg/dl (0.6-1.4) 04/07/25 BUN/Creatinine Ratio 17.3 (10-20) 04/07/25 Glu 102 mg/dl (70-99(Fasting)) H 04/07/25 Ca 8.4 mg/dl (8.6-10.3) L 04/07/25 Phosphorus Level 3.8 mg/dl (2.5-4.9) 04/07/25 Mg 2.0 mg/dl (1.7-2.4) 04/07/25 04:42 Calcium Level 8.4 mg/dl (8.6-10.3) L 04/07/25 04:42 I & O Totals 24 Hours 04/06/25 04/07/25 04/08/25 06:59 06:59 06:59 Intake Total 915.083 / 426.162 6134.003 / 1364.003 Output Total 731 / 731 835 / 835 Balance 184.083 / 184.083 529.003 / 529.003 Cumulative 03/31/25 20:38 thru 04/07/25 06:55 Intake Total 18416.350 Output Total 7370 Balance 6457.350 RT Ventilator Mngmt (Last Documented) Ventilator Ordered Settings Respiratory Rate 38 04/07/25 04:06 Fraction of Inspired Oxygen 2 04/05/25 07:51 Ventilator - PT Measurements Respiratory Rate 38 End-Tidal CO2 29 Coding Level of Care Code 46404 CRITICAL CARE 1ST 30-74M Diagnoses Alcohol use disorder F10.90 Hypokalemia E87.6 Hyponatremia E87.1 EMIL (acute kidney injury) N17.9
[2025-04-07] MEDS: PROPRANOLOL HCL 10 MG TAB PO SCH (08:55)
--- NOTE | 2025-04-07 10:32 | Hospitalist Progress Note ---
Date of Service April 07, 2025 Assessment & Plan (1) Alcohol withdrawal delirium: Plan: -Precedex drip stopped, phenobarbital prn -1:1 -critical care following -con't tube feeding (2) Acute hyponatremia: Plan: -Na+142 today -IVF stopped. -nephrology consult appreciated -given DDAVP (3) Acute renal failure (ARF): Plan: -cr treading down with IVF -likely pre-renal -Renal US WNL -con't IVF -cr 1.11 -nephrology following (4) Hypokalemia: Plan: -con't relpletion -K+ increased to 4.0 Plan 39-year-old male with history of substance abuse, daily alcohol use presenting with shaking and weakness. Patient found to have acute hyponatremia with sodium = 119 as well as hypokalemia with K = 2.3. Appears to be very dry on exam with EMIL, BUN = 60, creatinine = 4.79 from normal baseline previously. Admission and Anticipated Discharge Date Admission Date: April 01, 2025 Subjective Pt awake today, responsive to verbal stimulation, off precedex. Review of Systems Review of Systems: CONST: Negative for fever, body aches and chills. HENT: Negative for neck pain/stiffness, headache, congestion, sore throat, swelling. EYES: Negative for discharge/pain or vision changes. RESP: Negative for cough/hemoptysis and shortness of breath. CV: Negative chest pain, difficulty breathing, palpitations. ABD: Negative pain, nausea, vomiting. : Negative increase frequency, dysuria, blood in urine or stool. MUSC: Negative for muscle aches, edema. SKIN: Negative rash, lesions/sores. NEURO: Sedated Physical Exam Physical Exam: GENERAL APPEARANCE Sedated EYES lids/conjunctiva normal. EARS/NOSE/THROAT Mucous membranes moist, nares normal, lips/teeth normal uvula midline without oral pharyngeal erythema, exudate or swelling TMs normal bilaterally. No lymphangitis/lymphedema. HEAD/NECK normocephalic atraumatic, no facial trauma, neck is supple. RESPIRATORY respiratory effort normal, speaks in full sentences, no tripod position, no accessory muscle use. Lungs clear to auscultation without rhonchi, wheezes, rales CARDIAC Regular rate and rhythm, no edema. ABDOMINAL Soft, ND/NT. No evidence of fluid wave. No pulsatile masses on exam, rebound tenderness, Dai sign or pain over Mcburney's point. MUSCLES/EXTREMITIES No abnormal range of motion, no swelling. SKIN Warm, pink and dry. No rashes, dermatoses, petechiae or lesions. NEUROLOGICAL Sedated PSYCH Sedated Results & Data Results & Data Vital Signs (Past 12 Hours) Vital Signs Temp Pulse Resp BP Pulse Ox Pulse Ox O2 Del Method 04/07/25 09:45 Oxymask 04/07/25 09:24 91 04/07/25 08:52 37.8 C H 04/07/25 08:09 114 H 39 H 90 Oxymask 04/07/25 08:01 139/99 04/07/25 08:01 139/99 04/07/25 07:27 114 H 32 H 97 04/07/25 07:00 154/131 H 04/07/25 07:00 154/131 H 04/07/25 07:00 117 H 46 H 94 04/07/25 06:45 104 H 40 H 97 04/07/25 04:06 97 H 38 H 97 04/07/25 04:00 161/97 H 04/07/25 03:54 101 H 29 H 95 04/07/25 03:28 99 H 30 H 159/95 H 04/07/25 03:06 102 H 99 04/07/25 03:00 150/95 H 04/07/25 02:54 102 H 24 94 04/07/25 02:03 93 H 36 H 95 04/07/25 02:00 36.8 C 132/85 04/07/25 01:42 87 27 H 95 04/07/25 01:03 65 26 H 94 04/07/25 01:00 123/77 04/07/25 00:51 79 37 H 95 04/07/25 00:03 94 H 24 95 04/07/25 00:01 137/111 H 04/07/25 00:01 36.8 C 137/111 H 04/07/25 00:00 95 H 04/06/25 23:54 100 H 32 H 97 04/06/25 23:06 94 H 25 H 95 04/06/25 23:00 145/95 H 04/06/25 22:54 98 H 25 H 99 O2 Del Method O2 Flow Rate O2 Flow Rate 04/07/25 09:45 2 04/07/25 09:24 Oxymask 2 04/07/25 08:52 04/07/25 08:09 2 04/07/25 08:01 04/07/25 08:01 04/07/25 07:27 04/07/25 07:00 04/07/25 07:00 04/07/25 07:00 04/07/25 06:45 04/07/25 04:06 04/07/25 04:00 04/07/25 03:54 04/07/25 03:28 04/07/25 03:06 04/07/25 03:00 04/07/25 02:54 04/07/25 02:03 04/07/25 02:00 04/07/25 01:42 04/07/25 01:03 04/07/25 01:00 04/07/25 00:51 04/07/25 00:03 04/07/25 00:01 04/07/25 00:01 04/07/25 00:00 04/06/25 23:54 04/06/25 23:06 04/06/25 23:00 04/06/25 22:54 PG Care Time/CCT Total # of Minutes Spent Total Time Spent with Patient: Total time spent is greater than 50% in coordination of care (as documented) at patient's floor/unit and/or counseling patient: Coding Level of Care Code 27488 SUB INP/OBS CARE 2MIN Diagnoses Alcohol withdrawal delirium F10.931 Acute hyponatremia E87.1 Acute renal failure (ARF) N17.9 Hypokalemia E87.6
[2025-04-07] MEDS: diazePAM 5 MG/ML 10ML VIAL IV STA ×2 (19:57→20:15)
[2025-04-07] MEDS: TUBE FEEDING WATER FLUSH NG SCH (20:16)
--- NOTE | 2025-04-08 00:49 | Communication Note ---
Date of Service: April 08, 2025 1230- Called to patient bedside for concern of swelling at RIGHT jawline. Noted fluctuant soft area. Upon palpating this the patient had large volume of feculent brown emesis. This also resulted in the area in question reducing in size. Patient is hypoxic after this into the low 80s, oxygen was increased with rise of spo2 to 92%, increase in respirations and HR. I am concerned for aspiration into airways as well as abscess to right jaw/neck line. - Patient was intubated by Dr. Francois- see separate procedure note- he had large amount of feculent appearing secretions around epiglottis and bubbling around the vocal chords. - We will obtain blood cultures - We will obtain CT scan with contrast of neck and soft tissues to evaluate f or oral/submandibular/neck abscess or infection, the area of concern was re- swollen after intubation, with patient sedated Yankauer was passed to that side with no aspiration of material, however note very poor dentition and reddened gum line - Patient will be started on broad spectrum antibiotics while cultures are pending - Will add Peridex oral rinse - Post intubation film reviewed no lobar collapse noted- Bronchoscopy will be performed to clear airways- see seperate procedure note Hosea NORTON ([facility] CC time: Additional 30 minutes
[2025-04-08] MEDS ORDERED: STAT IV Infusion **Titration per Protocol STA ×2 (01:17→02:55)
[2025-04-08 01:52] LABS: Hematocrit (blood only) 28.9 % (42.0-52.0); Hemoglobin 10.0 g/dl (14.0-18.0); Immature Granulocytes # (auto) 0.13 K/uL (0.01-0.20); Immature Granulocytes % (auto) 0.9 %; Mean Corpuscular Hemoglobin 38.3 pg (25.0-34.0); Mean Corpuscular Volume 110.7 fL (80.0-100.0); Platelet Count 233 K/uL (130-400); RDW Standard Deviation 63.9 fL (36.4-46.3); Red Blood Count 2.61 M/uL (4.70-6.10); White Blood Count 14.94 K/ul (4.8-10.8)
--- NOTE | 2025-04-08 02:07 | Procedure Note ---
Procedure Note Date of Service April 08, 2025 BRONCHOSCOPY - Procedure: Flexible Bronchoscopy Manifest Clerk: Hosea NORTON ([facility]-) Attending: Dr. Pedroza Anesthetic/Sedation: Propofol infusion, Fentanyl IV 25 mcg Indication: BAL post aspiration Emergent Consent was implied as patient is full code, status post intubation for large volume aspiration with hypoxia A time-out was completed verifying correct patient, procedure, site, positioning, and implant(s) or special equipment if applicable. Procedure: Bronchoscope was advanced down ETT, miroslava visualized, right mainstem was examined with small amount of pink bile tinged secretions noted. 10 ml saline instilled and 8 ml returned. Specimen sent for culture and gram stain. Right mainstem was pink no errythema or staining noted. Left mainstem was visualized with thin clear secretions and no bile staining or blood noted. The bronchoscope was then withrawn intact. Oxygenation saturations were maintained 97% or greater during the entire procedure Findings: Main Miroslava - sharp LEFT Mainstem Bronchus: pink RIGHT Mainstem Bronchus: pink - some blood tinged and mild bile color noted that cleared with suction and instillation of saline as above Specimens: BAL - culture and gram stain Complications: NONE immediately noted Plan: Sent BAL for Culture & Sensitivities, Gram Stain, AFB [facility] Procedure Codes (Charges) Pulmonary/Thoracic Procedure 1: Pulmonary and Thoracic: 28677 Bronchoscopy, clear airways Coding CPT Codes Pulmonary/Thoracic - Pulmonary and Thoracic: 94668 Bronchoscopy, clear airways ([id number]) Additional Codes Date of Service (PG.SURGERY)
[2025-04-08 02:12] LABS: Macrocytosis Present
[2025-04-08] MEDS: OPTIRAY 320 100ml IV ONE (02:31)
--- NOTE | 2025-04-08 02:36 | XRay Report ---
EXAM: XR chest 1V portable CLINICAL HISTORY: ETT re-position evaluation TECHNIQUE: An X-ray image of the chest is obtained in AP projection. COMPARISON: 04/05/2025 CR. FINDINGS: Endotracheal tube placement with its tip is located 7.2 cm above the miroslava. Normal position of the feeding tube extending below the diaphragm, and its tip within the stomach. Pulmonary Parenchyma: Partial resolution of the confluent air space opacities in both lungs, with imtiaz-bronchovascular patchy opacities. No evidence of pleural effusion or pleural thickening. Heart and Mediastinum: Within normal heart size and shape. No mediastinal widening or masses. No hilar or mediastinal lymphadenopathy. Bony Thorax: Bony thorax appears intact without fractures or deformities. Soft Tissues: Soft tissues overlying the chest wall are unremarkable. IMPRESSION: 1. Borderline high position of the endotracheal tube, with its tip located 7.2 cm above the miroslava; further advancement by 1-2 cm may be needed. New finding. 2. Partial resolution of the confluent airspace opacities in both lungs, with imtiaz-bronchovascular patchy opacities. Interval partial improvement. 3. Normal position of the feeding tube extending below the diaphragm, and its tip within the stomach. Stable. Electronically signed by Dalton Ashraf 04-08-2025 02:36 AM
[2025-04-08] MEDS: DOXYCYCLINE HYCLATE 100 MG in DEXTROSE 5% MINI-B 100 ML IV STA (02:39)
--- NOTE | 2025-04-08 02:40 | XRay Report ---
EXAM: XR chest 1V portable CLINICAL HISTORY: Evaluate lung liang post aspiration. TECHNIQUE: An X-ray image of the chest is obtained in AP projection. COMPARISON: XR dated 04/05/2025 FINDINGS: Pulmonary Parenchyma: Partial resolution of the confluent air space opacities in both lungs, with imtiaz-bronchovascular patchy opacities. Endotracheal tube placement with its tip is located 7.2 cm above the miroslava. Normal position of the feeding tube extending below the diaphragm, and its tip within the stomach. No evidence of pleural effusion or pleural thickening. Heart and Mediastinum: Within normal heart size and shape. No mediastinal widening or masses. No hilar or mediastinal lymphadenopathy. Bony Thorax: The bony thorax appears intact without fractures or deformities. Soft Tissues: Soft tissues overlying the chest wall are unremarkable. IMPRESSION: 1. Partial resolution of the confluent air space opacities in both lungs, with imtiaz-bronchovascular patchy opacities. Interval partial improvement. 2. Borderline high position of the endotracheal tube, with its tip located 7.2 cm above the miroslava; further advancement by 1-2 cm may be needed. 3. Normal position of the feeding tube extending below the diaphragm, and its tip within the stomach. Stable. Electronically signed by Dalton Ashraf 04-08-2025 02:39 AM
--- NOTE | 2025-04-08 02:56 | CT Scan Report ---
EXAM: CT soft tissue neck w con CLINICAL HISTORY: eval for abscess/ right neck/parotid area TECHNIQUE: Computed tomography of the neck was performed with intravenous contrast. Contiguous axial images were obtained. Reformatted coronal and sagittal images were also reviewed. If IV contrast material had not been administered, the likelihood of detecting abnormalities relevant to the patients condition would have been substantially decreased. CT scan was performed according to ALARA (as low as reasonable achievable). COMPARISON: none. FINDINGS: Right parotid gland appears bulky edematous and shows moderate adjacent fat stranding. Moderate edema/fat stranding is also noted involving right side of neck, adjacent to the parotid gland Multiple subcentimeter sized to mildly prominent bilateral level IB and bilateral level II lymph nodes are seen - largest measures about 8 mm in short axis on right side. Endotracheal tube is seen in situ. Mild bilateral ethmoid sinusitis Included intracranial substances, orbits, and rest of paranasal sinuses are grossly unremarkable. Nasopharynx, oropharynx, oral cavity, hypopharynx and larynx are grossly unremarkable. Left Parotid, submandibular and thyroid glands are grossly unremarkable. Bilateral neck vessels are patent and show normal course, calibre and opacification. Scattered bilateral jugulo-digastric lymph nodes are present however, none are pathologically enlarged. Visualized included lung apices show pleural effusion bilaterally. No acute osseous abnormality detected. IMPRESSION: 1. Right parotid gland appears bulky edematous and shows moderate adjacent fat stranding.- possibility of parotitis changes. No obvious abscess formation. 2. Moderate edema/fat stranding is also noted involving right side of neck, adjacent to the parotid gland. 3. Multiple subcentimeter sized to mildly prominent bilateral level IB and bilateral level II lymph nodes are seen - largest measures about 8 mm in short axis on right side. 4. Endotracheal tube is seen in situ. 5. Mild bilateral ethmoid sinusitis Electronically signed by Anthony Klein 04-08-2025 02:56 AM
[2025-04-08] MEDS: PROPOFOL IV EMULSION 10 MG/ML 100 ML VIAL IV ONE (02:57)
[2025-04-08] MEDS: RAPID SEQUENCE INDUCTION BAG ONE (02:57)
[2025-04-08] MEDS ORDERED: Nursing to Pharmacy Communication SCH (03:00)
[2025-04-08] MEDS: fentaNYL citrate 2,500 MCG/250 ML BAG IV SCH (03:09)
[2025-04-08] MEDS: CLINDAMYCIN/D5W 600 MG/50 ML BAG IV SCH (03:48)
[2025-04-08 04:55] LABS: Hematocrit (blood only) 26.2 % (42.0-52.0); Hemoglobin 9.6 g/dl (14.0-18.0); Immature Granulocytes # (auto) 0.09 K/uL (0.01-0.20); Immature Granulocytes % (auto) 0.7 %; Mean Corpuscular Hemoglobin 40.2 pg (25.0-34.0); Mean Corpuscular Volume 109.6 fL (80.0-100.0); Platelet Count 214 K/uL (130-400); RDW Standard Deviation 64.2 fL (36.4-46.3); Red Blood Count 2.39 M/uL (4.70-6.10); White Blood Count 13.39 K/ul (4.8-10.8)
[2025-04-08] MEDS ORDERED: AMPICILLIN/SULBACTAM SOD 1,500 MG/100 ML BAG IV SCH (05:00)
[2025-04-08 05:14] LABS: Anion Gap 7.0 (3-11); Blood Urea Nitrogen 11.0 mg/dl (6-23); Calcium 7.7 mg/dl (8.6-10.3); Carbon Dioxide 27.0 mmol/L (21-32); Chloride 110.0 mmol/L (98-107); Creatinine Clr Calc Pharmacy 117.7 ml/min; Glucose 126.0 mg/dl (70-99(Fasting)); Magnesium 1.8 mg/dl (1.7-2.4); Potassium 4.3 mmol/L (3.5-5.1); Sodium 144.0 mmol/L (136-145)
[2025-04-08] MEDS: MAGNESIUM SULFATE / D5W 1 GM/100 ML BAG IV SCH (06:36)
[2025-04-08] MEDS: AMPICILLIN/SULBACTAM SOD 3,000 MG/100 ML BAG IV SCH (06:36)
--- NOTE | 2025-04-08 06:47 | Emergency Department Note ---
ED Visit Note Endotracheal Intubation Indication: respiratory failure secondary to aspiration The patient was on 100% oxygen via BVM prior to the procedure. Suction, airway equipment, RSI drugs, respiratory equipment, and appropriate personnel were prepared prior to the initiation of the procedure. A time out was taken. Induction was performed with rocuronium and etomidate. After observing the clinical benefit of the medications, the airway was easily visualized utilizing a Hobbs scope. A 8.5 size ETT tube was initially attempted but was felt to be too big to pass through the cords. Patient's O2 saturations dropped to 71%. Bag valve mask was used to bring O2 saturations back up to 88%. An 8.0 endotracheal tube was placed atraumatically to 21 cm using standard technique. The cuff inflated without signs of malfunction. There were bilateral breath sounds, positive colormetric change, no gastric sounds, and post procedure pulse oximetry was 2198%. Post intubation sedation was administered using Versed. .
[2025-04-08] MEDS: CHLORHEXIDINE GLUCONATE 0.12% 480 ML MT SCH (08:12)
--- NOTE | 2025-04-08 08:18 | Critical Care Progress Note ---
Date of Service April 08, 2025 Assessment & Plan (1) Alcohol use disorder: (2) Hypokalemia: (3) Hyponatremia: (4) EMIL (acute kidney injury): Plan Reason Critically Ill: 39-year-old male with history of substance abuse admitted with tremulousness felt to be related to alcohol withdrawal. PLAN: Neuro: Neurologic: Agitated delirium: Delirium tremens as well as possible other illicit substances. - Initially underdosed with phenobarbital however was subsequently given adeq uate load. - Was given all but last dose of decreased phenobarb taper prior to intubation; also required dexmedetomidine as adjunctive agent given severity of alcohol withdrawal To facilitate mechanical ventilation patient is currently on propofol and fentanyl -Had been started on oral clonidine to decrease withdrawal symptoms and discontinue IV medications, this has been discontinued since the intubation - Also discontinued propranolol 5 mg 3 times daily which was ordered for hyperadrenergic state associated with delirium tremens - Received thiamine load and on supplemental thiamine - Patient was making slow neurologic improvements, he has not exhibited signs of meningismus Resp: Respiratory failure secondary to inability to manage oral secretions related to presumptive odontogenic abscess - On Unasyn for oral coverage which would also cover most pulmonary pathogens CV: Tachycardia - Likely related to withdrawal symptoms Fluids/Renal: Acute kidney injury: Resolved - Intermittent electrolyte abnormalities by enlarge have resolved ID: Presumptive odontogenic infection - Unasyn - Oral surgery consultation GI/Nutrition: Reinitiate tube feeds Peptamen 1.5 to goal of 60 mL continuous daily - LFTs and lipase in the morning labs Heme: Anemia - Will send iron and B12 labs suspect component of bone marrow suppression from alcohol use DVT prophylaxis: Heparin 5000 units twice daily Endocrine: ICU hyperglycemia protocol Vascular access: Peripheral IVs Code Status: Full code Disposition: ICU Admission and Anticipated Discharge Date Admission Date: April 01, 2025 Supervising Physician Co-Signing Physician Notes I have personally spent 60 minutes of critical care time in the direct management of this patient. This is a life/limb threatening event. This includes time spent evaluating patient, direct bedside care, chart review, placing orders, interpretation of diagnostic studies, discussion with consultants, patient, and/or family members regarding treatment decisions, as well as other required patient management activities. This time is exclusive of all separately billable procedures, and teaching time and separate from and in addition to any other critical care service time. Subjective Overnight patient had interval development of what is presumptively a odontogenic abscess rupture and compromise his airway which led to him being intubated. Physical Exam Physical Exam: General: Sedated. nontoxic. Skin: Warm, dry, Head: Atraumatic Ears, nose, mouth and throat: airway obscured by endotracheal tube Cardiovascular: Normal peripheral perfusion Respiratory: Ventilator settings reviewed Gastrointestinal: Non distended Musculoskeletal: No deformity Results & Data Results & Data Vital Signs (Past 12 Hours) Vital Signs Temp Pulse Resp BP Pulse Ox O2 Del Method O2 Flow Rate 04/08/25 08:10 37.4 C 04/08/25 08:09 104 H 22 97 Mechanical Vent 04/08/25 08:00 124/74 04/08/25 07:48 102 H 22 98 04/08/25 07:30 128/76 04/08/25 07:27 103 H 22 100 04/08/25 07:25 102 H 22 99 04/08/25 07:00 122/71 04/08/25 07:00 122/71 04/08/25 07:00 122/71 04/08/25 07:00 100 H 22 100 04/08/25 06:48 102 H 22 100 04/08/25 05:00 98 H 22 110/67 99 Mechanical Vent 04/08/25 04:48 04/08/25 04:30 101 H 22 105/69 100 Mechanical Vent 04/08/25 04:00 37 C 104 H 22 106/70 98 Mechanical Vent 04/08/25 03:30 101 H 22 130/91 98 Mechanical Vent 04/08/25 03:18 Mechanical Vent 04/08/25 03:13 22 04/08/25 03:00 103 H 22 125/80 94 Mechanical Vent 04/08/25 02:00 110 H 22 122/85 99 Mechanical Vent 04/08/25 01:20 120 H 16 127/90 100 Mechanical Vent 04/08/25 01:15 102 H 23 123/85 100 Mechanical Vent 04/08/25 01:04 121 H 148/102 H 04/08/25 01:00 04/08/25 00:16 37.9 C H 119 H 42 H 148/94 H 94 Oxymask 2 04/07/25 23:00 117 H 38 H 144/93 H 94 Oxymask 2 04/07/25 23:00 120 H 04/07/25 22:00 37.9 C H 113 H 48 H 149/104 H 96 Oxymask 2 04/07/25 21:00 108 H 36 H 141/94 H 94 Oxymask 2 04/07/25 20:42 126 H 33 H 150/80 H 94 Oxymask 2 FiO2 04/08/25 08:10 04/08/25 08:09 50 04/08/25 08:00 04/08/25 07:48 04/08/25 07:30 04/08/25 07:27 04/08/25 07:25 60 04/08/25 07:00 04/08/25 07:00 04/08/25 07:00 04/08/25 07:00 04/08/25 06:48 04/08/25 05:00 60 04/08/25 04:48 60 04/08/25 04:30 60 04/08/25 04:00 60 04/08/25 03:30 60 04/08/25 03:18 04/08/25 03:13 60 04/08/25 03:00 60 04/08/25 02:00 60 04/08/25 01:20 60 04/08/25 01:15 60 04/08/25 01:04 04/08/25 01:00 60 04/08/25 00:16 04/07/25 23:00 04/07/25 23:00 04/07/25 22:00 04/07/25 21:00 04/07/25 20:42 Coding Level of Care Code 38565 CRITICAL CARE 1ST 30-74M Diagnoses Alcohol use disorder F10.90 Hypokalemia E87.6 Hyponatremia E87.1 EMIL (acute kidney injury) N17.9
--- NOTE | 2025-04-08 10:25 | Hospitalist Progress Note ---
Date of Service April 08, 2025 Assessment & Plan (1) Alcohol withdrawal delirium: Plan: -pt intubated, sedated -con't propofol, fentanyl prn -critical care following -con't tube feeding (2) Parotitis: Plan: -CT showing possible right parotitis -on ampicillin (3) Acute hyponatremia: Plan: -Na+ NL -IVF stopped. -nephrology consult appreciated -given DDAVP (4) Acute renal failure (ARF): Plan: -cr treading down with IVF -likely pre-renal -Renal US WNL -con't IVF -cr 1.11 -nephrology following (5) Hypokalemia: Plan: -con't relpletion -K+ increased to 4.0 Plan 39-year-old male with history of substance abuse, daily alcohol use presenting with shaking and weakness. Patient found to have acute hyponatremia with sodium = 119 as well as hypokalemia with K = 2.3. Appears to be very dry on exam with EMIL, BUN = 60, creatinine = 4.79 from normal baseline previously. Admission and Anticipated Discharge Date Admission Date: April 01, 2025 Subjective Pt was intubated and had bronchoscopy yesterday. Review of Systems Review of Systems: Intubated sedeated Physical Exam 2 Physical Exam: GENERAL APPEARANCE Sedated EYES lids/conjunctiva normal. EARS/NOSE/THROAT Mucous membranes moist, nares normal, lips/teeth normal uvula midline without oral pharyngeal erythema, exudate or swelling TMs normal bilaterally. No lymphangitis/lymphedema. HEAD/NECK Intubated RESPIRATORY respiratory effort normal, speaks in full sentences, no tripod position, no accessory muscle use. Lungs clear to auscultation without rhonchi, wheezes, rales CARDIAC Regular rate and rhythm, no edema. ABDOMINAL Soft, ND/NT. No evidence of fluid wave. No pulsatile masses on exam, rebound tenderness, Dai sign or pain over Mcburney's point. MUSCLES/EXTREMITIES No abnormal range of motion, no swelling. SKIN Warm, pink and dry. No rashes, dermatoses, petechiae or lesions. NEUROLOGICAL Sedated PSYCH Sedated Results & Data Results & Data Vital Signs (Past 12 Hours) Vital Signs Temp Pulse Resp BP Pulse Ox O2 Del Method O2 Flow Rate 04/08/25 10:00 103 H 22 99 04/08/25 08:10 37.4 C 04/08/25 08:09 104 H 22 97 Mechanical Vent 04/08/25 08:00 124/74 04/08/25 07:48 102 H 22 98 04/08/25 07:30 128/76 04/08/25 07:27 103 H 22 100 04/08/25 07:25 102 H 22 99 04/08/25 07:00 122/71 04/08/25 07:00 122/71 04/08/25 07:00 122/71 04/08/25 07:00 100 H 22 100 04/08/25 06:48 102 H 22 100 04/08/25 05:00 98 H 22 110/67 99 Mechanical Vent 04/08/25 04:48 04/08/25 04:30 101 H 22 105/69 100 Mechanical Vent 04/08/25 04:00 37 C 104 H 22 106/70 98 Mechanical Vent 04/08/25 03:30 101 H 22 130/91 98 Mechanical Vent 04/08/25 03:18 Mechanical Vent 04/08/25 03:13 22 04/08/25 03:00 103 H 22 125/80 94 Mechanical Vent 04/08/25 02:00 110 H 22 122/85 99 Mechanical Vent 04/08/25 01:20 120 H 16 127/90 100 Mechanical Vent 04/08/25 01:15 102 H 23 123/85 100 Mechanical Vent 04/08/25 01:04 121 H 148/102 H 04/08/25 01:00 04/08/25 00:16 37.9 C H 119 H 42 H 148/94 H 94 Oxymask 2 04/07/25 23:00 117 H 38 H 144/93 H 94 Oxymask 2 04/07/25 23:00 120 H FiO2 04/08/25 10:00 50 04/08/25 08:10 04/08/25 08:09 50 04/08/25 08:00 04/08/25 07:48 04/08/25 07:30 04/08/25 07:27 04/08/25 07:25 60 04/08/25 07:00 04/08/25 07:00 04/08/25 07:00 04/08/25 07:00 04/08/25 06:48 04/08/25 05:00 60 04/08/25 04:48 60 04/08/25 04:30 60 04/08/25 04:00 60 04/08/25 03:30 60 04/08/25 03:18 04/08/25 03:13 60 04/08/25 03:00 60 04/08/25 02:00 60 04/08/25 01:20 60 04/08/25 01:15 60 04/08/25 01:04 04/08/25 01:00 60 04/08/25 00:16 04/07/25 23:00 04/07/25 23:00 PG Care Time/CCT Total # of Minutes Spent Total Time Spent with Patient: Total time spent is greater than 50% in coordination of care (as documented) at patient's floor/unit and/or counseling patient: Coding Level of Care Code 96614 SUB INP/OBS CARE 2/35MIN Diagnoses Alcohol withdrawal delirium F10.931 Parotitis K11.20 Acute hyponatremia E87.1 Acute renal failure (ARF) N17.9 Hypokalemia E87.6
[2025-04-08] MEDS ORDERED: ROCURONIUM BROMIDE 10 MG/ML 5 ML VIAL IV ONE (11:16)
[2025-04-08] MEDS ORDERED: ETOMIDATE 2 MG/ML 20 ML VIAL IV ONE (11:16)
[2025-04-08] MEDS ORDERED: MIDAZOLAM HCL 5 MG/ML 2ML VIAL IV ONE (11:16)
[2025-04-08] MEDS: GADOBUTROL 65ML VIAL IV ONE (16:24)
--- NOTE | 2025-04-08 17:07 | Magnetic Resonance Report ---
Clinical History: Shaking and weakness Technique: Multiple T1 and T2-weighted magnetic resonance images were obtained of the brain both before and after the administration of intravenous gadolinium contrast Comparison is made to the CT dated 03/23/2022 Findings: There is no sign of acute or old infarction with normal-appearing diffusion weighted images. No definite focus of demyelination is seen. No mass lesion or other area of abnormal enhancement is identified. There is no intracranial hemorrhage or other fluid collection. No midline shift or other form of herniation is seen. There is no hydrocephalus. The pituitary gland appears normal. Normal flow-voids are seen within the arteries of the [id number]. The orbits and paranasal sinuses appear normal. There is nasal septal deviation. There is partial opacification of the left mastoid air cells Impression: 1. Normal-appearing brain 2. Partial opacification of the left mastoid air cells, which may be due to inflammatory mastoiditis Electronically signed by Tez Owen 04-08-2025 5:07 PM
[2025-04-08] MEDS: PROPOFOL BOLUS FROM BAG IV PRN (19:51)
[2025-04-09 04:33] LABS: Hematocrit (blood only) 25.5 % (42.0-52.0); Hemoglobin 8.8 g/dl (14.0-18.0); Immature Granulocytes # (auto) 0.21 K/uL (0.01-0.20); Immature Granulocytes % (auto) 2.1 %; Mean Corpuscular Hemoglobin 38.8 pg (25.0-34.0); Mean Corpuscular Volume 112.3 fL (80.0-100.0); Platelet Count 240 K/uL (130-400); RDW Standard Deviation 67.6 fL (36.4-46.3); Red Blood Count 2.27 M/uL (4.70-6.10); Reticulocytes # 0.060 10^6/uL (0.020-0.100); White Blood Count 9.85 K/ul (4.8-10.8)
[2025-04-09 04:50] LABS: Anion Gap 6 (3-11); Blood Urea Nitrogen 15 mg/dl (6-23); Calcium 7.6 mg/dl (8.6-10.3); Carbon Dioxide 28 mmol/L (21-32); Chloride 110 mmol/L (98-107); Creatinine Clr Calc Pharmacy 100.1 ml/min; Glucose 118 mg/dl (70-99(Fasting)); Potassium 3.8 mmol/L (3.5-5.1); Sodium 144 mmol/L (136-145)
[2025-04-09 04:51] LABS: Macrocytosis Present; Polychromasia 1+
[2025-04-09 04:53] LABS: Alanine Aminotransferase 9 U/L (7-52); Alkaline Phosphatase 86 U/L (34-104); Bilirubin,Total 0.5 mg/dl (0.2-1.0); Iron 47 mcg/dl (35-175); Lipase 67 U/L (11-82); Total Protein 5.2 gm/dl (6.0-8.3); Transferrin < 95 mg/dl (200-360)
[2025-04-09 05:07] LABS: Ferritin 436.8 ng/ml (8-388)
[2025-04-09 06:12] LABS: Folate (Folic Acid),Ser orPlas 3.35 ng/ml (>5.38)
[2025-04-09 06:13] LABS: Vitamin B12 1495.0 pg/ml (180-914)
--- NOTE | 2025-04-09 07:21 | Critical Care Progress Note ---
Date of Service April 09, 2025 Assessment & Plan (1) Alcohol use disorder: (2) Hypokalemia: (3) Hyponatremia: (4) EMIL (acute kidney injury): Plan Reason Critically Ill: 39-year-old male with history of substance abuse admitted with tremulousness felt to be related to alcohol withdrawal. PLAN: Neuro: Neurologic: Agitated delirium: Delirium tremens as well as possible other illicit substances. - Initially underdosed with phenobarbital however was subsequently given adeq uate load. - Was given all but last dose of decreased phenobarb taper prior to intubation; also required dexmedetomidine as adjunctive agent given severity of alcohol withdrawal To facilitate mechanical ventilation patient is currently on propofol and fentanyl -Had been started on oral clonidine to decrease withdrawal symptoms and discontinue IV medications, this has been discontinued since the intubation - Also discontinued propranolol 5 mg 3 times daily which was ordered for hyperadrenergic state associated with delirium tremens - Received thiamine load and on supplemental thiamine - Patient was making slow neurologic improvements, he has not exhibited signs of meningismus - Wean sedation to facilitate hopeful extubation Resp: Respiratory failure secondary to inability to manage oral secretions related to presumptive odontogenic abscess - On Unasyn for oral coverage which would also cover most pulmonary pathogens - Wean sedation and attempt to liberate from ventilator today CV: Tachycardia: Improved - Likely related to withdrawal symptoms Fluids/Renal: Acute kidney injury: Resolved - Intermittent electrolyte abnormalities by enlarge have resolved ID: Presumptive odontogenic infection - Unasyn continue for estimated treatment course of 10 days - Oral surgery consultation GI/Nutrition: Reinitiate tube feeds Peptamen 1.5 to goal of 60 mL continuous daily - LFTs and lipase in the morning labs Heme: Anemia - Likely multifactorial, low folate will add in supplementation and likely aspect of alcohol toxicity DVT prophylaxis: Heparin 5000 units twice daily Endocrine: ICU hyperglycemia protocol Vascular access: Peripheral IVs Code Status: Full code Disposition: ICU Admission and Anticipated Discharge Date Admission Date: April 01, 2025 Supervising Physician Co-Signing Physician Notes I have personally spent 60 minutes of critical care time in the direct management of this patient. This is a life/limb threatening event. This includes time spent evaluating patient, direct bedside care, chart review, placing orders, interpretation of diagnostic studies, discussion with consultants, patient, and/or family members regarding treatment decisions, as well as other required patient management activities. This time is exclusive of all separately billable procedures, and teaching time and separate from and in addition to any other critical care service time. Subjective Seen by OMFS yesterday. Discussed with Alyssa who spoke with Dr. Arnold. No area for intervention at this time will repeat imaging tomorrow. Physical Exam Physical Exam: General: Sedated. nontoxic. Skin: Warm, dry, Head: Atraumatic Ears, nose, mouth and throat: airway obscured by endotracheal tube Cardiovascular: Normal peripheral perfusion Respiratory: Ventilator settings reviewed Gastrointestinal: Non distended Musculoskeletal: No deformity Results & Data Results & Data Vital Signs (Past 12 Hours) Vital Signs Temp Pulse Resp BP Pulse Ox O2 Del Method FiO2 04/09/25 04:00 40 04/09/25 03:30 37.8 C H 101 H 22 133/76 95 Mechanical Vent 40 04/09/25 03:00 37.8 C H 99 H 22 137/81 95 Mechanical Vent 40 04/09/25 02:50 23 40 04/09/25 02:30 37.8 C H 98 H 22 133/78 95 Mechanical Vent 40 04/09/25 02:00 37.9 C H 103 H 22 137/83 95 Mechanical Vent 40 04/09/25 01:30 38.0 C H 107 H 22 141/81 H 95 Mechanical Vent 40 04/09/25 01:00 38.0 C H 96 H 22 122/76 94 Mechanical Vent 40 04/09/25 00:30 102 H 04/09/25 00:00 38.0 C H 102 H 22 126/79 95 Mechanical Vent 40 04/09/25 00:00 40 04/08/25 23:32 101 H 22 95 40 04/08/25 23:30 38.0 C H 102 H 22 125/76 95 Mechanical Vent 40 04/08/25 23:00 38.0 C H 98 H 22 125/71 95 Mechanical Vent 40 04/08/25 22:30 38.0 C H 99 H 22 117/73 94 Mechanical Vent 40 04/08/25 22:00 38.0 C H 102 H 22 127/74 94 Mechanical Vent 40 04/08/25 21:30 38.0 C H 98 H 22 124/83 98 Mechanical Vent 40 04/08/25 21:00 37.9 C H 98 H 22 121/74 95 Mechanical Vent 40 04/08/25 20:17 99 H 23 93 40 04/08/25 20:00 37.9 C H 101 H 22 120/71 94 Mechanical Vent 40 04/08/25 20:00 Mechanical Vent 40 04/08/25 20:00 40 04/08/25 19:30 37.8 C H 96 H 22 126/79 95 Mechanical Vent 40 Critical Care Results & Data Vital Signs (Past 12 Hours) Vital Signs Temp Pulse Resp BP Pulse Ox O2 Del Method FiO2 04/09/25 04:00 40 04/09/25 03:30 37.8 C H 101 H 22 133/76 95 Mechanical Vent 40 04/09/25 03:00 37.8 C H 99 H 22 137/81 95 Mechanical Vent 40 04/09/25 02:50 23 40 04/09/25 02:30 37.8 C H 98 H 22 133/78 95 Mechanical Vent 40 04/09/25 02:00 37.9 C H 103 H 22 137/83 95 Mechanical Vent 40 04/09/25 01:30 38.0 C H 107 H 22 141/81 H 95 Mechanical Vent 40 04/09/25 01:00 38.0 C H 96 H 22 122/76 94 Mechanical Vent 40 04/09/25 00:30 102 H 04/09/25 00:00 38.0 C H 102 H 22 126/79 95 Mechanical Vent 40 04/09/25 00:00 40 04/08/25 23:32 101 H 22 95 40 04/08/25 23:30 38.0 C H 102 H 22 125/76 95 Mechanical Vent 40 04/08/25 23:00 38.0 C H 98 H 22 125/71 95 Mechanical Vent 40 04/08/25 22:30 38.0 C H 99 H 22 117/73 94 Mechanical Vent 40 04/08/25 22:00 38.0 C H 102 H 22 127/74 94 Mechanical Vent 40 04/08/25 21:30 38.0 C H 98 H 22 124/83 98 Mechanical Vent 40 04/08/25 21:00 37.9 C H 98 H 22 121/74 95 Mechanical Vent 40 04/08/25 20:17 99 H 23 93 40 04/08/25 20:00 37.9 C H 101 H 22 120/71 94 Mechanical Vent 40 04/08/25 20:00 Mechanical Vent 40 04/08/25 20:00 40 04/08/25 19:30 37.8 C H 96 H 22 126/79 95 Mechanical Vent 40 Lab & Micro Results (Past 24 Hours) RBC 2.27 M/uL (4.70-6.10) L 04/09/25 WBC 9.85 K/ul (4.8-10.8) 04/09/25 Hgb 8.8 g/dl (14.0-18.0) L 04/09/25 Hct 25.5 % (42.0-52.0) L 04/09/25 MCV 112.3 fL (80.0-100.0) H 04/09/25 MCH 38.8 pg (25.0-34.0) H 04/09/25 MCHC 34.5 g/dL (32.0-36.0) 04/09/25 RDW Standard Deviation 67.6 fL (36.4-46.3) H 04/09/25 RDW Coefficient of Variation 16.5 % (11.5-14.5) H 04/09/25 Plt Count 240 K/uL (130-400) 04/09/25 MPV 10.6 fL (9.4-12.4) 04/09/25 Neutrophils (%) (Auto) 78.2 % 04/09/25 Lymphocytes (%) (Auto) 11.0 % 04/09/25 Monocytes # (Auto) 0.63 K/uL (0.11-0.59) H 04/09/25 Eosinophils # (Auto) 0.17 K/uL (0.00-0.50) 04/09/25 Immature Granulocyte % (Auto) 2.1 % 04/09/25 Neutrophils # (Auto) 7.70 K/uL (1.40-6.50) H 04/09/25 Lymphocytes # (Auto) 1.08 K/uL (1.20-3.40) L 04/09/25 Monocytes # (Auto) 0.63 K/uL (0.11-0.59) H 04/09/25 Eosinophils # (Auto) 0.17 K/uL (0.00-0.50) 04/09/25 Basophils # (Auto) 0.06 K/uL (0.00-0.20) 04/09/25 Immature Granulocyte # (Auto) 0.21 K/uL (0.01-0.20) H 04/09 Polychromasia 1+ 04/09/25 Macrocytosis Present 04/09/25 Na 144 mmol/L (136-145) 04/09/25 K 3.8 mmol/L (3.5-5.1) 04/09/25 Cl 110 mmol/L (98-107) H 04/09/25 CO2 28 mmol/L (21-32) 04/09/25 Anion Gap 6 (3-11) 04/09/25 BUN 15 mg/dl (6-23) 04/09/25 Creatinine 1.14 mg/dl (0.6-1.4) 04/09/25 BUN/Creatinine Ratio 13.2 (10-20) 04/09/25 Glu 118 mg/dl (70-99(Fasting)) H 04/09/25 Ca 7.6 mg/dl (8.6-10.3) L 04/09/25 Total Bilirubin 0.5 mg/dl (0.2-1.0) 04/09/25 Direct Bilirubin 0.2 mg/dl (0-0.2) 04/09/25 AST 17 U/L (13-39) 04/09/25 ALT 9 U/L (7-52) 04/09/25 Alkaline Phosphatase 86 U/L (34-104) 04/09/25 TP 5.2 gm/dl (6.0-8.3) L 04/09/25 Albumin 2.5 gm/dl (3.4-5.0) L 04/09/25 Calcium Level 7.6 mg/dl (8.6-10.3) L 04/09/25 04:10 Microbiology 04/08/25 01:41 Aerobic Blood Culture - Preliminary Blood No growth in Aerobic bottle after 24 hours. Anaerobic Blood Culture - Preliminary No growth in Anaerobic bottle after 24 hours. 04/08/25 01:41 Aerobic Blood Culture - Preliminary Blood No growth in Aerobic bottle after 24 hours. 04/08/25 02:01 Gram Stain - Final Sputum,Vent Suction Diagnostic Findings (Past 24 Hours) Brain MRI 04/08/25 14:10 Clinical History: Shaking and weakness Technique: Multiple T1 and T2-weighted magnetic resonance images were obtained of the brain both before and after the administration of intravenous gadolinium contrast Comparison is made to the CT dated 03/23/2022 Findings: There is no sign of acute or old infarction with normal-appearing diffusion weighted images. No definite focus of demyelination is seen. No mass lesion or other area of abnormal enhancement is identified. There is no intracranial hemorrhage or other fluid collection. No midline shift or other form of herniation is seen. There is no hydrocephalus. The pituitary gland appears normal. Normal flow-voids are seen within the arteries of the [id number]. The orbits and paranasal sinuses appear normal. There is nasal septal deviation. There is partial opacification of the left mastoid air cells Impression: 1. Normal-appearing brain 2. Partial opacification of the left mastoid air cells, which may be due to inflammatory mastoiditis Electronically signed by Tez Owen 04-08-2025 5:07 PM I & O Totals 24 Hours 04/08/25 04/09/25 04/10/25 06:59 06:59 06:59 Intake Total 753.965 / 555.272 3954.758 / 1192.758 Output Total 1000 / 1000 625 / 625 Balance -246.035 / -246.035 567.758 / 567.758 Cumulative 03/31/25 20:38 thru 04/09/25 06:54 Intake Total 53185.073 Output Total 8995 Balance 6779.073 RT Ventilator Mngmt (Last Documented) Ventilator Ordered Settings Ventilator Support Mode Assist Control 04/09/25 04:00 Respiratory Rate 22 04/09/25 03:30 Ventilator Tidal Volume 480 04/09/25 04:00 Setting Minute Ventilation 11 04/09/25 02:50 Positive End Expiratory 6 04/09/25 04 :00 Pressure Fraction of Inspired Oxygen 40 04/09/25 04:00 Machine Comment weaned to 40% 04/08/25 14:30 Ventilator - PT Measurements Respiratory Rate 22 Exhaled Tidal Volume 480 Minute Ventilation 11 Peak Inspiratory Airway 18 Pressure Plateau Pressure 15.9 Respiratory Cycle Inspiratory: 1:2.4 Expiratory Ratio Inspiratory Phase Time 0.8 End-Tidal CO2 28 Static Lung Compliance 48.48 Dynamic Lung Compliance 40.00 Normal Static Lung Compliance 48.00 Patient Measurements Comment oral secretions as well CPAP trial attempted at this time Coding Level of Care Code 71090 CRITICAL CARE 1ST 30-74M Diagnoses Alcohol use disorder F10.90 Hypokalemia E87.6 Hyponatremia E87.1 EMIL (acute kidney injury) N17.9
--- NOTE | 2025-04-09 08:37 | XRay Report ---
EXAM: XR chest 1V portable CLINICAL HISTORY: Eval lung liang and tube placements. TECHNIQUE: An X-ray image of the chest is obtained in AP projection. COMPARISON: 04/08/2025 FINDINGS: Endotracheal tube placement with its tip is located 4.6 cm above the miroslava. Normal position of the feeding tube extending below the diaphragm, and its tip within the stomach. Pulmonary Parenchyma: right lower zonal few newly developed air space opacities in both lungs, with imtiaz-bronchovascular patchy opacities. No evidence of pleural effusion or pleural thickening. Heart and Mediastinum: Within normal heart size and shape. No mediastinal widening or masses. No hilar or mediastinal lymphadenopathy. Bony Thorax: The bony thorax appears intact without fractures or deformities. Soft Tissues: Soft tissues overlying the chest wall are unremarkable. IMPRESSION: 1. good position of the endotracheal tube, with its tip located 4.6 cm above the miroslava; New finding. 2. Right lower zonal few newly developed air space opacities in both lungs, with imtiaz-bronchovascular patchy opacities. Interval mild progression. 3. Normal position of the feeding tube extending below the diaphragm, and its tip within the stomach. Stable. Electronically signed by Dalton Ashraf 04-09-2025 08:37 AM
--- NOTE | 2025-04-09 10:36 | Hospitalist Progress Note ---
Date of Service April 09, 2025 Assessment & Plan (1) Alcohol withdrawal delirium: Plan: -pt intubated, sedated -con't propofol, fentanyl prn -critical care following -con't tube feeding -weaning trail today as per critical care (2) Parotitis: Plan: -CT showing possible right parotitis -on unasyn -Pt seen by OMFS -consider possible surgical drainage/exploration (3) Acute hyponatremia: Plan: -Na+ NL -IVF stopped. -nephrology consult appreciated -given DDAVP (4) Acute renal failure (ARF): Plan: -cr treading down with IVF -likely pre-renal -Renal US WNL -con't IVF -cr 1.11 -nephrology following (5) Hypokalemia: Plan: -con't relpletion -K+ increased to 3.8 Plan 39-year-old male with history of substance abuse, daily alcohol use presenting with shaking and weakness. Patient found to have acute hyponatremia with sodium = 119 as well as hypokalemia with K = 2.3. Appears to be very dry on exam with EMIL, BUN = 60, creatinine = 4.79 from normal baseline previously. Pt had worsening withdrawal ended up in ICU on Precedex and phenobarbital, intubated, now with parotitis. Admission and Anticipated Discharge Date Admission Date: April 01, 2025 Subjective Pt still intubated, and sedated. Review of Systems Review of Systems: Intubated sedeated Physical Exam Physical Exam: GENERAL APPEARANCE Sedated EYES lids/conjunctiva normal. EARS/NOSE/THROAT Mucous membranes moist, nares normal, lips/teeth normal uvula midline without oral pharyngeal erythema, exudate or swelling TMs normal bilaterally. No lymphangitis/lymphedema. HEAD/NECK Intubated RESPIRATORY respiratory effort normal, speaks in full sentences, no tripod position, no accessory muscle use. Lungs clear to auscultation without rhonchi, wheezes, rales CARDIAC Regular rate and rhythm, no edema. ABDOMINAL Soft, ND/NT. No evidence of fluid wave. No pulsatile masses on exam, rebound tenderness, Dai sign or pain over Mcburney's point. MUSCLES/EXTREMITIES No abnormal range of motion, no swelling. SKIN Warm, pink and dry. No rashes, dermatoses, petechiae or lesions. NEUROLOGICAL Sedated PSYCH Sedated Results & Data Results & Data Vital Signs (Past 12 Hours) Vital Signs Temp Pulse Resp BP Pulse Ox O2 Del Method FiO2 04/09/25 07:55 102 H 22 97 40 04/09/25 07:11 37.6 C H 95 H 22 97 Mechanical Vent 04/09/25 07:00 155/93 H 04/09/25 07:00 155/93 H 04/09/25 07:00 155/93 H 04/09/25 04:00 40 04/09/25 03:30 37.8 C H 101 H 22 133/76 95 Mechanical Vent 40 04/09/25 03:00 37.8 C H 99 H 22 137/81 95 Mechanical Vent 40 04/09/25 02:50 23 40 04/09/25 02:30 37.8 C H 98 H 22 133/78 95 Mechanical Vent 40 04/09/25 02:00 37.9 C H 103 H 22 137/83 95 Mechanical Vent 40 04/09/25 01:30 38.0 C H 107 H 22 141/81 H 95 Mechanical Vent 40 04/09/25 01:00 38.0 C H 96 H 22 122/76 94 Mechanical Vent 40 04/09/25 00:30 102 H 04/09/25 00:00 38.0 C H 102 H 22 126/79 95 Mechanical Vent 40 04/09/25 00:00 40 04/08/25 23:32 101 H 22 95 40 04/08/25 23:30 38.0 C H 102 H 22 125/76 95 Mechanical Vent 40 04/08/25 23:00 38.0 C H 98 H 22 125/71 95 Mechanical Vent 40 04/08/25 22:30 38.0 C H 99 H 22 117/73 94 Mechanical Vent 40 PG Care Time/CCT Total # of Minutes Spent Total Time Spent with Patient: Total time spent is greater than 50% in coordination of care (as documented) at patient's floor/unit and/or counseling patient: Coding Level of Care Code 30915 SUB INP/OBS CARE 2/35MIN Diagnoses Alcohol withdrawal delirium F10.931 Parotitis K11.20 Acute hyponatremia E87.1 Acute renal failure (ARF) N17.9 Hypokalemia E87.6
[2025-04-10] MEDS: OPTIRAY 320 100ml IV ONE (04:39)
[2025-04-10 05:20] LABS: Base Excess VBG 6.2 mEq/L; HCO3 VBG 31 mmol/L; Oxygen Saturation VBG 68.5 %; PCO2 VBG 42 mmHg (38-50); PO2 VBG 40 mmHg; pH VBG 7.47 (7.36-7.41)
[2025-04-10 05:26] LABS: Hematocrit (blood only) 23.4 % (42.0-52.0); Hemoglobin 7.9 g/dl (14.0-18.0); Mean Corpuscular Hemoglobin 38.7 pg (25.0-34.0); Mean Corpuscular Volume 114.7 fL (80.0-100.0); Platelet Count 236 K/uL (130-400); RDW Standard Deviation 69.6 fL (36.4-46.3); Red Blood Count 2.04 M/uL (4.70-6.10); White Blood Count 6.21 K/ul (4.8-10.8)
[2025-04-10 05:40] LABS: Anion Gap 5.0 (3-11); Blood Urea Nitrogen 11.0 mg/dl (6-23); Calcium 7.6 mg/dl (8.6-10.3); Carbon Dioxide 28.0 mmol/L (21-32); Chloride 110.0 mmol/L (98-107); Creatinine Clr Calc Pharmacy 118.9 ml/min; Glucose 93.0 mg/dl (70-99(Fasting)); Potassium 3.7 mmol/L (3.5-5.1); Sodium 143.0 mmol/L (136-145)
[2025-04-10 05:43] LABS: ALC (manual) 0.62 K/uL (1.2-3.4); ANC (manual) 4.97 K/uL (1.4-6.5); Macrocytosis Present; Polychromasia 1+
[2025-04-10] MEDS: POTASSIUM CHLORIDE 20 MEQ/15 ML UDC PO STA (06:05)
--- NOTE | 2025-04-10 07:27 | CT Scan Report ---
EXAM: CT soft tissue neck w con CLINICAL HISTORY: eval right sided parotitis/fluid collection/swelli TECHNIQUE: Computed tomography of the neck was performed with intravenous contrast. Contiguous axial images were obtained. Reformatted coronal and sagittal images were also reviewed. If IV contrast material had not been administered, the likelihood of detecting abnormalities relevant to the patients condition would have been substantially decreased. CT scan was performed according to ALARA (as low as reasonable achievable). 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 FINDINGS: Right parotid gland appears mildly bulky edematous Interval significant resolution of edema/fat stranding is also noted involving right side of neck, adjacent to the parotid gland Multiple subcentimeter sized to mildly prominent bilateral level IB and bilateral level II lymph nodes are seen - largest measures about 8 mm in short axis on right side. Endotracheal tube is seen in situ. Reduced bilateral ethmoid sinusitis Moderate collection is seen in the nasopharynx and the florecita-pharynx, possibly secondary to the intubations. Mild bilateral effusion is seen with compression atecalctesis of underlying lungs. Nasopharyngeal lymphoid hyperplasia is seen. Included intracranial substances, orbits, and rest of paranasal sinuses are grossly unremarkable. Nasopharynx, oropharynx, oral cavity, hypopharynx and larynx are grossly unremarkable. Left Parotid, submandibular and thyroid glands are grossly unremarkable. Bilateral neck vessels are patent and show normal course, calibre and opacification. Visualized included lung apices are grossly clear, and no acute osseous abnormality detected. IMPRESSION: 1. Right parotid gland appears mildly bulky edematous- inflammation is significantly resolved. 2. Interval significant resolution of edema/fat stranding is also noted involving right side of neck, adjacent to the parotid gland 3. Multiple subcentimeter sized to mildly prominent bilateral level IB and bilateral level II lymph nodes are seen - largest measures about 8 mm in short axis on right side. 4. Endotracheal tube is seen in situ. 5. Reduced bilateral ethmoid sinusitis 6. Moderate collection is seen in the nasopharynx and the florecita-pharynx, possibly secondary to the intubations. 7. Mild bilateral effusion is seen with compression atecalctesis of underlying lungs. 8. Nasopharyngeal lymphoid hyperplasia is seen. Electronically signed by Anthony Klein 04-10-2025 07:26 AM
[2025-04-10] MEDS ORDERED: VANCOMYCIN CONSULT ACTIVE PRN (08:28)
--- NOTE | 2025-04-10 08:31 | Critical Care Progress Note ---
Date of Service April 10, 2025 Assessment & Plan (1) Alcohol use disorder: (2) Hypokalemia: (3) Hyponatremia: (4) EMIL (acute kidney injury): (5) Alcohol withdrawal delirium: Plan Impression: 39-year-old male with history of substance abuse admitted with tremulousness felt to be related to alcohol withdrawal. He required higher dose medications due to severe agitation on the floor and has been loaded on phenobarbital which prompted him to be transferred to the ICU. He is now hemodynamically stable sedated and comfortable. Recommendations: 1. Neurologic: Patient with ongoing alcohol withdrawal and metabolic encephalopathy. Will hold sedation and attempts of his sedation vacation and spontaneous breathing trial. Will continue to use as needed Precedex and/or as needed Ativan. Will discontinue further phenobarbital. 2. Cardiovascular: No current issues. Continue to follow clinically. Echo 04/01/2025 with no evidence of mass or vegetation. LVEF 60 to 65%. Right ventricular systolic function was normal. Mild mitral regurgitation noted. 3. Pulmonary: Patient currently on mechanical ventilation. Chest x-ray 04/09/2025 with right lower lobe airspace opacities and endotracheal tube in place. Soft tissue CT of his neck reviewed. Inflammation appears to be improving. 4. Renal: Hyponatremia resolved. Replace electrolytes as needed. Creatinine normalized. 5. ID: Cultures from the right mandible growing Staph aureus. Will start vancomycin in addition to Unasyn. OMFS following. 6. GI: Restart tube feeds if unable to extubate. 7. Endocrine: Glycemic control per protocol. 8.: Heme-onc: Patient with worsening anemia. No signs of active bleeding. May be hemodilutional and anemia of chronic disease. Will continue to monitor. I spent 12 minutes reviewing the electronic medical record/relevant imaging, 10 minutes discussing diagnosis and treatment plan with patient/family, and 20 minutes discussing care plan with ancillary staff such as RT/RN/pharmacist/pastry cook/PT/OT/other consulting medical services. CRITICAL CARE TIME I have personally spent 65 minutes of critical care time in the direct management of this patient. This is a life/limb threatening event. This includes time spent evaluating patient, direct bedside care, chart review, placing orders, interpretation of diagnostic studies, discussion with consultants, patient, and family members, as well as other required patient management activities. This time is exclusive of all separately billable procedures, and teaching time and separate from and in addition to any other critical care service time. Admission and Anticipated Discharge Date Admission Date: April 01, 2025 Subjective Patient seen and examined. Sedation has been discontinued. Patient following commands appropriately with squeezing my hands at this bilateral hands and moving his right toes. He does have an upward gaze that is bilateral. He is intubated and on mechanical ventilation. He was placed on a spontaneous breathing trial with acceptable volumes. Review of Systems Review of Systems: Unobtainable due to endotracheal tube and Unobtainable due to reduced consciousness Physical Exam Physical Exam: Constitutional: Patient appears to be of their stated age. He is intubated and sedated. No apparent distress. Eyes: Upward gaze. Anicteric sclera. Ears nose, mouth and throat: Endotracheal tube and OG tube in place. Neck: Trachea is midline. Visual inspection is normal. Respiratory: Clear to auscultation bilaterally. No use of accessory muscles. No significant clubbing noted. Cardiovascular: Regular rate and rhythm. No murmurs. No edema. Gastrointestinal: Normal bowel sounds, soft, nontender and nondistended. No hepatosplenomegaly noted. Musculoskeletal: No cyanosis. Patient is able to move all extremities. Strength is 5 out of 5 in the upper and lower extremities. Skin: No rashes, warm dry and intact. Neurologic: No obvious focal neurological deficits seen. Psychiatric: Unable to assess given intubation status. Results & Data Results & Data Vital Signs (Past 12 Hours) Vital Signs Temp Pulse Resp BP Pulse Ox O2 Del Method FiO2 04/10/25 08:06 37.3 C 98 H 16 98 04/10/25 08:00 138/90 04/10/25 08:00 138/90 04/10/25 08:00 30 04/10/25 08:00 80 19 98 30 04/10/25 07:54 37.3 C 86 22 96 04/10/25 07:31 133/76 04/10/25 07:22 71 22 97 30 04/10/25 07:18 37.1 C 74 22 95 04/10/25 07:00 37.1 C 73 22 95 04/10/25 06:00 37.2 C 80 22 121/66 92 Mechanical Vent 04/10/25 05:30 37.2 C 80 22 126/72 91 Mechanical Vent 04/10/25 05:03 37.2 C 78 22 126/77 95 Mechanical Vent 30 04/10/25 04:42 70 22 133/86 92 Mechanical Vent 04/10/25 04:05 82 22 96 30 04/10/25 04:00 37.2 C 74 22 119/69 93 Mechanical Vent 04/10/25 04:00 30 04/10/25 03:30 80 22 115/69 95 Mechanical Vent 04/10/25 03:30 37.2 C 76 22 115/69 93 Mechanical Vent 04/10/25 03:00 37.1 C 83 22 122/71 94 Mechanical Vent 04/10/25 02:00 37.1 C 75 22 114/64 93 Mechanical Vent 04/10/25 01:30 37.1 C 79 22 124/71 93 Mechanical Vent 04/10/25 01:00 37.1 C 79 22 122/67 93 Mechanical Vent 04/10/25 00:30 37.2 C 83 22 125/74 92 Mechanical Vent 04/10/25 00:00 37.2 C 79 22 122/67 91 Mechanical Vent 04/10/25 00:00 30 04/09/25 23:37 82 04/09/25 23:30 37.2 C 79 22 121/67 92 Mechanical Vent 04/09/25 23:00 37.2 C 77 22 114/70 92 Mechanical Vent 04/09/25 22:30 37.2 C 78 22 111/61 92 Mechanical Vent 04/09/25 22:20 80 22 92 30 04/09/25 21:30 37.3 C 83 22 119/69 94 Mechanical Vent 04/09/25 21:00 37.2 C 75 22 115/73 98 Mechanical Vent 04/09/25 20:30 37.2 C 84 22 119/66 95 Mechanical Vent 30 Coding Level of Care Code 46609 CRITICAL CARE 1ST 30-74M Diagnoses Alcohol use disorder F10.90 Hypokalemia E87.6 Hyponatremia E87.1 EMIL (acute kidney injury) N17.9 Alcohol withdrawal delirium F10.931
[2025-04-10] MEDS ORDERED: STAT IV Infusion **Titration per Protocol STA ×2 (08:37→09:23)
[2025-04-10] MEDS ORDERED: HYDROmorphone INJ 0.5 MG/0.5 ML SYR IV PRN (08:38)
[2025-04-10] MEDS: VANCOMYCIN HCL 1,750 MG in SODIUM CHLORIDE 0.9% 500 ML IV ONE (08:45)
[2025-04-10] MEDS ORDERED: dexMEDEtomidine 200 MCG/50 ML BAG IV SCH (08:45)
[2025-04-10] MEDS: DEXMEDETOMIDINE 200 MCG/50 ML IV SCH (08:56)
[2025-04-10] MEDS: MIDAZOLAM HCL 125 MG/250 ML BAG IV SCH (09:30)
[2025-04-10 10:24] LABS: Hematocrit (blood only) 26.1 % (42.0-52.0); Hemoglobin 8.8 g/dl (14.0-18.0); Mean Corpuscular Hemoglobin 38.1 pg (25.0-34.0); Mean Corpuscular Volume 113.0 fL (80.0-100.0); Platelet Count 281 K/uL (130-400); RDW Standard Deviation 67.6 fL (36.4-46.3); Red Blood Count 2.31 M/uL (4.70-6.10); White Blood Count 8.64 K/ul (4.8-10.8)
[2025-04-10] MEDS: PANTOprazole 40 MG/10 ML SYR IV SCH (10:34)
[2025-04-10] MEDS: FOLIC ACID 1 MG TAB PO SCH (10:34)
[2025-04-10 10:45] LABS: Immature Granulocytes # (auto) 0.54 K/uL (0.01-0.20); Immature Granulocytes % (auto) 6.3 %; Macrocytosis Present; Polychromasia 1+
--- NOTE | 2025-04-10 11:24 | Pharmacy Report ---
Pharmacy PK ABX Note - Date of Service April 10, 2025 - Assessment and Plan Assessment 39 year old M receiving vancomycin/unasyn for treatment of parotitis. Pertinent microbiologic data includes: MRSA Nasal Swab negative, right mandibular culture growing S. aureus, Sputum (Vent suction) growing S. aureus with sensitivities pending. Vancomycin added today to cover MRSA in the interim. Unasyn started 04/08. WBC has normalized, Fever curve improved. Plan Vancomycin * Loading dose: 1750 mg IV x 1 * Maintenance dose: 1500 mg IV every 12 hours * Regimen is predicted to achieve target AUC/WILD of 400-600 mg/L.hr * Random level to be ordered if continued >48 hours Pharmacy will continue to follow and will adjust dose/frequency as necessary. Thank you. Pharmacy has transitioned to AUC monitoring for vancomycin. AUC/WILD is the preferred PK/PD target and is associated with decreased risk of nephrotoxicity compared to traditional trough targets.
[2025-04-10] MEDS: PEPTAMEN 1.5 CAL 1,000 ML BAG OG SCH (14:07)
[2025-04-10] MEDS: MIDAZOLAM BOLUS FROM BAG IV PRN (14:12)
--- NOTE | 2025-04-10 14:20 | Hospitalist Progress Note ---
Date of Service April 10, 2025 Assessment & Plan (1) Alcohol withdrawal delirium: Plan: pt intubated, sedated. Supportive care (2) Parotitis: Plan: CT showing possible right parotitis . Right mandible area culture growing Staph aureus. He remains on intravenous Unasyn. Oral maxillofacial surgery consultation requested and pending. (3) Acute hyponatremia: Plan: Monitor intake and output. Serial labs. Appreciate nephrology consultation. DDAVP administered earlier this admission. (4) Acute renal failure (ARF): Plan: Resolved. Creatinine now normalized at 0.9. Monitor intake and output. Serial labs. Renal ultrasound negative for obstruction (5) Hypokalemia: Plan: Corrected with parenteral replacement. Serial labs Plan To be determined Admission and Anticipated Discharge Date Admission Date: April 01, 2025 Subjective The patient is intubated and sedated. Creatinine is now normal at 0.9. Hemoglobin has drifted down to 7.9. Will follow. Sodium 143. Staph aureus growing from the right mandible culture. He remains on Unasyn. He underwent bronchoscopy on April 08. Review of Systems 2 Review of Systems: The patient is intubated and sedated and unable to answer any questions regarding review of systems at this time Physical Exam 2 Physical Exam: General-intubated and sedated. No fever HEENT-head atraumatic and normocephalic Neck-no lymphadenopathy or thyromegaly, trachea midline. ED T tube and orogastric tube in place Chest-scattered bilateral rhonchi. No rales, no wheezing Cardiac-regular rate and rhythm, normal S1 and S2 Abdomen-normal bowel sounds, no hepatosplenomegaly Extremities-no cyanosis, clubbing, or edema Neuro-intubated and sedated. Cannot assess Psych-cannot assess Results & Data Results & Data Vital Signs (Past 12 Hours) Vital Signs Temp Pulse Resp BP Pulse Ox O2 Del Method O2 Del Method 04/10/25 13:30 37.5 C 96 H 24 95 04/10/25 13:00 131/88 04/10/25 12:51 37.6 C H 64 23 93 04/10/25 12:30 116/70 04/10/25 12:09 37.6 C H 73 22 94 04/10/25 12:00 126/71 04/10/25 12:00 Mechanical Vent 04/10/25 12:00 04/10/25 11:42 37.5 C 78 22 95 04/10/25 11:30 133/87 04/10/25 11:27 37.5 C 84 22 95 04/10/25 11:09 37.5 C 84 22 93 04/10/25 11:00 121/69 04/10/25 10:42 37.7 C H 97 H 22 93 04/10/25 10:30 134/83 04/10/25 10:30 37.6 C H 92 H 22 95 04/10/25 10:16 109 H 24 90 04/10/25 10:00 159/98 H 04/10/25 10:00 37.3 C 110 H 26 H 91 04/10/25 09:30 167/106 H 04/10/25 09:18 37.5 C 107 H 25 H 91 04/10/25 09:03 37.3 C 110 H 17 92 04/10/25 09:00 173/98 H 04/10/25 08:39 37.0 C 97 H 24 92 04/10/25 08:30 158/94 H 04/10/25 08:27 37.0 C 100 H 23 92 04/10/25 08:06 37.3 C 98 H 16 98 04/10/25 08:00 138/90 04/10/25 08:00 138/90 04/10/25 08:00 Mechanical Vent 04/10/25 08:00 04/10/25 08:00 80 19 98 04/10/25 07:54 37.3 C 86 22 96 04/10/25 07:31 133/76 04/10/25 07:22 71 22 97 04/10/25 07:18 37.1 C 74 22 95 04/10/25 07:00 37.1 C 73 22 95 04/10/25 06:00 37.2 C 80 22 121/66 92 Mechanical Vent 04/10/25 05:30 37.2 C 80 22 126/72 91 Mechanical Vent 04/10/25 05:03 37.2 C 78 22 126/77 95 Mechanical Vent 04/10/25 04:42 70 22 133/86 92 Mechanical Vent 04/10/25 04:05 82 22 96 04/10/25 04:00 37.2 C 74 22 119/69 93 Mechanical Vent 04/10/25 04:00 04/10/25 03:30 80 22 115/69 95 Mechanical Vent 04/10/25 03:30 37.2 C 76 22 115/69 93 Mechanical Vent 04/10/25 03:00 37.1 C 83 22 122/71 94 Mechanical Vent FiO2 04/10/25 13:30 04/10/25 13:00 04/10/25 12:51 04/10/25 12:30 04/10/25 12:09 04/10/25 12:00 04/10/25 12:00 04/10/25 12:00 30 04/10/25 11:42 04/10/25 11:30 04/10/25 11:27 04/10/25 11:09 04/10/25 11:00 04/10/25 10:42 04/10/25 10:30 04/10/25 10:30 04/10/25 10:16 04/10/25 10:00 04/10/25 10:00 04/10/25 09:30 04/10/25 09:18 04/10/25 09:03 04/10/25 09:00 04/10/25 08:39 04/10/25 08:30 04/10/25 08:27 04/10/25 08:06 04/10/25 08:00 04/10/25 08:00 04/10/25 08:00 04/10/25 08:00 04/10/25 08:00 04/10/25 07:54 04/10/25 07:31 04/10/25 07:22 04/10/25 07:18 04/10/25 07:00 04/10/25 06:00 04/10/25 05:30 04/10/25 05:03 04/10/25 04:42 04/10/25 04:05 04/10/25 04:00 04/10/25 04:00 04/10/25 03:30 04/10/25 03:30 04/10/25 03:00 30 Laboratory Results 04/10/25 10:02 04/10/25 04:47 PG Care Time/CCT Total # of Minutes Spent Total Time Spent with Patient: Total time spent is greater than 50% in coordination of care (as documented) at patient's floor/unit and/or counseling patient: Coding Level of Care Code 62559 SUB INP/OBS CARE MIN Diagnoses Alcohol withdrawal delirium F10.931 Parotitis K11.20 Acute hyponatremia E87.1 Acute renal failure (ARF) N17.9 Hypokalemia E87.6
[2025-04-10] MEDS: VANCOMYCIN HCL 1,500 MG in SODIUM CHLORIDE 0.9% 500 ML IV SCH (15:33)
[2025-04-11] MEDS: LACTATED RINGER'S 500 ML IV ONE (00:50)
[2025-04-11 04:23] LABS: Hematocrit (blood only) 23.7 % (42.0-52.0); Hemoglobin 8.0 g/dl (14.0-18.0); Immature Granulocytes # (auto) 0.29 K/uL (0.01-0.20); Immature Granulocytes % (auto) 3.8 %; Mean Corpuscular Hemoglobin 38.3 pg (25.0-34.0); Mean Corpuscular Volume 113.4 fL (80.0-100.0); Platelet Count 237 K/uL (130-400); RDW Standard Deviation 67.1 fL (36.4-46.3); Red Blood Count 2.09 M/uL (4.70-6.10); White Blood Count 7.63 K/ul (4.8-10.8)
[2025-04-11 04:38] LABS: Anion Gap 7.0 (3-11); Blood Urea Nitrogen 8.0 mg/dl (6-23); Calcium 7.6 mg/dl (8.6-10.3); Carbon Dioxide 22.0 mmol/L (21-32); Chloride 114.0 mmol/L (98-107); Creatinine Clr Calc Pharmacy 154.3 ml/min; Glucose 103.0 mg/dl (70-99(Fasting)); Potassium 4.0 mmol/L (3.5-5.1); Sodium 143.0 mmol/L (136-145)
[2025-04-11 05:05] LABS: Macrocytosis Present; Polychromasia 1+
--- NOTE | 2025-04-11 08:21 | Critical Care Progress Note ---
Date of Service April 11, 2025 Assessment & Plan (1) Alcohol use disorder: (2) Hypokalemia: (3) Hyponatremia: (4) EMIL (acute kidney injury): (5) Alcohol withdrawal delirium: Plan Impression: 39-year-old male with history of substance abuse admitted with tremulousness felt to be related to alcohol withdrawal. He required higher dose medications due to severe agitation on the floor and has been loaded on phenobarbital which prompted him to be transferred to the ICU. He is now hemodynamically stable sedated and comfortable. Recommendations: 1. Neurologic: Patient with ongoing alcohol withdrawal and metabolic encephalopathy. Patient successfully extubated. Will continue to monitor mental status closely. He has some delirium as expected from prolonged hospitalization and recent intubation. Continue delirium precautions. Continue with thiamine and folic acid. Precedex for agitation. 2. Cardiovascular: No current issues. Continue to follow clinically. Echo 04/01/2025 with no evidence of mass or vegetation. LVEF 60 to 65%. Right ventricular systolic function was normal. Mild mitral regurgitation noted. 3. Pulmonary: Patient extubated 04/11/2025. Chest x-ray 04/09/2025 with right lower lobe airspace opacities and endotracheal tube in place. Soft tissue CT of his neck reviewed. Inflammation appears to be improving. 4. Renal: Hyponatremia resolved. Replace electrolytes as needed. Creatinine normalized. 5. ID: Cultures from the right mandible growing MSSA and Bacteroides. Continue Unasyn. 6. GI: Continue pantoprazole daily. Advance diet as able. Request speech evaluation. 7. Endocrine: Glycemic control per protocol. TSH normal. 8.: Heme-onc: Patient with ongoing macrocytic anemia. Hemoglobin stable. No overt signs of bleeding. Continue heparin subcu for DVT prophylaxis. I spent 10 minutes reviewing the electronic medical record/relevant imaging, 10 minutes discussing diagnosis and treatment plan with patient/family, and 20 minutes discussing care plan with ancillary staff such as RT/RN/pharmacist/oil burner installer/PT/OT/other consulting medical services. CRITICAL CARE TIME I have personally spent 49 minutes of critical care time in the direct management of this patient. This is a life/limb threatening event. This includes time spent evaluating patient, direct bedside care, chart review, placing orders, interpretation of diagnostic studies, discussion with consultants, patient, and family members, as well as other required patient management activities. This time is exclusive of all separately billable procedures, and teaching time and separate from and in addition to any other critical care service time. Admission and Anticipated Discharge Date Admission Date: April 01, 2025 Subjective Patient has been intermittently following commands and doing well on spontaneous breathing trial. He was successfully extubated to oxygen mask. Will continue to clinically monitor. He is hemodynamically stable otherwise. Review of Systems Review of Systems: ROS limited due to cognitive status. He denies any obvious pain complaints. Physical Exam Physical Exam: Constitutional: Patient appears to be of their stated age. Mild distress. Extubated. Eyes: Upward gaze. Anicteric sclera. Ears nose, mouth and throat: No perioral cyanosis. Neck: Trachea is midline. Visual inspection is normal. Respiratory: Clear to auscultation bilaterally. No use of accessory muscles. No significant clubbing noted. Cardiovascular: Regular rate and rhythm. No murmurs. No edema. Gastrointestinal: Normal bowel sounds, soft, nontender and nondistended. No hepatosplenomegaly noted. Musculoskeletal: No cyanosis. Patient is able to move all extremities. Skin: No rashes, warm dry and intact. Neurologic: No obvious focal neurological deficits seen. Psychiatric: Mildly anxious appearing. Results & Data Results & Data Vital Signs (Past 12 Hours) Vital Signs Temp Pulse Resp BP Pulse Ox O2 Del Method FiO2 04/11/25 07:30 Mechanical Vent 04/11/25 07:13 85 28 H 93 04/11/25 06:53 71 24 93 04/11/25 06:30 37.2 C 64 22 122/67 93 Mechanical Vent 04/11/25 06:00 37.2 C 67 24 119/65 92 Mechanical Vent 04/11/25 05:30 37.2 C 74 23 118/67 92 Mechanical Vent 04/11/25 05:00 37.1 C 98 H 26 H 131/76 93 Mechanical Vent 04/11/25 04:30 36.8 C 76 24 124/77 94 Mechanical Vent 04/11/25 04:00 37.3 C 76 22 130/82 94 Mechanical Vent 04/11/25 04:00 30 04/11/25 03:30 63 22 120/73 92 Mechanical Vent 04/11/25 03:18 74 28 H 93 04/11/25 03:00 63 22 119/71 92 Mechanical Vent 04/11/25 02:30 37.2 C 64 22 118/70 91 Mechanical Vent 04/11/25 02:00 37.2 C 75 24 121/70 91 Mechanical Vent 04/11/25 01:31 37.2 C 75 26 H 100/61 92 Mechanical Vent 04/11/25 00:30 37.8 C H 84 26 H 125/70 91 Mechanical Vent 04/11/25 00:00 37.8 C H 81 25 H 123/80 93 Mechanical Vent 04/11/25 00:00 30 04/10/25 23:30 37.9 C H 67 22 117/71 93 Mechanical Vent 04/10/25 23:10 67 04/10/25 23:00 37.9 C H 67 22 115/67 93 Mechanical Vent 04/10/25 22:30 37.9 C H 67 22 116/66 93 Mechanical Vent 04/10/25 22:16 79 28 H 92 04/10/25 22:00 37.9 C H 67 23 116/66 93 Mechanical Vent 04/10/25 21:30 38.0 C H 75 24 140/70 93 Mechanical Vent 04/10/25 20:30 38.0 C H 67 23 120/67 93 Mechanical Vent 30 Coding Level of Care Code 22032 CRITICAL CARE 1ST 30-74M Diagnoses Alcohol use disorder F10.90 Hypokalemia E87.6 Hyponatremia E87.1 EMIL (acute kidney injury) N17.9 Alcohol withdrawal delirium F10.931
[2025-04-11] MEDS: LACTATED RINGER'S 1,000 ML IV SCH (09:53)
--- NOTE | 2025-04-11 16:39 | Hospitalist Progress Note ---
Date of Service April 11, 2025 Assessment & Plan (1) Alcohol withdrawal delirium: Plan: Now extubated. Continue ROBIN S protocol. Supportive care (2) Parotitis: Plan: CT showing possible right parotitis . Right mandible area culture growing MSSA and Bacteroides. He remains on intravenous Unasyn. Oral maxillofacial surgery consultation requested and pending. Improving (3) Acute hyponatremia: Plan: Monitor intake and output. Serial labs. Appreciate nephrology consultation. DDAVP administered earlier this admission. (4) Acute renal failure (ARF): Plan: Resolved. Creatinine now normalized at 0.7. Monitor intake and output. Serial labs. Renal ultrasound negative for obstruction (5) Hypokalemia: Plan: Corrected with parenteral replacement. Serial labs Plan To be determined Admission and Anticipated Discharge Date Admission Date: April 01, 2025 Subjective The patient was successfully extubated this morning, April 11, but is quite lethargic from continued Precedex. Critical care entry noted. Creatinine has improved down to 0.7. Renal ultrasound negative for signs of obstruction. MSSA and Bacteroides isolated from the right mandibular drainage. He remains on treatment for alcohol withdraw. His metabolic encephalopathy is expected to resolve. Review of Systems 2 Review of Systems: The patient has been extubated but remains on Precedex and is very lethargic and unable to answer any questions related to review of systems at this time Physical Exam 2 Physical Exam: General-very lethargic from continued parenteral Precedex. No fever HEENT-head atraumatic and normocephalic, pupils equal and reactive to light, extraocular muscles intact Neck-no lymphadenopathy or thyromegaly, trachea midline Chest-clear to auscultation. No rales, wheezing or rhonchi Cardiac-regular rate and rhythm, normal S1 and S2 Abdomen-normal bowel sounds, no hepatosplenomegaly Extremities-no cyanosis, clubbing, or edema Neuro-no apparent focal deficits. Moving all 4 extremities randomly Psych-lethargic. Cannot assess Results & Data Results & Data Vital Signs (Past 12 Hours) Vital Signs Temp Pulse Resp BP Pulse Ox Pulse Ox O2 Del Method 04/11/25 12:10 92 04/11/25 11:30 160/92 H 04/11/25 11:27 83 33 H 93 Nasal Cannula 04/11/25 11:14 95 Oxymask 04/11/25 11:00 84 31 H 95 04/11/25 11:00 153/98 H 04/11/25 10:42 87 34 H 91 04/11/25 10:30 153/116 H 04/11/25 10:21 85 35 H 95 04/11/25 10:00 135/95 04/11/25 10:00 88 36 H 97 04/11/25 10:00 88 04/11/25 09:36 97 H 39 H 04/11/25 09:30 128/98 04/11/25 09:00 37.5 C 86 33 H 93 04/11/25 09:00 139/91 04/11/25 08:36 37.5 C 101 H 23 93 04/11/25 08:30 137/77 04/11/25 08:00 37.4 C 94 H 35 H 90 04/11/25 07:30 134/76 04/11/25 07:30 134/76 04/11/25 07:30 134/76 04/11/25 07:30 Mechanical Vent 04/11/25 07:21 37.2 C 87 29 H 93 04/11/25 07:13 85 28 H 93 04/11/25 07:06 37.2 C 77 27 H 92 04/11/25 07:00 130/77 04/11/25 06:53 71 24 93 04/11/25 06:30 37.2 C 64 22 122/67 93 Mechanical Vent 04/11/25 06:00 37.2 C 67 24 119/65 92 Mechanical Vent 04/11/25 05:30 37.2 C 74 23 118/67 92 Mechanical Vent 04/11/25 05:00 37.1 C 98 H 26 H 131/76 93 Mechanical Vent O2 Del Method O2 Flow Rate O2 Flow Rate FiO2 04/11/25 12:10 Nasal Cannula 2 04/11/25 11:30 04/11/25 11:27 3 04/11/25 11:14 3 04/11/25 11:00 04/11/25 11:00 04/11/25 10:42 04/11/25 10:30 04/11/25 10:21 04/11/25 10:00 04/11/25 10:00 04/11/25 10:00 04/11/25 09:36 04/11/25 09:30 04/11/25 09:00 04/11/25 09:00 04/11/25 08:36 04/11/25 08:30 04/11/25 08:00 04/11/25 07:30 04/11/25 07:30 04/11/25 07:30 04/11/25 07:30 30 04/11/25 07:21 04/11/25 07:13 30 04/11/25 07:06 04/11/25 07:00 04/11/25 06:53 30 04/11/25 06:30 30 04/11/25 06:00 30 04/11/25 05:30 30 04/11/25 05:00 30 Laboratory Results 04/11/25 03:57 04/11/25 03:57 PG Care Time/CCT Total # of Minutes Spent Total Time Spent with Patient: Total time spent is greater than 50% in coordination of care (as documented) at patient's floor/unit and/or counseling patient: Coding Level of Care Code 61464 SUB INP/OBS CARE 2/35MIN Diagnoses Alcohol withdrawal delirium F10.931 Parotitis K11.20 Acute hyponatremia E87.1 Acute renal failure (ARF) N17.9 Hypokalemia E87.6
[2025-04-11] MEDS ORDERED: Nursing to Pharmacy Communication SCH (17:45)
--- NOTE | 2025-04-11 18:06 | Electrocardiogram Report ---
Test Reason : Blood Pressure : */* mmHG Vent. Rate : 98 BPM Atrial Rate : 98 BPM P-R Int : 140 ms QRS Dur : 84 ms QT Int : 372 ms P-R-T Axes : 35 35 35 degrees QTcB Int : 474 ms Normal sinus rhythm Normal ECG When compared with ECG of 06-Apr-2025 10:31, Vent. rate has increased by 36 bpm Nonspecific T wave abnormality now evident in Inferior leads Confirmed by Shawn Allison ([id number]) on 04/11/2025 6:06:26 PM Referred By: REFERRED SELF Confirmed By: Shawn Allison
[2025-04-11] MEDS: LABETALOL HCL IV 5 MG/ML 20ML IV PRN (23:00)
--- NOTE | 2025-04-12 03:46 | Communication Note ---
Date of Service: April 12, 2025 Patient up kicking bed, yelling, and attempting to kick at nursing staff and sitter. He remains with limited ability to communicate appropriatley or show th at he understands his situation. Zyprexa 10mg IM administered. Continue on Precedex. Hosea NORTON (ACNP-)
[2025-04-12 04:42] LABS: Hematocrit (blood only) 26.9 % (42.0-52.0); Hemoglobin 9.2 g/dl (14.0-18.0); Immature Granulocytes # (auto) 0.51 K/uL (0.01-0.20); Immature Granulocytes % (auto) 3.8 %; Mean Corpuscular Hemoglobin 38.7 pg (25.0-34.0); Mean Corpuscular Volume 113.0 fL (80.0-100.0); Platelet Count 290 K/uL (130-400); RDW Standard Deviation 65.6 fL (36.4-46.3); Red Blood Count 2.38 M/uL (4.70-6.10); White Blood Count 13.44 K/ul (4.8-10.8)
[2025-04-12 05:16] LABS: Macrocytosis Present
--- NOTE | 2025-04-12 08:20 | Critical Care Progress Note ---
Date of Service April 12, 2025 Assessment & Plan (1) Alcohol use disorder: (2) Hypokalemia: (3) Hyponatremia: (4) EMIL (acute kidney injury): (5) Alcohol withdrawal delirium: Plan Impression: 39-year-old male with history of substance abuse admitted with tremulousness felt to be related to alcohol withdrawal. He required higher dose medications due to severe agitation on the floor and has been loaded on phenobarbital which prompted him to be transferred to the ICU. He is now hemodynamically stable sedated and comfortable. Recommendations: 1. Neurologic: Patient with ongoing alcohol withdrawal and metabolic encephalopathy. Patient successfully extubated. Will continue to monitor mental status closely. He has some delirium as expected from prolonged hospitalization and recent intubation. Continue delirium precautions. Continue with thiamine and folic acid. Precedex for agitation. Also will continue Zyprexa as needed. 2. Cardiovascular: No current issues. Continue to follow clinically. Echo 04/01/2025 with no evidence of mass or vegetation. LVEF 60 to 65%. Right ventricular systolic function was normal. Mild mitral regurgitation noted. Hypotension likely response to withdrawal. 3. Pulmonary: Patient extubated 04/11/2025. Chest x-ray 04/09/2025 with right lower lobe airspace opacities and endotracheal tube in place. Soft tissue CT of his neck reviewed. Inflammation appears to be improving. 4. Renal: Hyponatremia resolved. Replace electrolytes as needed. Creatinine normalized. 5. ID: Cultures from the right mandible growing MSSA and Bacteroides. Continue Unasyn. Was briefly on vancomycin. 6. GI: Continue pantoprazole daily. Advance diet as able. Speech therapy consult appreciated. 7. Endocrine: Glycemic control per protocol. TSH normal. 8.: Heme-onc: Patient with ongoing macrocytic anemia. Hemoglobin stable. No overt signs of bleeding. Continue heparin subcu for DVT prophylaxis. I spent 10 minutes reviewing the electronic medical record/relevant imaging, 10 minutes discussing diagnosis and treatment plan with patient/family, and 20 minutes discussing care plan with ancillary staff such as RT/RN/pharmacist/gusset edger/PT/OT/other consulting medical services. CRITICAL CARE TIME I have personally spent 46 minutes of critical care time in the direct management of this patient. This is a life/limb threatening event. This includes time spent evaluating patient, direct bedside care, chart review, placing orders, interpretation of diagnostic studies, discussion with consultants, patient, and family members, as well as other required patient management activities. This time is exclusive of all separately billable procedures, and teaching time and separate from and in addition to any other critical care service time. Admission and Anticipated Discharge Date Admission Date: April 01, 2025 Subjective Patient remains confused and combative at times. He received a total of 15 mg of Zyprexa late yesterday evening. Hemodynamically stable and slightly hypertensive. Review of Systems Review of Systems: All systems reviewed & are unremarkable except as noted in HPI & below Physical Exam Physical Exam: Constitutional: Patient appears to be of their stated age. Mild distress. Eyes: Upward gaze. Anicteric sclera. Ears nose, mouth and throat: No perioral cyanosis. Neck: Trachea is midline. Visual inspection is normal. Respiratory: Clear to auscultation bilaterally. No use of accessory muscles. No significant clubbing noted. Cardiovascular: Regular rate and rhythm. No murmurs. No edema. Gastrointestinal: Normal bowel sounds, soft, nontender and nondistended. No hepatosplenomegaly noted. Musculoskeletal: No cyanosis. Patient is able to move all extremities. Skin: No rashes, warm dry and intact. Neurologic: No obvious focal neurological deficits seen. Psychiatric: Mildly anxious appearing. Results & Data Results & Data Vital Signs (Past 12 Hours) Vital Signs Pulse Resp BP Pulse Ox 04/12/25 07:16 93 H 158/93 H 04/12/25 06:46 99 H 152/100 H 04/12/25 05:00 175/96 H 04/12/25 05:00 175/96 H 04/12/25 04:54 106 H 32 H 95 04/12/25 04:30 170/95 H 04/12/25 04:30 105 H 32 H 95 04/12/25 04:00 104 H 31 H 90 04/12/25 03:36 107 H 34 H 91 04/12/25 03:12 109 H 36 H 90 04/12/25 03:04 160/116 H 04/12/25 02:54 113 H 27 H 94 04/12/25 02:51 116 H 24 89 L 04/12/25 02:32 163/93 H 04/12/25 02:15 104 H 37 H 94 04/12/25 02:00 159/102 H 04/12/25 02:00 159/102 H 04/12/25 02:00 159/102 H 04/12/25 02:00 114 H 33 H 92 04/12/25 01:30 95 H 32 H 95 04/12/25 01:30 152/86 H 04/12/25 01:30 152/86 H 04/12/25 01:30 152/86 H 04/12/25 01:00 94 H 32 H 97 04/12/25 01:00 148/85 H 04/12/25 01:00 148/85 H 04/12/25 00:36 97 H 30 H 96 04/12/25 00:30 147/91 H 04/12/25 00:30 147/91 H 04/12/25 00:09 92 H 32 H 96 04/12/25 00:00 92 H 33 H 95 04/12/25 00:00 145/94 H 04/12/25 00:00 145/94 H 04/12/25 00:00 145/94 H 04/11/25 23:30 152/93 H 04/11/25 23:30 152/93 H 04/11/25 23:30 90 28 H 93 04/11/25 23:15 92 H 159/91 H 04/11/25 23:12 102 H 31 H 88 L 04/11/25 23:00 159/91 H 04/11/25 23:00 131 H 169/100 H 04/11/25 22:57 110 H 26 H 96 04/11/25 22:30 103 H 29 H 94 04/11/25 22:30 169/107 H 04/11/25 22:30 169/107 H 04/11/25 22:30 169/107 H 04/11/25 22:00 99 H 31 H 94 04/11/25 22:00 166/108 H 04/11/25 21:30 167/98 H 04/11/25 21:27 94 H 31 H 94 04/11/25 21:00 144/92 H 04/11/25 21:00 144/92 H 04/11/25 21:00 104 H 22 87 L 04/11/25 20:30 154/100 H 04/11/25 20:24 101 H 32 H 94 Coding Level of Care Code 47180 CRITICAL CARE 1ST 30-74M Diagnoses Alcohol use disorder F10.90 Hypokalemia E87.6 Hyponatremia E87.1 EMIL (acute kidney injury) N17.9 Alcohol withdrawal delirium F10.931
[2025-04-12] MEDS: THIAMINE HCL 500 MG in SODIUM CHLORIDE 0.9% 50 ML IV SCH (10:32)
[2025-04-12 10:43] LABS: Alanine Aminotransferase 11.0 U/L (7-52); Albumin Globulin Ratio 0.7 (0.9-2); Alkaline Phosphatase 80.0 U/L (34-104); Anion Gap 6.0 (3-11); Bilirubin,Total 0.5 mg/dl (0.2-1.0); Blood Urea Nitrogen 5.0 mg/dl (6-23); Calcium 8.0 mg/dl (8.6-10.3); Carbon Dioxide 23.0 mmol/L (21-32); Chloride 112.0 mmol/L (98-107); Creatinine Clr Calc Pharmacy 167.9 ml/min; Globulin 3.3 gm/dl (2.5-4.0); Glucose 93.0 mg/dl (70-99(Fasting)); Magnesium 1.6 mg/dl (1.7-2.4); Potassium 4.4 mmol/L (3.5-5.1); Sodium 141.0 mmol/L (136-145); Total Protein 5.7 gm/dl (6.0-8.3)
[2025-04-12] MEDS: REMOVE CLONIDINE PATCH SCH (11:00)
[2025-04-12] MEDS: LORazepam 1 mg IV INJ IV PRN (13:08)
[2025-04-12] MEDS: MAGNESIUM SULFATE / D5W 1 GM/100 ML BAG IV SCH (13:16)
[2025-04-12] MEDS: CHECK CLONIDINE PATCH PLACEMENT SCH (15:22)
--- NOTE | 2025-04-12 16:00 | Hospitalist Progress Note ---
Date of Service April 12, 2025 Assessment & Plan (1) Alcohol withdrawal delirium: Plan: Now extubated. Continue AWSS protocol. Supportive care. IM Zyprexa as needed (2) Parotitis: Plan: CT showing possible right parotitis . Right mandible area culture growing MSSA and Bacteroides. He remains on intravenous Unasyn. Oral maxillofacial surgery consultation requested and pending. Improving (3) Acute hyponatremia: Plan: Monitor intake and output. Serial labs. Appreciate nephrology consultation. DDAVP administered earlier this admission. (4) Acute renal failure (ARF): Plan: Resolved. Creatinine now normalized. Monitor intake and output. Serial labs. Renal ultrasound negative for obstruction (5) Hypokalemia: Plan: Corrected with parenteral replacement. Serial labs Plan To be determined Admission and Anticipated Discharge Date Admission Date: April 01, 2025 Subjective The patient was extubated earlier today, April 12. Unfortunately he required intramuscular Zyprexa last night to control his behavior. He remains on Precedex for sedation. He also remains on Unasyn for the MSSA and Bacteroides isolated from the right mandible culture associated with his parotitis. Review of Systems 2 Review of Systems: The patient has been extubated but remains on Precedex and is very lethargic and unable to answer any questions related to review of systems at this time Physical Exam 2 Physical Exam: General-very lethargic from continued parenteral Precedex. No fever HEENT-head atraumatic and normocephalic, pupils equal and reactive to light, extraocular muscles intact Neck-no lymphadenopathy or thyromegaly, trachea midline Chest-clear to auscultation. No rales, wheezing or rhonchi Cardiac-regular rate and rhythm, normal S1 and S2 Abdomen-normal bowel sounds, no hepatosplenomegaly Extremities-no cyanosis, clubbing, or edema Neuro-no apparent focal deficits. Moving all 4 extremities randomly Psych-lethargic. Cannot assess Results & Data Results & Data Vital Signs (Past 12 Hours) Vital Signs Temp Pulse Resp BP Pulse Ox O2 Del Method 04/12/25 15:40 101 H 172/103 H 04/12/25 15:25 108 H 169/103 H 04/12/25 12:00 101 H 34 H 166/107 H 94 04/12/25 11:00 107 H 33 H 169/111 H 92 04/12/25 11:00 36.9 C 04/12/25 10:00 113 H 35 H 172/101 H 95 04/12/25 09:00 109 H 30 H 178/113 H 95 04/12/25 08:30 95 H 30 H 149/98 H 97 04/12/25 08:06 113 H 33 H 94 Room Air 04/12/25 08:00 Room Air 04/12/25 07:16 93 H 158/93 H 04/12/25 07:00 94 H 41 H 158/93 H 95 04/12/25 06:46 99 H 152/100 H 04/12/25 05:00 175/96 H 04/12/25 05:00 175/96 H 04/12/25 04:54 106 H 32 H 95 04/12/25 04:30 170/95 H 04/12/25 04:30 105 H 32 H 95 04/12/25 04:00 104 H 31 H 90 Laboratory Results 04/12/25 04:22 04/12/25 04:27 PG Care Time/CCT Total # of Minutes Spent Total Time Spent with Patient: Total time spent is greater than 50% in coordination of care (as documented) at patient's floor/unit and/or counseling patient: Coding Level of Care Code 22485 SUB INP/OBS CARE 2/35MIN Diagnoses Alcohol withdrawal delirium F10.931 Parotitis K11.20 Acute hyponatremia E87.1 Acute renal failure (ARF) N17.9 Hypokalemia E87.6
[2025-04-13 04:55] LABS: Anion Gap 6.0 (3-11); Blood Urea Nitrogen 6.0 mg/dl (6-23); Calcium 7.9 mg/dl (8.6-10.3); Carbon Dioxide 24.0 mmol/L (21-32); Chloride 111.0 mmol/L (98-107); Creatinine Clr Calc Pharmacy 173.0 ml/min; Glucose 84.0 mg/dl (70-99(Fasting)); Magnesium 2.0 mg/dl (1.7-2.4); Potassium 4.1 mmol/L (3.5-5.1); Sodium 141.0 mmol/L (136-145)
[2025-04-13 05:12] LABS: Hematocrit (blood only) 24.1 % (42.0-52.0); Hemoglobin 8.3 g/dl (14.0-18.0); Immature Granulocytes # (auto) 0.18 K/uL (0.01-0.20); Immature Granulocytes % (auto) 1.9 %; Macrocytosis Present; Mean Corpuscular Hemoglobin 38.8 pg (25.0-34.0); Mean Corpuscular Volume 112.6 fL (80.0-100.0); Platelet Count 272 K/uL (130-400); Polychromasia 1+; RDW Standard Deviation 63.8 fL (36.4-46.3); Red Blood Count 2.14 M/uL (4.70-6.10); White Blood Count 9.47 K/ul (4.8-10.8)
--- NOTE | 2025-04-13 08:21 | Critical Care Progress Note ---
Date of Service April 13, 2025 Assessment & Plan (1) Alcohol use disorder: (2) Hypokalemia: (3) Hyponatremia: (4) EMIL (acute kidney injury): (5) Alcohol withdrawal delirium: Plan Impression: 39-year-old male with history of substance abuse admitted with tremulousness felt to be related to alcohol withdrawal. He required higher dose medications due to severe agitation on the floor and has been loaded on phenobarbital which prompted him to be transferred to the ICU. He is now hemodynamically stable sedated and comfortable. Recommendations: 1. Neurologic: Patient with ongoing alcohol withdrawal and metabolic encephalopathy. Patient successfully extubated. Will continue to monitor mental status closely. He has some delirium as expected from prolonged hospitalization and recent intubation. Continue delirium precautions. Continue with thiamine and folic acid. Will try to wean Precedex. Continue clonidine. Continue Zyprexa. Will try to add Librium 50 mg every 6 hours to his alcohol withdrawal regimen. 2. Cardiovascular: No current issues. Continue to follow clinically. Echo 04/01/2025 with no evidence of mass or vegetation. LVEF 60 to 65%. Right ventricular systolic function was normal. Mild mitral regurgitation noted. Hypotension likely response to withdrawal. 3. Pulmonary: Patient extubated 04/11/2025. Chest x-ray 04/09/2025 with right lower lobe airspace opacities and endotracheal tube in place. Soft tissue CT of his neck reviewed. Inflammation appears to be improving. 4. Renal: Hyponatremia resolved. Replace electrolytes as needed. Creatinine normalized. 5. ID: Cultures from the right mandible growing MSSA and Bacteroides. Continue Unasyn. Was briefly on vancomycin. 6. GI: Continue pantoprazole daily. Advance diet as able. Speech therapy consult appreciated. Will place NG tube as patient has been on oral nutrition. 7. Endocrine: Glycemic control per protocol. TSH normal. 8.: Heme-onc: Patient with ongoing macrocytic anemia. Hemoglobin stable. No overt signs of bleeding. Continue heparin subcu for DVT prophylaxis. I spent 10 minutes reviewing the electronic medical record/relevant imaging, 0 minutes discussing diagnosis and treatment plan with patient/family, and 30 minutes discussing care plan with ancillary staff such as RT/RN/pharmacist/cpo/PT/OT/other consulting medical services. CRITICAL CARE TIME I have personally spent 49 minutes of critical care time in the direct management of this patient. This is a life/limb threatening event. This includes time spent evaluating patient, direct bedside care, chart review, placing orders, interpretation of diagnostic studies, discussion with consultants, patient, and family members, as well as other required patient management activities. This time is exclusive of all separately billable procedures, and teaching time and separate from and in addition to any other critical care service time. Admission and Anticipated Discharge Date Admission Date: April 01, 2025 Subjective Patient remains delirious today and often combative. He is on max dose Precedex. Vital signs are stable. Oxygenation stable as well on room air. Review of Systems Review of Systems: Unobtainable due to cognitive status Physical Exam Physical Exam: Constitutional: Patient appears to be of their stated age. Mild distress. Agitated. Eyes: Upward gaze. Anicteric sclera. Ears nose, mouth and throat: No perioral cyanosis. Neck: Trachea is midline. Visual inspection is normal. Respiratory: Clear to auscultation bilaterally. No use of accessory muscles. No significant clubbing noted. Cardiovascular: Regular rate and rhythm. No murmurs. No edema. Gastrointestinal: Normal bowel sounds, soft, nontender and nondistended. No hepatosplenomegaly noted. Musculoskeletal: No cyanosis. Patient is able to move all extremities. Skin: No rashes, warm dry and intact. Neurologic: No obvious focal neurological deficits seen. Psychiatric: Severely agitated. Results & Data Results & Data Vital Signs (Past 12 Hours) Vital Signs Pulse Resp BP Pulse Ox 04/13/25 05:00 137/83 04/13/25 05:00 137/83 04/13/25 05:00 98 H 24 94 04/13/25 04:30 138/98 04/13/25 04:30 138/98 04/13/25 04:27 91 H 25 H 93 04/13/25 04:09 90 27 H 93 04/13/25 04:00 138/78 04/13/25 03:51 90 26 H 93 04/13/25 03:30 100 H 30 H 91 04/13/25 02:30 120/84 04/13/25 02:27 82 30 H 93 04/13/25 02:03 86 22 91 04/13/25 02:00 04/13/25 02:00 10604/13/25 02:00 04/13/25 01:48 85 21 93 04/13/25 01:30 108/69 04/13/25 01:30 108/69 04/13/25 01:30 83 23 93 04/13/25 01:09 85 24 92 04/13/25 01:00 98/62 L 04/13/25 00:54 87 25 H 93 04/13/25 00:30 102/67 04/13/25 00:30 102/67 04/13/25 00:30 92 H 24 93 04/13/25 00:03 88 25 H 94 04/13/25 00:00 114/76 04/13/25 00:00 114/76 04/12/25 23:54 89 25 H 94 04/12/25 23:00 130/93 04/12/25 23:00 130/93 04/12/25 23:00 130/93 04/12/25 23:00 130/93 04/12/25 23:00 94 H 29 H 93 04/12/25 22:00 100 H 31 H 95 04/12/25 22:00 137/90 04/12/25 22:00 137/90 04/12/25 22:00 137/90 04/12/25 21:42 100 H 33 H 92 04/12/25 21:30 138/90 04/12/25 21:27 95 H 28 H 93 04/12/25 21:06 104 H 33 H 92 04/12/25 21:00 132/92 04/12/25 20:57 101 H 36 H 94 04/12/25 20:30 139/97 04/12/25 20:30 139/97 04/12/25 20:30 139/97 04/12/25 20:27 91 Coding Level of Care Code 07234 CRITICAL CARE 1ST 30-74M Diagnoses Alcohol use disorder F10.90 Hypokalemia E87.6 Hyponatremia E87.1 EMIL (acute kidney injury) N17.9 Alcohol withdrawal delirium F10.931
[2025-04-13] MEDS: FUROSEMIDE 40 MG/4 ML VIAL IV ONE (09:08)
[2025-04-13] MEDS ORDERED: PEPTAMEN 1.5 CAL 1,000 ML BAG NG SCH (10:30)
[2025-04-13] MEDS: CEROVITE ADV FORMULA TAB PO SCH (10:41)
[2025-04-13] MEDS: ENOXAPARIN INJ 40 MG/0.4 ML SYR SQ SCH (10:47)
--- NOTE | 2025-04-13 11:47 | XRay Report ---
XR chest 1V portable CLINICAL HISTORY: NG tube placement attempt. COMPARISON STUDY: Chest radiograph April 09, 2025. FINDINGS: There is no pneumothorax. Small bilateral pleural effusions have increased. Interstitial th ickening and bilateral airspace opacities have progressed. There is moderate enlargement of the cardi ac silhouette. No nasogastric tube is identified on this examination. IMPRESSION: 1. No nasogastric tube identified within the chest. 2. Increase in interstitial thickening and bilateral opacities. The findings favor pulmonary edema ho wever bilateral pneumonia could appear similar. Radiographic follow-up is recommended. 3. Increase in small bilateral pleural effusions. ACT 112: Negative or not required by law. Electronically signed by: Juliocesar Peter M.D. 04/13/2025 11:45 AM
[2025-04-13] MEDS: TUBE FEEDING WATER FLUSH NG SCH (13:14)
--- NOTE | 2025-04-13 13:40 | Hospitalist Progress Note ---
Date of Service April 13, 2025 Assessment & Plan (1) Alcohol withdrawal delirium: Plan: Now extubated. Wean Precedex off as tolerated. Continue AWSS protocol. Supportive care. IM Zyprexa as needed (2) Parotitis: Plan: CT showing possible right parotitis . Right mandible area culture growing MSSA and Bacteroides. He remains on intravenous Unasyn. Improving (3) Acute hyponatremia: Plan: Monitor intake and output. Serial labs. Appreciate nephrology consultation. DDAVP administered earlier this admission. (4) Acute renal failure (ARF): Plan: Resolved. Creatinine now normalized. Monitor intake and output. Serial labs. Renal ultrasound negative for obstruction (5) Hypokalemia: Plan: Corrected with parenteral replacement. Serial labs Plan Will transfer out of the ICU once he is off the Precedex. I explained to the parents that he probably will need temporary rehab placement after this prolonged hospitalization before he can eventually return home Admission and Anticipated Discharge Date Admission Date: April 01, 2025 Subjective The patient remains extubated and is mildly sedated with intravenous Precedex which is being weaned off. Parents are at the bedside. Hopefully he can be moved out of the ICU once he is off the Precedex. He has received quite a bit of IV fluids this admission and critical care has administered parenteral Lasix for diuresis. Review of Systems 2 Review of Systems: The patient is extubated but remains on Precedex and is unable to answer any questions regarding review of systems at this time Physical Exam 2 Physical Exam: General-awake but lethargic from continued parenteral Precedex. No fever HEENT-head atraumatic and normocephalic, pupils equal and reactive to light, extraocular muscles intact Neck-no lymphadenopathy or thyromegaly, trachea midline Chest-clear to auscultation. No rales, wheezing or rhonchi Cardiac-regular rate and rhythm, normal S1 and S2 Abdomen-normal bowel sounds, no hepatosplenomegaly Extremities-no cyanosis, clubbing, or edema Neuro-no apparent focal deficits. Moving all 4 extremities randomly Psych-lethargic. Cannot assess Results & Data Results & Data Vital Signs (Past 12 Hours) Vital Signs Pulse Resp BP Pulse Ox 04/13/25 13:01 144/94 H 04/13/25 13:00 113 H 45 H 98 04/13/25 12:30 153/94 H 04/13/25 12:27 110 H 20 96 07/10/25 12:12 104 H 38 H 99 04/13/25 12:00 126/102 H 04/13/25 11:54 109 H 30 H 96 04/13/25 11:09 114 H 24 94 04/13/25 11:00 149/97 H 04/13/25 10:31 147/86 H 04/13/25 10:00 142/88 H 04/13/25 09:45 100 H 28 H 95 04/13/25 09:30 130/98 04/13/25 09:00 133/91 04/13/25 08:54 93 H 30 H 93 04/13/25 08:30 127/82 04/13/25 08:30 96 H 28 H 93 04/13/25 08:00 135/85 04/13/25 08:00 93 H 25 H 94 04/13/25 07:30 127/73 04/13/25 07:00 131/88 04/13/25 07:00 97 H 27 H 95 04/13/25 05:00 137/83 04/13/25 05:00 137/83 04/13/25 05:00 98 H 24 94 04/13/25 04:30 138/98 04/13/25 04:30 138/98 04/13/25 04:27 91 H 25 H 93 04/13/25 04:09 90 27 H 93 04/13/25 04:00 138/78 04/13/25 03:51 90 26 H 93 04/13/25 03:30 100 H 30 H 91 04/13/25 02:30 120/84 04/13/25 02:27 82 30 H 93 04/13/25 02:03 86 22 91 04/13/25 02:00 106/64 04/13/25 02:00 106/64 04/13/25 02:00 106/64 04/13/25 01:48 85 21 93 Laboratory Results 04/13/25 04:14 04/13/25 04:14 PG Care Time/CCT Total # of Minutes Spent Total Time Spent with Patient: Total time spent is greater than 50% in coordination of care (as documented) at patient's floor/unit and/or counseling patient: Coding Level of Care Code 19017 SUB INP/OBS CARE 2/35MIN Diagnoses Alcohol withdrawal delirium F10.931 Parotitis K11.20 Acute hyponatremia E87.1 Acute renal failure (ARF) N17.9 Hypokalemia E87.6
[2025-04-13] MEDS: FUROSEMIDE 40 MG/4 ML VIAL IV SCH (20:18)
[2025-04-13 23:08] LABS: Anion Gap 13.0 (3-11); Blood Urea Nitrogen 7.0 mg/dl (6-23); Calcium 8.2 mg/dl (8.6-10.3); Carbon Dioxide 22.0 mmol/L (21-32); Chloride 105.0 mmol/L (98-107); Creatinine Clr Calc Pharmacy 178.4 ml/min; Glucose 74.0 mg/dl (70-99(Fasting)); Potassium 3.6 mmol/L (3.5-5.1); Sodium 140.0 mmol/L (136-145)
[2025-04-13] MEDS: POTASSIUM CHLORIDE / WTR 10 MEQ/100 ML PLCT IV SCH (23:32)
[2025-04-14 04:39] LABS: Hematocrit (blood only) 23.9 % (42.0-52.0); Hemoglobin 8.3 g/dl (14.0-18.0); Immature Granulocytes # (auto) 0.09 K/uL (0.01-0.20); Immature Granulocytes % (auto) 1.3 %; Mean Corpuscular Hemoglobin 38.2 pg (25.0-34.0); Mean Corpuscular Volume 110.1 fL (80.0-100.0); Platelet Count 297 K/uL (130-400); RDW Standard Deviation 59.9 fL (36.4-46.3); Red Blood Count 2.17 M/uL (4.70-6.10); White Blood Count 6.95 K/ul (4.8-10.8)
[2025-04-14 04:56] LABS: Anion Gap 13.0 (3-11); Blood Urea Nitrogen 7.0 mg/dl (6-23); Calcium 8.0 mg/dl (8.6-10.3); Carbon Dioxide 22.0 mmol/L (21-32); Chloride 106.0 mmol/L (98-107); Creatinine Clr Calc Pharmacy 181.2 ml/min; Glucose 74.0 mg/dl (70-99(Fasting)); Magnesium 1.6 mg/dl (1.7-2.4); Potassium 3.8 mmol/L (3.5-5.1); Sodium 141.0 mmol/L (136-145)
[2025-04-14] MEDS: ICU ELECTROLYTE REPLACEMENT PROTOCOL SCH (05:09)
[2025-04-14 05:36] LABS: Polychromasia 1+
[2025-04-14] MEDS: MAGNESIUM SULFATE / D5W 1 GM/100 ML BAG IV SCH (05:40)
[2025-04-14] MEDS: POTASSIUM CHLORIDE / WTR 10 MEQ/100 ML PLCT IV SCH (05:42)
[2025-04-14] MEDS: THIAMINE HCL 100 MG in SYRINGE 9 ML IV SCH (08:03)
--- NOTE | 2025-04-14 10:42 | Critical Care Progress Note ---
Date of Service April 14, 2025 Assessment & Plan (1) Alcohol use disorder: (2) Hypokalemia: (3) Hyponatremia: (4) EMIL (acute kidney injury): (5) Alcohol withdrawal delirium: Plan Impression: 39-year-old male with history of substance abuse admitted with tremulousness felt to be related to alcohol withdrawal. He required higher dose medications due to severe agitation on the floor and has been loaded on phenobarbital which prompted him to be transferred to the ICU. He is now hemodynamically stable sedated and comfortable. Recommendations: 1. Neurologic: Mental status significantly clearing. Weaning off Precedex. Continue clonidine. Attempt at Valium taper if able to take p.o. Continue delirium precautions. Continue thiamine and folic acid. 2. Cardiovascular: No current issues. Continue to follow clinically. Echo 04/01/2025 with no evidence of mass or vegetation. LVEF 60 to 65%. Right ventricular systolic function was normal. Mild mitral regurgitation noted. Patient with evidence of diastolic heart failure and is diuresing well with Lasix. 3. Pulmonary: Patient extubated 04/11/2025. Chest x-ray 04/09/2025 with right lower lobe airspace opacities and endotracheal tube in place. Soft tissue CT of his neck reviewed. Inflammation appears to be improving. 4. Renal: Diuresing with 40 mg twice daily of IV Lasix. Replace electrolytes as needed. 5. ID: Cultures from the right mandible growing MSSA and Bacteroides. Continue Unasyn. Was briefly on vancomycin. 6. GI: Continue pantoprazole daily. Advance diet as able. Speech therapy consult appreciated. 7. Endocrine: Glycemic control per protocol. TSH normal. 8.: Heme-onc: Patient with ongoing macrocytic anemia. Hemoglobin stable. No overt signs of bleeding. Transition from subcu heparin to Lovenox daily. Patient likely able to transfer out of the ICU today once off Precedex. Admission and Anticipated Discharge Date Admission Date: April 01, 2025 Subjective Patient's mental status is significantly clearer today. His Precedex is being titrated off. He is able to tell me the date, his name, his date of and why he is here. He is sitting up in the chair today. Review of Systems Review of Systems: All systems reviewed & are unremarkable except as noted in HPI & below Physical Exam Physical Exam: Constitutional: Patient appears to be of their stated age. No apparent distress. Eyes: Upward gaze. Anicteric sclera. Ears nose, mouth and throat: No perioral cyanosis. Neck: Trachea is midline. Visual inspection is normal. Respiratory: Clear to auscultation bilaterally. No use of accessory muscles. No significant clubbing noted. Cardiovascular: Regular rate and rhythm. No murmurs. No edema. Gastrointestinal: Normal bowel sounds, soft, nontender and nondistended. No hepatosplenomegaly noted. Musculoskeletal: No cyanosis. Patient is able to move all extremities. Skin: No rashes, warm dry and intact. Neurologic: No obvious focal neurological deficits seen. Psychiatric: Much more awake and alert today. Much more oriented. Results & Data Results & Data Vital Signs (Past 12 Hours) Vital Signs Temp Pulse Resp BP Pulse Ox O2 Del Method O2 Flow Rate 04/14/25 08:03 91 H 25 H 95 04/14/25 08:00 123/88 04/14/25 08:00 123/88 04/14/25 07:42 110 H 28 H 95 04/14/25 07:00 121/93 04/14/25 07:00 121/93 04/14/25 07:00 121/93 04/14/25 07:00 98 H 26 H 93 04/14/25 06:00 85 24 127/82 96 Oxymask 3 04/14/25 05:00 88 22 118/68 93 Oxymask 3 04/14/25 04:00 37.1 C 111 H 26 H 139/83 96 Oxymask 3 04/14/25 03:00 100 H 27 H 136/89 95 Nasal Cannula 2 04/14/25 02:00 96 H 27 H 131/91 97 Oxymask 3 04/14/25 01:00 108 H 30 H 130/85 95 Oxymask 3 04/14/25 00:00 37 C 112 H 24 129/86 92 Oxymask 3 04/13/25 23:00 107 H 33 H 133/87 96 Oxymask 3 Coding Level of Care Code 30933 SUB INP/OBS CARE 2/35MIN Diagnoses Alcohol use disorder F10.90 Hypokalemia E87.6 Hyponatremia E87.1 EMIL (acute kidney injury) N17.9 Alcohol withdrawal delirium F10.931
--- NOTE | 2025-04-14 10:53 | Hospitalist Progress Note ---
Date of Service April 14, 2025 Assessment & Plan (1) Alcohol withdrawal delirium: Plan: Now extubated. Wean Precedex off as tolerated. He remains delirious. Continue AWSS protocol. Supportive care. IM Zyprexa as needed (2) Parotitis: Plan: CT showing possible right parotitis . Right mandible area culture growing MSSA and Bacteroides. He remains on intravenous Unasyn. Improving (3) Acute hyponatremia: Plan: Monitor intake and output. Serial labs. Appreciate nephrology consultation. DDAVP administered earlier this admission. (4) Acute renal failure (ARF): Plan: Resolved. Creatinine now normalized. Monitor intake and output. Serial labs. Renal ultrasound negative for obstruction (5) Hypokalemia: Plan: Corrected with parenteral replacement. Serial labs Plan Will transfer out of the ICU once he is off the Precedex. I explained to the parents that he probably will need temporary rehab placement after this prolonged hospitalization before he can eventually return home Admission and Anticipated Discharge Date Admission Date: April 01, 2025 Subjective Awake but delirious. He remains on Precedex which is being weaned off. Significant urine output with a dose of intravenous Lasix administered yesterday, April 13. Creatinine has normalized. He will be moved out of the ICU once he is off the Precedex Review of Systems 2 Review of Systems: The patient is awake but delirious and cannot reliably answer any questions regarding review of systems at this time Physical Exam 2 Physical Exam: General-awake but delirious. No fever HEENT-head atraumatic and normocephalic, pupils equal and reactive to light, extraocular muscles intact Neck-no lymphadenopathy or thyromegaly, trachea midline Chest-clear to auscultation. No rales, wheezing or rhonchi Cardiac-regular rate and rhythm, normal S1 and S2 Abdomen-normal bowel sounds, no hepatosplenomegaly Extremities-left BKA status. No right lower extremity edema seen. Neuro-delirious but no discernible deficits from a motor standpoint Psych-awake but delirious. Results & Data Results & Data Vital Signs (Past 12 Hours) Vital Signs Temp Pulse Resp BP Pulse Ox O2 Del Method O2 Flow Rate 04/14/25 08:03 91 H 25 H 95 04/14/25 08:00 123/88 04/14/25 08:00 123/88 04/14/25 07:42 110 H 28 H 95 04/14/25 07:00 121/93 04/14/25 07:00 121/93 04/14/25 07:00 121/93 04/14/25 07:00 98 H 26 H 93 04/14/25 06:00 85 24 127/82 96 Oxymask 3 04/14/25 05:00 88 22 118/68 93 Oxymask 3 04/14/25 04:00 37.1 C 111 H 26 H 139/83 96 Oxymask 3 04/14/25 03:00 100 H 27 H 136/89 95 Nasal Cannula 2 04/14/25 02:00 96 H 27 H 131/91 97 Oxymask 3 04/14/25 01:00 108 H 30 H 130/85 95 Oxymask 3 04/14/25 00:00 37 C 112 H 24 129/86 92 Oxymask 3 04/13/25 23:00 107 H 33 H 133/87 96 Oxymask 3 Laboratory Results 04/14/25 04:20 04/14/25 04:20 PG Care Time/CCT Total # of Minutes Spent Total Time Spent with Patient: Total time spent is greater than 50% in coordination of care (as documented) at patient's floor/unit and/or counseling patient: Coding Level of Care Code 20443 SUB INP/OBS CARE 2/35MIN Diagnoses Alcohol withdrawal delirium F10.931 Parotitis K11.20 Acute hyponatremia E87.1 Acute renal failure (ARF) N17.9 Hypokalemia E87.6
--- NOTE | 2025-04-14 16:40 | Communication Note ---
Date of Service: April 14, 2025 Patient continues with periodic agitation. Will restart the patient's home gabapentin at 600 mg, 3 times daily and add a dose of Valium 10 mg now in additi on to his twice daily dosing.
[2025-04-14] MEDS: GABAPENTIN 600 MG TAB PO SCH (20:09)
[2025-04-15] MEDS: ACETAMINOPHEN 325 MG TAB PO PRN (05:04)
[2025-04-15 05:11] LABS: Hematocrit (blood only) 26.1 % (42.0-52.0); Hemoglobin 9.0 g/dl (14.0-18.0); Immature Granulocytes # (auto) 0.07 K/uL (0.01-0.20); Immature Granulocytes % (auto) 0.9 %; Mean Corpuscular Hemoglobin 37.7 pg (25.0-34.0); Mean Corpuscular Volume 109.2 fL (80.0-100.0); Platelet Count 363 K/uL (130-400); RDW Standard Deviation 59.7 fL (36.4-46.3); Red Blood Count 2.39 M/uL (4.70-6.10); White Blood Count 7.48 K/ul (4.8-10.8)
[2025-04-15 05:26] LABS: Anion Gap 12.0 (3-11); Blood Urea Nitrogen 5.0 mg/dl (6-23); Calcium 8.3 mg/dl (8.6-10.3); Carbon Dioxide 25.0 mmol/L (21-32); Chloride 102.0 mmol/L (98-107); Creatinine Clr Calc Pharmacy 190.3 ml/min; Glucose 87.0 mg/dl (70-99(Fasting)); Magnesium 1.8 mg/dl (1.7-2.4); Potassium 3.9 mmol/L (3.5-5.1); Sodium 139.0 mmol/L (136-145)
--- NOTE | 2025-04-15 08:46 | XRay Report ---
EXAM: Radiograph of the Chest 1 View INDICATION: Hypoxia TECHNIQUE: Frontal view of the chest. COMPARISON: 04/13/2025 FINDINGS: Lungs and pleural spaces: There is slight increased vascular congestion with patchy airspace disease in both lung bases slightly less confluent. No pleural effusion or pneumothorax. Heart: Stable prominent cardiac shadow. Mediastinum: Normal contour. Bones/joints: No fracture, erosion or dislocation. Soft tissues: No abnormality noted. No radiopaque foreign body noted. Upper abdomen: No abnormality noted. IMPRESSION: Increased vascular congestion with persistent but slightly improved confluent bilateral basilar infiltrates. ACT 112: N/A Electronically signed by Vaishnavi Lang 04-15-2025 08:46 AM
--- NOTE | 2025-04-15 10:17 | Hospitalist Progress Note ---
Date of Service April 15, 2025 Assessment & Plan (1) Alcohol withdrawal delirium: Plan: Now extubated and off Precedex. He is still requiring one-on-one supervision however. He is disoriented. Continue AWSS protocol. Supportive care. IM Zyprexa as needed (2) Parotitis: Plan: CT showing possible right parotitis . Right mandible area culture growing MSSA and Bacteroides. He remains on intravenous Unasyn. Improving (3) Acute hyponatremia: Plan: Present on admission. Now resolved. (4) Acute renal failure (ARF): Plan: Resolved. Creatinine now normalized. Monitor intake and output. Serial labs. Renal ultrasound negative for obstruction (5) Hypokalemia: Plan: Corrected with parenteral replacement. Serial labs Plan OT and PT ordered. It appears he will need placement for a while before he can return home. Admission and Anticipated Discharge Date Admission Date: April 01, 2025 Subjective Alert. Pleasant with me. One-on-one supervision continues. He appears to be improving. Chest x-ray done today, April 15, continues to show vascular congestion. Continue parenteral Lasix diuresis. Magnesium corrected to 1.8. He remains on intravenous Unasyn for the right parotitis Review of Systems 2 Review of Systems: The patient is awake and pleasant but disoriented and cannot reliably answer any questions regarding review of systems at this time Physical Exam 2 Physical Exam: General-awake but disoriented. No fever HEENT-head atraumatic and normocephalic, pupils equal and reactive to light, extraocular muscles intact Neck-no lymphadenopathy or thyromegaly, trachea midline Chest-clear to auscultation. No rales, wheezing or rhonchi Cardiac-mildly tachycardic regular rate and regular rhythm, normal S1 and S2 Abdomen-normal bowel sounds, no hepatosplenomegaly Extremities-left BKA status. No right lower extremity edema seen. Neuro-disoriented. No apparent focal motor deficits Psych-cannot assess Results & Data Results & Data Vital Signs (Past 12 Hours) Vital Signs Temp Pulse Pulse Resp BP BP Pulse Ox 04/15/25 07:30 04/15/25 06:06 118 H 24 04/15/25 04:12 123 H 25 H 04/15/25 03:46 158/88 H 04/15/25 03:45 117 H 28 H 82 L 04/15/25 03:45 37.2 C 113 H 29 H 158/88 H 94 04/15/25 02:00 106 H 40 H 04/15/25 00:23 103 H 04/15/25 00:12 109 H 25 H 04/14/25 22:25 151/102 H 04/14/25 22:25 112 H 26 H 151/102 H 94 04/14/25 22:24 128 H 25 H O2 Del Method O2 Flow Rate 04/15/25 07:30 Nasal Cannula 2 04/15/25 06:06 04/15/25 04:12 04/15/25 03:46 04/15/25 03:45 04/15/25 03:45 Nasal Cannula 2 04/15/25 02:00 04/15/25 00:23 04/15/25 00:12 04/14/25 22:25 04/14/25 22:25 Nasal Cannula 2 04/14/25 22:24 Laboratory Results 04/15/25 04:45 04/15/25 04:45 PG Care Time/CCT Total # of Minutes Spent Total Time Spent with Patient: Total time spent is greater than 50% in coordination of care (as documented) at patient's floor/unit and/or counseling patient: Coding Level of Care Code 87431 SUB INP/OBS CARE 2/35MIN Diagnoses Alcohol withdrawal delirium F10.931 Parotitis K11.20 Acute hyponatremia E87.1 Acute renal failure (ARF) N17.9 Hypokalemia E87.6
[2025-04-16 05:10] LABS: Anion Gap 10.0 (3-11); Blood Urea Nitrogen 4.0 mg/dl (6-23); Calcium 8.5 mg/dl (8.6-10.3); Carbon Dioxide 28.0 mmol/L (21-32); Chloride 101.0 mmol/L (98-107); Creatinine Clr Calc Pharmacy 160.8 ml/min; Glucose 100.0 mg/dl (70-99(Fasting)); Magnesium 1.7 mg/dl (1.7-2.4); Potassium 3.2 mmol/L (3.5-5.1); Sodium 139.0 mmol/L (136-145)
[2025-04-16] MEDS: THIAMINE HCL 100 MG TAB PO SCH (08:56)
--- NOTE | 2025-04-16 12:51 | Hospitalist Progress Note ---
Date of Service April 16, 2025 Assessment & Plan (1) Alcohol withdrawal delirium: Plan: Now extubated and off Precedex. One-on-one supervision has been discontinued. He appears to be oriented now. oNursing believes that intravenous Ativan actually makes him worse. This has been discontinued. Will use oral Valium as needed. (2) Parotitis: Plan: CT showing possible right parotitis . Right mandible area culture growing MSSA and Bacteroides. Unasyn switched to oral Augmentin today, April 16. Improving (3) Acute hyponatremia: Plan: Present on admission. Now resolved. (4) Acute renal failure (ARF): Plan: Resolved. Creatinine now normalized. Monitor intake and output. Serial labs. Renal ultrasound negative for obstruction (5) Hypokalemia: Plan: He received parenteral replacement earlier this admission. Potassium is again mildly low. Oral replacement started. Serial labs Plan OT and PT ordered. It appears he will need placement for a while before he can return home. Hopeful discharge within the next day or 2 Admission and Anticipated Discharge Date Admission Date: April 01, 2025 Subjective Continued improvement. Nursing believes intravenous Ativan actually makes him worse. This has been discontinued. Unasyn switched to oral Augmentin. Oral potassium replacement ordered. Intravenous thiamine and Protonix switched to oral dosing. Will decrease parenteral Lasix down to once daily. He is medically stable to be moved out of the ICU. Review of Systems 2 Review of Systems: Constitutionalno fever or chills ENTno blurred vision, no double vision, no epistaxis, no sore throat Respiratoryno cough, no wheezing, no shortness of breath Cardiacno palpitations, no chest pain, no syncope Coni nausea, vomiting, diarrhea, melena, hematochezia GUno urinary retention, no urinary incontinence, no dysuria, no hematuria Musculoskeletalno joint pain, no muscle tenderness Skinno bruising, no rashes, no pruritus Neurono isolated weakness, no paresthesia, no weakness Psychno depression, no anxiety Physical Exam 2 Physical Exam: General-awake and alert. He appears to be oriented now. No fever HEENT-head atraumatic and normocephalic, pupils equal and reactive to light, extraocular muscles intact Neck-no lymphadenopathy or thyromegaly, trachea midline Chest-clear to auscultation. No rales, wheezing or rhonchi Cardiac-mildly tachycardic regular rate and regular rhythm, normal S1 and S2 Abdomen-normal bowel sounds, no hepatosplenomegaly Extremities-left BKA status. No right lower extremity edema seen. Neuro-cranial nerves II through XII intact. Motor and sensory function within normal limits. Psych-normal affect. Normal mood Results & Data Results & Data Vital Signs (Past 12 Hours) Vital Signs Temp Pulse Resp BP BP Pulse Ox O2 Del Method 04/16/25 08:35 37.0 C 04/16/25 08:26 97 H 22 107/74 93 04/16/25 07:30 Room Air 04/16/25 07:15 107 H 23 04/16/25 06:03 113 H 22 04/16/25 05:18 113 H 23 04/16/25 04:47 36.8 C 23 117/70 92 Room Air 04/16/25 04:43 117/70 04/16/25 04:03 102 H 21 04/16/25 03:09 106 H 20 04/16/25 02:06 106 H 21 04/16/25 01:06 102 H 25 H Laboratory Results 04/15/25 04:45 04/16/25 04:24 PG Care Time/CCT Total # of Minutes Spent Total Time Spent with Patient: Total time spent is greater than 50% in coordination of care (as documented) at patient's floor/unit and/or counseling patient: Coding Level of Care Code 02203 SUB INP/OBS CARE 3/50MIN Diagnoses Alcohol withdrawal delirium F10.931 Parotitis K11.20 Acute hyponatremia E87.1 Acute renal failure (ARF) N17.9 Hypokalemia E87.6
[2025-04-16] MEDS: POTASSIUM CHLORIDE CRTAB 20 MEQ TABCR PO SCH (14:54)
[2025-04-16] MEDS: AMOXICILLIN/CLAVULANATE 875 MG TAB PO SCH (17:33)
[2025-04-17 05:32] LABS: Anion Gap 7.0 (3-11); Blood Urea Nitrogen 5.0 mg/dl (6-23); Calcium 8.5 mg/dl (8.6-10.3); Carbon Dioxide 26.0 mmol/L (21-32); Chloride 104.0 mmol/L (98-107); Creatinine Clr Calc Pharmacy 167.9 ml/min; Glucose 88.0 mg/dl (70-99(Fasting)); Magnesium 1.8 mg/dl (1.7-2.4); Potassium 3.9 mmol/L (3.5-5.1); Sodium 137.0 mmol/L (136-145)
--- NOTE | 2025-04-17 06:47 | XRay Report ---
EXAM: XR chest 1V portable CLINICAL HISTORY: Fluid overload, pulm vasc congestion TECHNIQUE: An X-ray image of the chest is obtained in AP projection. COMPARISON: 04/15/2025 CR. FINDINGS: Pulmonary Parenchyma: Significant decreased vascular congestion with regression of previously noted patchy airspace disease in both lungs. No evidence of consolidation, collapse, or focal opacities. No pulmonary nodules are identified. No evidence of pleural effusion or pleural thickening. Heart and Mediastinum: Stable mild enlarged cardiac shadow. No mediastinal widening or masses. No hilar or mediastinal lymphadenopathy. Bony Thorax: Bony thorax appears intact without fractures or deformities. Soft Tissues: Soft tissues overlying the chest wall are unremarkable. Chest wall leads are noted. IMPRESSION: 1. Significant decrease in vascular congestion with regression of previously noted bilateral basal infiltrates. Interval improvement. 2. Mild cardiomegaly. (Unchanged). Electronically signed by Dalton Ashraf 04-17-2025 06:46 AM
[2025-04-17] MEDS: FUROSEMIDE 40 MG/4 ML VIAL IV SCH (08:28)
--- NOTE | 2025-04-17 17:15 | Hospitalist Progress Note ---
Date of Service April 17, 2025 Assessment & Plan (1) Alcohol withdrawal delirium: Plan: Now extubated and off Precedex. One-on-one supervision has been discontinued. He appears to be oriented now. (2) Parotitis: Plan: CT showing possible right parotitis . Right mandible area culture growing MSSA and Bacteroides. Unasyn switched to oral Augmentin on April 16. Improving (3) Acute hyponatremia: Plan: Present on admission. Now resolved. (4) Acute renal failure (ARF): Plan: Resolved. Creatinine now normalized. Monitor intake and output. Serial labs. Renal ultrasound negative for obstruction (5) Hypokalemia: Plan: Corrected with parenteral and oral replacement. Serial labs Plan He is not agreeable to go to rehab at discharge for short period of time. Case management aware. He is medically stable for discharge when arrangements are finalized. Admission and Anticipated Discharge Date Admission Date: April 01, 2025 Subjective Alert and oriented. Mental status appears to be back to baseline. His parents are at the bedside. He has been transferred out of the ICU. He is on room air and chest x-ray reveals resolution of fluid overload. Lasix and potassium have been discontinued. He is now agreeable to go to rehab for little while before he returns home. Review of Systems 2 Review of Systems: Constitutionalno fever or chills ENTno blurred vision, no double vision, no epistaxis, no sore throat Respiratoryno cough, no wheezing, no shortness of breath Cardiacno palpitations, no chest pain, no syncope Coni nausea, vomiting, diarrhea, melena, hematochezia GUno urinary retention, no urinary incontinence, no dysuria, no hematuria Musculoskeletalno joint pain, no muscle tenderness Skinno bruising, no rashes, no pruritus Neurono isolated weakness, no paresthesia, no weakness Psychno depression, no anxiety Physical Exam 2 Physical Exam: General-awake and alert. He appears to be oriented now. No fever HEENT-head atraumatic and normocephalic, pupils equal and reactive to light, extraocular muscles intact Neck-no lymphadenopathy or thyromegaly, trachea midline Chest-clear to auscultation. No rales, wheezing or rhonchi Cardiac-mildly tachycardic regular rate and regular rhythm, normal S1 and S2 Abdomen-normal bowel sounds, no hepatosplenomegaly Extremities-left BKA status. No right lower extremity edema seen. Neuro-cranial nerves II through XII intact. Motor and sensory function within normal limits. Psych-normal affect. Normal mood Results & Data Results & Data Vital Signs (Past 12 Hours) Vital Signs Temp Pulse Pulse Pulse Resp BP BP 04/17/25 15:24 36.6 C 119 H 18 114/81 04/17/25 10:52 36.4 C L 105 H 16 149/102 H 04/17/25 07:27 36.6 C 102 H 16 105/63 04/17/25 07:10 88 04/17/25 06:00 110 H 15 Pulse Ox O2 Del Method 04/17/25 15:24 95 Room Air 04/17/25 10:52 94 Room Air 04/17/25 07:27 93 Room Air 04/17/25 07:10 04/17/25 06:00 92 Room Air Laboratory Results 04/15/25 04:45 04/17/25 04:39 PG Care Time/CCT Total # of Minutes Spent Total Time Spent with Patient: Total time spent is greater than 50% in coordination of care (as documented) at patient's floor/unit and/or counseling patient: Coding Level of Care Code 07606 SUB INP/OBS CARE 2/35MIN Diagnoses Alcohol withdrawal delirium F10.931 Parotitis K11.20 Acute hyponatremia E87.1 Acute renal failure (ARF) N17.9 Hypokalemia E87.6
[2025-04-18 07:17] VITALS: BP 123/80; PULSE 99; RESP 18; TEMP 97.7; O2SAT 94
[2025-04-18 08:07] LABS: Anion Gap 7.0 (3-11); Blood Urea Nitrogen 4.0 mg/dl (6-23); Calcium 8.6 mg/dl (8.6-10.3); Carbon Dioxide 26.0 mmol/L (21-32); Chloride 107.0 mmol/L (98-107); Creatinine Clr Calc Pharmacy 165.5 ml/min; Glucose 91.0 mg/dl (70-99(Fasting)); Magnesium 1.9 mg/dl (1.7-2.4); Potassium 3.8 mmol/L (3.5-5.1); Sodium 140.0 mmol/L (136-145)
--- NOTE | 2025-04-18 10:50 | Discharge Summary ---
Discharge Summary Date of Service April 18, 2025 Principal Dx & Hospital Course #1 = Principal Diagnosis (1) Alcohol withdrawal delirium: Now extubated and off Precedex. One-on-one supervision has been discontinued. He is oriented now. (2) Parotitis: CT scan consistent with right parotitis . Right mandible area culture grew MSSA and Bacteroides. Unasyn switched to oral Augmentin on April 16. He will take Augmentin for 1 more week at the time of discharge. Resolving. (3) Acute hyponatremia: Present on admission. Now resolved. (4) Acute renal failure (ARF): Resolved. Creatinine now normalized. Monitor intake and output. Serial labs. Renal ultrasound negative for obstruction (5) Hypokalemia: Corrected with parenteral and oral replacement. Serial labs Plan Discharge to [facility] today, April 18 Admission HPI Per Admitting Provider Jona Cook is a 39-year-old male with history of daily alcohol use and polysubstance abuse presenting with tremors. Patient received Ativan prior to my encounter therefore was not able to provide clear details of events prior to arrival. Per discussion with ER staff, patient drank 5 alcoholic drinks today, smokes marijuana and did some methamphetamine. His father found him to be tremulous and weak therefore he came to the emergency room. Patient offers no complaints at this time. In the ER he is afebrile, hemodynamically stable ER course: Ativan 2 mg IV +1 mg IV Magnesium x 2 g Potassium 40 mEq p.o. +30 mEq IV Normal saline x 2 L Discharge Exam General-awake and alert. He appears to be oriented now. No fever HEENT-head atraumatic and normocephalic, pupils equal and reactive to light, extraocular muscles intact Neck-no lymphadenopathy or thyromegaly, trachea midline Chest-clear to auscultation. No rales, wheezing or rhonchi Cardiac-mildly tachycardic regular rate and regular rhythm, normal S1 and S2 Abdomen-normal bowel sounds, no hepatosplenomegaly Extremities-left BKA status. No right lower extremity edema seen. Neuro-cranial nerves II through XII intact. Motor and sensory function within normal limits. Psych-normal affect. Normal mood Discharge Plan Discharge Items Patient Disposition: Transfer Inpatient Rehab Fac Reason For Visit: HYPONATREMIA, TREMORS Discharge Diagnosis: Alcohol withdrawal with delirium, acute hypoxic respiratory failure, fluid overload, right parotitis Condition on Discharge: Good Activity: Resume your previous activity Non-emergency contact: Primary Care Provider Call non-emergency contact if: your symptoms worsen Follow-up/Referrals: PCP,NO [Primary Care Provider] - Diet: Regular Addtl Attending Provider Instructions: Take antibiotic amoxicillin/clavulanate (Augmentin) twice daily for 1 more week. See primary care provider as soon as possible after discharge from [facility] Pending Studies at Discharge: No Stand-Alone Forms: My [facility] Skilled Items Patient informed of condition?: Yes DNR: No Discharge Level of Care: Acute rehab Communicable Disease: No Discharge Prognosis: Stable Lines: None Urinary Catheter: No Medications and DC Order Prescriptions: New Cerovite Senior 0.4 mg-300 mcg- 250 mcg Tablet 1 tab PO QAM Qty: 0 0RF pantoprazole 40 mg Tablet,Delayed Release (Dr/Ec) 40 mg PO QAM Qty: 0 0RF thiamine HCl (vitamin B1) 100 mg Tablet 100 mg PO QAM Qty: 0 0RF folic acid 1 mg Tablet 1 mg PO QAM Qty: 0 0RF clonidine 0.3 mg/24 hr Patch Weekly 1 patch transdermal Q7D Qty: 0 0RF amoxicillin-pot clavulanate 875-125 mg Tablet 1 tab PO BIDM Qty: 0 0RF Continued nortriptyline 10 mg capsule 20 mg PO HS Rx Instructions: TOTAL DOSE 70 MG--TAKES WITH 50 MG CAP. nortriptyline 50 mg capsule 50 mg PO HS Rx Instructions: TOTAL DOSE 70 MG--TAKES WITH 2-10 MG CAP. thiamine HCl (vitamin B1) 100 mg Tablet 200 mg PO QAM Qty: 30 0RF gabapentin 600 mg tablet 600 mg PO TID Discharge Orders: Discharge Order (Routine); Ordered 04/18/25 Ordered By: Luis High Admission Data Admit Date/Time: 04/01/25 01:46 Attending Provider: Luis High Admit Provider: Nessa Munoz Primary Care Provider: PCP,NO Other Providers: Roayl Arnold; Nessa Munoz; Mauro Silva; Rafael Kay; [facility], [facility] Stay Data Consultations 04/01/25 01:03 ED Decision to Admit Stat 04/01/25 08:14 Consult Nephrology Routine 04/01/25 08:34 Consult Pulmonology Routine 04/08/25 03:01 Consult Otolaryngology (Head and Neck) Routine 04/08/25 14:35 Consult Oromaxillofacial Surgery Routine Diagnostic Imagining Performed 04/01/25 01:46 US Renal Bladder [US renal/blad retro comp] Stat 04/08/25 01:58 CT neck soft tissues [CT soft tissue neck w con] Stat 04/08/25 14:10 MRI Brain [MR brain wo/w con] Routine 04/10/25 04:30 CT neck soft tissues [CT soft tissue neck w con] Routine Pending Results Patient Have Any Pending Studies at Discharge: No Discharge Instructions Given to Patient (Per Discharging Provider) Take antibiotic amoxicillin/clavulanate (Augmentin) twice daily for 1 more week. See primary care provider as soon as possible after discharge from [facility] Total Time Total Time Spent Total Time Spent (In Minutes): 45 minutes Coding Level of Care Code 49414 INP/OBS DISCH >30 MIN Diagnoses Alcohol withdrawal delirium F10.931 Parotitis K11.20 Acute hyponatremia E87.1 Acute renal failure (ARF) N17.9 Hypokalemia E87.6
--- NOTE | 2025-04-23 07:27 | Coding Query ---
CODING QUERY To promote full compliance with coding requirements relating to patient care, provider participation is requested in all cases of excavating supervisor uncertainty. Please assist us with the question(s) below: Coding Question(s): Please clarify if pt has the following... Alcohol use disorder ( ) mild with alcohol induced psychotic disorder ( ) mild with alcohol intoxication with delirium ( ) ( ) moderate or severe with alcohol induced psychotic disorder ( x ) moderate or severe with alcohol intoxication with delirium ( ) Alcohol Abuse ( ) with intoxication with delirium (x ) withdrawal with delirium ( ) Alcohol Dependence ( ) with intoxication with delirium ( x ) withdrawal with delirium ( ) Physician's Response(s): Thank you Alice Ashraf Principal Diagnosis: "that condition established after study, to be chiefly responsible for occasioning the admission of the patient to the hospital for care." Co-Existing Principal Diagnosis: "when two or more diagnoses equally meet the criteria for principal diagnosis as determined by the circumstances of admission, diagnostic work up, and/or therapy provided, and the Alphabetic Index, Tabular List, or another coding guideline does not provide sequencing direction, any one of the diagnoses may be sequenced first." "When the physician has documented what appears to be a current diagnosis in the body of the record, but has not included the diagnosis in the final diagnostic statement, the physician should be asked whether the diagnosis should be added." (Source Coding [facility] 2 QTR90. p3-4) MELANI
--- NOTE | 2025-04-29 12:18 | Oral/Maxillofacial Consult ---
Date of Consultation April 29, 2025 Assessment & Plan (1) Parotitis: (2) Alcohol withdrawal delirium: History of Present Illness Attending Physician: Luis High MD History of Present Illness On April 08, 2025 I was asked to see Mr Cook. He developed a right side Parotid and submandibular swelling overnight, he is intubated. When evaluating his mouth by ICU staff they discover a brown drainage in his mouth when moving his cheek on the right side. I evaluated him on April 08 and noted an intubated patient with soft swelling right cheek, Parotid and submandibular area. No clinical or CT scan evidence of abscess that will require drainage. I see no evidence of a dental problem, Parotid blockage or obvious reason of the brown discharge and recent swelling. I suggested a repeat scan in 48 hours and according to the ICU staff the swelling looks less than last night. Oral cultures taken of drainage noted in the mouth. CT scan consistent with right parotitis . Right mandible area culture grew MRSA and Bacteroides. Repeat CT scan shows possible right Parotitis oral drainage not present will be planning extubation when appropriate. swelling much less Unasyn switched to oral Augmentin on April 16. He will take Augmentin for 1 more week at the time of discharge. Summery Soft swelling right side of face Continue IV and antibiotics Repeat the CT reviewed - right Parotitis with MRSA Await oral cultures ---MRSA Seems to be resolving on antibiotics No surgical drainage or treatmengt needed Allergies Allergy/AdvReac Type Severity Reaction Status Date / Time No Known Allergies Allergy Verified 04/01/25 00:28 Home Medications Medication Instructions Recorded Confirmed Type nortriptyline 10 mg capsule 20 mg PO HS 03/23/22 04/01/25 History nortriptyline 50 mg capsule 50 mg PO HS 03/23/22 04/01/25 History thiamine HCl (vitamin B1) 100 mg 200 mg (2 x 100 mg) PO QAM #30 tabs 03/24/22 04/01/25 Rx tablet gabapentin 600 mg tablet 600 mg PO TID 04/01/25 04/01/25 History amoxicillin 875 mg-potassium 1 tab PO BIDM #0 tabs 04/18/25 Rx clavulanate 125 mg tablet clonidine 0.3 mg/24 hr weekly 1 patch transdermal Q7D #0 ea 04/18/25 Rx transdermal patch folic acid 1 mg tablet 1 mg PO QAM #0 tabs 04/18/25 Rx qlkuuzyj-zkj-gmcrx acid 0.4 1 tab PO QAM #0 tabs 04/18/25 Rx mg-lycopene 300 mcg-lutein 250 mcg tablet (Cerovite Senior) pantoprazole 40 mg tablet,delayed 40 mg PO QAM #0 tabs 04/18/25 Rx release thiamine HCl (vitamin B1) 100 mg 100 mg PO QAM #0 tabs 04/18/25 Rx tablet Patient History Family History Other No significant family history Social History Smoking Status: Current every day smoker Tobacco Type: Cigarettes Cigarettes Per Day: 2 packs; Second Hand Exposure: No; Do You Dip or Chew Tobacco: No; Hx Alcohol Use: Yes Alcohol type: beer Hx Substance Use: Yes Last Used Substance: Hours (ago) Preferred Language: Thai Communication Ability: Impaired Visual Impairment: No Limitations Lubrication Technician Required: No Beliefs That Will Affect Care: None marital status: Single Current Living Situation: Parent Feels Safe at Home: Yes Assistive Devices: Crutches PG Care Time/CCT Total # of Minutes Spent Total Time Spent with Patient: Total time spent is greater than 50% in coordination of care (as documented) at patient's floor/unit and/or counseling patient: Coding Level of Care Code 92911 IN/OBS CONSULT LVL 3,45M Diagnoses Parotitis K11.20 Alcohol withdrawal delirium F10.931
== END 2025-04-18 14:22 | DRG 896 ==
LOC: ED 20:38 → SUATTDRO 04-01 01:46 → 4W 04-01 01:46 → 1E 04-01 09:49 → 3N 04-17 10:50